=== PATIENT | male | born 1990 | race Caucasian/White ===

== ENCOUNTER → 2020-03-31 11:36 | Outpatient (BNVA) | payer MEDICARE, SELFPAY | PROVIDERS: PCP Nurse Practitioner Family; Referring Provider Nurse Practitioner Family; Visit Provider Nurse Practitioner Gerontology | DX: E11.65 Type 2 diabetes mellitus with hyperglycemia (principal); E11.42 Type 2 diabetes mellitus with diabetic polyneuropathy; Z79.4 Long term (current) use of insulin; I10 Essential (primary) hypertension; E66.09 Other obesity due to excess calories; Z68.41 Body mass index [BMI] 40.0-44.9, adult; R11.0 Nausea | CPT/HCPCS: 82947; 99212 ==

== ENCOUNTER → 2020-05-16 09:39 | Outpatient (BNVA) | payer MEDICARE, SELFPAY | PROVIDERS: PCP Nurse Practitioner Family; Visit Provider Nurse Practitioner Gerontology | DX: Z13.89 Encounter for screening for other disorder (principal) | CPT/HCPCS: Q3014 ==

== ENCOUNTER → 2020-06-21 11:06 | Outpatient (BNVA) | payer MEDICARE, SELFPAY | PROVIDERS: PCP Nurse Practitioner Family; Visit Provider Dietitian, Registered ==

== ENCOUNTER 2020-07-10 20:57 | Emergency (ER) | payer MEDICARE, SELFPAY ==
--- NOTE | ~2020-07-10 | XR_ITS ---
EXAMINATION: XR HAND, RIGHT CLINICAL INFORMATION: Hand pain. Punched wall. COMPARISON: None TECHNIQUE: PA, lateral, and oblique views of the right hand. FINDINGS: There is no fracture or dislocation. Alignment is anatomic. Joint spaces are maintained. The soft tissues are unremarkable. XR/XR hand RT min 3V IMPRESSION: No fracture or malalignment.
[2020-07-10 21:25] VITALS: BP 151/93; PULSE 112; RESP 20; TEMP 36.6; O2SAT 97; BMI 38.1
--- NOTE | 2020-07-11 01:03 | ED.EXTPRO ---
HPI - Extremity Problem General Chief complaint: Extremity Injury, Upper Stated complaint: hand injury Time Seen by Provider: 07/10/20 23:46 Source: patient and other (Caregiver) Mode of arrival: ambulatory Limitations: other (Academic impairment) History of Present Illness HPI Narrative: 30-year-old male with past medical history of academic impairment, type 2 diabetes insulin-dependent, hypertension, hyperlipidemia, morbid obesity presents with pain to the right hand after punching a closet door and a metal safe. Patient states that he was angry and did not know what to do with his frustration. He says it is hard to move his hand but does not report any wrist pain, elbow pain, or shoulder pain. MD Complaint: extremity pain and extremity swelling Onset (ago): hour(s) (Within the hour of arrival) Pain Consistency: constant Location: right Severity scale (1-10): 6 Quality: aching Exacerbating factors: range of motion Associated symptoms: denies other symptoms Related Data Home Medications Medication Instructions Recorded Confirmed fluoxetine 20 mg capsule 20 mg PO DAILY 03/02/20 05/16/20 insulin aspart U-100 100 unit/mL 8 - 12 unit SUBCUT TID ml 03/31/20 05/16/20 (3 mL) subcutaneous pen polyethylene glycol 3350 17 g PO 03/31/20 05/16/20 gram/dose oral powder acetaminophen 325 mg tablet 325 mg PO tab 05/16/20 05/16/20 benztropine 0.5 mg tablet 0.5 mg PO DAILY 05/16/20 05/16/20 chlorpromazine 100 mg tablet 100 mg PO TID 05/16/20 05/16/20 clonazepam 1 mg tablet 1 mg PO DAILY 05/16/20 05/16/20 Previous Rx's Medication Instructions Recorded blood sugar diagnostic #10 ea 03/02/20 pen needle, diabetic 32 gauge x 1 ea MISCELLANEOUS TID 30 Days 03/07/20 #100 cap insulin glargine 100 unit/mL (3 28 unit SUBCUT DAILY 30 Days #15 ml 03/22/20 mL) subcutaneous pen atorvastatin 80 mg tablet 80 mg PO BEDTIME #30 tab 04/11/20 levothyroxine 125 mcg tablet 62.5 mcg PO QAM #14 tab 05/01/20 Riomet 500 mg/5 mL oral solution 1,000 mg PO BID 90 Days ml NS 05/18/20 multivitamin 1 tab PO BEDTIME #28 tab 05/19/20 epinephrine 0.3 mg/0.3 mL 0.3 mg IM ONCE PRN #2 ea 05/29/20 injection, auto-injector bismuth subsalicylate 262 mg/15 mL 524 mg PO Q1H PRN 30 Days #1200 ml 06/07/20 oral suspension calcium carbonate-vitamin D3 600 2 tab PO BEDTIME #56 tab 06/24/20 mg (1,500 mg)-800 unit tablet divalproex 500 mg tablet,delayed 1,500 mg PO BID 30 Days #90 tab 06/24/20 release lisinopril 5 mg tablet 5 mg PO QAM #28 tab 06/24/20 loratadine 10 mg tablet 10 mg PO BEDTIME #28 tab 06/24/20 blood sugar diagnostic 1 strip MISCELLANEOUS TID #50 strip 07/05/20 diclofenac sodium 75 mg 75 mg PO BID #60 tab 07/05/20 tablet,delayed release Allergies Allergy/AdvReac Type Severity Reaction Status Date / Time bee pollen [BEE STINGS] Allergy Unknown UNKNOWN Verified 05/16/20 10:55 carbamazepine [From TEGRETOL] Allergy Unknown UNKNOWN Verified 05/16/20 10:55 clindamycin [CLINDAMYCIN] Allergy Unknown UNKNOWN Verified 05/16/20 10:55 nortriptyline [Pamelor] Allergy Unknown Unknown Verified 05/16/20 10:55 risperidone [From RISPERDAL] Allergy Unknown UNKNOWN Verified 05/16/20 10:55 Sulfa (Sulfonamide Allergy Unknown UNKNOWN Verified 05/16/20 10:55 Antibiotics) [SULFA (SULFONAMIDE ANTIBIOTICS)] Sulfacet-R Allergy Unknown Unknown Verified 05/16/20 10:55 sulfamethoxazole Allergy Unknown UNKNOWN Verified 05/16/20 10:55 [From BACTRIM] trimethoprim [From BACTRIM] Allergy Unknown UNKNOWN Verified 05/16/20 10:55 lactose AdvReac Intermediate Diarrhea Verified 06/23/20 08:48 Review of Systems Review of Systems: Constitutional: No Fever, No Chills ENT/Mouth: No Ear Pain, No Hoarseness, No sore throat Eyes: No Eye Pain, No Swelling, No Redness, No Foreign Body Cardiovascular: No Chest Pain, No SOB Respiratory: No Cough, No Dyspnea Gastrointestinal: No Nausea, No Vomiting, No Diarrhea, No abdominal Pain Genitourinary: No Dysuria, No Hematuria Musculoskeletal: positive right hand pain, No Myalgias, No Joint Swelling Skin: No Skin lacerations, No rash Neuro: No Weakness, No Numbness, No Paresthesias, No Loss of Consciousness, No Dizziness, No Headache Psych: No Anxiety/Panic, No Depression Heme/Lymph: no easy bruising, no Lymphadenopathy Endocrine: No Polyuria, No Polydipsia Yes all other systems are reviewed and are negative [facility] [place] Past Medical History Attestation statement: The following information was validated with the patient. Medical History Diabetes Essential hypertension Gout Hyperlipidemia LDL goal <100 Kidney stones Obesity due to excess calories Seizure disorder Sinusitis nasal Type 2 diabetes mellitus with diabetic polyneuropathy Type 2 diabetes mellitus with hyperglycemia, with long-term current use of insulin Surgical History History of foot surgery History of spinal surgery History of surgery of head Family History Family History Father Medical history unknown Mother No problems noted. Family/Other FH: mental illness Social History Social History Advance Directives: No Advance Directives Information Provided: No Physical Exam Vital Signs: Vital Signs: Last Vital Signs Temp 97.8 F 07/10/20 21:25 Pulse 112 H 07/10/20 21:25 Resp 16 07/11/20 01:06 BP 151/93 H 07/10/20 21:25 Pulse Ox 98 07/11/20 01:06 Body Mass Index 38.1 Appearance: Alert. Oriented X3. No acute distress. Eyes: Pupils equal, round and reactive to light. ENT: Pharynx normal. Neck: Normal inspection. Neck supple. CVS: Normal heart rate and rhythm. Pulses normal. Respiratory: No respiratory distress. Breath sounds normal. Abdomen: Soft and nontender. Skin: Skin warm and dry. Normal skin color. Normal skin turgor. Extremities: No lower extremity edema. Full range of motion to all extremities, full range of motion to all digits brisk capillary refill to all fingers, no indication of tendon injury. Able to pronate, supinate, abduct and adduct without difficulty. Tenderness to palpation to the knuckles. No tenderness to the snuffbox. Neuro: No motor deficit. No sensory deficit. Course Course Course Narrative: 30-year-old male presents with injury to the right hand after punching a closet door and a small metal safe. Patient does have full range of motion, no indication of tendon injury, no bruising noted but there is a small amount of swelling to the MCP joints. Plan of care is for x-ray X-rays negative for acute findings. Plan of care is to discharge home with Tylenol, Motrin and ice as needed. Instructions given to caregiver, both caregiver and patient verbalized understanding of and agrees to plan of care discharge home. MDM - Extremity (Nontraumatic) MDM Narrative Medical decision making narrative: Contusion, dislocation, hand fracture Medical Records Attestation: I reviewed the patient's medical records. Imaging Data Right hand x-ray: Attestation: I personally reviewed and interpreted this imaging study as follows: Radiologist's impression: EXAMINATION: XR HAND, RIGHT CLINICAL INFORMATION: Hand pain. Punched wall. COMPARISON: None TECHNIQUE: PA, lateral, and oblique views of the right hand. FINDINGS: There is no fracture or dislocation. Alignment is anatomic. Joint spaces are maintained. The soft tissues are unremarkable. XR/XR hand RT min 3V IMPRESSION: No fracture or malalignment. Discharge Plan Discharge Clinical Impression: Contusion of hand Qualifiers: Encounter type: initial encounter Laterality: right Qualified Code(s): S60.221A - Contusion of right hand, initial encounter Patient Disposition: Home, Self-Care Instructions: Hematoma (ED) Additional Instructions: You were evaluated for injury sustained to your right hand after punching a wall. Please do not punch reyez. Maybe consider doing pushups or sit-ups to help with your frustrations. Your x-rays are negative for fracture. You may consider taking Tylenol and Motrin as needed for pain management. Thank you for choosing this emergency department for evaluation. Please follow-up with primary care physician as needed. Return to the emergency department for any new, concerning, or worsening symptoms. Prescriptions: No Action pen needle, diabetic [Easy Comfort Pen [place]] 32 gauge x 5/32 needle 1 ea miscellaneous TID 30 Days Qty: 100 RF: 8 Lantus Solostar U-100 Insulin 100 unit/mL (3 mL) insulin pen 28 unit subcut DAILY 30 Days Qty: 15 RF: 1 atorvastatin 80 mg tablet 80 mg PO BEDTIME Qty: 30 RF: 3 levothyroxine 125 mcg tablet 62.5 mcg PO QAM Qty: 14 RF: 3 metformin [Riomet] 500 mg/5 mL solution 1,000 mg PO BID 90 Days RF: 1 multivitamin Tablet 1 tab PO BEDTIME Qty: 28 RF: 0 epinephrine 0.3 mg/0.3 mL auto-injector 0.3 mg IM ONCE PRN (Reason: for allergies) Qty: 2 RF: 0 bismuth subsalicylate [Pepto-Bismol] 262 mg/15 mL suspension 524 mg PO Q1H PRN (Reason: diarrhea) 30 Days Qty: 1200 RF: 0 loratadine 10 mg tablet 10 mg PO BEDTIME Qty: 28 RF: 0 calcium carbonate-vitamin D3 600 mg(1,500mg) -800 unit tablet 2 tab PO BEDTIME Qty: 56 RF: 0 lisinopril 5 mg tablet 5 mg PO QAM Qty: 28 RF: 3 divalproex 500 mg tablet,delayed release (DR/EC) 1,500 mg PO BID 30 Days Qty: 90 RF: 3 diclofenac sodium 75 mg tablet,delayed release (DR/EC) 75 mg PO BID Qty: 60 RF: 0 FreeStyle Lite Strips Strip 1 strip miscellaneous TID Qty: 50 RF: 0 fluoxetine 20 mg capsule 20 mg PO DAILY RF: 0 (DME) Accutrend Glucose test strips Strip See Rx Instructions .ROUTE .MEDSUPPLY Qty: 10 RF: 0 polyethylene glycol 3350 17 gram/dose powder PO RF: 0 insulin aspart U-100 [Novolog Flexpen U-100 Insulin] 100 unit/mL (3 mL) insulin pen 8 - 12 unit subcut TID RF: 0 acetaminophen 325 mg tablet 325 mg PO RF: 0 chlorpromazine 100 mg tablet 100 mg PO TID RF: 0 benztropine 0.5 mg tablet 0.5 mg PO DAILY RF: 0 clonazepam 1 mg tablet 1 mg PO DAILY RF: 0 Interventions: ED Discharge Assessment Last Done: 07/11/20 01:17 Discharge Date/Time: 07/11/20 01:19
[2020-07-11 01:06] VITALS: RESP 16; O2SAT 98
== END 2020-07-11 01:19 | disposition home or self-care (01) ==
PROVIDERS: Emergency Provider Emergency Medicine; PCP Internal Medicine
DX: S60.221A Contusion of right hand, initial encounter (principal); W22.09XA Striking against other stationary object, initial encounter; E11.9 Type 2 diabetes mellitus without complications; I10 Essential (primary) hypertension; E78.5 Hyperlipidemia, unspecified; E66.01 Morbid (severe) obesity due to excess calories; Y93.89 Activity, other specified; Y92.009 Unspecified place in unspecified non-institutional (private) residence as the place of occurrence of the external cause; Y99.9 Unspecified external cause status; Z79.899 Other long term (current) drug therapy; Z79.4 Long term (current) use of insulin
CPT/HCPCS: 73130; 82947; 99212; 99284

== ENCOUNTER → 2020-08-22 13:02 | Outpatient (BNVA) | payer MEDICARE, SELFPAY | PROVIDERS: PCP Internal Medicine; Visit Provider Nurse Practitioner Gerontology | DX: E11.65 Type 2 diabetes mellitus with hyperglycemia (principal); E11.42 Type 2 diabetes mellitus with diabetic polyneuropathy; Z79.4 Long term (current) use of insulin; I10 Essential (primary) hypertension; E66.01 Morbid (severe) obesity due to excess calories; Z68.41 Body mass index [BMI] 40.0-44.9, adult | CPT/HCPCS: 82947; 99212 ==

== ENCOUNTER 2020-09-07 10:00 | Outpatient (REF) | payer MEDICARE, SELFPAY ==
[2020-09-07 10:48] LABS: MANUAL DIFF FLAG NO
[2020-09-07 10:53] LABS: Basophils Percent Auto 0.4 % (0-2); Eosinophils Absolute Auto 0.2 X10*3/uL (0.0-0.4); Eosinophils Percent Auto 2.9 % (0-4); Hematocrit 45.6 % (42-52); Hemoglobin 15.3 g/dl (14.0-18.0); Imm Gran Abs Auto 0.03 X10*3/uL (0.00-0.03); Imm Gran Pct Auto 0.4 % (0.0-0.4); Lymphocytes Absolute Auto 3.5 X10*3/uL (1.2-4.9); Lymphocytes Percent Auto 42.9 % (20-40); Mean Corpuscular HGB Conc 33.6 g/dl (31.0-36.0); Mean Corpuscular Volume 86.5 fL (80-98); Mean Platelet Volume 10.7 fL (9.4-12.4); Monocytes Absolute Auto 0.5 X10*3/uL (0.1-1.2); Monocytes Percent Auto 6.3 % (2-11); Neutrophils Absolute Auto 3.9 X10*3/uL (2.0-8.3); Neutrophils Percent Auto 47.1 % (45-73); Platelet Count 230 X10*3/uL (160-400); Red Blood Count 5.27 X10*6/uL (4.60-5.80); White Blood Count 8.2 X10*3/uL (4.8-10.8)
[2020-09-07 11:06] LABS: Estimated Average Glucose 154 mg/dL
[2020-09-07 11:16] LABS: Anion Gap 17 (12-20); Blood Urea Nitrogen 7 mg/dL (9-16); Calcium 9.5 mg/dL (8.4-10.2); Carbon Dioxide 23 mmol/L (22-29); Chloride 101 mmol/L (96-108); Cholesterol 226 mg/dL; Estimated Glomerular Filt Rate > 60; Glucose Fasting 175 mg/dL (60-99); HDL Cholesterol 26 mg/dL; LDL Cholesterol Calculated 136 mg/dl; Potassium 4.6 mmol/L (3.3-5.1); Sodium 136 mmol/L (135-145); Triglycerides 322 mg/dL
== END 2020-09-07 10:01 | disposition home or self-care (01) ==
LOC: HO.LAB 10:00
PROVIDERS: Visit Provider Nurse Practitioner Family
DX: E11.9 Type 2 diabetes mellitus without complications (principal)
CPT/HCPCS: 36415; 80048; 80061; 83036; 85025

== ENCOUNTER → 2020-11-01 13:34 | Outpatient (BNVA) | payer MEDICARE, SELFPAY | PROVIDERS: PCP Internal Medicine; Visit Provider Dietitian, Registered | DX: E11.65 Type 2 diabetes mellitus with hyperglycemia (principal); Z79.4 Long term (current) use of insulin | CPT/HCPCS: 97803 ==

== ENCOUNTER 2020-11-23 13:05 | Outpatient (REF) | payer MEDICARE, SELFPAY ==
[2020-11-24 15:31] LABS: Microalbum/Creatinine Ratio Ur 1183.2 ug/mg cr
== END 2020-11-23 13:06 | disposition home or self-care (01) ==
LOC: HO.LNP 13:05
PROVIDERS: PCP Internal Medicine; Visit Provider Nurse Practitioner Gerontology
DX: E11.65 Type 2 diabetes mellitus with hyperglycemia (principal); E11.42 Type 2 diabetes mellitus with diabetic polyneuropathy; I10 Essential (primary) hypertension; E66.01 Morbid (severe) obesity due to excess calories; Z68.41 Body mass index [BMI] 40.0-44.9, adult; R31.9 Hematuria, unspecified; E78.5 Hyperlipidemia, unspecified; Z79.4 Long term (current) use of insulin; Z71.3 Dietary counseling and surveillance
CPT/HCPCS: 82043; 82947; 99212

== ENCOUNTER → 2021-01-02 11:15 | Outpatient (BNVA) | payer MEDICARE, SELFPAY | PROVIDERS: PCP Internal Medicine | DX: N39.0 Urinary tract infection, site not specified (principal) | CPT/HCPCS: 99202 ==

== ENCOUNTER → 2021-01-26 12:53 | Outpatient (BNVA) | payer MEDICARE, SELFPAY | PROVIDERS: PCP Internal Medicine; Referring Provider Physician Assistant; Visit Provider Internal Medicine | DX: R00.0 Tachycardia, unspecified (principal); R06.02 Shortness of breath; E66.01 Morbid (severe) obesity due to excess calories; E11.8 Type 2 diabetes mellitus with unspecified complications; Z68.41 Body mass index [BMI] 40.0-44.9, adult | CPT/HCPCS: 93005; 99202 ==

== ENCOUNTER 2021-03-01 13:32 | Outpatient (REF) | payer OTHER, SELFPAY ==
--- NOTE | ~2021-03-01 | XR_ITS ---
EXAMINATION: XR ABDOMEN KUB CLINICAL INDICATION: Type 2 diabetes with unspecified complications. COMPARISON: None TECHNIQUE: AP views of the abdomen. FINDINGS: Nonobstructive bowel gas pattern. No radiopaque renal stone. No acute osseous abnormality. XR/XR KUB IMPRESSION: Unremarkable examination.
[2021-03-01 15:59] LABS: Creatinine Urine 155.76 mg/dL; Microalbum/Creatinine Ratio Ur 654.8 ug/mg cr
== END 2021-03-01 13:33 | disposition home or self-care (01) ==
LOC: HO.LAB 13:32
PROVIDERS: PCP Physician Assistant; Visit Provider Physician Assistant
DX: E11.8 Type 2 diabetes mellitus with unspecified complications (principal)
CPT/HCPCS: 74018; 82043

== ENCOUNTER → 2021-03-02 13:45 | Outpatient (BNVA) | payer OTHER, SELFPAY | PROVIDERS: PCP Internal Medicine; Visit Provider Dietitian, Registered | DX: E11.65 Type 2 diabetes mellitus with hyperglycemia (principal); E11.42 Type 2 diabetes mellitus with diabetic polyneuropathy; E78.5 Hyperlipidemia, unspecified; M10.9 Gout, unspecified; E66.01 Morbid (severe) obesity due to excess calories; Z68.39 Body mass index [BMI] 39.0-39.9, adult; Z88.2 Allergy status to sulfonamides; Z88.8 Allergy status to other drugs, medicaments and biological substances; Z91.030 Bee allergy status; Z91.011 Allergy to milk products; Z79.4 Long term (current) use of insulin; Z71.3 Dietary counseling and surveillance | CPT/HCPCS: 97803 ==

== ENCOUNTER 2021-03-18 14:34 | Emergency (ER) | payer OTHER, SELFPAY ==
--- NOTE | ~2021-03-18 | CT_ITS ---
EXAMINATION: CT ABDOMEN AND PELVIS WITHOUT CONTRAST CLINICAL INFORMATION: Hematuria, history of stone COMPARISON: Abdominal x-ray on 03/01/2021 TECHNIQUE: Multidetector volumetric imaging was performed from the superior aspect of the liver through the pubic symphysis. Sagittal and coronal reformatted images were obtained on the technologist's workstation. This CT examination was performed using dose optimization techniques as appropriate, variously including the following: *Automated exposure control *Adjustment of mA and/or kV according to patient size (this includes techniques or standardized protocols for targeted exams where dose is matched to indication/reason for exam; i.e. extremities or head) *Use of iterative reconstruction technique DLP: 1219 mGy-cm FINDINGS: LUNG BASES: The visualized lung bases are unremarkable. LIVER, GALLBLADDER, AND BILIARY TREE: The liver is normal in size, shape, and attenuation. No focal hepatic lesion or biliary ductal dilatation is present. The gallbladder is unremarkable with no evidence of radiopaque gallstones, gallbladder wall thickening, or obvious pericholecystic inflammatory changes. PANCREAS: Unremarkable. SPLEEN: Unremarkable. ADRENAL GLANDS: Unremarkable. KIDNEYS AND URETERS: The kidneys are normal in size, shape, and attenuation. No hydronephrosis, hydroureter, or calculi seen. No perinephric stranding. BLADDER: Unremarkable. GASTROINTESTINAL TRACT: The small and large bowel are unremarkable. The appendix is unremarkable. ABDOMINAL WALL: No significant hernia is appreciated. LYMPH NODES: Multiple small right lower quadrant mesenteric lymph nodes. VASCULAR: Unremarkable. PELVIC VISCERA: Unremarkable. OSSEOUS STRUCTURES: Unremarkable. CT/CT abdomen pelvis wo con IMPRESSION: 1. No renal calculi. 2. Multiple small right lower quadrant mesenteric lymph nodes may be secondary to mesenteric adenitis.
[2021-03-18 14:56] VITALS: BP 158/95; PULSE 112; RESP 20; TEMP 36.7; O2SAT 98; BMI 38.0
[2021-03-18 15:16] LABS: Appearance Urine CLOUDY; Color Urine YELLOW; Glucose Urine UA 500 MG/DL (NEG); Leukocyte Esterase Urine NEG (NEG); Nitrite Urine NEG (NEG); Specific Gravity - Urine >= 1.030 (1.005-1.025); Urine Blood 3+ (NEG); Urine Ketones 15 MG/DL (NEG); Urine Protein 3+ MG/DL (NEG-TRACE)
[2021-03-18 15:30] LABS: RBC Urine TNTC /HPF (0); Squamous Epithelial Cell Urine TRACE /LPF
[2021-03-18 15:31] LABS: Bacteria Urine TRACE /LPF; Mucus Urine 2+ /LPF
--- NOTE | 2021-03-18 18:07 | ED_ITS ---
HPI - Male Genitourinary General Chief complaint: Urogenital-Male Stated complaint: Kidney stones? Blood in urine Time Seen by Provider: 03/18/21 17:56 Related Data Home Medications Medication Instructions Recorded Confirmed fluoxetine 20 mg capsule 20 mg PO DAILY 03/02/20 03/01/21 benztropine 0.5 mg tablet 0.5 mg PO DAILY 05/16/20 03/01/21 clonazepam 1 mg tablet 1 mg PO DAILY 05/16/20 03/01/21 chlorpromazine 100 mg tablet 100 mg PO TID tab 11/16/20 03/01/21 Previous Rx's Medication Instructions Recorded blood sugar diagnostic (Accutrend #10 ea 03/02/20 Glucose test strips) naproxen 500 mg tablet 500 mg PO BID PRN #30 tab 07/13/20 albuterol sulfate 90 mcg/actuation 2 inh INHALATION Q4H PRN #8.5 g 08/12/20 aerosol inhaler (Ventolin HFA) polyethylene glycol 3350 17 1 g PO DAILY PRN #238 g 09/30/20 gram/dose oral powder lactase 9,000 unit tablet (Lactaid 9,000 unit PO QID PRN 30 Days #90 10/31/20 Fast Act) tab acetaminophen 325 mg tablet 325 mg PO Q4H PRN #100 tab 11/18/20 lancets 28 gauge (FreeStyle 28 gauge TOPICAL TID #100 cap 11/18/20 Lancets) bismuth subsalicylate 262 mg/15 mL 524 mg PO Q1H PRN 30 Days #1200 ml 11/21/20 oral suspension (Pepto-Bismol) insulin aspart U-100 100 unit/mL 10 - 16 unit SUBCUT TID 30 Days 11/23/20 (3 mL) subcutaneous pen (Novolog #15 ml Flexpen U-100 Insulin aspart) rosuvastatin 40 mg tablet (Crestor) 40 mg PO DAILY #30 tab 11/23/20 multivitamin 1 tab PO DAILY #90 tab 11/24/20 Riomet 500 mg/5 mL oral solution 1,000 mg PO BID 90 Days #1800 ml NS 12/07/20 (metformin) flash glucose scanning reader #1 ea 12/26/20 (FreeStyle Jaimie 2 [place]) calcium carbonate-vitamin D3 600 1 tab PO BEDTIME #90 tab 01/05/21 mg (1,500 mg)-800 unit tablet levothyroxine 125 mcg tablet 62.5 mcg PO QAM #90 tab 01/05/21 pantoprazole 40 mg tablet,delayed 40 mg PO DAILY #90 tab 01/05/21 release pen needle, diabetic 32 gauge x 1 ea MISCELLANEOUS TID 90 Days 01/08/21 5/32 (Easy Comfort Pen [place]) #400 ea flash glucose sensor (FreeStyle #2 ea 01/11/21 Jaimie 2 Sensor) blood sugar diagnostic (FreeStyle 1 strip MISCELLANEOUS DAILY #50 01/16/21 Lite Strips) strip epinephrine 0.3 mg/0.3 mL 0.3 mg IM ONCE PRN #2 ea 01/20/21 injection, auto-injector metoprolol succinate 25 mg 25 mg PO DAILY 30 Days #30 tab 02/01/21 tablet,extended release 24 hr lisinopril 5 mg tablet 5 mg PO QAM #90 tab 02/03/21 insulin glargine 100 unit/mL (3 30 unit SUBCUT DAILY 30 Days #9 ml 02/13/21 mL) subcutaneous pen (Lantus Solostar U-100 Insulin) loratadine 10 mg tablet 10 mg PO DAILY #30 tab 03/08/21 mupirocin calcium 2 % topical cream 1 appl TOPICAL BID 14 Days #30 g 03/08/21 loratadine 10 mg tablet 10 mg PO BEDTIME #28 tab 03/16/21 cefuroxime axetil 250 mg tablet 250 mg PO BID 7 Days #14 tab 03/18/21 phenazopyridine 200 mg tablet 200 mg PO TID PRN 2 Days #5 tab 03/18/21 (Pyridium) Allergies Allergy/AdvReac Type Severity Reaction Status Date / Time bee pollen [BEE STINGS] Allergy Unknown UNKNOWN Verified 03/08/21 16:10 carbamazepine [From TEGRETOL] Allergy Unknown UNKNOWN Verified 03/08/21 16:10 clindamycin [CLINDAMYCIN] Allergy Unknown UNKNOWN Verified 03/08/21 16:10 nortriptyline [Pamelor] Allergy Unknown Unknown Verified 03/08/21 16:10 risperidone [From RISPERDAL] Allergy Unknown UNKNOWN Verified 03/08/21 16:10 Sulfa (Sulfonamide Allergy Unknown UNKNOWN Verified 03/08/21 16:10 Antibiotics) [SULFA (SULFONAMIDE ANTIBIOTICS)] lactose AdvReac Intermediate Diarrhea Verified 03/08/21 16:10 [facility] Past Medical History Medical History Advance directive indicates patient wish for full code resuscitation status Diabetes Essential hypertension Gout Hyperlipidemia Hyperlipidemia LDL goal <100 Kidney stones Obesity due to excess calories Seizure disorder Sinusitis nasal Type 2 diabetes mellitus with diabetic polyneuropathy Type 2 diabetes mellitus with hyperglycemia, with long-term current use of insulin Surgical History History of foot surgery History of root canal procedure History of spinal surgery History of surgery of head Family History Family History Father Medical history unknown Lung cancer Mother Diabetes Substance abuse Family/Other FH: mental illness Social History Social History Household Members Other:: roomate Housing: Other Housing Other:: [facility] Do you presently have visiting nurse or other home services: Yes (assistance from dept of mental health services) Alcohol intake: never Patient Tobacco Use Status: Never used Tobacco e-Cigarette/Vaping Use: Never Used Second Hand Smoke Exposure: No Advance Directives: No Advance Directives Information Provided: No service: No Current occupational status: other Physical Exam Vital Signs: Vital Signs: Last Vital Signs Temp 98.1 F 03/18/21 14:56 Pulse 112 H 03/18/21 14:56 Resp 20 03/18/21 14:56 BP 158/95 H 03/18/21 14:56 Pulse Ox 98 03/18/21 14:56 Body Mass Index 38.0 Appearance: Alert. Oriented X3. No acute distress. Eyes: No pallor or icterus ENT: Pharynx normal. Oral Mucosa moist Neck: Normal inspection. Neck supple. CVS: Normal heart rate and rhythm. Pulses normal. Respiratory: No respiratory distress. Equal air entry bilateral, no wheezing/rales/rhonchi Abdomen: Soft and nontender. Bowel sounds are present, no mass palpable, no CVA tenderness Skin: Skin warm and dry. Normal skin color. Normal skin turgor. Extremities: No lower extremity edema. No calf tenderness Neuro: Oriented X 3. MDM - Male Genitourinary MDM Narrative Medical decision making narrative: Patient with hematuria at home when urine is cloudy when seen here similar history in the past possible patient has hemor rhagic cystitis will treat with Ceftin discharge him home CT scan is negative for kidney stone advised to follow with urologist as outpatient Lab Data Attestation: I reviewed the patient's lab results. Labs: Lab Results 03/18/21 03/18/21 Range/Units 15:06 18:43 POC Glucose 321 H (60-115) mg/dL Urine Color YELLOW Urine Appearance CLOUDY Urine pH 6.0 (5.0-8.0) Ur Specific [place] >= 1.030 H (1.005-1.025) Urine Protein 3+ H (NEG-TRACE) MG/DL Urine Glucose (UA) 500 H (NEG) MG/DL Urine Ketones 15 (NEG) MG/DL Urine Blood 3+ H (NEG) Urine Nitrite NEG (NEG) Ur Leukocyte Esterase NEG (NEG) Urine RBC TNTC H (0) /HPF Urine WBC 15-29 H (0-4) /HPF Ur Squamous Epith Cells TRACE /LPF Urine Bacteria TRACE /LPF Urine Mucus 2+ /LPF Discharge Plan Discharge Clinical Impression: Hematuria Qualifiers: Hematuria type: gross Qualified Code(s): R31.0 - Gross hematuria Patient Disposition: Home, Self-Care Instructions: Hematuria (ED) Additional Instructions: Your urine showed blood although there is no signs of infection will give antibiotic prophylactically until culture results come back Your CT scan did not show any kidney stone Follow the PCP/urologist if blood in urine continues Drink plenty of fluids and take insulin as prescribed Prescriptions: New cefuroxime axetil 250 mg tablet 250 mg PO BID 7 Days Qty: 14 RF: 0 phenazopyridine [Pyridium] 200 mg tablet 200 mg PO TID PRN (Reason: pain) 2 Days Qty: 5 RF: 0 No Action albuterol sulfate [Ventolin HFA] 90 mcg/actuation HFA aerosol inhaler 2 inh inhalation Q4H PRN (Reason: shortness of breath or wheezing) Qty: 8.5 RF: 1 polyethylene glycol 3350 17 gram/dose powder 1 g PO DAILY PRN (Reason: for constipation) Qty: 238 RF: 0 lancets [FreeStyle Lancets] 28 gauge misc 28 gauge topical TID Qty: 100 RF: 12 acetaminophen 325 mg tablet 325 mg PO Q4H PRN (Reason: for fever) Qty: 100 RF: 0 bismuth subsalicylate [Pepto-Bismol] 262 mg/15 mL suspension 524 mg PO Q1H PRN (Reason: diarrhea) 30 Days Qty: 1200 RF: 1 multivitamin Tablet 1 tab PO DAILY Qty: 90 RF: 3 metformin [Riomet] 500 mg/5 mL solution 1,000 mg PO BID 90 Days Qty: 1800 RF: 3 (DME) FreeStyle Jaimie 2 [place] Misc See Rx Instructions .ROUTE .MEDSUPPLY Qty: 1 RF: 0 levothyroxine 125 mcg tablet 62.5 mcg PO QAM Qty: 90 RF: 1 calcium carbonate-vitamin D3 600 mg(1,500mg) -800 unit tablet 1 tab PO BEDTIME Qty: 90 RF: 1 pantoprazole 40 mg tablet,delayed release (DR/EC) 40 mg PO DAILY Qty: 90 RF: 1 pen needle, diabetic [Easy Comfort Pen [place]] 32 gauge x 5/32 needle 1 ea miscellaneous TID 90 Days Qty: 400 RF: 4 (DME) FreeStyle Jaimie 2 Sensor Kit See Rx Instructions .ROUTE .MEDSUPPLY Qty: 2 RF: 11 FreeStyle Lite Strips Strip 1 strip miscellaneous DAILY Qty: 50 RF: 1 epinephrine 0.3 mg/0.3 mL auto-injector 0.3 mg IM ONCE PRN (Reason: for allergies) Qty: 2 RF: 0 metoprolol succinate 25 mg tablet extended release 24 hr 25 mg PO DAILY 30 Days Qty: 30 RF: 3 lisinopril 5 mg tablet 5 mg PO QAM Qty: 90 RF: 1 Lantus Solostar U-100 Insulin 100 unit/mL (3 mL) insulin pen 30 unit subcut DAILY 30 Days Qty: 9 RF: 2 loratadine 10 mg tablet 10 mg PO BEDTIME Qty: 28 RF: 3 Lactaid Fast Act 9,000 unit tablet 9,000 unit PO QID PRN (Reason: lactose intolerance) 30 Days Qty: 90 RF: 0 fluoxetine 20 mg capsule 20 mg PO DAILY RF: 0 (DME) Accutrend Glucose test strips Strip See Rx Instructions .ROUTE .MEDSUPPLY Qty: 10 RF: 0 naproxen 500 mg tablet 500 mg PO BID PRN (Reason: pain) Qty: 30 RF: 0 chlorpromazine 100 mg tablet 100 mg PO TID RF: 0 mupirocin calcium 2 % cream 1 appl topical BID 14 Days Qty: 30 RF: 0 loratadine 10 mg tablet 10 mg PO DAILY Qty: 30 RF: 0 benztropine 0.5 mg tablet 0.5 mg PO DAILY RF: 0 clonazepam 1 mg tablet 1 mg PO DAILY RF: 0 insulin aspart U-100 [Novolog Flexpen U-100 Insulin] 100 unit/mL (3 mL) insulin pen 10 - 16 unit subcut TID 30 Days Qty: 15 RF: 2 rosuvastatin [Crestor] 40 mg tablet 40 mg PO DAILY Qty: 30 RF: 6 Referrals: Chucky Abernathy MD [Physician] - 1 week
[2021-03-18 18:51] LABS: Glucose, Whole Blood 321 mg/dL (60-115)
[2021-03-18] MEDS: Phenazopyridine HCL 200 MG TABLET PO (19:25)
== END 2021-03-18 19:43 | disposition home or self-care (01) ==
PROVIDERS: Emergency Provider Internal Medicine
DX: R31.0 Gross hematuria (principal); R10.9 Unspecified abdominal pain; Z79.899 Other long term (current) drug therapy
CPT/HCPCS: 74176; 81001; 82947; 99284

== ENCOUNTER → 2021-03-21 12:06 | Outpatient (BNVA) | payer OTHER, SELFPAY | PROVIDERS: PCP Physician Assistant; Visit Provider Nurse Practitioner Gerontology | DX: E11.65 Type 2 diabetes mellitus with hyperglycemia (principal); E11.42 Type 2 diabetes mellitus with diabetic polyneuropathy; E66.01 Morbid (severe) obesity due to excess calories; E78.5 Hyperlipidemia, unspecified; I10 Essential (primary) hypertension; R80.9 Proteinuria, unspecified; Z79.4 Long term (current) use of insulin; Z68.36 Body mass index [BMI] 36.0-36.9, adult | CPT/HCPCS: 82947; 99212 ==

== ENCOUNTER → 2021-04-10 10:34 | Outpatient (REF) | payer OTHER, SELFPAY ==
--- NOTE | 2021-04-10 10:41 | HM_ITS ---
Conclusion: 1. Patient was monitored for total period of 4 days and 1 hour 2. Baseline was normal sinus rhythm with average heart rate of 96 beats per minute. 3. Frequent sinus tachycardia, with 35% of the time heart rate greater than 100 beats per minute 4. Rare ectopy 5. No patient reported events MTDD
--- NOTE | 2021-04-10 10:41 | CA_ITS ---
Transthoracic Echocardiogram Patient (Last, First, Middle): Tobias Francis, Gender: Male Date of : 1990 Age: 31 Procedure Date: 04/10/2021 Procedure Type: Transthoracic Echocardiogram Location: OP Height: 193.04 cm Weight: 133.81 kg BSA: 2.61 m2 Heart Rate: bpm BP: 145 / 100 mmHg Senior Energy Analyst: JEFF/HESHAM Referring MD: Senthil Ch MD Local Telephone Operator: Misael Larson MD Symptoms: R00.0 - Tachycardia, unspecified Study Quality: Technically Difficult ECG Rhythm: Sinus tachycardia Conclusions: - 1. Technically very limited study 2. Low normal LV systolic function with LVEF of 50-55% with normal diastolic filling pattern 3. Limited visualization of cardiac valves with cardiac valvular Doppler within normal limits Findings Procedure Information The patient declines contrast. Left Ventricle Normal left ventricular cavity size. There is normal left ventricular wall thickness. The left ventricular systolic function is low normal. The visually estimated ejection fraction is between 50-55%. Regional wall motion abnormalities can not be excluded due to suboptimal endocardial definition. Spectral Doppler is indicative of a normal filling pattern. Right Ventricle The right ventricle was not well visualized. Atria The left atrium was not well visualized. Interatrial shunt cannot be excluded. The right atrium was not well visualized. Aortic Valve The aortic valve was not well visualized. There is no aortic valve stenosis. There is no aortic valve regurgitation. Mitral Valve The mitral valve was not well visualized. There is trace mitral valve regurgitation. There is no mitral valve stenosis. Pulmonic Valve The pulmonic valve was not well visualized. Tricuspid Valve The tricuspid valve was not well visualized. Tricuspid regurgitation envelope is inadequate for calculation of right ventricular systolic pressure. Great Vessels The aorta was not well visualized. The pulmonary artery was not well visualized. Venous The inferior vena cava was not well visualized. Pericardium/Pleural The pericardium was not well visualized. Prior Study Comparison No prior study available for comparison. Measurements 2D Linear Measurements IVSd: 1.11 0.6-0.9/0.6-1.0 cm LVIDd: 5.16 3.9-5.3/4.2-5.9 cm LVIDd Index: 1.98 2.4-3.2/2.2-3.1 cm/m2 LVIDs: 3.83 2.0-3.6 cm LVPWd: 1.07 0.7-1.1 cm Ao Root: 3.30 2.1-3.5 cm LA Diam: 4.10 2.7-3.8/3.0-4.0 cm LAIDs Index: 1.57 1.5-2.3 cm/m2 LV Mass: 268.38 67-162/88-224 g LV Mass Index: 102.83 43-95/49-115 g/m2 LVOT Diam: 2.30 3.0+(-)1.3 cm Mitral Valve E'Lateral: 11.70 E'Medial: 7.51 Aortic Valve AoV Pk Octavio: 1.15 AoV Mn Octavio: 0.81 AoV VTI: 0.19 AoV Pk Grad: 5.00 Aov Mn Grad: 3.00 WES Cont.VTI: 3.26 LVOT LVOT Pk Octavio: 0.88 LVOT Mn Octavio: 0.65 LVOT VTI: 0.15 LVOT Pk Grad: 3.00 LVOT Mn Grad: 2.00 LVOT Diam: 2.30 LVOT Area: 4.15 Diastolic Function E'Medial: 7.51 E' Laterial: 11.70 Right Ventricle TAPSE (mm): 2.09 TVS' Octavio: 13.90 Tricuspid Valve RA Press: 3.00 Great Vessels Aorta Ao Root-2D: 3.30 2.0-3.7 cm Ao Asc: 3.20 2.1-3.4 cm Ao Arch: 2.60 Pulmonary Valve PV Pk Octavio: 1.38 Peak PV Grad: 8.00 Updated in Other Vendor System with Status of Final Misael Larson MD electronically signed on 04/10/2021 3:52:37 PM with status of Final
== END ==
LOC: HO.CARD 10:34
PROVIDERS: Visit Provider Internal Medicine
DX: R00.0 Tachycardia, unspecified (principal)
CPT/HCPCS: 93242; 93306

== ENCOUNTER → 2021-06-28 13:54 | Outpatient (BNVA) | payer OTHER, SELFPAY | PROVIDERS: PCP Physician Assistant; Visit Provider Dietitian, Registered | DX: E11.65 Type 2 diabetes mellitus with hyperglycemia (principal); Z79.4 Long term (current) use of insulin | CPT/HCPCS: 97803 ==

== ENCOUNTER 2021-07-03 16:06 | Outpatient (REF) | payer OTHER, SELFPAY ==
--- NOTE | ~2021-07-03 | XR_ITS ---
EXAMINATION: XR LUMBOSACRAL SPINE WITH OBLIQUES CLINICAL INFORMATION: Low back pain COMPARISON: None TECHNIQUE: AP, both oblique, and lateral views of the lumbar spine. Lateral view of the lumbosacral junction. FINDINGS: Bone alignment is normal. No fracture or dislocation is seen. There is spondylosis with osteophytes at L2-L3. There is degenerative disc disease at L4-L5. There is lower lumbar spine facet arthritis. No pars defect is seen. XR/XR lumbar spine 4V min IMPRESSION: Degenerative changes.
== END 2021-07-03 16:07 | disposition home or self-care (01) ==
LOC: HO.XRAY 16:06
PROVIDERS: PCP Physician Assistant; Visit Provider Physician Assistant
DX: M54.50 Low back pain, unspecified (principal)
CPT/HCPCS: 72110

== ENCOUNTER → 2021-07-17 13:59 | Outpatient (BNVA) | payer OTHER, SELFPAY | PROVIDERS: PCP Physician Assistant; Visit Provider Nurse Practitioner Gerontology | DX: E11.65 Type 2 diabetes mellitus with hyperglycemia (principal); E11.42 Type 2 diabetes mellitus with diabetic polyneuropathy; I10 Essential (primary) hypertension; E66.01 Morbid (severe) obesity due to excess calories; Z68.35 Body mass index [BMI] 35.0-35.9, adult; E78.2 Mixed hyperlipidemia; R80.9 Proteinuria, unspecified; Z79.4 Long term (current) use of insulin | CPT/HCPCS: 82947; 83036; 99212 ==

== ENCOUNTER 2021-08-24 11:00 | Outpatient (RCR) | payer OTHER, SELFPAY ==
[2021-08-02 13:09] VITALS: BP 128/65; PULSE 130
--- NOTE | 2021-08-02 14:19 | MHC.PT.EP ---
[facility] [place] Office [place] [facility] [place] Office [address] Ashkan Bryant [address] [phone] F: [phone] F: [phone] F: [phone] F: [phone] Physical Therapy Plan of Care Date of Evaluation: Date of Surgery: NA Diagnosis: Low back pain Assessment: Steve is a 31 year old male who is referred to PT for low back pain . Pt reports of having h/o chronic back pain- pain started following a surgery over 20 years ago. On PT examination he presents with 7/10 pain at thoraco-lumbar region, TTP from T9 to L2 junction and lumbar paraspinals, decreased lumbar ROM, decreased muscle strength, altered posture, balance and gait. Due to this he has difficulty performing IADLS like cleaning, cooking and grocery. He lives in [place]. He would benefit from skilled PT to address the aformentioned impairments and improve tolerance functional activities. Frequency and Duration: The patient will be seen 2/week for 5 weeks Short Term Goals: 1. Pt will have 50% decrease in pain which will help him tolerate sitting upright for 30 minutes in 2 weeks. 2. Pt will be able to move trunk through all planes of motion with a pain no more than 2/10 in 3 weeks Shelter Goals: 1. Pt will have an increase in muscle strength by 1 grade which will enable him to participate in cleaning, cooking and grocery in 4 weeks. 2. Pt will be independent with all HEPs for symptom management and maintenance following d/c in 5 weeks. Treatment Plan: Modalities to reduce pain, spasms and effusion. Manual therapy to restore motion and function. Therapeutic exercise to improve strength and flexibility. Neuromuscular re-education for posture and balance. Therapeutic activities to return to functional activities of daily living. Electronically signed by: Louann Monsivais PT DPT Please sign and return to therapist. Thank you for your referral.
--- NOTE | 2021-09-21 11:20 | MHC.PT.DC ---
[facility] [place] Office [place] Office [place] Office [address] Ashkan Bryant [address] [phone] F: [phone] F: [phone] F: [phone] F: [phone] Physical Therapy Discharge Report Diagnosis: Low back pain Date of Surgery: NA Date of Evaluation: 08/02/21 Date of Discharge: 09/21/21 Treatments to Date: 4 Cancellations to Date: 0 No Shows to Date: 4 Discharge Status: Visit Non-compliance Discharge Summary: Steve no showed for 4 appointments and attended only 4 visits. He is therefore being d/c from non compliance. Electronically signed by: Louann Monsivais PT DPT Please sign and return to therapist. Thank you for your referral.
== END 2021-09-21 11:20 | disposition home or self-care (01) ==
LOC: HO.PT 11:00
PROVIDERS: PCP Physician Assistant; Visit Provider Physician Assistant
DX: M54.50 Low back pain, unspecified (principal)
CPT/HCPCS: 97110; 97112; 97161

== ENCOUNTER 2021-09-12 11:19 | Outpatient (REF) | payer OTHER, SELFPAY ==
--- NOTE | ~2021-09-12 | XR_ITS ---
EXAMINATION: XR ABDOMEN COMPLETE CLINICAL INDICATION: Nonobstructive gastroenteritis. COMPARISON: Previous CT of the abdomen and pelvis and KUB February 2021. TECHNIQUE: 2 views of the abdomen. FINDINGS: The bowel gas pattern is normal with no evidence of ileus or obstruction. No unusual soft tissue calcifications are noted. The bones are unremarkable. XR/XR abdomen 3V IMPRESSION: Unremarkable examination.
[2021-09-12 12:02] LABS: Hematocrit 45.9 % (42.0-52.0); Hemoglobin 15.6 g/dl (14.0-18.0); Mean Corpuscular Hemoglobin 28.9 pg (27.0-33.0); Mean Platelet Volume 10.3 fL (9.4-12.4); Platelet Count 232 X10*3/uL (160-400); Red Cell Distribution Width 13.1 % (11.0-16.0); White Blood Count 7.1 X10*3/uL (4.8-10.8)
[2021-09-12 12:34] LABS: Alanine Aminotransferase 28 U/L (0-40); Albumin Level 4.5 g/dL (3.5-5.0); Alkaline Phosphatase 60 U/L (39-117); Anion Gap 18 (12-20); Aspartate Amino Transferase 26 U/L (5-37); Bilirubin Direct < 0.2 mg/dL (0.0-0.5); Bilirubin Total 0.3 mg/dL (0.0-1.0); Blood Urea Nitrogen 11 mg/dL (9-16); Calcium 9.7 mg/dL (8.4-10.2); Carbon Dioxide 23 mmol/L (22-29); Chloride 101 mmol/L (96-108); Estimated Glomerular Filt Rate > 60; Glucose Random 176 mg/dL (60-115); Potassium 4.6 mmol/L (3.3-5.1); Sodium 137 mmol/L (135-145); Total Protein 7.4 g/dL (6.5-8.0)
== END 2021-09-12 11:20 | disposition home or self-care (01) ==
LOC: HO.LAB 11:19
PROVIDERS: PCP Physician Assistant; Visit Provider Physician Assistant
DX: K52.9 Noninfective gastroenteritis and colitis, unspecified (principal)
CPT/HCPCS: 36415; 74021; 80048; 80076; 85027

== ENCOUNTER → 2021-10-10 13:58 | Outpatient (BNVA) | payer OTHER, SELFPAY | PROVIDERS: PCP Physician Assistant; Visit Provider Nurse Practitioner Gerontology | DX: E11.65 Type 2 diabetes mellitus with hyperglycemia (principal); E11.42 Type 2 diabetes mellitus with diabetic polyneuropathy; E66.01 Morbid (severe) obesity due to excess calories; E78.2 Mixed hyperlipidemia; I10 Essential (primary) hypertension; R80.9 Proteinuria, unspecified; Z68.35 Body mass index [BMI] 35.0-35.9, adult; Z79.84 Long term (current) use of oral hypoglycemic drugs; Z79.4 Long term (current) use of insulin | CPT/HCPCS: 82947; 83036; 99212 ==

== ENCOUNTER 2021-11-03 09:40 | Outpatient (REF) | payer OTHER, SELFPAY ==
[2021-11-03 10:57] LABS: Alanine Aminotransferase 35 U/L (0-40); Albumin Level 4.5 g/dL (3.5-5.0); Alkaline Phosphatase 54 U/L (39-117); Anion Gap 16 (12-20); Aspartate Amino Transferase 27 U/L (5-37); Bilirubin Total 0.4 mg/dL (0.0-1.0); Blood Urea Nitrogen 12 mg/dL (9-16); Calcium 9.6 mg/dL (8.4-10.2); Carbon Dioxide 26 mmol/L (22-29); Chloride 102 mmol/L (96-108); Cholesterol 173 mg/dL; Estimated Glomerular Filt Rate > 60; Glucose Random 170 mg/dL (60-115); HDL Cholesterol 23 mg/dL; Potassium 4.6 mmol/L (3.3-5.1); Sodium 139 mmol/L (135-145); Triglycerides 406 mg/dL
[2021-11-03 11:09] LABS: Creatinine Urine 78.84 mg/dL
[2021-11-05 17:35] LABS: LDL Cholesterol Direct 98 mg/dL (<100)
== END 2021-11-03 09:41 | disposition home or self-care (01) ==
LOC: HO.LAB 09:40
PROVIDERS: PCP Physician Assistant; Visit Provider Nurse Practitioner Gerontology
DX: E11.42 Type 2 diabetes mellitus with diabetic polyneuropathy (principal); Z79.4 Long term (current) use of insulin
CPT/HCPCS: 36415; 80053; 80061; 82043; 83721

== ENCOUNTER → 2021-12-26 13:49 | Outpatient (BNVA) | payer OTHER, SELFPAY | PROVIDERS: PCP Physician Assistant; Visit Provider Dietitian, Registered | DX: E11.65 Type 2 diabetes mellitus with hyperglycemia (principal); Z79.4 Long term (current) use of insulin; Z71.3 Dietary counseling and surveillance | CPT/HCPCS: 97803 ==

== ENCOUNTER 2022-01-28 14:07 | Emergency (ER) | payer OTHER, SELFPAY ==
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
[2022-01-28 14:33] VITALS: PULSE 85; RESP 18; TEMP 36.6; O2SAT 98; BMI 36.9
[2022-01-28 14:46] VITALS: BP 129/75; PULSE 96; RESP 18; TEMP 36.8; O2SAT 96
[2022-01-28 15:21] LABS: COVID-19 Test Negative (Negative)
[2022-01-28 15:22] LABS: Amphetamine Screen Urine Not Detected (Not Detect); Barbiturates, Urine Not Detected (Not Detect); Benzodiazepines Screen Urine Not Detected (Not Detect); Cannabinoid Screen Urine Not Detected (Not Detect); Cocaine Screen Urine Not Detected (Not Detect); Fentanyl, urine Not Detected (Not Detect); Opiate Screen Urine Not Detected (Not Detect); Phencyclidine Screen Urine Not Detected (Not Detect)
[2022-01-28 16:41] LABS: Glucose, Whole Blood 148 mg/dL (60-115)
[2022-01-28 17:27] LABS: MANUAL DIFF FLAG NO
[2022-01-28 17:28] LABS: Basophils Percent Auto 0.2 % (0-2); Eosinophils Absolute Auto 0.2 X10*3/uL (0.0-0.4); Eosinophils Percent Auto 2.2 % (0-4); Hematocrit 45.3 % (42.0-52.0); Hemoglobin 15.3 g/dl (14.0-18.0); Imm Gran Abs Auto 0.03 X10*3/uL (0.00-0.03); Imm Gran Pct Auto 0.3 % (0.0-0.4); Lymphocytes Absolute Auto 4.6 X10*3/uL (1.2-4.9); Lymphocytes Percent Auto 47.7 % (20-40); Mean Corpuscular HGB Conc 33.8 g/dl (31.0-36.0); Mean Corpuscular Hemoglobin 28.4 pg (27.0-33.0); Mean Platelet Volume 10.2 fL (9.4-12.4); Monocytes Absolute Auto 0.6 X10*3/uL (0.1-1.2); Monocytes Percent Auto 6.5 % (2-11); Neutrophils Absolute Auto 4.2 x10*3/uL (2.0-8.3); Neutrophils Percent Auto 43.1 % (45-73); Platelet Count 218 X10*3/uL (160-400); Red Blood Count 5.39 X10*6/uL (4.60-5.80); Red Cell Distribution Width 13.7 % (11.0-16.0); White Blood Count 9.7 X10*3/uL (4.8-10.8)
[2022-01-28 17:50] LABS: Acetaminophen LAB < 1 mcg/mL (<30); Alanine Aminotransferase 25 U/L (0-40); Albumin Level 4.6 g/dL (3.5-5.0); Alkaline Phosphatase 61 U/L (39-117); Anion Gap 20 (12-20); Aspartate Amino Transferase 18 U/L (5-37); Bilirubin Total 0.2 mg/dL (0.0-1.0); Blood Urea Nitrogen 11 mg/dL (9-16); Calcium 9.4 mg/dL (8.4-10.2); Carbon Dioxide 22 mmol/L (22-29); Chloride 102 mmol/L (96-108); Creatinine Clr Calc Pharmacy 197.1; Estimated Glomerular Filt Rate > 60; Ethanol < 10 mg/dL; Glucose Random 178 mg/dL (60-115); Potassium 4.4 mmol/L (3.3-5.1); Salicylate < 5.0 mg/dL (15-30); Sodium 140 mmol/L (135-145); Total Protein 7.3 g/dL (6.5-8.0)
[2022-01-28 17:54] LABS: Valproate 60.3 mcg/mL (50.0-100.0)
== END 2022-01-28 21:35 | disposition home or self-care (01) ==
PROVIDERS: Physician Assistant Medical; Emergency Provider Emergency Medicine; PCP Physician Assistant
DX: F41.1 Generalized anxiety disorder (principal); F43.0 Acute stress reaction; Z79.899 Other long term (current) drug therapy; Z20.822 Contact with and (suspected) exposure to COVID-19
CPT/HCPCS: 36415; 80053; 80143; 80164; 80179; 80307; 82077; 82947; 85025; 87635; 99283

== ENCOUNTER 2022-02-20 16:50 | Outpatient (REF) | payer OTHER, SELFPAY ==
--- NOTE | ~2022-02-20 | XR_ITS ---
EXAMINATION: XR ABDOMEN KUB CLINICAL INDICATION: Diarrhea COMPARISON: X-ray the abdomen August 2021 TECHNIQUE: AP view of the abdomen. FINDINGS: The bowel gas pattern is normal with no evidence of ileus or obstruction. No unusual soft tissue calcifications are noted. The bones are unremarkable. XR/XR KUB IMPRESSION: Unremarkable examination.
[2022-02-20 18:12] LABS: Anion Gap 17 (12-20); Blood Urea Nitrogen 11 mg/dL (9-16); Calcium 9.6 mg/dL (8.4-10.2); Carbon Dioxide 28 mmol/L (22-29); Chloride 98 mmol/L (96-108); Estimated Glomerular Filt Rate > 60; Glucose Random 125 mg/dL (60-115); Potassium 4.5 mmol/L (3.3-5.1); Sodium 138 mmol/L (135-145)
[2022-02-20 18:27] LABS: Hematocrit 45.4 % (42.0-52.0); Hemoglobin 15.2 g/dl (14.0-18.0); Mean Corpuscular HGB Conc 33.5 g/dl (31.0-36.0); Mean Corpuscular Hemoglobin 28.7 pg (27.0-33.0); Mean Corpuscular Volume 85.7 fL (80.0-98.0); Mean Platelet Volume 10.6 fL (9.4-12.4); Platelet Count 232 X10*3/uL (160-400); Red Cell Distribution Width 13.4 % (11.0-16.0); White Blood Count 7.4 X10*3/uL (4.8-10.8)
== END 2022-02-20 16:51 | disposition home or self-care (01) ==
LOC: HO.LAB 16:50
PROVIDERS: PCP Physician Assistant; Visit Provider Nurse Practitioner Family
DX: R19.7 Diarrhea, unspecified (principal)
CPT/HCPCS: 36415; 74018; 80048; 85027

== ENCOUNTER 2022-02-22 06:00 | Outpatient (REF) | payer OTHER, SELFPAY ==
[2022-02-26 15:00] LABS: CDiff Gene PCR NEGATIVE (Negative)
== END 2022-02-22 06:01 | disposition home or self-care (01) ==
LOC: HO.LNP 06:00
PROVIDERS: Visit Provider Nurse Practitioner Family
DX: R19.7 Diarrhea, unspecified (principal)
CPT/HCPCS: 87493

== ENCOUNTER 2022-03-27 14:00 | Emergency (ER) | payer OTHER, SELFPAY ==
[2022-03-27 15:45] VITALS: BP 111/81; PULSE 109; RESP 20; TEMP 36.4; O2SAT 97; BMI 27.0
--- NOTE | 2022-03-27 15:46 | ED_ITS ---
HPI - Abdominal Pain General Chief Complaint: General Medical Stated Complaint: GI bleed sent from Urgent care Time Seen by Provider: 03/27/22 15:45 Related Data Home Medications Medication Instructions Recorded Confirmed benztropine 0.5 mg tablet 0.5 mg PO BEDTIME 05/16/20 03/01/22 clonazepam 1 mg tablet 1 mg PO DAILY PRN Agitation 03/21/21 03/01/22 dapagliflozin 10 mg tablet 10 mg PO DAILY 06/05/21 03/01/22 ([facility]) lisinopril 20 mg tablet 20 mg PO DAILY 07/17/21 03/01/22 chlorpromazine 200 mg tablet 200 mg PO BID 07/21/21 03/01/22 fluoxetine 40 mg capsule 60 mg PO DAILY 07/21/21 03/01/22 melatonin 3 mg tablet 3 mg PO BEDTIME 07/21/21 03/01/22 divalproex 250 mg tablet,delayed 250 mg PO DAILY 01/28/22 03/01/22 release divalproex 500 mg tablet,delayed 1 tab PO DAILY 01/28/22 03/01/22 release divalproex 500 mg tablet,delayed 2 tab PO BEDTIME 01/28/22 03/01/22 release metformin 500 mg/5 mL oral solution 1,000 mg PO BIDWM 01/28/22 03/01/22 multivitamin 1 tab PO BEDTIME 01/28/22 03/01/22 insulin aspart U-100 100 unit/mL subcut 03/01/22 03/01/22 (3 mL) subcutaneous pen (Novolog Flexpen U-100 Insulin aspart) Previous Rx's Medication Instructions Recorded blood sugar diagnostic (Accutrend #10 ea 03/02/20 Glucose test strips) bismuth subsalicylate 262 mg/15 mL 524 mg (30 mL) PO Q1H PRN diarrhea 11/21/20 oral suspension (Pepto-Bismol) 30 days #1,200 mL epinephrine 0.3 mg/0.3 mL 0.3 mg (0.3 mL) IM ONCE PRN for 01/20/21 injection, auto-injector allergies #2 ea blood-glucose meter (FreeStyle #1 ea 05/09/21 Lite Meter kit) lancets 28 gauge (FreeStyle #100 ea 05/09/21 Lancets) levothyroxine 125 mcg tablet 62.5 mcg PO QAM #90 tabs 06/05/21 acetaminophen 325 mg tablet 325 mg PO Q4H PRN for fever, 06/21/21 muscle aches, pain 30 days #100 tabs glucose 4 gram chewable tablet 12 g PO Q15M PRN hypoglycemia #60 07/17/21 (Dex4 Glucose) tabs lactase 9,000 unit tablet (Lactaid 9,000 unit PO QID PRN lactose 09/12/21 Fast Act) intolerance 30 days #90 tabs baclofen 10 mg tablet 10 mg PO BID PRN back pain 90 days 10/25/21 #180 tabs calcium carbonate 600 mg-vitamin 1 tab PO BEDTIME #90 tabs 11/08/21 D3 20 mcg (800 unit) tablet pantoprazole 40 mg tablet,delayed 40 mg PO DAILY #90 tabs 11/08/21 release metoprolol succinate 25 mg 25 mg PO DAILY #28 tabs 12/06/21 tablet,extended release 24 hr rosuvastatin 40 mg tablet (Crestor) 40 mg PO DAILY 90 days #90 tabs 01/11/22 loratadine 10 mg tablet 10 mg PO BEDTIME #28 tabs 01/31/22 flash glucose scanning reader #1 ea 03/01/22 (FreeStyle Jaimie 2 [place]) flash glucose sensor (FreeStyle #2 ea 03/01/22 Jaimie 2 Sensor kit) Allergies Allergy/AdvReac Type Severity Reaction Status Date / Time bee pollen [BEE STINGS] Allergy Unknown UNKNOWN Verified 03/27/22 11:16 carbamazepine [From TEGRETOL] Allergy Unknown UNKNOWN Verified 03/27/22 11:16 clindamycin [CLINDAMYCIN] Allergy Unknown UNKNOWN Verified 03/27/22 11:16 nortriptyline [Pamelor] Allergy Unknown Unknown Verified 03/27/22 11:16 risperidone [From RISPERDAL] Allergy Unknown UNKNOWN Verified 03/27/22 11:16 Sulfa (Sulfonamide Allergy Unknown UNKNOWN Verified 03/27/22 11:16 Antibiotics) [SULFA (SULFONAMIDE ANTIBIOTICS)] lactose AdvReac Intermediate Diarrhea Verified 03/27/22 11:16 [facility] Past Medical History Medical History Advance directive indicates patient wish for full code resuscitation status Diabetes Essential hypertension Gout Hyperlipidemia Hyperlipidemia LDL goal <100 Kidney stones Obesity due to excess calories Proteinuria Seizure disorder Sinusitis nasal Type 2 diabetes mellitus with diabetic polyneuropathy Type 2 diabetes mellitus with hyperglycemia, with long-term current use of insulin Surgical History History of foot surgery History of root canal procedure History of spinal surgery History of surgery of head Family History Family History Father Medical history unknown Lung cancer Mother Diabetes Substance abuse Family/Other FH: mental illness Social History Social History Household Members Other:: roomate Housing: Other Housing Other:: [facility] Do you presently have visiting nurse or other home services: Yes (assistance from dept of mental health services) Alcohol intake: never Patient Tobacco Use Status: Never used Tobacco e-Cigarette/Vaping Use: Never Used Second Hand Smoke Exposure: No service: No Current occupational status: other Cognitive needs: No Hearing needs: No Vision needs: No Physical Exam ED Vital Signs: Vital Signs - 24 hr 03/27/22 15:45 Temperature 97.5 F Pulse Rate 109 H Respiratory Rate 20 Blood Pressure 111/81 Pulse Oximetry 97 Oxygen Delivery Method Room Air BMI result Body Mass Index 27.0 Course Reevaluation(s) Reevaluation #1: Patient briefly seen in the triage Patient mentally challenged complaining of diffuse abdominal pain for a month brown and green stool with nausea and vomiting off and on clinically patient not in distress Abdomen soft nontender Will do basic labs provider in main Ed will reevaluate the patient Time: 15:46 Discharge Plan Discharge Clinical Impression: Gastroenteritis Prescriptions: No Action bismuth subsalicylate [Pepto-Bismol] 262 mg/15 mL suspension 524 mg PO Q1H PRN (Reason: diarrhea) 30 Days Qty: 1200 1RF Rx Instructions: do not exceed 8 doses in a 24 hour period epinephrine 0.3 mg/0.3 mL auto-injector 0.3 mg IM ONCE PRN (Reason: for allergies) Qty: 2 0RF (DME) blood-glucose meter [FreeStyle Lite Meter] Kit See Rx Instructions .ROUTE .MEDSUPPLY Qty: 1 0RF Rx Instructions: As directed 3 times a day (DME) lancets [FreeStyle Lancets] 28 gauge misc See Rx Instructions .ROUTE .MEDSUPPLY Qty: 100 11RF Rx Instructions: Three times a day acetaminophen 325 mg tablet 325 mg PO Q4H PRN (Reason: for fever, muscle aches, pain ) 30 Days Qty: 100 1RF Rx Instructions: to take every 4 hours as needed for fever, muscle aches and pain, please call MD after 3 days if symptoms last. calcium carbonate-vitamin D3 600 mg-20 mcg (800 unit) tablet 1 tab PO BEDTIME Qty: 90 1RF pantoprazole 40 mg tablet,delayed release (DR/EC) 40 mg PO DAILY Qty: 90 1RF metoprolol succinate 25 mg tablet extended release 24 hr 25 mg PO DAILY Qty: 28 3RF rosuvastatin [Crestor] 40 mg tablet 40 mg PO DAILY 90 Days Qty: 90 3RF loratadine 10 mg tablet 10 mg PO BEDTIME Qty: 28 6RF divalproex 250 mg tablet,delayed release (DR/EC) 250 mg PO DAILY divalproex 500 mg tablet,delayed release (DR/EC) 1 tab PO DAILY divalproex 500 mg tablet,delayed release (DR/EC) 2 tab PO BEDTIME multivitamin Tablet 1 tab PO BEDTIME metformin 500 mg/5 mL solution 1,000 mg PO BIDWM (DME) Accutrend Glucose test strips Strip See Rx Instructions .ROUTE .MEDSUPPLY Qty: 10 0RF Rx Instructions: As directed Farxiga 10 mg tablet 10 mg PO DAILY levothyroxine 125 mcg tablet 62.5 mcg PO QAM Qty: 90 1RF insulin aspart U-100 [Novolog Flexpen U-100 Insulin] 100 unit/mL (3 mL) insulin pen subcut (DME) FreeStyle Jaimie 2 [place] Misc See Rx Instructions .ROUTE .MEDSUPPLY Qty: 1 0RF Rx Instructions: As directed (DME) FreeStyle Jaimie 2 Sensor Kit See Rx Instructions .ROUTE .MEDSUPPLY Qty: 2 6RF Rx Instructions: As directed every 2 weeks chlorpromazine 200 mg tablet 200 mg PO BID melatonin 3 mg tablet 3 mg PO BEDTIME fluoxetine 40 mg capsule 60 mg PO DAILY Lactaid Fast Act 9,000 unit tablet 9,000 unit PO QID PRN (Reason: lactose intolerance) 30 Days Qty: 90 0RF Rx Instructions: administer with meals and/or snacks baclofen 10 mg tablet 10 mg PO BID PRN (Reason: back pain) 90 Days Qty: 180 0RF benztropine 0.5 mg tablet 0.5 mg PO BEDTIME clonazepam 1 mg tablet 1 mg PO DAILY PRN (Reason: Agitation) lisinopril 20 mg tablet 20 mg PO DAILY glucose [Dex4 Glucose] 4 gram tablet,chewable 12 g PO Q15M PRN (Reason: hypoglycemia) Qty: 60 2RF Rx Instructions: until symptoms of low blood sugar are controlled
[2022-03-27 17:52] LABS: MANUAL DIFF FLAG NO
[2022-03-27 18:04] LABS: Basophils Percent Auto 0.2 % (0-2); Eosinophils Absolute Auto 0.2 X10*3/uL (0.0-0.4); Eosinophils Percent Auto 2.6 % (0-4); Hematocrit 48.3 % (42.0-52.0); Hemoglobin 15.9 g/dl (14.0-18.0); Imm Gran Abs Auto 0.03 X10*3/uL (0.00-0.03); Imm Gran Pct Auto 0.3 % (0.0-0.4); Lymphocytes Absolute Auto 4.9 X10*3/uL (1.2-4.9); Lymphocytes Percent Auto 54.7 % (20-40); Mean Corpuscular HGB Conc 32.9 g/dl (31.0-36.0); Mean Corpuscular Hemoglobin 28.3 pg (27.0-33.0); Mean Corpuscular Volume 85.9 fL (80.0-98.0); Mean Platelet Volume 10.2 fL (9.4-12.4); Monocytes Absolute Auto 0.7 X10*3/uL (0.1-1.2); Monocytes Percent Auto 8.1 % (2-11); Neutrophils Percent Auto 34.1 % (45-73); Platelet Count 235 X10*3/uL (160-400); Red Blood Count 5.62 X10*6/uL (4.60-5.80); Red Cell Distribution Width 13.6 % (11.0-16.0); White Blood Count 8.9 X10*3/uL (4.8-10.8)
[2022-03-27 18:13] LABS: Alanine Aminotransferase 27 U/L (0-40); Albumin Level 4.8 g/dL (3.5-5.0); Alkaline Phosphatase 62 U/L (39-117); Anion Gap 20 (12-20); Aspartate Amino Transferase 20 U/L (5-37); Bilirubin Total 0.2 mg/dL (0.0-1.0); Blood Urea Nitrogen 9 mg/dL (9-16); Calcium 9.7 mg/dL (8.4-10.2); Carbon Dioxide 22 mmol/L (22-29); Chloride 100 mmol/L (96-108); Creatinine Clr Calc Pharmacy 142.3; Estimated Glomerular Filt Rate > 60; Glucose Random 263 mg/dL (60-115); Lipase 39 U/L (8-78); Potassium 4.1 mmol/L (3.3-5.1); Sodium 138 mmol/L (135-145); Total Protein 7.4 g/dL (6.5-8.0)
--- NOTE | 2022-03-27 20:10 | ED_ITS ---
HPI - General Adult General Chief complaint: General Medical Stated complaint: GI bleed sent from Urgent care Time Seen by Provider: 03/27/22 15:45 History of Present Illness HPI narrative: Patient mentally challenged complaining of diffuse abdominal pain for a month brown and green stool with nausea and vomiting off and on patient looks comfortable no active abdominal pain no fever no chills+ Related Data Home Medications Medication Instructions Recorded Confirmed benztropine 0.5 mg tablet 0.5 mg PO BEDTIME 05/16/20 03/01/22 clonazepam 1 mg tablet 1 mg PO DAILY PRN Agitation 03/21/21 03/01/22 dapagliflozin 10 mg tablet 10 mg PO DAILY 06/05/21 03/01/22 ([facility]) lisinopril 20 mg tablet 20 mg PO DAILY 07/17/21 03/01/22 chlorpromazine 200 mg tablet 200 mg PO BID 07/21/21 03/01/22 fluoxetine 40 mg capsule 60 mg PO DAILY 07/21/21 03/01/22 melatonin 3 mg tablet 3 mg PO BEDTIME 07/21/21 03/01/22 divalproex 250 mg tablet,delayed 250 mg PO DAILY 01/28/22 03/01/22 release divalproex 500 mg tablet,delayed 1 tab PO DAILY 01/28/22 03/01/22 release divalproex 500 mg tablet,delayed 2 tab PO BEDTIME 01/28/22 03/01/22 release metformin 500 mg/5 mL oral solution 1,000 mg PO BIDWM 01/28/22 03/01/22 multivitamin 1 tab PO BEDTIME 01/28/22 03/01/22 insulin aspart U-100 100 unit/mL subcut 03/01/22 03/01/22 (3 mL) subcutaneous pen (Novolog Flexpen U-100 Insulin aspart) Previous Rx's Medication Instructions Recorded blood sugar diagnostic (Accutrend #10 ea 03/02/20 Glucose test strips) bismuth subsalicylate 262 mg/15 mL 524 mg (30 mL) PO Q1H PRN diarrhea 11/21/20 oral suspension (Pepto-Bismol) 30 days #1,200 mL epinephrine 0.3 mg/0.3 mL 0.3 mg (0.3 mL) IM ONCE PRN for 01/20/21 injection, auto-injector allergies #2 ea blood-glucose meter (FreeStyle #1 ea 05/09/21 Lite Meter kit) lancets 28 gauge (FreeStyle #100 ea 05/09/21 Lancets) levothyroxine 125 mcg tablet 62.5 mcg PO QAM #90 tabs 06/05/21 acetaminophen 325 mg tablet 325 mg PO Q4H PRN for fever, 06/21/21 muscle aches, pain 30 days #100 tabs glucose 4 gram chewable tablet 12 g PO Q15M PRN hypoglycemia #60 07/17/21 (Dex4 Glucose) tabs lactase 9,000 unit tablet (Lactaid 9,000 unit PO QID PRN lactose 09/12/21 Fast Act) intolerance 30 days #90 tabs baclofen 10 mg tablet 10 mg PO BID PRN back pain 90 days 10/25/21 #180 tabs calcium carbonate 600 mg-vitamin 1 tab PO BEDTIME #90 tabs 11/08/21 D3 20 mcg (800 unit) tablet pantoprazole 40 mg tablet,delayed 40 mg PO DAILY #90 tabs 11/08/21 release metoprolol succinate 25 mg 25 mg PO DAILY #28 tabs 12/06/21 tablet,extended release 24 hr rosuvastatin 40 mg tablet (Crestor) 40 mg PO DAILY 90 days #90 tabs 01/11/22 loratadine 10 mg tablet 10 mg PO BEDTIME #28 tabs 01/31/22 flash glucose scanning reader #1 ea 03/01/22 (FreeStyle Jaimie 2 [place]) flash glucose sensor (FreeStyle #2 ea 03/01/22 Jaimie 2 Sensor kit) Allergies Allergy/AdvReac Type Severity Reaction Status Date / Time bee pollen [BEE STINGS] Allergy Unknown UNKNOWN Verified 03/27/22 11:16 carbamazepine [From TEGRETOL] Allergy Unknown UNKNOWN Verified 03/27/22 11:16 clindamycin [CLINDAMYCIN] Allergy Unknown UNKNOWN Verified 03/27/22 11:16 nortriptyline [Pamelor] Allergy Unknown Unknown Verified 03/27/22 11:16 risperidone [From RISPERDAL] Allergy Unknown UNKNOWN Verified 03/27/22 11:16 Sulfa (Sulfonamide Allergy Unknown UNKNOWN Verified 03/27/22 11:16 Antibiotics) [SULFA (SULFONAMIDE ANTIBIOTICS)] lactose AdvReac Intermediate Diarrhea Verified 11/08/22 11:16 Review of Systems Review of Systems: Yes all other systems are reviewed and are negative [facility] Past Medical History Medical History Advance directive indicates patient wish for full code resuscitation status Diabetes Essential hypertension Gout Hyperlipidemia Hyperlipidemia LDL goal <100 Kidney stones Obesity due to excess calories Proteinuria Seizure disorder Sinusitis nasal Type 2 diabetes mellitus with diabetic polyneuropathy Type 2 diabetes mellitus with hyperglycemia, with long-term current use of insulin Surgical History History of foot surgery History of root canal procedure History of spinal surgery History of surgery of head Family History Family History Father Medical history unknown Lung cancer Mother Diabetes Substance abuse Family/Other FH: mental illness Social History Social History Household Members Other:: roomate Housing: Other Housing Other:: [facility] Do you presently have visiting nurse or other home services: Yes (assistance from dept of mental health services) Alcohol intake: never Patient Tobacco Use Status: Never used Tobacco e-Cigarette/Vaping Use: Never Used Second Hand Smoke Exposure: No service: No Current occupational status: other Cognitive needs: No Hearing needs: No Vision needs: No Physical Exam ED Vital Signs: Vital Signs - 24 hr 03/27/22 15:45 Temperature 97.5 F Pulse Rate 109 H Respiratory Rate 20 Blood Pressure 111/81 Pulse Oximetry 97 Oxygen Delivery Method Room Air BMI result Body Mass Index 27.0 Appearance: Alert. Mentally challenged. No acute distress. Eyes: PERRLA, ENT: Pharynx normal. Oral Mucosa moist Neck: Normal inspection. Neck supple. CVS: Normal heart rate and rhythm. Pulses normal. Respiratory: No respiratory distress. Equal air entry bilateral, no wh eezing/rales/rhonchi Abdomen: Soft and nontender. Bowel sounds are present, no mass palpable, no CVA tenderness Skin: Skin warm and dry. Normal skin color. Normal skin turgor. Extremities: No lower extremity edema. No calf tenderness Neuro: Oriented X 2 Medical Decision Making MDM Narrative Medical decision making narrative: Patient with stable labs stable H&H discharge patient home Lab Data Lab results reviewed: Yes I reviewed the patient's lab results. Result diagrams: 03/27/22 17:47 03/27/22 17:47 Labs: Lab Results 03/27/22 03/27/22 Range/Units 17:47 17:47 WBC 8.9 (4.8-10.8) X10*3/uL RBC 5.62 (4.60-5.80) X10*6/uL Hgb 15.9 (14.0-18.0) g/dl Hct 48.3 (42.0-52.0) % MCV 85.9 (80.0-98.0) fL MCH 28.3 (27.0-33.0) pg MCHC 32.9 (31.0-36.0) g/dl RDW 13.6 (11.0-16.0) % Plt Count 235 (160-400) X10*3/uL MPV 10.2 (9.4-12.4) fL Immature Gran % (Auto) 0.3 (0.0-0.4) % Neut % (Auto) 34.1 L (45-73) % Lymph % (Auto) 54.7 H (20-40) % [place] % (Auto) 8.1 (2-11) % Eos % (Auto) 2.6 (0-4) % Baso % (Auto) 0.2 (0-2) % Lymph # (Auto) 4.9 (1.2-4.9) X10*3/uL [place] # (Auto) 0.7 (0.1-1.2) X10*3/uL Eos # (Auto) 0.2 (0.0-0.4) X10*3/uL Baso # (Auto) 0.0 (0.0-0.2) X10*3/uL Abs Immat Gran (auto) 0.03 (0.00-0.03) X10*3/uL Absolute Neuts (auto) 3.0 (2.0-8.3) x10*3/uL Absolute Nucleated RBC 0.000 (0.0-0.012) X10*3/uL Nucleated RBC % (auto) 0.0 (0.0-0.2) /100WBC Sodium 138 (135-145) mmol/L Potassium 4.1 (3.3-5.1) mmol/L Chloride 100 (96-108) mmol/L Carbon Dioxide 22 (22-29) mmol/L Anion Gap 20 (12-20) BUN 9 (9-16) mg/dL Creatinine 0.85 (0.5-1.4) mg/dL Estim Creat Clear Calc 142.3 Estimated GFR > 60 Random Glucose 263 H D (60-115) mg/dL Calcium 9.7 (8.4-10.2) mg/dL Total Bilirubin 0.2 (0.0-1.0) mg/dL AST 20 (5-37) U/L ALT 27 (0-40) U/L Alkaline Phosphatase 62 (39-117) U/L Total Protein 7.4 (6.5-8.0) g/dL Albumin 4.8 (3.5-5.0) g/dL Lipase 39 (8-78) U/L Discharge Plan Discharge Clinical Impression: Gastroenteritis Prescriptions: No Action bismuth subsalicylate [Pepto-Bismol] 262 mg/15 mL suspension 524 mg PO Q1H PRN (Reason: diarrhea) 30 Days Qty: 1200 1RF Rx Instructions: do not exceed 8 doses in a 24 hour period epinephrine 0.3 mg/0.3 mL auto-injector 0.3 mg IM ONCE PRN (Reason: for allergies) Qty: 2 0RF (DME) blood-glucose meter [FreeStyle Lite Meter] Kit See Rx Instructions .ROUTE .MEDSUPPLY Qty: 1 0RF Rx Instructions: As directed 3 times a day (DME) lancets [FreeStyle Lancets] 28 gauge misc See Rx Instructions .ROUTE .MEDSUPPLY Qty: 100 11RF Rx Instructions: Three times a day acetaminophen 325 mg tablet 325 mg PO Q4H PRN (Reason: for fever, muscle aches, pain ) 30 Days Qty: 100 1RF Rx Instructions: to take every 4 hours as needed for fever, muscle aches and pain, please call MD after 3 days if symptoms last. calcium carbonate-vitamin D3 600 mg-20 mcg (800 unit) tablet 1 tab PO BEDTIME Qty: 90 1RF pantoprazole 40 mg tablet,delayed release (DR/EC) 40 mg PO DAILY Qty: 90 1RF metoprolol succinate 25 mg tablet extended release 24 hr 25 mg PO DAILY Qty: 28 3RF rosuvastatin [Crestor] 40 mg tablet 40 mg PO DAILY 90 Days Qty: 90 3RF loratadine 10 mg tablet 10 mg PO BEDTIME Qty: 28 6RF divalproex 250 mg tablet,delayed release (DR/EC) 250 mg PO DAILY divalproex 500 mg tablet,delayed release (DR/EC) 1 tab PO DAILY divalproex 500 mg tablet,delayed release (DR/EC) 2 tab PO BEDTIME multivitamin Tablet 1 tab PO BEDTIME metformin 500 mg/5 mL solution 1,000 mg PO BIDWM (DME) Accutrend Glucose test strips Strip See Rx Instructions .ROUTE .MEDSUPPLY Qty: 10 0RF Rx Instructions: As directed Farxiga 10 mg tablet 10 mg PO DAILY levothyroxine 125 mcg tablet 62.5 mcg PO QAM Qty: 90 1RF insulin aspart U-100 [Novolog Flexpen U-100 Insulin] 100 unit/mL (3 mL) insulin pen subcut (DME) FreeStyle Jaimie 2 [place] Misc See Rx Instructions .ROUTE .MEDSUPPLY Qty: 1 0RF Rx Instructions: As directed (DME) FreeStyle Jaimie 2 Sensor Kit See Rx Instructions .ROUTE .MEDSUPPLY Qty: 2 6RF Rx Instructions: As directed every 2 weeks chlorpromazine 200 mg tablet 200 mg PO BID melatonin 3 mg tablet 3 mg PO BEDTIME fluoxetine 40 mg capsule 60 mg PO DAILY Lactaid Fast Act 9,000 unit tablet 9,000 unit PO QID PRN (Reason: lactose intolerance) 30 Days Qty: 90 0RF Rx Instructions: administer with meals and/or snacks baclofen 10 mg tablet 10 mg PO BID PRN (Reason: back pain) 90 Days Qty: 180 0RF benztropine 0.5 mg tablet 0.5 mg PO BEDTIME clonazepam 1 mg tablet 1 mg PO DAILY PRN (Reason: Agitation) lisinopril 20 mg tablet 20 mg PO DAILY glucose [Dex4 Glucose] 4 gram tablet,chewable 12 g PO Q15M PRN (Reason: hypoglycemia) Qty: 60 2RF Rx Instructions: until symptoms of low blood sugar are controlled
== END 2022-03-27 21:05 | disposition home or self-care (01) ==
PROVIDERS: Emergency Provider Internal Medicine; PCP Physician Assistant
DX: K52.9 Noninfective gastroenteritis and colitis, unspecified (principal); E11.9 Type 2 diabetes mellitus without complications; I10 Essential (primary) hypertension; E78.5 Hyperlipidemia, unspecified; Z79.02 Long term (current) use of antithrombotics/antiplatelets; Z79.899 Other long term (current) drug therapy; Z79.4 Long term (current) use of insulin
CPT/HCPCS: 36415; 80053; 83690; 85025; 99282; 99283

== ENCOUNTER 2022-06-07 13:59 | Outpatient (REF) | payer OTHER, SELFPAY ==
--- NOTE | ~2022-06-07 | XR_ITS ---
EXAMINATION: XR SHOULDER, LEFT CLINICAL INFORMATION: M25.512 - Pain in left shoulder COMPARISON: Chest radiograph 11 10/13/2019 TECHNIQUE: Left shoulder is imaged in 4 views. FINDINGS: There is linear calcification in region of distal superior rotator cuff. No fracture, dislocation, destructive process, or arthropathy. The acromioclavicular alignment is normal. XR/XR shoulder LT min 2V IMPRESSION: 1. Calcific tendinosis in region of distal superior rotator cuff. 2. No bony abnormality.
== END 2022-06-07 14:00 | disposition home or self-care (01) ==
LOC: HO.XRAY 13:59
PROVIDERS: PCP Physician Assistant; Visit Provider Nurse Practitioner Family
DX: M25.512 Pain in left shoulder (principal)
CPT/HCPCS: 73030

== ENCOUNTER → 2022-06-28 13:38 | Outpatient (BNVA) | payer OTHER, SELFPAY | PROVIDERS: PCP Physician Assistant; Visit Provider Dietitian, Registered | DX: E11.65 Type 2 diabetes mellitus with hyperglycemia (principal); E11.40 Type 2 diabetes mellitus with diabetic neuropathy, unspecified; E11.42 Type 2 diabetes mellitus with diabetic polyneuropathy; E66.09 Other obesity due to excess calories; Z68.38 Body mass index [BMI] 38.0-38.9, adult; Z79.4 Long term (current) use of insulin | CPT/HCPCS: 97803 ==

== ENCOUNTER 2023-01-18 10:58 | Outpatient (AMB) | payer OTHER, SELFPAY ==
[2023-01-18 11:00] VITALS: BP 118/82; PULSE 112; O2SAT 97; BMI 38.5
--- NOTE | 2023-01-18 11:00 | MHC.PC.OV ---
Vital Signs 01/18/23 11:00 Height 6 ft 1 in Weight 292 lb BMI 38.5 BP 118/82 Blood Pressure Location Lt brachial Position Sitting Pulse 112 H Pulse Source Pulse Oximeter Temp Source Skin Pulse Oximetry (%) 97 Oxygen Delivery Method Room Air Intake Visit Reasons: Annual PE Intake Note: Patient is here today for a physical. Artificial Teeth Inspector Required: No Allergies bee pollen [BEE STINGS] Allergy (Unknown, Verified 01/18/23 11:13) UNKNOWN carbamazepine [From TEGRETOL] Allergy (Unknown, Verified 01/18/23 11:13) UNKNOWN clindamycin [CLINDAMYCIN] Allergy (Unknown, Verified 01/18/23 11:13) UNKNOWN nortriptyline [Pamelor] Allergy (Unknown, Verified 01/18/23 11:13) Unknown risperidone [From RISPERDAL] Allergy (Unknown, Verified 01/18/23 11:13) UNKNOWN Sulfa (Sulfonamide Antibiotics) [SULFA (SULFONAMIDE ANTIBIOTICS)] Allergy (Unknown, Verified 01/18/23 11:13) UNKNOWN lactose Adverse Reaction (Intermediate, Verified 01/18/23 11:13) Diarrhea Medication List - Last Reconciled 01/18/23 by REZA Moore acetaminophen 325 mg PO Q4H PRN 30 days albuterol sulfate 90 mcg/actuation 1 inh inhalation QID PRN 30 days baclofen 10 mg PO BID PRN 90 days benzonatate 200 mg PO TID 5 days benztropine 0.5 mg PO BEDTIME bismuth subsalicylate (Pepto-Bismol) 524 mg (30 mL) PO Q1H PRN 30 days blood sugar diagnostic (Accu-Chek Guide test strips) As directed blood sugar diagnostic (Accutrend Glucose test strips) check the blood sugar 3 times a day blood-glucose meter (FreeStyle Lite Meter kit) As directed 3 times a day calcium carbonate-vitamin D3 600 mg-20 mcg (800 unit) 1 tab PO BEDTIME chlorpromazine 200 mg PO BID clonazepam 1 mg PO DAILY PRN dapagliflozin propanediol (Farxiga) 10 mg PO DAILY dextromethorphan-guaifenesin 5-50 mg/5 mL (Robitussin Cough-Chest Congestion DM) 20 mL PO Q4-6H PRN divalproex 250 mg PO DAILY divalproex 1 tab PO DAILY divalproex 2 tabs PO BEDTIME epinephrine 0.3 mg (0.3 mL) IM ONCE PRN flash glucose scanning reader (FreeStyle Jaimie 2 [place]) As directed flash glucose sensor (FreeStyle Jaimie 2 Sensor kit) As directed every 2 weeks fluoxetine 60 mg PO DAILY glucose (Dex4 Glucose) 12 grams (3 x 4 gram) PO Q15M PRN insulin aspart U-100 (Novolog FlexPen U-100 Insulin aspart) 6 - 8 units (0.06 - 0.08 mL) subcut TIDWMEAL insulin glargine (Lantus Solostar U-100 Insulin) 20 units (0.2 mL) subcut QPM lactase (Lactaid Fast Act) 9,000 units PO QID PRN 30 days lancets (FreeStyle Lancets) Three times a day levothyroxine 62.5 mcg (1/2 x 125 mcg) PO QAM lisinopril 20 mg PO DAILY loratadine 10 mg PO BEDTIME melatonin 3 mg PO BEDTIME metformin 1,000 mg (10 mL) PO BIDWM metoprolol succinate ER 25 mg PO DAILY multivitamin 1 tab PO BEDTIME mupirocin 2% 1 appl topical BID 10 days pantoprazole 40 mg PO DAILY pen needle, diabetic (BD Ultra-Fine Cally Pen Needle) Use 4 x a day rosuvastatin (Crestor) 40 mg PO DAILY 90 days semaglutide (Ozempic) 0.25 mg (0.2 mL) subcut QWEEK Tobacco use date assessed: 01/18/23 Dental Screening Dental Screen Date: 01/18/23 Did you have a dental visit in the last 12 months?: Yes Did you have a dental problem in the last 6 months where you did not have access to dental care?: No Was dental information given to patient?: Patient has dentist HPI Annual PE HPI Details Patient is a 32-year-old male presents today for physical exam. Patient of JAIME Mcclure. patient lives in a residential home, and today his accompanied by a worker. Medical history significant for diabetes, obesity-will follow-up on forest products gatherer referral, back pain, tachycardia, hyperlipidemia, hypothyroidism, hypertension, asthma. Patient also reports that he is followed by psychiatrist and therapist for his mental conditions. Up-to-date with tetanus vaccine. Patient was encouraged to complete his blood work that was ordered by his PCP. Diabetes is followed by endocrinology. Diabetic eye exam 12/2022. Patient reports he has chronic low back pain he reports that he had a fall this morning in shower, reports hitting his left hip, although pain in left lower back that goes down to his left ankle area. Did not take anything for pain. Reports that workers will get shower rug for him. Denies shortness of breath or chest pain. No other concerns. [facility] Medical History Advance directive indicates patient wish for full code resuscitation status Diabetes Essential hypertension Gout Hyperlipidemia Hyperlipidemia LDL goal <100 Kidney stones Obesity due to excess calories Proteinuria Seizure disorder Sinusitis nasal Type 2 diabetes mellitus with diabetic polyneuropathy Type 2 diabetes mellitus with hyperglycemia, with long-term current use of insulin Surgical History History of foot surgery History of root canal procedure History of spinal surgery History of surgery of head Family History Father Medical history unknown Lung cancer Mother Diabetes Substance abuse Family/Other FH: mental illness Social History Household Members Other:: roomate Housing: Other Housing Other:: [facility] Do you presently have visiting nurse or other home services: Yes (assistance from dept of mental health services) Alcohol intake: never Patient Tobacco Use Status: Never used Tobacco e-Cigarette/Vaping Use: Never Used Second Hand Smoke Exposure: No service: No Current occupational status: other Cognitive needs: No Hearing needs: No Vision needs: No Questionnaire PHQ-9 Over the last 2 weeks, how often have you been bothered by any of the following problems? 1. Little interest or pleasure in doing things: nearly every day 2. Feeling down, depressed, or hopeless: nearly every day 3. Trouble falling or staying asleep, or sleeping too much: not at all 4. Feeling tired or having little energy: not at all 5. Poor appetite or overeating: not at all 6. Feeling bad about yourself - or that you are a failure or have let yourself or your family down: not at all 7. Trouble concentrating on things, such as reading the newspaper or watching television: not at all 8. Moving or speaking so slowly that other people could have noticed. Or the opposite - being so fidgety or restless that you have been moving around a lot more than usual: not at all 9. Thoughts that you would be better off or of hurting yourself in some way: not at all Total score: 6 Depression Screening Interpretation: Negative 22441 - PHQ-9 Billing: Yes Source: Developed by Drs. Raymond Reyes, Padma Garcia, Gregory Zazueta and colleagues, with an educational from [employer]. Thrive Questionnaire Date Thrive assessed: 06/07/22 AUDIT C Alcohol Use Questionnaire (AUDIT-C) 1. How often do you have a drink containing alcohol?: Never 2. How many drinks containing alcohol do you have on a typical day when you are drinking?: 1 or 2 (0) 3. How often do you have six or more drinks on one occasion?: Never Total Score: 0 Score Reviewed/Action Taken: No LIZBETH-7 AMB Questionnaire LIZBETH-7 Date LIZBETH - 7 assessed: 01/18/23 Feeling nervous, anxious, or on edge: 0 = Not at all Not being able to stop or control worryin = Not at all Worrying too much about different things: 0 = Not at all Trouble relaxin = Not at all Being so restless that it is hard to sit still: 0 = Not at all Becoming easily annoyed or irritable: 0 = Not at all Feeling afraid as if something awful might happen: 0 = Not at all Total LIZBETH-7 score (0-4 normal; 5-9 mild; 10-14 moderate; 15-21 severe): 0 Source: Developed by Drs. Raymond Reyes, Padma Garcia, Gregory Zazueta and colleagues, with an educational from [employer]. LIZBETH-7 Assessment Billing LIZBETH-7 Assessment Tool: LIZBETH-7 Assessment 36791 Review of Systems Const Denies body aches, Denies chills, Denies fever(s) and Denies headache(s) Eyes Denies change in vision ENT Denies dizziness, Denies otalgia, Denies headache(s), Denies nasal discharge, Denies sinus pain and Denies sore throat Card Denies chest pain, Denies edema, Denies lightheadedness and Denies dyspnea Resp Denies cough, Denies dyspnea and Denies wheezing GI Denies abdominal pain Denies dysuria Musc Reports back pain and Denies myalgias Skin/Breast Denies rash Neuro Denies dizziness and Denies headache(s) Aller/Immun Denies wheezing Physical exam (Primary Care) Vital Signs: Last Vital Signs Pulse 112 H 01/18/23 11:00 BP 118/82 01/18/23 11:00 Pulse Ox 97 01/18/23 11:00 Oxygen Delivery Method Room Air 01/18/23 11:00 BMI result Body Mass Index 38.5 Tobacco/Smoking Status: Tobacco use Status Tobacco use date assessed 01/18/23 01/18/23 11:11 Patient Tobacco Use Status Never used Tobacco 01/18/23 11:02 e-Cigarette/Vaping Use Never Used 01/18/23 11:02 PHQ-9: PHQ-9 Score PHQ-9: Total score 6 01/18/23 11:17 Depression Screening Interpretation: Negative Thrive Assessment: Date of Thrive Assessment Date Thrive assessed 06/07/22 01/18/23 11:02 Const General: cooperative and no acute distress Orientation/consciousness: patient oriented x3 HENMT Head: Yes normocephalic and Yes atraumatic Ears: TM's normal bilaterally Face and sinus: Yes sinuses nontender Mouth: oropharynx normal and moist mucous membranes Throat: Yes posterior oropharynx normal Eyes General: appearance normal, both eyes and all related structures Pupils: Equal, round and reactive pupils present EOM: EOMs intact bilaterally Neck Neck: Yes normal visual inspection, Yes full ROM and Yes no lymphadenopathy Thyroid: Thyroid normal Resp Effort & Inspection: normal respiratory effort and able to speak in complete sentences Auscultation: clear to auscultation bilaterally, no crackles, no rales, no rhonchi and no wheezes Cardio Rate: regular rate Rhythm: regular rhythm Heart sounds: S1 normal heart sound present, S2 normal heart sound present and no murmurs GI Palpation (GI): Soft to palpation, not firm, nontender, no guarding, not rigid and no hepatosplenomegaly Auscultation: normal bowel sounds General: No CVA tenderness Back/Spine/Pelvis Back: No CVA tenderness Thoracic/Lumbar Spine: thoracic and lumbar spine normal to inspection, paraspinal muscle tenderness (Left lumbar aspect), No thoracic spinal tenderness and No lumbar spinal tenderness Skin General skin exam: no rashes or lesions noted Neuro General: patient oriented x3 Cranial nerves: Yes Equal, round and reactive pupils present Gait exam (Neuro): Normal gait present Extrem Other: Left hip normal to inspection, no ecchymosis, no erythema, nontender, full range of motion General: Yes full ROM and No edema Results AMB Hemoglobin A1c AMB Hemoglobin A1c 8.2 % Last Edit by DNAIEL Whaley on 01/18/23 11:18 Results Reviewed Results Reviewed: Laboratory Last Values Hgb A1c (Clinic) 8.2 % (4.0-6.0) H 01/18/23 11:02 Assessment and Plan Assessment & Plan (1) Low back pain: Code(s): M54.50 - Low back pain, unspecified Plan: Suspect musculoskeletal in origin Patient will think about physical therapy, declined referral at this time Continue Tylenol p.r.n., continue baclofen p.r.n. Start diclofenac cream p.r.n., started lidocaine patch daily p.r.n. Heat/cold packs p.r.n. (2) Asthma: Code(s): J45.909 - Unspecified asthma, uncomplicated Plan: Stable Continue albuterol inhaler p.r.n. (3) Hypertension: Code(s): I10 - Essential (primary) hypertension Qualifiers: Hypertension type: primary hypertension Qualified Code(s): I10 - Essential (primary) hypertension Plan: Goal BP equal or less than 140/90 Continue current treatment Low-sodium diet and weight loss (4) Hypothyroidism: Code(s): E03.9 - Hypothyroidism, unspecified Qualifiers: Hypothyroidism type: acquired Qualified Code(s): E03.9 - Hypothyroidism, unspecified Plan: Continue levothyroxine Patient was encouraged to complete his blood work (5) Obese: Code(s): E66.9 - Obesity, unspecified Qualifiers: Obesity type: due to excess calories Obesity classification: adult class 2 (BMI 35 - 39.9) Serious obesity comorbidity presence: with serious comorbidity Body mass index: BMI 38.0-38.9 Qualified Code(s): E66.01 - Morbid (severe) obesity due to excess calories; Z68.38 - Body mass index [BMI] 38.0-38.9, adult Plan: Encouraged healthy food choices and exercise as tolerated Will follow-up on forest products gatherer referral (6) Hyperlipidemia: Code(s): E78.5 - Hyperlipidemia, unspecified Qualifiers: Hyperlipidemia type: mixed hyperlipidemia Qualified Code(s): E78.2 - Mixed hyperlipidemia Plan: Continue rosuvastatin Low-cholesterol diet (7) Annual physical exam: Code(s): Z00.00 - Encounter for general adult medical examination without abnormal findings (8) Type 2 diabetes mellitus with hyperglycemia, with long-term current use of insulin: Code(s): E11.65 - Type 2 diabetes mellitus with hyperglycemia; Z79.4 - psychology technician (current) use of insulin Plan: A1c 8.2 today, previous 7.7 Continue current treatment Continue to follow-up with endocrinology Low-carbohydrate diet Patient was encouraged to complete his blood work Orders: Orders AMB Hemoglobin A1c Today E11.65 - Type 2 diabetes mellitus with hyperglycemia, Z79.4 - custodial (current) use of insulin Medications: New lidocaine 4% (Aspercreme (lidocaine)) 1 patch topical DAILY PRN 30 ea 0RF pain M54.50 - Low back pain, unspecified diclofenac sodium 1% (Arthritis Pain (diclofenac)) 2 grams topical QID PRN 100 grams 0RF pain M54.50 - Low back pain, unspecified Coding Level of Care Code Est Pt Prev Care 18-39y([id number]) Diagnoses Low back pain M54.50 Asthma J45.909 Hypertension I10 Hypertension type: primary hypertension Hypothyroidism E03.9 Hypothyroidism type: acquired Obese E66.01; Z68.38 Obesity type: due to excess calories Obesity classification: adult class 2 (BMI 35 - 39.9) Serious obesity comorbidity presence: with serious comorbidity Body mass index: BMI 38.0-38.9 Hyperlipidemia E78.2 Hyperlipidemia type: mixed hyperlipidemia Annual physical exam Z00.00 Type 2 diabetes mellitus with hyperglycemia, with long-term current use of insulin E11.65; Z79.4 Additional Codes LIZBETH-7 Assessment Billing - LIZBETH-7 Assessment Tool: LIZBETH-7 Assessment [id number] ([id number])
== END 2023-01-18 11:57 | disposition home or self-care (01) ==
PROVIDERS: PCP Physician Assistant; Visit Provider Nurse Practitioner Family
DX: Z00.00 Encounter for general adult medical examination without abnormal findings (principal); E11.65 Type 2 diabetes mellitus with hyperglycemia; Z79.4 Long term (current) use of insulin; E03.9 Hypothyroidism, unspecified; J45.909 Unspecified asthma, uncomplicated; I10 Essential (primary) hypertension; E66.01 Morbid (severe) obesity due to excess calories; Z68.38 Body mass index [BMI] 38.0-38.9, adult; M54.50 Low back pain, unspecified; E78.2 Mixed hyperlipidemia
CPT/HCPCS: 83036; 99395

== ENCOUNTER 2023-01-25 08:55 | Outpatient (REF) | payer OTHER, SELFPAY ==
[2023-01-25 09:46] LABS: Hematocrit 46.8 % (42.0-52.0); Hemoglobin 15.3 g/dl (14.0-18.0); Mean Corpuscular HGB Conc 32.7 g/dl (31.0-36.0); Mean Corpuscular Hemoglobin 28.7 pg (27.0-33.0); Mean Corpuscular Volume 87.8 fL (80.0-98.0); Mean Platelet Volume 11.8 fL (9.4-12.4); PLT CLUMP 1; Red Blood Count 5.33 X10*6/uL (4.60-5.80); Red Cell Distribution Width 14.5 % (11.0-16.0); White Blood Count 7.4 X10*3/uL (4.8-10.8)
[2023-01-25 10:22] LABS: Platelet Count 117 X10*3/uL (160-400)
[2023-01-25 10:32] LABS: Alanine Aminotransferase 23 U/L (0-40); Albumin Level 4.2 g/dL (3.5-5.0); Alkaline Phosphatase 53 U/L (39-117); Anion Gap 14 (12-20); Aspartate Amino Transferase 33 U/L (5-37); Bilirubin Total 0.3 mg/dL (0.0-1.0); Blood Urea Nitrogen 9 mg/dL (9-16); Calcium 9.4 mg/dL (8.4-10.2); Carbon Dioxide 22 mmol/L (22-29); Chloride 106 mmol/L (96-108); Cholesterol 144 mg/dL (<200); Estimated Glomerular Filt Rate > 60; Glucose Fasting 139 mg/dL (60-99); HDL Cholesterol 24 mg/dL (>40); LDL Cholesterol Calculated 67 mg/dL (<100); Potassium 5.2 mmol/L (3.3-5.1); Sodium 137 mmol/L (135-145); Total Protein 6.9 g/dL (6.5-8.0); Triglycerides 266 mg/dL (<150)
[2023-01-25 10:33] LABS: Creatinine Urine 83.45 mg/dL; Microalbum/Creatinine Ratio Ur 80.2 ug/mg cr (<30)
[2023-01-25 10:46] LABS: TSH reflex Free T4 0.81 uIU/mL (0.32-4.0)
== END 2023-01-25 08:56 | disposition home or self-care (01) ==
LOC: HO.LAB 08:55
PROVIDERS: PCP Physician Assistant; Visit Provider Physician Assistant
DX: I10 Essential (primary) hypertension (principal); E66.9 Obesity, unspecified; E11.8 Type 2 diabetes mellitus with unspecified complications
CPT/HCPCS: 36415; 80053; 80061; 82043; 82570; 84443; 85027

== ENCOUNTER 2023-01-27 09:51 | Emergency (ER) | payer OTHER, SELFPAY ==
[2023-01-27 09:58] VITALS: BP 147/88; PULSE 100; RESP 19; TEMP 36.6; O2SAT 98; BMI 35.7
[2023-01-27 13:32] LABS: MANUAL DIFF FLAG NO
[2023-01-27 13:35] LABS: Basophils Percent Auto 0.2 % (0-2); Eosinophils Absolute Auto 1.6 X10*3/uL (0.0-0.4); Eosinophils Percent Auto 18.6 % (0-4); Hematocrit 45.5 % (42.0-52.0); Hemoglobin 15.1 g/dl (14.0-18.0); Imm Gran Abs Auto 0.03 X10*3/uL (0.00-0.03); Imm Gran Pct Auto 0.4 % (0.0-0.4); Lymphocytes Absolute Auto 3.6 X10*3/uL (1.2-4.9); Lymphocytes Percent Auto 41.5 % (20-40); Mean Corpuscular HGB Conc 33.2 g/dl (31.0-36.0); Mean Corpuscular Hemoglobin 28.6 pg (27.0-33.0); Mean Corpuscular Volume 86.2 fL (80.0-98.0); Mean Platelet Volume 9.9 fL (9.4-12.4); Monocytes Absolute Auto 0.6 X10*3/uL (0.1-1.2); Monocytes Percent Auto 6.9 % (2-11); Neutrophils Absolute Auto 2.8 x10*3/uL (2.0-8.3); Neutrophils Percent Auto 32.4 % (45-73); Platelet Count 204 X10*3/uL (160-400); Red Blood Count 5.28 X10*6/uL (4.60-5.80); Red Cell Distribution Width 14.6 % (11.0-16.0); White Blood Count 8.6 X10*3/uL (4.8-10.8)
[2023-01-27 13:48] LABS: Alanine Aminotransferase 22 U/L (0-40); Albumin Level 4.3 g/dL (3.5-5.0); Alkaline Phosphatase 60 U/L (39-117); Anion Gap 12 (12-20); Aspartate Amino Transferase 20 U/L (5-37); Bilirubin Direct 0.1 mg/dL (0.0-0.5); Bilirubin Total 0.3 mg/dL (0.0-1.0); Blood Urea Nitrogen 6 mg/dL (9-16); Calcium 9.4 mg/dL (8.4-10.2); Carbon Dioxide 26 mmol/L (22-29); Chloride 107 mmol/L (96-108); Creatinine Clr Calc Pharmacy 202.4; Estimated Glomerular Filt Rate > 60; Glucose Random 150 mg/dL (60-115); Lipase 21 U/L (8-78); Potassium 4.2 mmol/L (3.3-5.1); Sodium 141 mmol/L (135-145); Total Protein 6.7 g/dL (6.5-8.0)
[2023-01-27 14:00] LABS: COVID-19 Test Negative (Negative); IDNOW Serial# 08D9AD1C
[2023-01-27 14:01] LABS: IDNOW Serial# BCCEAD1C; Influenza A Negative (Negative); Influenza B2 Negative (Negative)
[2023-01-27 16:14] VITALS: BP 121/85; PULSE 99; RESP 20; O2SAT 97
--- NOTE | 2023-01-27 16:17 | ECG_ITS ---
Test Reason : DIZZINESS Blood Pressure : / mmHG Vent. Rate : 092 BPM Atrial Rate : 092 BPM P-R Int : 154 ms QRS Dur : 096 ms QT Int : 368 ms P-R-T Axes : 027 003 039 degrees QTc Int : 455 ms Normal sinus rhythm Normal ECG When compared with ECG of 13-OCT-2019 16:18, Heart rate has decreased Referred By: Na Walker Electronically Signed By:BRYANT HUTTON
[2023-01-27 16:18] VITALS: BP 131/73; PULSE 91
--- NOTE | 2023-01-27 16:18 | ED_ITS ---
HPI - Dizziness General Chief Complaint: Dizziness Stated Complaint: Diarrhea Time Seen by Provider: 01/27/23 16:04 History of Present Illness HPI Narrative: Patient is 33 years history being mentally challenged lives in a alf. Is on Pepto-Bismol. Took some Pepto-Bismol earlier. Nurse noted patient had some black stool. The most recent bowel movement patient had brown stool. He has no dizziness. No diarrhea at this. No chest pain or shortness of breath no nausea sent in for further evaluation Related Data Home Medications Medication Instructions Recorded Confirmed benztropine 0.5 mg tablet 0.5 mg PO BEDTIME 05/16/20 01/18/23 clonazepam 1 mg tablet 1 mg PO DAILY PRN Agitation 03/21/21 01/18/23 dapagliflozin propanediol 10 mg 10 mg PO DAILY 06/05/21 01/18/23 tablet (Farxiga) chlorpromazine 200 mg tablet 200 mg PO BID 07/21/21 01/18/23 fluoxetine 40 mg capsule 60 mg PO DAILY 07/21/21 01/18/23 melatonin 3 mg tablet 3 mg PO BEDTIME 07/21/21 01/18/23 divalproex 250 mg tablet,delayed 250 mg PO DAILY 01/28/22 01/18/23 release divalproex 500 mg tablet,delayed 1 tab PO DAILY 01/28/22 01/18/23 release divalproex 500 mg tablet,delayed 2 tab PO BEDTIME 01/28/22 01/18/23 release Previous Rx's Medication Instructions Recorded benzonatate 200 mg capsule 200 mg PO TID 5 days #15 caps 04/18/22 dextromethorphan 5 mg-guaifenesin 20 ml PO Q4-6H PRN cough #118 mL 05/10/22 50 mg/5 mL oral liquid (Robitussin Cough-Chest Congestion DM) acetaminophen 325 mg tablet 325 mg PO Q4H PRN for fever, 06/21/22 muscle aches, pain 30 days #100 tabs baclofen 10 mg tablet 10 mg PO BID PRN back pain 90 days 06/21/22 #180 tabs bismuth subsalicylate 262 mg/15 mL 524 mg (30 mL) PO Q1H PRN diarrhea 06/21/22 oral suspension (Pepto-Bismol) 30 days #1,200 mL blood-glucose meter (FreeStyle #1 ea 06/21/22 Lite Meter kit) flash glucose scanning reader #1 ea 06/21/22 (FreeStyle Jaimie 2 Tenstrike) glucose 4 gram chewable tablet 12 g (3 x 4 gram) PO Q15M PRN 06/21/22 (Dex4 Glucose) hypoglycemia #60 tabs lactase 9,000 unit tablet (Lactaid 9,000 unit PO QID PRN lactose 06/21/22 Fast Act) intolerance 30 days #90 tabs lancets 28 gauge (FreeStyle #100 ea 06/21/22 Lancets) levothyroxine 125 mcg tablet 62.5 mcg (1/2 x 125 mcg) PO QAM 06/21/22 #90 tabs lisinopril 20 mg tablet 20 mg PO DAILY #90 tabs 06/21/22 insulin glargine 100 unit/mL (3 20 unit (0.2 mL) subcut QPM #15 mL 06/22/22 mL) subcutaneous pen (Lantus Solostar U-100 Insulin) rosuvastatin 40 mg tablet (Crestor) 40 mg PO DAILY 90 days #90 tabs 06/22/22 semaglutide 0.25 mg or 0.5 mg (2 0.25 mg (0.2 mL) subcut QWEEK #1.5 06/28/22 mg/1.5 mL) subcutaneous pen mL injector (Ozempic) pen needle, diabetic 32 gauge x #4 ea 08/10/22 5/32 (BD Ultra-Fine Cally Pen Needle) flash glucose sensor (FreeStyle #2 ea 08/22/22 Jaimie 2 Sensor kit) mupirocin 2 % topical ointment 1 appl topical BID 10 days #22 09/10/22 grams blood sugar diagnostic (Accu-Chek #100 ea 10/29/22 Guide test strips) metoprolol succinate 25 mg 25 mg PO DAILY #28 tabs 10/31/22 tablet,extended release 24 hr epinephrine 0.3 mg/0.3 mL 0.3 mg (0.3 mL) IM ONCE PRN for 11/12/22 injection, auto-injector allergies #2 ea calcium carbonate 600 mg-vitamin 1 tab PO BEDTIME #90 tabs 11/28/22 D3 20 mcg (800 unit) tablet multivitamin 1 tab PO BEDTIME #90 tabs 11/28/22 pantoprazole 40 mg tablet,delayed 40 mg PO DAILY #90 tabs 11/28/22 release albuterol sulfate 90 mcg/actuation 1 inh inhalation QID PRN shortness 12/11/22 aerosol inhaler of breath or wheezing 30 days #8.5 grams metformin 500 mg/5 mL oral solution 1,000 mg (10 mL) PO BIDWM #473 mL 12/13/22 loratadine 10 mg tablet 10 mg PO BEDTIME #28 tabs 12/26/22 blood sugar diagnostic (Accutrend #100 ea 01/08/23 Glucose test strips) diclofenac sodium 1 % topical gel 2 g topical QID PRN pain #100 grams 01/18/23 (Arthritis Pain (diclofenac)) lidocaine 4 % topical patch 1 patch topical DAILY PRN pain #30 01/18/23 (Aspercreme (lidocaine)) ea insulin aspart U-100 100 unit/mL 6 - 8 unit (0.06 - 0.08 mL) subcut 01/24/23 (3 mL) subcutaneous pen (Novolog TIDWMEAL #15 mL FlexPen U-100 Insulin aspart) Allergies Allergy/AdvReac Type Severity Reaction Status Date / Time bee pollen [BEE STINGS] Allergy Unknown UNKNOWN Verified 01/27/23 09:58 carbamazepine [From TEGRETOL] Allergy Unknown UNKNOWN Verified 01/27/23 09:58 clindamycin [CLINDAMYCIN] Allergy Unknown UNKNOWN Verified 01/27/23 09:58 nortriptyline [Pamelor] Allergy Unknown Unknown Verified 01/27/23 09:58 risperidone [From RISPERDAL] Allergy Unknown UNKNOWN Verified 01/27/23 09:58 Sulfa (Sulfonamide Allergy Unknown UNKNOWN Verified 01/27/23 09:58 Antibiotics) [SULFA (SULFONAMIDE ANTIBIOTICS)] lactose AdvReac Intermediate Diarrhea Verified 01/27/23 09:58 Review of Systems 2 Review of Systems: No fever no chills Positive black stool earlier Yes all other systems are reviewed and are negative [facility] Past Medical History Medical History Proteinuria Hyperlipidemia Advance directive indicates patient wish for full code resuscitation status Seizure disorder Gout Kidney stones Type 2 diabetes mellitus with diabetic polyneuropathy Hyperlipidemia LDL goal <100 Essential hypertension Obesity due to excess calories Type 2 diabetes mellitus with hyperglycemia, with long-term current use of insulin Diabetes Sinusitis nasal Surgical History History of root canal procedure History of foot surgery History of surgery of head History of spinal surgery Family History Family History Father Medical history unknown Lung cancer Mother Diabetes Substance abuse Family/Other FH: mental illness Social History Social History Household Members Other:: roomate Housing: Other Housing Other:: [facility] Do you presently have visiting nurse or other home services: Yes (assistance from dept of mental health services) Alcohol intake: never Patient Tobacco Use Status: Never used Tobacco Smoked in Last 30 Days: No e-Cigarette/Vaping Use: Never Used Second Hand Smoke Exposure: No Use of substances other than those prescribed or required for medical reasons: No Advance Directives: No Advance Directives Information Provided: Yes service: No Current occupational status: other Cognitive needs: No Hearing needs: No Vision needs: No Physical Exam 2 Vital Signs: Vital Signs: Last Vital Signs Temp 98 F 01/27/23 09:58 Pulse 107 H 01/27/23 16:20 Resp 20 01/27/23 16:14 BP 118/74 01/27/23 16:20 Pulse Ox 97 01/27/23 16:14 O2 Del Method Room Air 01/27/23 16:14 BMI result Body Mass Index 35.7 Appearance: Alert. Oriented X3. No acute distress. Eyes: Pupils equal, round and reactive to light. ENT: Pharynx normal. Neck: Normal inspection. Neck supple. No lymph nodes noted. No crepitus CVS: Normal heart rate and rhythm. Pulses normal. Normal S1 and S2 Respiratory: No respiratory distress. Breath sounds normal. No Wheezing. No rales Abdomen: Soft and nontender. No rigidity. No distention. good BS x4 Skin: Skin warm and dry. Normal skin color. Normal skin turgor. Extremities: No lower extremity edema. Neurovascular intact to all extremities. No Lacerations. No Rash Neuro: Oriented X 3. No motor deficit. No sensory deficit. Moving all extermities. No slurred speech Medical Decision Making Medical Decision Making MDM Narrative: Patient is 33 years old presents today with having black stool. Patient's hemoglobin is 15. Took Pepto-Bismol. Likely the cause of patient's black stool. No evidence for anemia. My interpretation patient's EKG showed a sinus rhythm heart rate is 90 MO QRS QTC within normal there is no acute ST segment elevation patient well appearing no distress. Symptom has completely resolved. Will discharge patient home. Now has formed black stool. Is not dizzy. Electrolytes are normal. Differential Diagnosis Differential Diagnoses: The differential diagnosis associated with the presentation includes Dehydration, GI bleed Lab Data MDM Lab Attestation statement: I reviewed the patient's lab results. 01/27/23 13:22 01/27/23 13:22 Labs: Lab Results 01/27/23 Range/Units 13:22 WBC 8.6 (4.8-10.8) X10*3/uL RBC 5.28 (4.60-5.80) X10*6/uL Hgb 15.1 (14.0-18.0) g/dl Hct 45.5 (42.0-52.0) % MCV 86.2 (80.0-98.0) fL MCH 28.6 (27.0-33.0) pg MCHC 33.2 (31.0-36.0) g/dl RDW 14.6 (11.0-16.0) % Plt Count 204 D (160-400) X10*3/uL MPV 9.9 (9.4-12.4) fL Immature Gran % (Auto) 0.4 (0.0-0.4) % Neut % (Auto) 32.4 L (45-73) % Lymph % (Auto) 41.5 H (20-40) % [place] % (Auto) 6.9 (2-11) % Eos % (Auto) 18.6 H (0-4) % Baso % (Auto) 0.2 (0-2) % Lymph # (Auto) 3.6 (1.2-4.9) X10*3/uL [place] # (Auto) 0.6 (0.1-1.2) X10*3/uL Eos # (Auto) 1.6 H (0.0-0.4) X10*3/uL Baso # (Auto) 0.0 (0.0-0.2) X10*3/uL Abs Immat Gran (auto) 0.03 (0.00-0.03) X10*3/uL Absolute Neuts (auto) 2.8 (2.0-8.3) x10*3/uL Absolute Nucleated RBC 0.000 (0.0-0.012) X10*3/uL Nucleated RBC % (auto) 0.0 (0.0-0.2) /100WBC Sodium 141 (135-145) mmol/L Potassium 4.2 (3.3-5.1) mmol/L Chloride 107 (96-108) mmol/L Carbon Dioxide 26 (22-29) mmol/L Anion Gap 12 (12-20) BUN 6 L (9-16) mg/dL Creatinine 0.78 (0.5-1.4) mg/dL Estim Creat Clear Calc 202.4 Estimated GFR > 60 Random Glucose 150 H (60-115) mg/dL Calcium 9.4 (8.4-10.2) mg/dL Total Bilirubin 0.3 (0.0-1.0) mg/dL Direct Bilirubin 0.1 (0.0-0.5) mg/dL AST 20 (5-37) U/L ALT 22 (0-40) U/L Alkaline Phosphatase 60 (39-117) U/L Total Protein 6.7 (6.5-8.0) g/dL Albumin 4.3 (3.5-5.0) g/dL Lipase 21 (8-78) U/L COVID-19 (KARLEY) Negative (Negative) COVID-19 Clin Com See Note Influenza Type A (HERMAN) Negative (Negative) Influenza Type B (HERMAN) Negative (Negative) Influenza A & B Note See Note Independent Interpretation I performed an independent interpretation of an: EKG Interpretation: Sinus heart rate is 90 MO QRS QTC within normal limits is no acute ST segment elevation. Independent Historian Clinical information obtained from an independent historian. History obtained from or confirmed by: Other [facility] staff Discharge Plan Discharge Clinical Impression: Black stool Patient Disposition: Home, Self-Care Instructions: Gastroenteritis (DC) Prescriptions: No Action benzonatate 200 mg capsule 200 mg PO TID 5 Days Qty: 15 0RF Robitussin Cough-Chest Ken DM 5-50 mg/5 mL liquid 20 ml PO Q4-6H PRN (Reason: cough) Qty: 118 0RF acetaminophen 325 mg tablet 325 mg PO Q4H PRN (Reason: for fever, muscle aches, pain ) 30 Days Qty: 100 3RF Rx Instructions: to take every 4 hours as needed for fever, muscle aches and pain, please call MD after 3 days if symptoms last. bismuth subsalicylate [Pepto-Bismol] 262 mg/15 mL suspension 524 mg PO Q1H PRN (Reason: diarrhea) 30 Days Qty: 1200 1RF Rx Instructions: do not exceed 8 doses in a 24 hour period (DME) blood-glucose meter [FreeStyle Lite Meter] Kit See Rx Instructions .ROUTE .MEDSUPPLY Qty: 1 0RF Rx Instructions: As directed 3 times a day (DME) FreeStyle Jaimie 2 Tenstrike Misc See Rx Instructions .ROUTE .MEDSUPPLY Qty: 1 0RF Rx Instructions: As directed glucose [Dex4 Glucose] 4 gram tablet,chewable 12 g PO Q15M PRN (Reason: hypoglycemia) Qty: 60 2RF Rx Instructions: until symptoms of low blood sugar are controlled Lactaid Fast Act 9,000 unit tablet 9,000 unit PO QID PRN (Reason: lactose intolerance) 30 Days Qty: 90 0RF Rx Instructions: administer with meals and/or snacks (DME) lancets [FreeStyle Lancets] 28 gauge misc See Rx Instructions .ROUTE .MEDSUPPLY Qty: 100 0RF Rx Instructions: Three times a day lisinopril 20 mg tablet 20 mg PO DAILY Qty: 90 1RF levothyroxine 125 mcg tablet 62.5 mcg PO QAM Qty: 90 1RF baclofen 10 mg tablet 10 mg PO BID PRN (Reason: back pain) 90 Days Qty: 180 0RF rosuvastatin [Crestor] 40 mg tablet 40 mg PO DAILY 90 Days Qty: 90 3RF insulin glargine [Lantus Solostar U-100 Insulin] 100 unit/mL (3 mL) insulin pen 20 unit subcut QPM Qty: 15 3RF Ozempic 0.25 mg or 0.5 mg(2 mg/1.5 mL) pen injector 0.25 mg subcut QWEEK Qty: 1.5 3RF (DME) pen needle, diabetic [BD Ultra-Fine Cally Pen Needle] 32 gauge x 5/32 needle See Rx Instructions .ROUTE .MEDSUPPLY Qty: 4 3RF Rx Instructions: Use 4 x a day (DME) FreeStyle Jaimie 2 Sensor Kit See Rx Instructions .ROUTE .MEDSUPPLY Qty: 2 6RF Rx Instructions: As directed every 2 weeks (DME) Accu-Chek Guide test strips Strip See Rx Instructions .Route Qty: 100 6RF Rx Instructions: As directed metoprolol succinate 25 mg tablet extended release 24 hr 25 mg PO DAILY Qty: 28 3RF epinephrine 0.3 mg/0.3 mL auto-injector 0.3 mg IM ONCE PRN (Reason: for allergies) Qty: 2 0RF calcium carbonate-vitamin D3 600 mg-20 mcg (800 unit) tablet 1 tab PO BEDTIME Qty: 90 1RF pantoprazole 40 mg tablet,delayed release (DR/EC) 40 mg PO DAILY Qty: 90 1RF multivitamin Tablet 1 tab PO BEDTIME Qty: 90 1RF albuterol sulfate 90 mcg/actuation HFA aerosol inhaler 1 inh inhalation QID PRN (Reason: shortness of breath or wheezing) 30 Days Qty: 8.5 3RF metformin 500 mg/5 mL solution 1,000 mg PO BIDWM Qty: 473 3RF loratadine 10 mg tablet 10 mg PO BEDTIME Qty: 28 6RF (DME) Accutrend Glucose test strips Strip See Rx Instructions .ROUTE .MEDSUPPLY Qty: 100 3RF Rx Instructions: check the blood sugar 3 times a day insulin aspart U-100 [Novolog FlexPen U-100 Insulin] 100 unit/mL (3 mL) insulin pen 6 - 8 unit subcut TIDWMEAL Qty: 15 3RF divalproex 250 mg tablet,delayed release (DR/EC) 250 mg PO DAILY divalproex 500 mg tablet,delayed release (DR/EC) 1 tab PO DAILY divalproex 500 mg tablet,delayed release (DR/EC) 2 tab PO BEDTIME Farxiga 10 mg tablet 10 mg PO DAILY chlorpromazine 200 mg tablet 200 mg PO BID melatonin 3 mg tablet 3 mg PO BEDTIME fluoxetine 40 mg capsule 60 mg PO DAILY mupirocin 2 % ointment 1 appl topical BID 10 Days Qty: 22 0RF lidocaine [Aspercreme (lidocaine)] 4 % adhesive patch,medicated 1 patch topical DAILY PRN (Reason: pain) Qty: 30 0RF diclofenac sodium [Arthritis Pain (diclofenac)] 1 % gel 2 g topical QID PRN (Reason: pain) Qty: 100 0RF benztropine 0.5 mg tablet 0.5 mg PO BEDTIME clonazepam 1 mg tablet 1 mg PO DAILY PRN (Reason: Agitation) Referrals: Darrel Mcclure PA-C [Primary Care Provider] - 01/29/23
[2023-01-27 16:19] VITALS: BP 142/82; PULSE 96
[2023-01-27 16:20] VITALS: BP 118/74; PULSE 107
--- NOTE | 2023-01-27 16:23 | PC.NURSE ---
pt is alert and oriented, skin pwd, respirations even and unlabored, slightly flushed in the face, pt states having multiple diarrhea episodes last night, one of them was formed and dark colored but pt does take pepto bismol, and last bowel movement was braen and normal per pt. pt denies pain at this time denies dizziness, abd soft and non-tender staff at bedside
[2023-01-27 18:26] VITALS: BP 139/91; PULSE 91; O2SAT 98
== END 2023-01-27 18:53 | disposition home or self-care (01) ==
PROVIDERS: Emergency Provider Emergency Medicine Emergency Medical Services; PCP Physician Assistant
DX: R42 Dizziness and giddiness (principal); R19.7 Diarrhea, unspecified; E11.9 Type 2 diabetes mellitus without complications; Z20.822 Contact with and (suspected) exposure to COVID-19; Z20.828 Contact with and (suspected) exposure to other viral communicable diseases; Z79.899 Other long term (current) drug therapy; Z79.4 Long term (current) use of insulin
CPT/HCPCS: 80048; 80076; 83690; 85025; 87502; 87635; 93005; 99283; 99284

== ENCOUNTER 2023-03-12 13:53 | Outpatient (AMB) | payer OTHER, SELFPAY ==
[2023-03-12 14:01] VITALS: BMI 38.5
--- NOTE | 2023-03-12 14:01 | A.OFFVIS_ITS ---
Intake VS Expanded 03/12/23 14:01 Height 6 ft 1 in Weight 291 lb 14.272 oz BMI 38.5 Intake Visit Reasons: dm/CONFIRMED Allergies bee pollen [BEE STINGS] Allergy (Unknown, Verified 01/27/23 09:58) UNKNOWN carbamazepine [From TEGRETOL] Allergy (Unknown, Verified 01/27/23 09:58) UNKNOWN clindamycin [CLINDAMYCIN] Allergy (Unknown, Verified 01/27/23 09:58) UNKNOWN nortriptyline [Pamelor] Allergy (Unknown, Verified 01/27/23 09:58) Unknown risperidone [From RISPERDAL] Allergy (Unknown, Verified 01/27/23 09:58) UNKNOWN Sulfa (Sulfonamide Antibiotics) [SULFA (SULFONAMIDE ANTIBIOTICS)] Allergy (Unknown, Verified 01/27/23 09:58) UNKNOWN lactose Adverse Reaction (Intermediate, Verified 01/27/23 09:58) Diarrhea HPI Nutrition Presentation Details Pt presents for MNT f/u for T2DM. [facility] with [facility]. Pt reports doing better, has days in which blood sugar at bedtime is above 200, often related to having pastries. Pt also complains of diarrhea - when choosing lactose containing foods (eggnog, ice cream) without taking lactaid pills. Pt reports working on this. Pt has questions regarding meal choices when eating out Pt reports walking at the mall 1-2 x/wk Most Recent Diabetes Results: Microalb/Creat Ratio 80.2 ug/mg cr (<30) H 01/25/23 Cholesterol 144 mg/dL (<200) 01/25/23 HDL Cholesterol 24 mg/dL (>40) L 01/25/23 Triglycerides 266 mg/dL (<150) H 01/25/23 Creatinine 0.78 mg/dL (0.5-1.4) 01/27/23 Blood Urea Nitrogen 6 mg/dL (9-16) L 01/27/23 Sodium 141 mmol/L (135-145) 01/27/23 Potassium 4.2 mmol/L (3.3-5.1) 01/27/23 Chloride 107 mmol/L (96-108) 01/27/23 Carbon Dioxide 26 mmol/L (22-29) 01/27/23 Calcium 9.4 mg/dL (8.4-10.2) 01/27/23 AST 20 U/L (5-37) 01/27/23 ALT 22 U/L (0-40) 01/27/23 Total Protein 6.7 g/dL (6.5-8.0) 01/27/23 Albumin 4.3 g/dL (3.5-5.0) 01/27/23 [facility] Medical History Proteinuria Hyperlipidemia Advance directive indicates patient wish for full code resuscitation status Seizure disorder Gout Kidney stones Type 2 diabetes mellitus with diabetic polyneuropathy Hyperlipidemia LDL goal <100 Essential hypertension Obesity due to excess calories Type 2 diabetes mellitus with hyperglycemia, with long-term current use of insulin Diabetes Sinusitis nasal Surgical History History of root canal procedure History of foot surgery History of surgery of head History of spinal surgery Family History Father Medical history unknown Lung cancer Mother Diabetes Substance abuse Family/Other FH: mental illness Social History Household Members Other:: roomate Housing: Other Housing Other:: [address] at [facility] Do you presently have visiting nurse or other home services: Yes (assistance from dept of mental health services) Alcohol intake: never Patient Tobacco Use Status: Never used Tobacco e-Cigarette/Vaping Use: Never Used Second Hand Smoke Exposure: No service: No Current occupational status: other Cognitive needs: No Hearing needs: No Vision needs: No Assessment & Plan Assessment & Plan (1) Type 2 diabetes mellitus with hyperglycemia, with long-term current use of insulin: Code(s): E11.65 - Type 2 diabetes mellitus with hyperglycemia; Z79.4 - oil heaterman (current) use of insulin Plan: Pt consuming excessive calories > 200 from empty calorie foods snacks . Pt 's BMI maintaining at 38.5 (02/2023) , 38.5 (06/2022) from 36 (on 01/08 and on 06/2021), at 39.8 on 06/21/20, at 37.3 (299 lbs) on 11/01/20, 39.4 on 03/02/21 EST Kcal NEEDS as per [address] Eyal: 2391 USED ADJUSTED BODY WT : 103 kg est protein needs as per 0.8-1.0 g/kg bw: 82-103 g/d est fluid needs as per 25 ml/kg bw: 2575 ml/d Recommend fiber intake : 8-10 g per day and gradually increase to 25-28 g per day for women and 35-38 g for men or as tolerated Recommend sodium intake per day : less than 2000 mg Educated patient on: ( R = reviewed V = verbalizes understanding N/R = needs review N/A = not applicable * Food sources of carbohydrate, adequate serving sizes and its role in various health conditions: R V * Differences between complex carbohydrates a simple carbohydrates, role of fiber in diet: R V * Lactose free food choices : R, V * Differences between types of fats and role in diet (mono on saturated fat fatty acids, saturated fatty acids, trans fats): R basic * Food sources of sodium in salt and healthy modifications for heart health in kidney health: R V R/V * Healthy plate method concept: R * Physical activity: Benefits a precaution: R V * Dietary prevention of Hyperglycemia: R Patient Instructions: Continue to reduce on lactose containing foods (pastries, cookies) which are also high in carbohydrates Choose lactose free options with protein in them , fairlife milk and nuts or lactose free cottage cheese and fruit Keep physically active as able Coding Level of Care Code Nutr Indiv Subseq (02795) Diagnoses Type 2 diabetes mellitus with hyperglycemia, with long-term current use of insulin E11.65; Z79.4 Time Spent (min) 30
== END 2023-03-12 14:54 | disposition home or self-care (01) ==
PROVIDERS: PCP Physician Assistant; Visit Provider Dietitian, Registered
DX: E11.65 Type 2 diabetes mellitus with hyperglycemia (principal); Z79.4 Long term (current) use of insulin

== ENCOUNTER → 2023-03-12 13:53 | Outpatient (BNVA) | payer OTHER, SELFPAY | PROVIDERS: PCP Physician Assistant; Visit Provider Dietitian, Registered | DX: E11.65 Type 2 diabetes mellitus with hyperglycemia (principal); Z79.4 Long term (current) use of insulin | CPT/HCPCS: 97803 ==

== ENCOUNTER 2023-05-16 15:22 | Outpatient (AMB) | payer OTHER, SELFPAY ==
[2023-05-16 15:23] VITALS: BP 130/80; PULSE 102; O2SAT 94; BMI 36.8
--- NOTE | 2023-05-16 15:23 | A.OFFPC_ITS ---
Vital Signs 05/16/23 15:23 Height 6 ft 1 in Weight 279 lb BMI 36.8 BP 130/80 Blood Pressure Location Lt brachial Position Sitting Pulse 102 H Pulse Source Pulse Oximeter Pulse Oximetry (%) 94 Oxygen Delivery Method Room Air Intake Visit Reasons: urgent care f/u Insurance Follow Up Rep Required: No Rn Lactation Consultant: Present Allergies bee pollen [BEE STINGS] Allergy (Unknown, Verified 05/21/23 07:38) UNKNOWN carbamazepine [From TEGRETOL] Allergy (Unknown, Verified 05/21/23 07:38) UNKNOWN clindamycin [CLINDAMYCIN] Allergy (Unknown, Verified 05/21/23 07:38) UNKNOWN nortriptyline [Pamelor] Allergy (Unknown, Verified 05/21/23 07:38) Unknown risperidone [From RISPERDAL] Allergy (Unknown, Verified 05/21/23 07:38) UNKNOWN Sulfa (Sulfonamide Antibiotics) [SULFA (SULFONAMIDE ANTIBIOTICS)] Allergy (Unknown, Verified 05/21/23 07:38) UNKNOWN lactose Adverse Reaction (Intermediate, Verified 05/21/23 07:38) Diarrhea Medication List - Last Reconciled 05/21/23 by Darrel Mcclure PA-C acetaminophen 325 mg PO Q4H PRN 30 days albuterol sulfate 90 mcg/actuation 1 inh inhalation QID PRN 30 days bacitracin zinc (Antibiotic (bacitracin zinc)) 1 appl topical TID PRN 30 days baclofen 10 mg PO BID PRN 90 days benzonatate 200 mg PO TID 5 days benztropine 0.5 mg PO BEDTIME bismuth subsalicylate (Pepto-Bismol) 524 mg (30 mL) PO Q1H PRN 30 days blood sugar diagnostic (Accutrend Glucose test strips) check the blood sugar 3 times a day blood sugar diagnostic (Accu-Chek Guide test strips) As directed blood-glucose meter (FreeStyle Lite Meter kit) As directed 3 times a day calcium carbonate-vitamin D3 600 mg-20 mcg (800 unit) 1 tab PO BEDTIME chlorpromazine 200 mg PO BID clonazepam 1 mg PO DAILY PRN dapagliflozin propanediol (Farxiga) 10 mg PO DAILY dextromethorphan-guaifenesin 5-50 mg/5 mL (Robitussin Cough-Chest Congestion DM) 20 mL PO Q4-6H PRN diclofenac sodium 1% (Arthritis Pain (diclofenac)) 2 grams topical QID PRN divalproex 250 mg PO DAILY divalproex 1 tab PO DAILY divalproex 2 tabs PO BEDTIME epinephrine 0.3 mg (0.3 mL) IM ONCE PRN flash glucose scanning reader (MedlertStyle Jaimie 2 [place]) As directed flash glucose sensor (FreeStyle Jaimie 2 Sensor kit) As directed every 2 weeks fluoxetine 60 mg PO DAILY glucose (Dex4 Glucose) 12 grams (3 x 4 gram) PO Q15M PRN insulin aspart U-100 (Novolog FlexPen U-100 Insulin aspart) 6 - 8 units (0.06 - 0.08 mL) subcut TIDWMEAL insulin glargine (Lantus Solostar U-100 Insulin) 20 units (0.2 mL) subcut QPM lactase (Lactaid Fast Act) 9,000 units PO QID PRN 30 days lancets (FreeStyle Lancets) Three times a day levothyroxine 62.5 mcg (1/2 x 125 mcg) PO QAM lidocaine 4% (Aspercreme (lidocaine)) 1 patch topical DAILY PRN lisinopril 20 mg PO DAILY loratadine 10 mg PO BEDTIME melatonin 3 mg PO BEDTIME metformin 1,000 mg (10 mL) PO BIDWM metoprolol succinate ER 25 mg PO DAILY multivitamin 1 tab PO BEDTIME mupirocin 2% 1 appl topical BID 10 days pantoprazole 40 mg PO DAILY pen needle, diabetic (BD Ultra-Fine Cally Pen Needle) Use 4 x a day rosuvastatin (Crestor) 40 mg PO DAILY 90 days semaglutide (Ozempic) 0.25 mg (0.187 mL) subcut QWEEK Tobacco use date assessed: 01/18/23 Dental Screening Dental Screen Date: 05/16/23 Did you have a dental visit in the last 12 months?: Yes Did you have a dental problem in the last 6 months where you did not have access to dental care?: No Was dental information given to patient?: Patient has dentist HPI urgent care f/u HPI Details Patient is a 33-year-old male here today for an urgent care follow-up. No records of his urgent care visit at this time. Per patient he reports he had an upper respiratory infection that turned into pneumonia. He did have positive evidence of pneumonia on chest x-ray. He was started on antibiotics and now feeling much better. Needs repeat chest x-ray to confirm resolution of pneumonia. [facility] Medical History Proteinuria Hyperlipidemia Advance directive indicates patient wish for full code resuscitation status Seizure disorder Gout Kidney stones Type 2 diabetes mellitus with diabetic polyneuropathy Hyperlipidemia LDL goal <100 Essential hypertension Obesity due to excess calories Type 2 diabetes mellitus with hyperglycemia, with long-term current use of insulin Diabetes Sinusitis nasal Surgical History History of root canal procedure History of foot surgery History of surgery of head History of spinal surgery Family History Father Medical history unknown Lung cancer Mother Diabetes Substance abuse Family/Other FH: mental illness Social History Household Members Other:: roomate Housing: Other Housing Other:: [facility] Do you presently have visiting nurse or other home services: Yes (assistance from dept of mental health services) Alcohol intake: never Patient Tobacco Use Status: Never used Tobacco e-Cigarette/Vaping Use: Never Used Second Hand Smoke Exposure: No service: No Current occupational status: other Cognitive needs: No Hearing needs: No Vision needs: No Questionnaire Thrive Questionnaire Date Thrive assessed: 06/07/22 LIZBETH-7 AMB Questionnaire LIZBETH-7 Date LIZBETH - 7 assessed: 01/18/23 Source: Developed by Drs. Raymond Reyes, Padma Garcia, Gregory Zazueta and colleagues, with an educational from [employer]. Review of Systems Const Denies headache(s) Eyes Denies loss of vision ENT Denies vertigo, Denies dizziness, Denies headache(s) and Denies sore throat Card Denies chest pain, Denies leg edema and Denies lightheadedness Resp Denies cough, Denies hemoptysis and Denies wheezing GI Denies abdominal pain, Denies melena, Denies constipation, Denies diarrhea and Denies vomiting Denies dysuria, Denies urinary frequency and Denies urinary urgency Musc Denies arthralgias, Denies joint swelling, Denies numbness and Denies tingling Neuro Denies Abnormal speech present, Denies behavioral changes, Denies vertigo, Denies dizziness, Denies headache(s), Denies loss of vision, Denies memory loss, Denies numbness and Denies tingling Psych Denies anxiety, Denies behavioral changes, Denies depression, Denies memory loss and Denies panic attacks Tashi/Lymph Denies easy bleeding and Denies easy bruising Aller/Immun Denies wheezing Physical exam (Primary Care) Vital Signs: Last Vital Signs Pulse 102 H 05/16/23 15:23 BP 130/80 05/16/23 15:23 Pulse Ox 94 05/16/23 15:23 Oxygen Delivery Method Room Air 05/16/23 15:23 BMI result Body Mass Index 36.8 Tobacco/Smoking Status: Tobacco use Status Tobacco use date assessed 01/18/23 05/16/23 15:24 Patient Tobacco Use Status Never used Tobacco 05/16/23 15:24 e-Cigarette/Vaping Use Never Used 05/16/23 15:24 Thrive Assessment: Date of Thrive Assessment Date Thrive assessed 06/07/22 05/16/23 15:24 Const General: healthy appearing, no acute distress, alert and awake Nutritional Appearance: well nourished Orientation/consciousness: oriented to person, oriented to place and oriented to time HENMT Ears: TM's normal bilaterally General nose exam: Normal nasal mucous membranes and turbinates present Eyes Conjunctivae: conjunctivae normal Sclerae: sclerae normal Pupils: Equal, round and reactive pupils present Neck Neck: Yes no lymphadenopathy and Yes no JVD Thyroid: Thyroid normal Carotids: no bruits Resp Effort & Inspection: normal respiratory effort and not tachypneic Auscultation: no crackles, no rales, no rhonchi and no wheezes Cardio Rate: regular rate Rhythm: regular rhythm Heart sounds: no murmurs and normal S1 and S2 GI Palpation (GI): Soft to palpation, nontender, no hepatomegaly and no splenomegaly Auscultation: normal bowel sounds Skin General skin exam: no rashes or lesions noted and dry skin Neuro General: oriented to person, oriented to place and oriented to time Cranial nerves: Yes Equal, round and reactive pupils present Speech: No Abnormal speech present Gait exam (Neuro): Normal gait present Motor exam (neuro): no tremor noted Extrem Right upper extremity: full ROM Left upper extremity: full ROM Right lower extremity: full ROM; no edema Left lower extremity: full ROM; no edema Psych Mental Status: mental status grossly normal Speech and movement: Normal speech and movement present Affect: normal affect Attitude: cooperative Thought process: Normal thought process present Assessment and Plan Assessment & Plan (1) Pneumonia: Code(s): J18.9 - Pneumonia, unspecified organism Qualifiers: Laterality: right Lung location: lower lobe of lung Pneumonia type: due to unspecified organism Qualified Code(s): J18.9 - Pneumonia, unspecified organism Plan: As per HPI patient here for follow-up to an urgent care visit. Apparently had pneumonia was treated with antibiotics. Now feeling much better does not have any further cough or fevers. Will order repeat chest x-ray to confirm resolution of his pneumonia. Orders: Orders XR chest 2V 05/17/23 J18.9 - Pneumonia, unspecified organism Coding Level of Care Code Est Pt Level 3 (16842) Diagnoses Pneumonia of right lower lobe due to infectious organism J18.9 Laterality: right Lung location: lower lobe of lung Pneumonia type: due to unspecified organism
== END 2023-05-16 15:47 | disposition home or self-care (01) ==
PROVIDERS: PCP Physician Assistant; Visit Provider Physician Assistant
DX: J18.9 Pneumonia, unspecified organism (principal)
CPT/HCPCS: 99213

== ENCOUNTER 2023-05-17 13:00 | Outpatient (REF) | payer OTHER, SELFPAY ==
--- NOTE | ~2023-05-17 | XR_ITS ---
EXAMINATION: XR CHEST CLINICAL INFORMATION: Pneumonia COMPARISON: October 13, 2019 TECHNIQUE: 2 views of the chest were obtained. FINDINGS: No significant abnormality is noted involving the heart, lungs, mediastinum, bony thorax or soft tissues. There are small lung volumes. XR/XR chest 2V IMPRESSION: No acute disease.
== END 2023-05-17 13:01 | disposition home or self-care (01) ==
LOC: HO.HMGCX 13:00
PROVIDERS: PCP Physician Assistant; Visit Provider Physician Assistant
DX: J18.9 Pneumonia, unspecified organism (principal)
CPT/HCPCS: 71046

== ENCOUNTER 2023-05-21 14:10 | Outpatient (AMB) | payer OTHER, SELFPAY ==
--- NOTE | 2023-05-21 14:38 | A.OFFPC_ITS ---
Vital Signs 05/21/23 14:39 Weight 280 lb BP 98/68 Blood Pressure Location Lt brachial Position Sitting Respiration 17 Pulse 102 H Pulse Source Pulse Oximeter Pulse Oximetry (%) 96 Intake Visit Reasons: 3 month f/u Facility Assistant Required: No Accompanied by: [facility] Allergies bee pollen [BEE STINGS] Allergy (Unknown, Verified 05/21/23 15:02) UNKNOWN carbamazepine [From TEGRETOL] Allergy (Unknown, Verified 05/21/23 15:02) UNKNOWN clindamycin [CLINDAMYCIN] Allergy (Unknown, Verified 05/21/23 15:02) UNKNOWN nortriptyline [Pamelor] Allergy (Unknown, Verified 05/21/23 15:02) Unknown risperidone [From RISPERDAL] Allergy (Unknown, Verified 05/21/23 15:02) UNKNOWN Sulfa (Sulfonamide Antibiotics) [SULFA (SULFONAMIDE ANTIBIOTICS)] Allergy (Unknown, Verified 05/21/23 15:02) UNKNOWN lactose Adverse Reaction (Intermediate, Verified 05/21/23 15:02) Diarrhea Medication List - Last Reconciled 05/21/23 by Darrel Mcclure PA-C acetaminophen 325 mg PO Q4H PRN 30 days albuterol sulfate 90 mcg/actuation 1 inh inhalation QID PRN 30 days bacitracin zinc (Antibiotic (bacitracin zinc)) 1 appl topical TID PRN 30 days baclofen 10 mg PO BID PRN 90 days benzonatate 200 mg PO TID 5 days benztropine 0.5 mg PO BEDTIME bismuth subsalicylate (Pepto-Bismol) 524 mg (30 mL) PO Q1H PRN 30 days blood sugar diagnostic (Accutrend Glucose test strips) check the blood sugar 3 times a day blood sugar diagnostic (Accu-Chek Guide test strips) As directed blood-glucose meter (FreeStyle Lite Meter kit) As directed 3 times a day calcium carbonate-vitamin D3 600 mg-20 mcg (800 unit) 1 tab PO BEDTIME chlorpromazine 200 mg PO BID clonazepam 1 mg PO DAILY PRN dapagliflozin propanediol (Farxiga) 10 mg PO DAILY dextromethorphan-guaifenesin 5-50 mg/5 mL (Robitussin Cough-Chest Congestion DM) 20 mL PO Q4-6H PRN diclofenac sodium 1% (Arthritis Pain (diclofenac)) 2 grams topical QID PRN divalproex 250 mg PO DAILY divalproex 1 tab PO DAILY divalproex 2 tabs PO BEDTIME epinephrine 0.3 mg (0.3 mL) IM ONCE PRN flash glucose scanning reader ([employer] MediaStyle Jaimie 2 [place]) As directed flash glucose sensor (FreeStyle Jaimie 2 Sensor kit) As directed every 2 weeks fluoxetine 60 mg PO DAILY glucose (Dex4 Glucose) 12 grams (3 x 4 gram) PO Q15M PRN insulin aspart U-100 (Novolog FlexPen U-100 Insulin aspart) 6 - 8 units (0.06 - 0.08 mL) subcut TIDWMEAL insulin glargine (Lantus Solostar U-100 Insulin) 20 units (0.2 mL) subcut QPM lactase (Lactaid Fast Act) 9,000 units PO QID PRN 30 days lancets (FreeStyle Lancets) Three times a day levothyroxine 62.5 mcg (1/2 x 125 mcg) PO QAM lidocaine 4% (Aspercreme (lidocaine)) 1 patch topical DAILY PRN lisinopril 20 mg PO DAILY loratadine 10 mg PO BEDTIME melatonin 3 mg PO BEDTIME metformin 1,000 mg (10 mL) PO BIDWM metoprolol succinate ER 25 mg PO DAILY multivitamin 1 tab PO BEDTIME mupirocin 2% 1 appl topical BID 10 days pantoprazole 40 mg PO DAILY pen needle, diabetic (BD Ultra-Fine Cally Pen Needle) Use 4 x a day rosuvastatin (Crestor) 40 mg PO DAILY 90 days semaglutide (Ozempic) 0.25 mg (0.187 mL) subcut QWEEK Tobacco use date assessed: 05/21/23 Dental Screening Dental Screen Date: 05/21/23 Did you have a dental visit in the last 12 months?: No Did you have a dental problem in the last 6 months where you did not have access to dental care?: No HPI 3 month f/u HPI Details Patient is a 33-year-old male here today for follow-up visit. He presents today with a group activities aide. Patient has a past medical history type 2 diabetes tachycardia, hypothyroidism, hypertension... Concern--> recently seen at urgent care for a pneumonia. Repeat chest x-ray normal. His symptoms have resolved. .. Type 2 diabetes:? Continues to follow sanitarian inspector.? This type 2 diabetes has been somewhat suboptimally controlled. Unclear if he is actually following a diabetic diet..? Today's A1c at 7.7 .. Hypothyroidism: Continues on levothyroxine 62.5 mg with good effect. Will recheck TSH to assure normal. .. Hypertension:? Patient's blood pressure acceptable today in office.? Will continues current dose of lisinopril and metoprolol. .. ? Tachycardia:? continues to have elevated heart rates.? He denies any symptomatic palpitations or chest discomforts.? Has been seen by Cardiology and agrees with low-dose metoprolol 25 mg daily. . Obesity:? Patient does understand his BMI is over 30 and has been trying to work on better eating habits to reduce his weight.? [facility] Medical History (Updated 05/22/23 @ 07:35 by Darrel Mcclure PA-C) Proteinuria Hyperlipidemia Advance directive indicates patient wish for full code resuscitation status Seizure disorder Gout Kidney stones Type 2 diabetes mellitus with diabetic polyneuropathy Hyperlipidemia LDL goal <100 Essential hypertension Obesity due to excess calories Type 2 diabetes mellitus with hyperglycemia, with long-term current use of insulin Sinusitis nasal Surgical History History of root canal procedure History of foot surgery History of surgery of head History of spinal surgery Family History Father Medical history unknown Lung cancer Mother Diabetes Substance abuse Family/Other FH: mental illness Social History Household Members Other:: roomate Housing: Other Housing Other:: [facility] Do you presently have visiting nurse or other home services: Yes (assistance from dept of mental health services) Alcohol intake: never Patient Tobacco Use Status: Never used Tobacco e-Cigarette/Vaping Use: Never Used Second Hand Smoke Exposure: No service: No Current occupational status: other Cognitive needs: No Hearing needs: No Vision needs: No Questionnaire PHQ-9 Over the last 2 weeks, how often have you been bothered by any of the following problems? 1. Little interest or pleasure in doing things: nearly every day 2. Feeling down, depressed, or hopeless: several days 3. Trouble falling or staying asleep, or sleeping too much: nearly every day 4. Feeling tired or having little energy: nearly every day 5. Poor appetite or overeating: nearly every day 6. Feeling bad about yourself - or that you are a failure or have let yourself or your family down: nearly every day 7. Trouble concentrating on things, such as reading the newspaper or watching television: several days 8. Moving or speaking so slowly that other people could have noticed. Or the opposite - being so fidgety or restless that you have been moving around a lot more than usual: nearly every day 9. Thoughts that you would be better off or of hurting yourself in some way: nearly every day (not to harm himself/ the thoughts is for others ) Total score: 23 Depression Screening Interpretation: Positive Depression Screening Follow-up: Existing condition and In treatment Depression Screening Done: Yes 16908 - PHQ-9 Billing: Yes Source: Developed by Drs. Raymond Reyes, Padma Garcia, Gregory Zazueta and colleagues, with an educational from [employer]. Thrive Questionnaire Date Thrive assessed: 05/21/23 AUDIT C Alcohol Use Questionnaire (AUDIT-C) 1. How often do you have a drink containing alcohol?: Never 3. How often do you have six or more drinks on one occasion?: Never Total Score: 0 LIZBETH-7 AMB Questionnaire LIZBETH-7 Date LIZBETH - 7 assessed: 05/21/23 Feeling nervous, anxious, or on edge: 3 = Nearly every day Not being able to stop or control worryin = Nearly every day Worrying too much about different things: 0 = Not at all Trouble relaxin = More than half the days Being so restless that it is hard to sit still: 2 = More than half the days Becoming easily annoyed or irritable: 3 = Nearly every day Feeling afraid as if something awful might happen: 3 = Nearly every day Total LIZBETH-7 score (0-4 normal; 5-9 mild; 10-14 moderate; 15-21 severe): 16 Source: Developed by Drs. Raymond Reyes, Gregory Jovel and colleagues, with an educational from [employer]. LIZBETH-7 Assessment Billing LIZBETH-7 Assessment Tool: LIZBETH-7 Assessment 37787 Review of Systems Const Denies headache(s) Eyes Denies loss of vision ENT Denies vertigo, Denies dizziness, Denies headache(s) and Denies sore throat Card Denies chest pain, Denies leg edema and Denies lightheadedness Resp Denies cough, Denies hemoptysis and Denies wheezing GI Denies abdominal pain, Denies melena, Denies constipation, Denies diarrhea and Denies vomiting Denies dysuria, Denies urinary frequency and Denies urinary urgency Musc Denies arthralgias, Denies joint swelling, Denies numbness and Denies tingling Neuro Denies Abnormal speech present, Denies behavioral changes, Denies vertigo, Denies dizziness, Denies headache(s), Denies loss of vision, Denies memory loss, Denies numbness and Denies tingling Psych Denies anxiety, Denies behavioral changes, Denies depression, Denies memory loss and Denies panic attacks Tashi/Lymph Denies easy bleeding and Denies easy bruising Aller/Immun Denies wheezing Physical exam (Primary Care) Vital Signs: Last Vital Signs Pulse 102 H 05/21/23 14:39 Resp 17 05/21/23 14:39 BP 98/68 05/21/23 14:39 Pulse Ox 96 05/21/23 14:39 BMI Assessment/Plan discussion: High Tobacco/Smoking Status: Tobacco use Status Tobacco use date assessed 05/21/23 05/21/23 14:52 Patient Tobacco Use Status Never used Tobacco 05/21/23 14:40 e-Cigarette/Vaping Use Never Used 05/21/23 14:40 PHQ-9: PHQ-9 Score PHQ-9: Total score 23 05/21/23 15:07 Depression Screening Interpretation: Positive Depression Screening Follow-up: Existing condition and In treatment Thrive Assessment: Date of Thrive Assessment Date Thrive assessed 05/21/23 05/21/23 14:52 Const Other: Obese General: healthy appearing, no acute distress, alert and awake Nutritional Appearance: well nourished Orientation/consciousness: oriented to person, oriented to place and oriented to time HENMT Ears: TM's normal bilaterally General nose exam: Normal nasal mucous membranes and turbinates present Eyes Conjunctivae: conjunctivae normal Sclerae: sclerae normal Pupils: Equal, round and reactive pupils present Neck Neck: Yes no lymphadenopathy and Yes no JVD Thyroid: Thyroid normal Carotids: no bruits Resp Effort & Inspection: normal respiratory effort and not tachypneic Auscultation: no crackles, no rales, no rhonchi and no wheezes Cardio Rate: regular rate Rhythm: regular rhythm Heart sounds: no murmurs and normal S1 and S2 GI Palpation (GI): Soft to palpation, nontender, no hepatomegaly and no splenomegaly Auscultation: normal bowel sounds Skin General skin exam: no rashes or lesions noted and dry skin Neuro General: oriented to person, oriented to place and oriented to time Cranial nerves: Yes Equal, round and reactive pupils present Speech: No Abnormal speech present Gait exam (Neuro): Normal gait present Motor exam (neuro): no tremor noted Extrem Right upper extremity: full ROM Left upper extremity: full ROM Right lower extremity: full ROM; no edema Left lower extremity: full ROM; no edema Psych Mental Status: mental status grossly normal Speech and movement: Normal speech and movement present Affect: normal affect Attitude: cooperative Thought process: Normal thought process present Office Procedures Flu Questionnaire Does the patient have a severe egg allergy?: No Does the patient have severe life threatening allergies?: No Does the patient have a fever or illness today?: No Has the patient ever had Guillain-[place]ford Syndrome?: No Has the patient ever had any past reaction to a flu shot?: No Results AMB Hemoglobin A1c AMB Hemoglobin A1c 7.7 % Last Edit by EDITH Torres on 05/21/23 14:54 Immunizations flu vacc [id number] 6mos up(PF) 60 mcg(15 mcgx4)/0.5 mL IM syringe Performing Provider: Darrel Mcclure PA-C Performing Location: [facility] Administered by: EDITH Torres on 05/21/23 14:57 Dose Route Admin Location Dispensed Lot Number Expiration Date NDC Roving Inspector 0.5 mL IM Right Deltoid 0.5 mL [id number] 11/17/23 07058-923-57 [employer] VIS Given Date VIS Provided VIS Publication Date 05/21/23 Single Vaccine 20 Eligibility Eligibility Date Funding Source Not VFC Eligible 05/21/23 Private Results Reviewed Results Reviewed: Laboratory Last Values Hgb A1c (Clinic) 7.7 % (4.0-6.0) H 05/21/23 14:53 Assessment and Plan Assessment & Plan (1) Type 2 diabetes mellitus with unspecified complications: Code(s): E11.8 - Type 2 diabetes mellitus with unspecified complications Plan: Patient's type 2 diabetes suboptimally controlled, today's A1c is 7.7. Will continue current insulin therapy and metformin. Advised to be more compliant with a diabetic diet reducing his carbohydrates and sugar. Goal A1c to be below 7.0 (2) Obese: Code(s): E66.9 - Obesity, unspecified Qualifiers: Body mass index: BMI 38.0-38.9 Obesity classification: adult class 2 (BMI 35 - 39.9) Obesity type: due to excess calories Serious obesity comorbidity presence: with serious comorbidity Qualified Code(s): E66.01 - Morbid (severe) obesity due to excess calories; Z68.38 - Body mass index [BMI] 38.0-38.9, adult Plan: Unfortunately has gained some weight since last office visit, he does understand his BMI is over 30 will work on being more physically active and adapting to better eating habits to reduce his weight. (3) Tachycardia: Code(s): R00.0 - Tachycardia, unspecified Plan: Patient continues to have tachycardia though is asymptomatic. Continues on beta-jayla to help regulate heart rate. (4) Hypothyroidism: Code(s): E03.9 - Hypothyroidism, unspecified Qualifiers: Hypothyroidism type: acquired Qualified Code(s): E03.9 - Hypothyroidism, unspecified Plan: Unfortunately patient gained weight since last office visit. Continues on levothyroxine 62.5 mg. Continues to see an sanitarian inspector. Will recheck TSH to assure normal. (5) Hypertension: Code(s): I10 - Essential (primary) hypertension Qualifiers: Hypertension type: primary hypertension Qualified Code(s): I10 - Essential (primary) hypertension Plan: Patient's blood pressure acceptable today in office, will continue current antihypertensive medication with goal blood pressure to be below 140/90 (6) MDD (major depressive disorder): Code(s): F32.9 - Major depressive disorder, single episode, unspecified Qualifiers: Major depression recurrence: recurrent Active/Remission status: currently active Major depression episode severity: moderate Qualified Code(s): F33.1 - Major depressive disorder, recurrent, moderate Plan: Patient's PHQ-9 score positive for moderate depression. He is currently in treatment for this and being followed by psychiatrist. (7) LIZBETH (generalized anxiety disorder): Code(s): F41.1 - Generalized anxiety disorder Plan: Patient's LIZBETH-7 score positive for moderate anxiety which has been existing condition for him. He is currently seeing a mental health therapist and a psychiatrist whom is managing his mental health medications. Orders: Orders AMB Hemoglobin A1c 05/21/23 E11.65 - Type 2 diabetes mellitus with hyperglycemia, Z79.4 - care home (current) use of insulin Influenza [id number] Immunization 05/21/23 Z23 - Encounter for immunization TSH reflex Free T4 05/21/23 E03.9 - Hypothyroidism, unspecified Comprehensive [place]. Panel Fast 05/21/23 E11.8 - Type 2 diabetes mellitus with unspecified complications Complete Blood Count no Diff 05/21/23 E11.8 - Type 2 diabetes mellitus with unspecified complications Lipid Panel 05/21/23 E78.2 - Mixed hyperlipidemia Medications: Refilled insulin aspart U-100 (Novolog FlexPen U-100 Insulin aspart) 6 - 8 units (0.06 - 0.08 mL) subcut TIDWMEAL 15 mL 3RF E11.8 - Type 2 diabetes mellitus with unspecified complications insulin glargine (Lantus Solostar U-100 Insulin) 20 units (0.2 mL) subcut QPM 15 mL 3RF E11.8 - Type 2 diabetes mellitus with unspecified complications Coding Level of Care Code Est Pt Level 4 (72934) Diagnoses Type 2 diabetes mellitus with unspecified complications E11.8 Class 2 severe obesity due to excess calories with serious comorbidity and body mass index (BMI) of 38.0 to 38.9 in adult E66.01; Z68.38 Body mass index: BMI 38.0-38.9 Obesity classification: adult class 2 (BMI 35 - 39.9) Obesity type: due to excess calories Serious obesity comorbidity presence: with serious comorbidity Tachycardia R00.0 Acquired hypothyroidism E03.9 Hypothyroidism type: acquired Primary hypertension I10 Hypertension type: primary hypertension Moderate episode of recurrent major depressive disorder F33.1 Major depression recurrence: recurrent Active/Remission status: currently active Major depression episode severity: moderate LIZBETH (generalized anxiety disorder) F41.1 Additional Codes LIZBETH-7 Assessment Billing - LIZBETH-7 Assessment Tool: LIZBETH-7 Assessment 40011 ([id number])
[2023-05-21 14:39] VITALS: BP 98/68; PULSE 102; RESP 17; O2SAT 96
== END 2023-05-21 15:17 | disposition home or self-care (01) ==
PROVIDERS: PCP Physician Assistant; Visit Provider Physician Assistant
DX: E11.65 Type 2 diabetes mellitus with hyperglycemia (principal); Z79.4 Long term (current) use of insulin; Z23 Encounter for immunization
CPT/HCPCS: 83036; 90471; 90686; 96127; 99214

== ENCOUNTER 2023-05-22 10:01 | Outpatient (REF) | payer OTHER, SELFPAY | END 2023-05-22 10:02 | disposition home or self-care (01) | LOC: HO.LAB 10:01 | PROVIDERS: PCP Physician Assistant; Visit Provider Physician Assistant | DX: E03.9 Hypothyroidism, unspecified (principal); E11.8 Type 2 diabetes mellitus with unspecified complications; E78.2 Mixed hyperlipidemia | CPT/HCPCS: 36415; 80053; 80061; 84443; 85027 ==

== ENCOUNTER 2023-05-28 10:03 | Outpatient (AMB) | payer OTHER, SELFPAY ==
--- NOTE | 2023-05-28 11:44 | AM.OFFWIN_ITS ---
Intake Vital Signs 05/28/23 11:53 05/28/23 12:38 Height 6 ft 1 in Weight 281 lb BMI 37.1 BP 136/78 Blood Pressure Location Lt brachial Position Sitting Pulse 110 H 102 H Pulse Source Pulse Oximeter Auscultation Temp 98.1 F Temp Source Oral Pulse Oximetry (%) 96 Oxygen Delivery Method Room Air Intake Visit Reasons: EP, blood in urine(lobby) Intake Note: Patient is here with blood in urine this morning, has a history of kidney stones. Patient Tobacco Use Status: Never used Tobacco Allergies bee pollen [BEE STINGS] Allergy (Unknown, Verified 05/28/23 11:57) UNKNOWN carbamazepine [From TEGRETOL] Allergy (Unknown, Verified 05/28/23 11:57) UNKNOWN clindamycin [CLINDAMYCIN] Allergy (Unknown, Verified 05/28/23 11:57) UNKNOWN nortriptyline [Pamelor] Allergy (Unknown, Verified 05/28/23 11:57) Unknown risperidone [From RISPERDAL] Allergy (Unknown, Verified 05/28/23 11:57) UNKNOWN Sulfa (Sulfonamide Antibiotics) [SULFA (SULFONAMIDE ANTIBIOTICS)] Allergy (Unknown, Verified 05/28/23 11:57) UNKNOWN lactose Adverse Reaction (Intermediate, Verified 05/28/23 11:57) Diarrhea Do you need a note to return to daycare/school/sports/work: No HPI HPI Comments History of Present Illness Details Patient is a 33-year-old male in for sick visit. He states that last night and this morning he noticed his urine appeared to be slightly red color. He also has 5/10 flank pain bilaterally. He has a past medical history significant for kidney stones, and frequent UTI. Denies recent fever, chest pain, shortness a breath, nausea, vomiting, diarrhea. Urinalysis in office demonstrated some blood in the urine, no UTI. [facility] Medical History (Updated 05/28/23 @ 12:48 by REZA Serrano) Proteinuria Hyperlipidemia Advance directive indicates patient wish for full code resuscitation status Seizure disorder Gout Kidney stones Type 2 diabetes mellitus with diabetic polyneuropathy Hyperlipidemia LDL goal <100 Essential hypertension Obesity due to excess calories Type 2 diabetes mellitus with hyperglycemia, with long-term current use of insulin Sinusitis nasal Surgical History History of root canal procedure History of foot surgery History of surgery of head History of spinal surgery Family History Father Medical history unknown Lung cancer Mother Diabetes Substance abuse Family/Other FH: mental illness Social History Household Members Other:: roomate Housing: Other Housing Other:: [facility] [place] Do you presently have visiting nurse or other home services: Yes (assistance from dept of mental health services) Alcohol intake: never Patient Tobacco Use Status: Never used Tobacco e-Cigarette/Vaping Use: Never Used Second Hand Smoke Exposure: No service: No Current occupational status: other Cognitive needs: No Hearing needs: No Vision needs: No Review of Systems Const Details: Constitutional : No Weight loss, No Fever, No Chills, No Fatigue, No Malaise Cardiovascular : No Chest Pain, No SOB, No Dyspnea on Exertion, No Orthopnea, No Edema, No Palpitations Respiratory : No Cough, No Sputum, No Wheezing Gastrointestinal : No Nausea, No Vomiting, No Diarrhea, No Constipation, Admits some flank pain, 5/10. No Hematochezia, No Melena Genitourinary : No Dysuria, No Urinary Frequency, Admtis Hematuria, Neuro : No Weakness, No Numbness, No Dizziness, No Headache Lymph: No Bruising, No Bleeding,No Lymphadenopathy Endocrine : No Polyuria, No Polydipsia All other systems reviewed and are negative Physical Exam Vital Signs: Last Vital Signs Temp 98.1 F 05/28/23 11:53 Pulse 110 H 05/28/23 11:53 BP 136/78 05/28/23 11:53 Pulse Ox 96 05/28/23 11:53 Oxygen Delivery Method Room Air 05/28/23 11:53 BMI result Body Mass Index 37.1 Pulse retaken office 102 beats per minute. Const Other: Appearance: Alert.? Oriented X3.? No acute distress.? CVS: Normal heart rate and rhythm.? Pulses normal.? Respiratory: No respiratory distress.? Breath sounds normal.? Abdomen: Soft and nontender.? Skin: Skin warm and dry.? Normal skin color.? Normal skin turgor.? Back: No midline tenderness, no C-spine tenderness, full range of motion, no CVA tenderness bilaterally Neuro: Oriented X 3.? No motor deficit.? No sensory deficit. CN 2-12 intact Results AMB Urinalysis, Automated UA Leukoctes 0 Damián/uL Last Edit by Shannan Azar CMA on 05/28/23 12:07 UA Nitrite Negative Last Edit by Shannan Azar, YASMEEN on 05/28/23 12:07 UA Urobilinogen 0.2 mg/dL Last Edit by Shannan Azar, YASMEEN on 05/28/23 12:07 UA Protein 0 mg/dL Last Edit by Shannan Azar, YASMEEN on 05/28/23 12:07 UA pH 6.0 Last Edit by Shannan Azar, YASMEEN on 05/28/23 12:07 UA Blood 1 Jarrett/uL Last Edit by Shannan Azar, YASMEEN on 05/28/23 12:07 UA Specific [place] 1.020 Last Edit by Shannan Azar CMA on 05/28/23 12:0 7 UA Ketone Positive Last Edit by Shannan Azar CMA on 05/28/23 12:07 UA Bilirubin 0 mg/dL Last Edit by Shannan Azar CMA on 05/28/23 12:07 UA Glucose 2 mg/dL Last Edit by Shannan Azar CMA on 05/28/23 12:07 Results Reviewed Results Reviewed: Laboratory Last Values Urine pH (Auto) 6.0 05/28/23 12:05 Specific [place] (Auto) 1.020 05/28/23 12:05 Urine Protein (Auto) 0 mg/dL 05/28/23 12:05 Glucose (UA)(Auto) 2 mg/dL 05/28/23 12:05 Urine Ketones (Auto) Positive 05/28/23 12:05 Urine Blood (Auto) 1 Jarrett/uL 05/28/23 12:05 Urine Nitrite (Auto) Negative 05/28/23 12:05 Urine Bilirubin (Auto) 0 mg/dL 05/28/23 12:05 Urine Urobilinogen (Auto) 0.2 mg/dL 05/28/23 12:05 Leukocyte Esterase (Auto) 0 Damián/uL 05/28/23 12:05 Assessment & Plan Assessment & Plan (1) Kidney stones: Comment: Patient will have bilateral ultrasound retroperitoneal. Will draw labs CBC, CMP, UA. Patient will be given Pyridium and tamsulosin to be taken as directed. He has been educated on signs of worsening symptoms and when to return to the walk-in or when to present to the emergency room. Patient states he understands and is agreeable with this plan. Code(s): N20.0 - Calculus of kidney Plan: Take your medications as prescribed. If you were prescribed antibiotics today, it is important that you take your medication to their entirety, do not skip any doses, do not finish them early. Follow-up with your primary care provider this week. Return to the emergency department with new or worsening symptoms. Such as fevers, chills, chest pain, shortness of breath, nausea, vomiting, dizziness, headache, vision changes, lethargy In case of emergency call 911 Plan Follow-up with PCP Orders: Orders US retroperitoneal comp Today N20.0 - Calculus of kidney AMB Urinalysis Automated Today R31.9 - Hematuria, unspecified Complete Blood Count Auto Diff Today Z13.0 - Encounter for screening for diseases of the blood and blood-forming organs and certain disorders involving the immune mechanism Comprehensive Met. Panel Today Z91.89 - Other specified personal risk factors, not elsewhere classified Medications: New tamsulosin 0.4 mg PO DAILY 14 caps 0RF phenazopyridine (Pyridium) 200 mg PO TID PRN 14 tabs 0RF pain Coding Level of Care Code Est Pt Level 3 (74812) Diagnoses Kidney stones N20.0 Time Spent (min) 20
[2023-05-28 11:53] VITALS: BP 136/78; PULSE 110; TEMP 36.7; O2SAT 96; BMI 37.1
[2023-05-28 12:38] VITALS: PULSE 102
== END 2023-05-28 13:45 | disposition home or self-care (01) ==
PROVIDERS: PCP Physician Assistant; Visit Provider Nurse Practitioner Primary Care
DX: R31.9 Hematuria, unspecified (principal)
CPT/HCPCS: 81003; 99213

== ENCOUNTER 2023-05-28 13:39 | Outpatient (REF) | payer OTHER, SELFPAY ==
[2023-05-28 18:33] LABS: Appearance Urine Cloudy; Color Urine Yellow; Glucose Urine UA >=1000 mg/dL (Negative); Leukocyte Esterase Urine Small (1+) (Negative); Nitrite Urine Negative (Negative); PH 6.5 (5.0-9.0); Specific Gravity - Urine >= 1.030 (1.005-1.025); UMIC TRIGGER UACC YES; Urine Blood Small (1+) (Negative); Urine Ketones 15 mg/dL (Negative); Urine Protein Negative (Neg-Trace)
[2023-05-28 18:40] LABS: Bacteria Urine None Seen (None Seen); Hyaline Casts Urine 0-2 /LPF (0-2); Squamous Epithelial Cell Urine 0-2 /HPF (0-2); UACC Culture Trigger YES; WBC Urine >50 /HPF (0-5)
== END 2023-05-28 13:40 | disposition home or self-care (01) ==
LOC: HO.LAB 13:39
PROVIDERS: Visit Provider Nurse Practitioner Primary Care
DX: R31.9 Hematuria, unspecified (principal)
CPT/HCPCS: 81001; 87086; 87147

== ENCOUNTER 2023-05-29 09:29 | Outpatient (REF) | payer OTHER, SELFPAY ==
[2023-05-29 11:34] LABS: MANUAL DIFF FLAG NO
[2023-05-29 11:46] LABS: Basophils Percent Auto 0.5 % (0-2); Eosinophils Absolute Auto 0.5 X10*3/uL (0.0-0.4); Eosinophils Percent Auto 7.3 % (0-4); Hematocrit 45.8 % (42.0-52.0); Hemoglobin 14.6 g/dl (14.0-18.0); Imm Gran Abs Auto 0.03 X10*3/uL (0.00-0.03); Imm Gran Pct Auto 0.5 % (0.0-0.4); Lymphocytes Absolute Auto 2.6 X10*3/uL (1.2-4.9); Lymphocytes Percent Auto 40.2 % (20-40); Mean Corpuscular HGB Conc 31.9 g/dl (31.0-36.0); Mean Corpuscular Hemoglobin 27.5 pg (27.0-33.0); Mean Corpuscular Volume 86.4 fL (80.0-98.0); Mean Platelet Volume 10.9 fL (9.4-12.4); Monocytes Absolute Auto 0.5 X10*3/uL (0.1-1.2); Monocytes Percent Auto 7.6 % (2-11); Neutrophils Absolute Auto 2.8 x10*3/uL (2.0-8.3); Neutrophils Percent Auto 43.9 % (45-73); Platelet Count 222 X10*3/uL (160-400); Red Cell Distribution Width 14.9 % (11.0-16.0); White Blood Count 6.5 X10*3/uL (4.8-10.8)
[2023-05-29 12:18] LABS: Alanine Aminotransferase 19 U/L (0-40); Albumin Level 4.3 g/dL (3.5-5.0); Alkaline Phosphatase 70 U/L (39-117); Anion Gap 15 (12-20); Aspartate Amino Transferase 21 U/L (5-37); Bilirubin Total 0.2 mg/dL (0.0-1.0); Blood Urea Nitrogen 9 mg/dL (9-16); Calcium 9.8 mg/dL (8.4-10.2); Carbon Dioxide 25 mmol/L (22-29); Chloride 103 mmol/L (96-108); Estimated Glomerular Filt Rate > 60; Glucose Random 184 mg/dL (60-115); Potassium 4.5 mmol/L (3.3-5.1); Sodium 138 mmol/L (135-145); Total Protein 7.2 g/dL (6.5-8.0)
== END 2023-05-29 09:30 | disposition home or self-care (01) ==
LOC: HO.HMGCLDS 09:29
PROVIDERS: Visit Provider Nurse Practitioner Primary Care
DX: Z13.0 Encounter for screening for diseases of the blood and blood-forming organs and certain disorders involving the immune mechanism (principal); Z91.89 Other specified personal risk factors, not elsewhere classified
CPT/HCPCS: 36415; 80053; 85025

== ENCOUNTER 2023-06-07 09:57 | Outpatient (REF) | payer OTHER, SELFPAY ==
--- NOTE | ~2023-06-07 | US_ITS ---
EXAMINATION: US RETROPERITONEAL COMPLETE (RENAL) CLINICAL INFORMATION: Calculus kidney. COMPARISON: X-ray abdomen KUB 02/20/2022. CT abdomen and pelvis 03/18/2021. TECHNIQUE: Real-time imaging of the kidneys and bladder. Limited visualization due to bowel gas. FINDINGS: RIGHT KIDNEY: 15.0 x 6.7 x 6.8 cm (SAG x AP x TRV). No hydronephrosis. No renal calculi. Renal cortical thickness is normal. Limited visualization. LEFT KIDNEY: 14.2 x 7.0 x 6.5 cm (SAG x AP x TRV). No hydronephrosis. No renal calculi. Renal cortical thickness is normal. Limited visualization. BLADDER: Well-distended. Diffuse thickening and trabeculation of the bladder wall. Bladder wall thickness of 0.6 cm. Bilateral ureteral jets are demonstrated. Prevoid bladder volume is 208 mL. Postvoid bladder volume is 19 mL. Prostate volume 20 mL. US/US retroperitoneal comp IMPRESSION: 1. No hydronephrosis. No renal calculi. Limited visualization. 2. Diffuse thickening and trabeculation of the bladder wall. Bladder wall thickness of 0.6 cm.
== END 2023-06-07 09:58 | disposition home or self-care (01) ==
LOC: HO.HMGCX 09:57
PROVIDERS: PCP Physician Assistant; Visit Provider Nurse Practitioner Primary Care
DX: N20.0 Calculus of kidney (principal)
CPT/HCPCS: 76770

== ENCOUNTER 2023-08-27 13:57 | Outpatient (AMB) | payer OTHER, SELFPAY ==
--- NOTE | 2023-08-27 14:01 | A.OFFPC_ITS ---
Vital Signs 08/27/23 14:09 Height 6 ft 1 in Weight 296 lb 4 oz BMI 39.1 BP 124/78 Blood Pressure Location Lt brachial Position Sitting Pulse 99 Pulse Source Pulse Oximeter Pulse Oximetry (%) 97 Oxygen Delivery Method Room Air Intake Visit Reasons: 3 month f/u Gallery [facility] Guide Required: No Accompanied by: Program Allergies bee pollen [BEE STINGS] Allergy (Unknown, Verified 08/27/23 14:12) UNKNOWN carbamazepine [From TEGRETOL] Allergy (Unknown, Verified 08/27/23 14:12) UNKNOWN clindamycin [CLINDAMYCIN] Allergy (Unknown, Verified 08/27/23 14:12) UNKNOWN nortriptyline [Pamelor] Allergy (Unknown, Verified 08/27/23 14:12) Unknown risperidone [From RISPERDAL] Allergy (Unknown, Verified 08/27/23 14:12) UNKNOWN Sulfa (Sulfonamide Antibiotics) [SULFA (SULFONAMIDE ANTIBIOTICS)] Allergy (Unknown, Verified 08/27/23 14:12) UNKNOWN lactose Adverse Reaction (Intermediate, Verified 08/27/23 14:12) Diarrhea Medication List - Last Reconciled 08/27/23 by Darrel Mcclure PA-C acetaminophen 325 mg PO Q4H PRN 30 days albuterol sulfate 90 mcg/actuation 1 inh inhalation QID PRN 30 days amoxicillin-pot clavulanate 875-125 mg 1 tab PO Q12H bacitracin zinc (Antibiotic (bacitracin zinc)) 1 appl topical TID PRN 30 days baclofen 10 mg PO BID PRN 90 days benzonatate 200 mg PO TID 5 days benztropine 0.5 mg PO BEDTIME bismuth subsalicylate (Pepto-Bismol) 524 mg (30 mL) PO Q1H PRN 30 days blood sugar diagnostic (Accutrend Glucose test strips) check the blood sugar 3 times a day blood sugar diagnostic (Accu-Chek Guide test strips) As directed blood-glucose meter (FreeStyle Lite Meter kit) As directed 3 times a day calcium carbonate-vitamin D3 600 mg-20 mcg (800 unit) 1 tab PO BEDTIME chlorpromazine 200 mg PO BID clonazepam 1 mg PO DAILY PRN dapagliflozin propanediol (Farxiga) 10 mg PO DAILY dextromethorphan-guaifenesin 5-50 mg/5 mL (Robitussin Cough-Chest Congestion DM) 20 mL PO Q4-6H PRN diclofenac sodium 1% (Arthritis Pain (diclofenac)) 2 grams topical QID PRN divalproex 250 mg PO DAILY divalproex 1 tab PO DAILY divalproex 2 tabs PO BEDTIME epinephrine 0.3 mg (0.3 mL) IM ONCE PRN flash glucose scanning reader (InvestGlassyle Jaimie 2 [place]) As directed flash glucose sensor (FreeStyle Jaimie 2 Sensor kit) As directed every 2 weeks fluoxetine 60 mg PO DAILY glucose (Dex4 Glucose) 12 grams (3 x 4 gram) PO Q15M PRN insulin aspart U-100 (Novolog FlexPen U-100 Insulin aspart) 6 - 8 units (0.06 - 0.08 mL) subcut TIDWMEAL insulin glargine (Lantus Solostar U-100 Insulin) 20 units (0.2 mL) subcut QPM lactase (Lactaid Fast Act) 9,000 units PO QID PRN 30 days lancets (FreeStyle Lancets) Three times a day levothyroxine 62.5 mcg (1/2 x 125 mcg) PO QAM lidocaine 4% (Aspercreme (lidocaine)) 1 patch topical DAILY PRN lisinopril 20 mg PO DAILY loratadine 10 mg PO BEDTIME melatonin 3 mg PO BEDTIME metformin 1,000 mg (10 mL) PO BIDWM metoprolol succinate ER 25 mg PO DAILY multivitamin 1 tab PO BEDTIME mupirocin 2% 1 appl topical BID 10 days pantoprazole 40 mg PO DAILY pen needle, diabetic (BD Ultra-Fine Cally Pen Needle) Use 4 x a day phenazopyridine (Pyridium) 200 mg PO TID PRN rosuvastatin (Crestor) 40 mg PO DAILY 90 days semaglutide (Ozempic) 0.25 mg (0.187 mL) subcut QWEEK tamsulosin 0.4 mg PO DAILY Tobacco use date assessed: 05/21/23 Dental Screening Dental Screen Date: 05/21/23 HPI 3 month f/u HPI Details Patient is a 33-year-old male here today for follow-up visit. He presents today with a group leader. Patient has a past medical history type 2 diabetes tachycardia, hypothyroidism, hypertension... .. Type 2 diabetes:? Continues to follow stone sawyer.? This type 2 diabetes has been somewhat suboptimally controlled. Unclear if he is actually following a diabetic diet.. He reports he has been trying to follow a better diet. ? Today's A1c at 7.9 .. Hypothyroidism: Has gained a few lb since last office visit, ? Dietary indiscretion. Continues on levothyroxine 62.5 mg with good effect. Most recent TSH euthyroid.. .. Hypertension:? Patient's blood pressure acceptable today in office.? Will continues current dose of lisinopril and metoprolol. .. ? Tachycardia:? continues to have elevated heart rates.? He denies any symptomatic palpitations or chest discomforts.? Has been seen by Cardiology and agrees with low-dose metoprolol 25 mg daily. . Obesity:? Patient does understand his BMI is over 30 and has been trying to work on better eating habits to reduce his weight [facility] Medical History (Updated 08/28/23 @ 07:34 by Darrel Mcclure PA-C) Callus of toe Proteinuria Hyperlipidemia Advance directive indicates patient wish for full code resuscitation status Seizure disorder Gout Kidney stones Type 2 diabetes mellitus with diabetic polyneuropathy Hyperlipidemia LDL goal <100 Essential hypertension Obesity due to excess calories Type 2 diabetes mellitus with hyperglycemia, with long-term current use of insulin Sinusitis nasal Surgical History History of root canal procedure History of foot surgery History of surgery of head History of spinal surgery Family History Father Medical history unknown Lung cancer Mother Diabetes Substance abuse Family/Other FH: mental illness Social History Household Members Other:: roomate Housing: Other Housing Other:: [address] at [facility] Do you presently have visiting nurse or other home services: Yes (assistance from dept of mental health services) Alcohol intake: never Patient Tobacco Use Status: Never used Tobacco e-Cigarette/Vaping Use: Never Used Second Hand Smoke Exposure: No service: No Current occupational status: other Cognitive needs: No Hearing needs: No Vision needs: No Questionnaire Thrive Questionnaire Date Thrive assessed: 05/21/23 LIZBETH-7 AMB Questionnaire LIZBETH-7 Date LIZBETH - 7 assessed: 05/21/23 Source: Developed by Drs. Raymond Reyes, Padma Garcia, Gregory Zazueta and colleagues, with an educational from [employer]. Review of Systems Const Denies headache(s) Eyes Denies loss of vision ENT Denies vertigo, Denies dizziness, Denies headache(s) and Denies sore throat Card Denies chest pain, Denies leg edema and Denies lightheadedness Resp Denies cough, Denies hemoptysis and Denies wheezing GI Denies abdominal pain, Denies melena, Denies constipation, Denies diarrhea and Denies vomiting Denies dysuria, Denies urinary frequency and Denies urinary urgency Musc Denies arthralgias, Denies joint swelling, Denies numbness and Denies tingling Neuro Denies Abnormal speech present, Denies behavioral changes, Denies vertigo, Denies dizziness, Denies headache(s), Denies loss of vision, Denies memory loss, Denies numbness and Denies tingling Psych Denies anxiety, Denies behavioral changes, Denies depression, Denies memory loss and Denies panic attacks Tashi/Lymph Denies easy bleeding and Denies easy bruising Aller/Immun Denies wheezing Physical exam (Primary Care) Vital Signs: Last Vital Signs Pulse 99 08/27/23 14:09 BP 124/78 08/27/23 14:09 Pulse Ox 97 08/27/23 14:09 Oxygen Delivery Method Room Air 08/27/23 14:09 BMI result Body Mass Index 39.1 BMI Assessment/Plan discussion: High Tobacco/Smoking Status: Tobacco use Status Tobacco use date assessed 05/21/23 08/27/23 14:01 Patient Tobacco Use Status Never used Tobacco 08/27/23 14:01 e-Cigarette/Vaping Use Never Used 08/27/23 14:01 Thrive Assessment: Date of Thrive Assessment Date Thrive assessed 05/21/23 08/27/23 14:01 Const Other: Obese General: no acute distress, alert and awake Nutritional Appearance: well nourished Orientation/consciousness: oriented to person, oriented to place and oriented to time HENMT Ears: TM's normal bilaterally General nose exam: Normal nasal mucous membranes and turbinates present Eyes Conjunctivae: conjunctivae normal Sclerae: sclerae normal Pupils: Equal, round and reactive pupils present Neck Neck: Yes no lymphadenopathy and Yes no JVD Thyroid: Thyroid normal Carotids: no bruits Resp Effort & Inspection: normal respiratory effort and not tachypneic Auscultation: no crackles, no rales, no rhonchi and no wheezes Cardio Rate: regular rate Rhythm: regular rhythm Heart sounds: no murmurs and normal S1 and S2 GI Palpation (GI): Soft to palpation, nontender, no hepatomegaly and no splenomegaly Auscultation: normal bowel sounds Skin General skin exam: no rashes or lesions noted and dry skin Neuro General: oriented to person, oriented to place and oriented to time Cranial nerves: Yes Equal, round and reactive pupils present Speech: No Abnormal speech present Gait exam (Neuro): Normal gait present Motor exam (neuro): no tremor noted Extrem Right upper extremity: full ROM Left upper extremity: full ROM Right lower extremity: full ROM; no edema Left lower extremity: full ROM; no edema Psych Mental Status: mental status grossly normal Speech and movement: Normal speech and movement present Affect: normal affect Attitude: cooperative Thought process: Normal thought process present Results AMB Hemoglobin A1c AMB Hemoglobin A1c 7.9 % Last Edit by EDITH Torres on 08/27/23 14:15 Results Reviewed Results Reviewed: Laboratory Last Values Hgb A1c (Clinic) 7.9 % (4.0-6.0) H 08/27/23 14:01 Assessment and Plan Assessment & Plan (1) Type 2 diabetes mellitus with diabetic polyneuropathy: Code(s): E11.42 - Type 2 diabetes mellitus with diabetic polyneuropathy Qualifiers: Diabetes mellitus long chain quiller tender insulin use: with halfway use Qualified Code(s): E11.42 - Type 2 diabetes mellitus with diabetic polyneuropathy; Z79.4 - terminal gauger supervisor (current) use of insulin Plan: Patient's type 2 diabetes suboptimally controlled, today's A1c is 7.9 from 7.7. Will continue current insulin therapy and metformin. Will keep his diabetic medications same at this time Advised to be more physically active to help lose weight. Advised to be more compliant with a diabetic diet reducing his carbohydrates and sugar. Goal A1c to be below 7.0 (2) Obese: Code(s): E66.9 - Obesity, unspecified Qualifiers: Body mass index: BMI 38.0-38.9 Obesity classification: adult class 2 (BMI 35 - 39.9) Obesity type: due to excess calories Serious obesity comorbidity presence: with serious comorbidity Qualified Code(s): E66.01 - Morb id (severe) obesity due to excess calories; Z68.38 - Body mass index [BMI] 38.0- 38.9, adult Plan: Unfortunately has gained some weight since last office visit, he does understand his BMI is over 30 will work on being more physically active and adapting to better eating habits to reduce his weight. (3) Tachycardia: Code(s): R00.0 - Tachycardia, unspecified Plan: Patient continues to have tachycardia though is asymptomatic. Continues on beta-jayla to help regulate heart rate. (4) Hypothyroidism: Code(s): E03.9 - Hypothyroidism, unspecified Qualifiers: Hypothyroidism type: acquired Qualified Code(s): E03.9 - Hypothyroidism, unspecified Plan: Most recent TSH stable, seems clinically euthyroid Continues on levothyroxine 62.5 mg. Continues to see an stone sawyer. Will recheck TSH to assure normal. (5) Hypertension: Code(s): I10 - Essential (primary) hypertension Qualifiers: Hypertension type: primary hypertension Qualified Code(s): I10 - Essential (primary) hypertension Plan: Patient's blood pressure acceptable today in office, will continue current antihypertensive medication with goal blood pressure to be below 140/90 (6) MDD (major depressive disorder): Code(s): F32.9 - Major depressive disorder, single episode, unspecified Qualifiers: Active/Remission status: currently active Major depression episode severity: moderate Major depression recurrence: recurrent Qualified Code(s): F33.1 - Major depressive disorder, recurrent, moderate Plan: Patient reports his depression is fairly well stable. Continues on SSRI therapy with good effect. Also on mood stabilization in mood has been fairly stable.. He is currently in treatment for this and being followed by psychiatrist. (7) LIZBETH (generalized anxiety disorder): Code(s): F41.1 - Generalized anxiety disorder Plan: He is currently seeing a mental health therapist and a psychiatrist whom is managing his mental health medications. (8) Hypertriglyceridemia: Code(s): E78.1 - Pure hyperglyceridemia Plan: Patient's most recent lipid panel showing elevated triglycerides above 300. He has made some dietary changes. Will recheck his fasting lipid panel in 3 months, Goal LDL to be below 100, goal triglycerides to be below 150 Orders: Orders TSH reflex Free T4 08/27/23 E03.9 - Hypothyroidism, unspecified Complete Blood Count no Diff 08/27/23 E11.8 - Type 2 diabetes mellitus with unspecified complications Lipid Panel 08/27/23 E78.1 - Pure hyperglyceridemia Comprehensive [place]. Panel Fast 08/27/23 E11.8 - Type 2 diabetes mellitus with unspecified complications Medications: Changed From pen needle, diabetic (BD Ultra-Fine Cally Pen Needle) Use 4 x a day 4 ea 3RF E11.8 - Type 2 diabetes mellitus with unspecified complications To pen needle, diabetic (BD Ultra-Fine Cally Pen Needle) Use 2x per day 100 ea 3RF E11.8 - Type 2 diabetes mellitus with unspecified complications Refilled insulin glargine (Lantus Solostar U-100 Insulin) 20 units (0.2 mL) subcut QPM 15 mL 3RF E11.8 - Type 2 diabetes mellitus with unspecified complications Coding Level of Care Code Est Pt Level 4 (96945) Diagnoses Type 2 diabetes mellitus with diabetic polyneuropathy, with long-term current use of insulin E11.42; Z79.4 Diabetes mellitus halfway insulin use: with halfway use Class 2 severe obesity due to excess calories with serious comorbidity and body mass index (BMI) of 38.0 to 38.9 in adult E66.01; Z68.38 Body mass index: BMI 38.0-38.9 Obesity classification: adult class 2 (BMI 35 - 39.9) Obesity type: due to excess calories Serious obesity comorbidity presence: with serious comorbidity Tachycardia R00.0 Acquired hypothyroidism E03.9 Hypothyroidism type: acquired Primary hypertension I10 Hypertension type: primary hypertension Moderate episode of recurrent major depressive disorder F33.1 Active/Remission status: currently active Major depression episode severity: moderate Major depression recurrence: recurrent LIZBETH (generalized anxiety disorder) F41.1 Hypertriglyceridemia E78.1
[2023-08-27 14:09] VITALS: BP 124/78; PULSE 99; O2SAT 97; BMI 39.1
== END 2023-08-27 14:32 | disposition home or self-care (01) ==
PROVIDERS: PCP Physician Assistant; Visit Provider Physician Assistant
DX: E11.9 Type 2 diabetes mellitus without complications (principal)
CPT/HCPCS: 83036; 99214

== ENCOUNTER 2023-09-12 12:53 | Outpatient (AMB) | payer OTHER, SELFPAY ==
[2023-09-12 13:41] VITALS: BMI 39.1
--- NOTE | 2023-09-12 13:41 | MHC.AMNUTRGE ---
Intake VS Expanded 09/12/23 13:41 Height 6 ft 1 in Weight 296 lb 11.875 oz BMI 39.1 Intake Visit Reasons: DM Allergies bee pollen [BEE STINGS] Allergy (Unknown, Verified 08/27/23 14:12) UNKNOWN carbamazepine [From TEGRETOL] Allergy (Unknown, Verified 08/27/23 14:12) UNKNOWN clindamycin [CLINDAMYCIN] Allergy (Unknown, Verified 08/27/23 14:12) UNKNOWN nortriptyline [Pamelor] Allergy (Unknown, Verified 08/27/23 14:12) Unknown risperidone [From RISPERDAL] Allergy (Unknown, Verified 08/27/23 14:12) UNKNOWN Sulfa (Sulfonamide Antibiotics) [SULFA (SULFONAMIDE ANTIBIOTICS)] Allergy (Unknown, Verified 08/27/23 14:12) UNKNOWN lactose Adverse Reaction (Intermediate, Verified 08/27/23 14:12) Diarrhea HPI Nutrition Presentation Details Pt presents for MNT f/u for T2DM Pt reports choosing low sugar beverages , admits to increased intake of pastries at night time leading to elevated fasting blood sugar , sometimes in 200s fruits/day: not including, fried foods: 2 x/wk if eating out Pt reports working on walking - 1 hr /wk Most Recent Diabetes Results: Cholesterol 167 mg/dL (<200) 09/13/23 HDL Cholesterol 24 mg/dL (>40) L 09/13/23 Triglycerides 330 mg/dL (<150) H 09/13/23 Creatinine 0.66 mg/dL (0.5-1.4) 09/13/23 Blood Urea Nitrogen 10 mg/dL (9-16) 09/13/23 Sodium 142 mmol/L (135-145) 09/13/23 Potassium 4.6 mmol/L (3.3-5.1) 09/13/23 Chloride 105 mmol/L (96-108) 09/13/23 Carbon Dioxide 30 mmol/L (22-29) H 09/13/23 Calcium 9.3 mg/dL (8.4-10.2) 09/13/23 AST 30 U/L (5-37) 09/13/23 ALT 29 U/L (0-40) 09/13/23 Total Protein 7.1 g/dL (6.5-8.0) 09/13/23 Albumin 4.4 g/dL (3.5-5.0) 09/13/23 [facility] Medical History (Updated 09/05/23 @ 12:31 by Darrel Mcclure PA-C) Callus of toe Proteinuria Hyperlipidemia Advance directive indicates patient wish for full code resuscitation status Seizure disorder Gout Kidney stones Type 2 diabetes mellitus with diabetic polyneuropathy Hyperlipidemia LDL goal <100 Essential hypertension Obesity due to excess calories Type 2 diabetes mellitus with hyperglycemia, with long-term current use of insulin Sinusitis nasal Surgical History History of root canal procedure History of foot surgery History of surgery of head History of spinal surgery Family History Father Medical history unknown Lung cancer Mother Diabetes Substance abuse Family/Other FH: mental illness Social History Household Members Other:: roomate Housing: Other Housing Other:: [address] at [facility] Do you presently have visiting nurse or other home services: Yes (assistance from dept of mental health services) Alcohol intake: never Patient Tobacco Use Status: Never used Tobacco e-Cigarette/Vaping Use: Never Used Second Hand Smoke Exposure: No service: No Current occupational status: other Cognitive needs: No Hearing needs: No Vision needs: No Assessment & Plan Assessment & Plan (1) Type 2 diabetes mellitus with hyperglycemia, with long-term current use of insulin: Code(s): E11.65 - Type 2 diabetes mellitus with hyperglycemia; Z79.4 - prison (current) use of insulin Plan: Pt consuming excessive calories > 200 from empty calorie foods snacks . wt : 135 kg est kcal needs as per 25 kcal /kg bw: 3400 est protein needs as per 0.8-1.0 g/kg bw: 135 g/d est fluid needs as per 25 ml/kg bw: 4000 ml/d Recommend fiber intake : 8-10 g per day and gradually increase to 25-28 g per day for women and 35-38 g for men or as tolerated Recommend sodium intake per day : less than 2000 mg Educated patient on: ( R = reviewed V = verbalizes understanding N/R = needs review N/A = not applicable Food sources of carbohydrate, adequate serving sizes and its role in various health conditions: R V Differences between complex carbohydrates a simple carbohydrates, role of fiber in diet: R V Lactose free food choices : R, V Differences between types of fats and role in diet (mono on saturated fat fatty acids, saturated fatty acids, trans fats): R basic Food sources of sodium in salt and healthy modifications for heart health in kidney health: R V R/V Healthy plate method concept: R Physical activity: Benefits a precaution: R V Dietary prevention of Hyperglycemia: R Patient Instructions: Reduce on the sugar from ice cream , choose a yogurt bar instead (yasso bar often have less lactose than ice cream ) Continue working on reducing on sugars from pastries/cookies and have a fruit instead , make it a routine 1-2 fruits vs pastries Keep working on physical activity 45 minutes - 60 minutes or as tolerated 4-5 times a week Coding Level of Care Code Nutr Indiv Subseq ([id number]) Diagnoses Type 2 diabetes mellitus with hyperglycemia, with long-term current use of insulin E11.65; Z79.4 Time Spent (min) 30
== END 2023-09-12 14:00 | disposition home or self-care (01) ==
PROVIDERS: PCP Physician Assistant; Visit Provider Dietitian, Registered
DX: E11.65 Type 2 diabetes mellitus with hyperglycemia (principal); Z79.4 Long term (current) use of insulin

== ENCOUNTER → 2023-09-12 12:53 | Outpatient (BNVA) | payer OTHER, SELFPAY | PROVIDERS: PCP Physician Assistant; Visit Provider Dietitian, Registered | DX: E11.65 Type 2 diabetes mellitus with hyperglycemia (principal); Z79.4 Long term (current) use of insulin; Z71.3 Dietary counseling and surveillance | CPT/HCPCS: 97803 ==

== ENCOUNTER 2023-09-13 09:57 | Outpatient (REF) | payer OTHER, SELFPAY ==
[2023-09-13 10:37] LABS: Hematocrit 46.6 % (42.0-52.0); Mean Corpuscular HGB Conc 32.2 g/dl (31.0-36.0); Mean Corpuscular Hemoglobin 26.8 pg (27.0-33.0); Mean Corpuscular Volume 83.4 fL (80.0-98.0); Mean Platelet Volume 9.9 fL (9.4-12.4); Platelet Count 235 X10*3/uL (160-400); Red Blood Count 5.59 X10*6/uL (4.60-5.80); Red Cell Distribution Width 14.8 % (11.0-16.0); White Blood Count 6.7 X10*3/uL (4.8-10.8)
[2023-09-13 11:19] LABS: Appearance Urine Clear; Color Urine Yellow; Glucose Urine UA >=1000 mg/dL (Negative); Leukocyte Esterase Urine Negative (Negative); Nitrite Urine Negative (Negative); PH 6.5 (5.0-9.0); Specific Gravity - Urine >= 1.030 (1.005-1.025); UMIC TRIGGER UACC YES; Urine Blood Negative (Negative); Urine Ketones Trace mg/dL (Negative); Urine Protein 30 (1+) mg/dL (Neg-Trace)
[2023-09-13 11:22] LABS: Bacteria Urine None Seen (None Seen); Hyaline Casts Urine 0-2 /LPF (0-2); RBC Urine 0-2 /HPF (0-2); UACC Culture Trigger YES
[2023-09-13 11:26] LABS: Alanine Aminotransferase 29 U/L (0-40); Albumin Level 4.4 g/dL (3.5-5.0); Alkaline Phosphatase 60 U/L (39-117); Anion Gap 12 (12-20); Aspartate Amino Transferase 30 U/L (5-37); Bilirubin Total 0.2 mg/dL (0.0-1.0); Blood Urea Nitrogen 10 mg/dL (9-16); Calcium 9.3 mg/dL (8.4-10.2); Carbon Dioxide 30 mmol/L (22-29); Chloride 105 mmol/L (96-108); Cholesterol 167 mg/dL (<200); Estimated Glomerular Filt Rate > 60; Glucose Fasting 146 mg/dL (60-99); HDL Cholesterol 24 mg/dL (>40); LDL Cholesterol Calculated 77 mg/dL (<100); Potassium 4.6 mmol/L (3.3-5.1); Sodium 142 mmol/L (135-145); Total Protein 7.1 g/dL (6.5-8.0); Triglycerides 330 mg/dL (<150)
[2023-09-13 11:44] LABS: TSH reflex Free T4 1.41 uIU/mL (0.32-4.0)
== END 2023-09-13 09:58 | disposition home or self-care (01) ==
LOC: HO.LAB 09:57
PROVIDERS: PCP Physician Assistant; Visit Provider Physician Assistant
DX: E03.9 Hypothyroidism, unspecified (principal); E11.8 Type 2 diabetes mellitus with unspecified complications; E78.1 Pure hyperglyceridemia; R30.0 Dysuria
CPT/HCPCS: 36415; 80053; 80061; 81001; 84443; 85027; 87086; 87088; 87186

== ENCOUNTER 2023-09-19 08:46 | Outpatient (AMB) | payer OTHER, SELFPAY ==
[2023-09-19 08:54] VITALS: BP 150/90; PULSE 110; TEMP 36.2; O2SAT 97; BMI 38.7
--- NOTE | 2023-09-19 08:54 | AM.OFFWIN_ITS ---
Intake Vital Signs 09/19/23 08:54 Height 6 ft 1 in Weight 293 lb BMI 38.7 BP 150/90 H Blood Pressure Location Lt brachial Position Sitting Pulse 110 H Pulse Source Pulse Oximeter Temp 97.1 F Temp Source Temporal Artery Scan Pulse Oximetry (%) 97 Oxygen Delivery Method Room Air Intake Visit Reasons: EP hip and leg pain both sides Intake Note: pt is here today for hip an leg pain on both sides started 1 week ago Patient Tobacco Use Status: Never used Tobacco Allergies bee pollen [BEE STINGS] Allergy (Unknown, Verified 09/19/23 08:58) UNKNOWN carbamazepine [From TEGRETOL] Allergy (Unknown, Verified 09/19/23 08:58) UNKNOWN clindamycin [CLINDAMYCIN] Allergy (Unknown, Verified 09/19/23 08:58) UNKNOWN nortriptyline [Pamelor] Allergy (Unknown, Verified 09/19/23 08:58) Unknown risperidone [From RISPERDAL] Allergy (Unknown, Verified 09/19/23 08:58) UNKNOWN Sulfa (Sulfonamide Antibiotics) [SULFA (SULFONAMIDE ANTIBIOTICS)] Allergy (Unknown, Verified 09/19/23 08:58) UNKNOWN lactose Adverse Reaction (Intermediate, Verified 09/19/23 08:58) Diarrhea Do you need a note to return to daycare/school/sports/work: Yes HPI HPI Comments History of Present Illness Details 33 y/o male patient who presents to walk in clinic with c/o bilateral hip/legs pain x 1 week. Pt has been doing alot of walking at daycare program - he is preparing for a [employer]. Reports walking up to 2- 3 hours a daily. [facility] Medical History (Updated 09/05/23 @ 12:31 by Darrel Mcclure PA-C) Callus of toe Proteinuria Hyperlipidemia Advance directive indicates patient wish for full code resuscitation status Seizure disorder Gout Kidney stones Type 2 diabetes mellitus with diabetic polyneuropathy Hyperlipidemia LDL goal <100 Essential hypertension Obesity due to excess calories Type 2 diabetes mellitus with hyperglycemia, with long-term current use of insulin Sinusitis nasal Surgical History History of root canal procedure History of foot surgery History of surgery of head History of spinal surgery Family History Father Medical history unknown Lung cancer Mother Diabetes Substance abuse Family/Other FH: mental illness Social History Household Members Other:: roomate Housing: Other Housing Other:: [address] at [facility] Do you presently have visiting nurse or other home services: Yes (assistance from dept of mental health services) Alcohol intake: never Patient Tobacco Use Status: Never used Tobacco e-Cigarette/Vaping Use: Never Used Second Hand Smoke Exposure: No service: No Current occupational status: other Cognitive needs: No Hearing needs: No Vision needs: No Review of Systems Const All systems reviewed & are unremarkable except as noted in HPI and below Physical Exam Vital Signs: Last Vital Signs Temp 97.1 F 09/19/23 08:54 Pulse 110 H 09/19/23 08:54 BP 150/90 H 09/19/23 08:54 Pulse Ox 97 09/19/23 08:54 Oxygen Delivery Method Room Air 09/19/23 08:54 BMI result Body Mass Index 38.7 Const General: comfortable and no acute distress Nutritional Appearance: obese Orientation/consciousness: patient oriented x3 Limitations: behavioral limitations Back/Spine/Pelvis Cervical Spine: cervical ROM normal Thoracic/Lumbar Spine: thoraco-lumbar ROM normal Pelvis: no pain with anterior-posterior compression and no pain with lateral compression Neuro General: patient oriented x3 Extrem General: Yes normal to inspection, Yes full ROM and Yes normal exam except as noted Right upper extremity: normal to inspection Left upper extremity: normal to inspection Right lower extremity: normal to inspection, full ROM and lower leg Details: no edema; no erythema, no tenderness, no ecchymosis and no crepitus Left lower extremity: normal to inspection, full ROM and lower leg Details: normal to inspection and no edema; no tenderness Psych Speech and movement: Normal speech and movement present Assessment & Plan Assessment & Plan (1) Lumbar spine pain: Code(s): M54.50 - Low back pain, unspecified Plan: - Advised to take frequent breaks from walking and rest - Wear comfortable shoes - Ibuprofen for pain relief. Medications: New ibuprofen 600 mg PO Q6H PRN 30 tabs 0RF pain M54.50 - Low back pain, unspecified Coding Level of Care Code Est Pt Level 3 (47901) Diagnoses Lumbar spine pain M54.50 Time Spent (min) 15
== END 2023-09-19 09:31 | disposition home or self-care (01) ==
PROVIDERS: PCP Physician Assistant; Visit Provider Nurse Practitioner Family
DX: M54.50 Low back pain, unspecified (principal)
CPT/HCPCS: 99213

== ENCOUNTER 2023-10-15 13:20 | Outpatient (AMB) | payer OTHER, SELFPAY ==
--- NOTE | 2023-10-15 13:25 | MHC.OFFVIS ---
Intake Visit Reasons: Urinary tract infection, bladder wall thick Allergies bee pollen [BEE STINGS] Allergy (Unknown, Verified 09/19/23 08:58) UNKNOWN carbamazepine [From TEGRETOL] Allergy (Unknown, Verified 09/19/23 08:58) UNKNOWN clindamycin [CLINDAMYCIN] Allergy (Unknown, Verified 09/19/23 08:58) UNKNOWN nortriptyline [Pamelor] Allergy (Unknown, Verified 09/19/23 08:58) Unknown risperidone [From RISPERDAL] Allergy (Unknown, Verified 09/19/23 08:58) UNKNOWN Sulfa (Sulfonamide Antibiotics) [SULFA (SULFONAMIDE ANTIBIOTICS)] Allergy (Unknown, Verified 09/19/23 08:58) UNKNOWN lactose Adverse Reaction (Intermediate, Verified 09/19/23 08:58) Diarrhea HPI Comments Details: Tobias is a pleasant male. He is a patient of Dr. Mcclure. He has seen for the following urologic conditions - urinary tract infection - bladder thickening Ultrasound for kidney stone Diffuse thickening and trabeculation of the bladder wall. Bladder wall thickness of 0.6 cm Background seizure disorder, diabetes with diabetic polyneuropathy, long-term insulin use, SGLT2 Recommend use of alpha-jayla low-dose alfuzosin [facility] Medical History (Updated 09/05/23 @ 12:31 by Darrel Mcclure PA-C) Callus of toe Proteinuria Hyperlipidemia Advance directive indicates patient wish for full code resuscitation status Seizure disorder Gout Kidney stones Type 2 diabetes mellitus with diabetic polyneuropathy Hyperlipidemia LDL goal <100 Essential hypertension Obesity due to excess calories Type 2 diabetes mellitus with hyperglycemia, with long-term current use of insulin Sinusitis nasal Surgical History History of root canal procedure History of foot surgery History of surgery of head History of spinal surgery Family History Father Medical history unknown Lung cancer Mother Diabetes Substance abuse Family/Other FH: mental illness Social History Household Members Other:: roomate Housing: Other Housing Other:: [address] at [facility] Do you presently have visiting nurse or other home services: Yes (assistance from dept of mental health services) Alcohol intake: never Patient Tobacco Use Status: Never used Tobacco e-Cigarette/Vaping Use: Never Used Second Hand Smoke Exposure: No service: No Current occupational status: other Cognitive needs: No Hearing needs: No Vision needs: No Review of Systems Const Denies chills and Denies fever(s) Card Reports no additional complaints and Denies syncope Resp Denies cough GI Denies abdominal pain and Denies heartburn Reports as per HPI and Denies change in libido Neuro Denies syncope Psych Denies change in libido Endo Denies change in libido Physical Exam Const General: cooperative, healthy appearing, comfortable and no acute distress Orientation/consciousness: patient oriented x3 HEENT Face and sinus: Yes normal facial exam Mouth: moist mucous membranes Neck Neck: Yes normal visual inspection, Yes full ROM and Yes trachea midline Chest Chest palpation & inspection: normal inspection of the chest Resp Effort & Inspection: normal respiratory effort, able to speak in complete sentences and no respiratory distress GI Inspection: Yes normal to inspection Back/Spine/Pelvis Cervical Spine: normal cervical lordosis Thoracic/Lumbar Spine: thoracic and lumbar spine normal to inspection Skin General skin exam: no rashes or lesions noted Neuro General: patient oriented x3, gait normal, tone normal and moves all extremities Extrem General: Yes normal to inspection and Yes capillary refill normal Results AMB Urinalysis, Automated UA Leukoctes 0 Damián/uL Last Edit by Juli Phillips CMA on 10/15/23 13:38 UA Nitrite Negative Last Edit by Juli Phillips CMA on 10/15/23 13:38 UA Urobilinogen 0.2 mg/dL Last Edit by Juli Phillips CMA on 10/15/23 13:38 UA Protein 15 mg/dL Last Edit by Juli Phillips CMA on 10/15/23 13:38 UA pH 6.0 Last Edit by Juli Phillips CMA on 10/15/23 13:38 UA Blood 0 Jarrett/uL Last Edit by Juli Phillips CMA on 10/15/23 13:38 UA Specific [place] 1.010 Last Edit by Juli Phillips CMA on 10/15/23 13:38 UA Ketone Negative Last Edit by Juli Phillips CMA on 10/15/23 13:38 UA Bilirubin 0 mg/dL Last Edit by Juli Phillips CMA on 10/15/23 13:38 UA Glucose 1000 mg/dL Last Edit by Juli Phillips CMA on 10/15/23 13:38 Results Reviewed Results Reviewed: Laboratory Last Values Urine pH (Auto) 6.0 10/15/23 13:36 Specific [place] (Auto) 1.010 10/15/23 13:36 Urine Protein (Auto) 15 mg/dL 10/15/23 13:36 Glucose (UA)(Auto) 1000 mg/dL 10/15/23 13:36 Urine Ketones (Auto) Negative 10/15/23 13:36 Urine Blood (Auto) 0 Jarrett/uL 10/15/23 13:36 Urine Nitrite (Auto) Negative 10/15/23 13:36 Urine Bilirubin (Auto) 0 mg/dL 10/15/23 13:36 Urine Urobilinogen (Auto) 0.2 mg/dL 10/15/23 13:36 Leukocyte Esterase (Auto) 0 Damián/uL 10/15/23 13:36 Assessment & Plan Assessment & Plan (1) Bladder wall thickening: Code(s): N32.89 - Other specified disorders of bladder Category: Medical Plan Alfuzosin 10 Orders: Orders AMB Urinalysis Automated Today Z13.9 - Encounter for screening, unspecified Medications: New alfuzosin ER administer after the same meal each day 10 mg PO DAILY 90 days 90 tabs 1RF N13.8 - Other obstructive and reflux uropathy, N32.89 - Other specified disorders of bladder, N40.1 - Benign prostatic hyperplasia with lower urinary tract symptoms Patient Instructions: Imaging studies, laboratory and physical exam results were discussed and reviewed in detail. No major barriers to patient understanding were identified. An opportunity to ask questions regarding the treatment plan was provided. All questions were answered. The patient expressed understanding and agreement with the above treatment plan. The patient is aware they should contact our office by phone for worsening of their current condition or the appearance of new urologic symptoms. Compliance is encouraged with any medications and followup testing that is ordered. It is a privilege to participate in the urologic care of your patient. If you have any questions or concerns regarding treatment for the above conditions, or other urologic issues, please do not hesitate to contact me. The office telephone contact is [phone]. This note is constructed using voice recognition software. While every effort has been made to ensure accuracy composition professor errors may have been included. Yours sincerely, Dr Chucky Abernathy MD, [facility] - Urology Providers of Expert, Compassionate Care for the Genitourinary System Coding Level of Care Code New Pt Level 4 (48819) Diagnoses Bladder wall thickening N32.89
== END 2023-10-15 14:18 | disposition home or self-care (01) ==
LOC: HO.HUSH 13:20
PROVIDERS: PCP Physician Assistant; Visit Provider Urology
DX: N32.89 Other specified disorders of bladder (principal); Z13.9 Encounter for screening, unspecified
CPT/HCPCS: 99204

== ENCOUNTER → 2023-10-15 13:20 | Outpatient (BNVA) | payer OTHER, SELFPAY | PROVIDERS: PCP Physician Assistant; Visit Provider Urology | DX: N39.0 Urinary tract infection, site not specified (principal); N32.89 Other specified disorders of bladder | CPT/HCPCS: 81003; 99202 ==

== ENCOUNTER 2023-11-13 12:03 | Outpatient (AMB) | payer OTHER, SELFPAY ==
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
[2023-11-13 12:13] VITALS: BP 122/74; PULSE 108; TEMP 36.6; O2SAT 95; BMI 38.4
== END 2023-11-13 13:01 | disposition home or self-care (01) ==
PROVIDERS: PCP Physician Assistant; Visit Provider Nurse Practitioner Family
DX: S59.911A Unspecified injury of right forearm, initial encounter (principal)
CPT/HCPCS: 99214

== ENCOUNTER 2023-11-13 12:26 | Outpatient (REF) | payer OTHER, SELFPAY ==
--- NOTE | ~2023-11-13 | XR_ITS ---
EXAMINATION: XR FOREARM, RIGHT CLINICAL INFORMATION: Injury to right forearm. COMPARISON: None available. TECHNIQUE: AP and lateral views of the right forearm were obtained. FINDINGS: Alignment is anatomic. No displaced fracture. Imaged portions of the elbow and wrist are unremarkable. XR/XR forearm RT 2V IMPRESSION: No acute abnormality.
== END 2023-11-13 12:27 | disposition home or self-care (01) ==
LOC: HO.HMGCX 12:26
PROVIDERS: Visit Provider Nurse Practitioner Family
DX: S59.911A Unspecified injury of right forearm, initial encounter (principal); X58.XXXA Exposure to other specified factors, initial encounter; Y93.9 Activity, unspecified; Y92.9 Unspecified place or not applicable; Y99.9 Unspecified external cause status
CPT/HCPCS: 73090

== ENCOUNTER 2023-12-05 11:15 | Outpatient (AMB) | payer OTHER, SELFPAY ==
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
[2023-12-05 11:28] VITALS: BP 98/76; PULSE 106; O2SAT 95; BMI 37.9
== END 2023-12-05 11:53 | disposition home or self-care (01) ==
PROVIDERS: PCP Physician Assistant; Visit Provider Physician Assistant
DX: E11.42 Type 2 diabetes mellitus with diabetic polyneuropathy (principal); Z79.4 Long term (current) use of insulin; E03.9 Hypothyroidism, unspecified; I10 Essential (primary) hypertension; E78.1 Pure hyperglyceridemia; M54.50 Low back pain, unspecified
CPT/HCPCS: 99214

== ENCOUNTER 2023-12-12 12:39 | Outpatient (AMB) | payer OTHER, SELFPAY ==
[2023-12-12 12:55] VITALS: BMI 37.6
--- NOTE | 2023-12-12 12:55 | A.OFFVIS_ITS ---
VS Expanded 12/12/23 12:55 Height 6 ft 1 in Weight 285 lb 0.923 oz BMI 37.6 Intake Visit Reasons: T2DM/LVM Allergies bee pollen [BEE STINGS] Allergy (Unknown, Verified 12/18/23 10:05) UNKNOWN carbamazepine [From TEGRETOL] Allergy (Unknown, Verified 12/18/23 10:05) UNKNOWN clindamycin [CLINDAMYCIN] Allergy (Unknown, Verified 12/18/23 10:05) UNKNOWN nortriptyline [Pamelor] Allergy (Unknown, Verified 12/18/23 10:05) Unknown risperidone [From RISPERDAL] Allergy (Unknown, Verified 12/18/23 10:05) UNKNOWN Sulfa (Sulfonamide Antibiotics) [SULFA (SULFONAMIDE ANTIBIOTICS)] Allergy (Unknown, Verified 12/18/23 10:05) UNKNOWN lactose Adverse Reaction (Intermediate, Verified 12/18/23 10:05) Diarrhea Nutrition Presentation Details: Pt presents for MNT f/u for T2DM. Pt reports working on reducing sugars (pastries, beverages with sugars) Walks 1-2 times/month BS Monitoring Most Recent Diabetes Results: Cholesterol 167 mg/dL (<200) 09/13/23 HDL Cholesterol 24 mg/dL (>40) L 09/13/23 Triglycerides 330 mg/dL (<150) H 09/13/23 Creatinine 0.66 mg/dL (0.5-1.4) 09/13/23 Blood Urea Nitrogen 10 mg/dL (9-16) 09/13/23 Sodium 142 mmol/L (135-145) 09/13/23 Potassium 4.6 mmol/L (3.3-5.1) 09/13/23 Chloride 105 mmol/L (96-108) 09/13/23 Carbon Dioxide 30 mmol/L (22-29) H 09/13/23 Calcium 9.3 mg/dL (8.4-10.2) 09/13/23 AST 30 U/L (5-37) 09/13/23 ALT 29 U/L (0-40) 09/13/23 Total Protein 7.1 g/dL (6.5-8.0) 09/13/23 Albumin 4.4 g/dL (3.5-5.0) 09/13/23 [facility] Medical History Callus of toe Proteinuria Hyperlipidemia Advance directive indicates patient wish for full code resuscitation status Seizure disorder Gout Kidney stones Type 2 diabetes mellitus with diabetic polyneuropathy Hyperlipidemia LDL goal <100 Essential hypertension Obesity due to excess calories Type 2 diabetes mellitus with hyperglycemia, with long-term current use of insulin Sinusitis nasal Surgical History History of root canal procedure History of foot surgery History of surgery of head History of spinal surgery Family History Father Medical history unknown Lung cancer Mother Diabetes Substance abuse Family/Other FH: mental illness Social History Household Members Other:: roomate Housing: Other Housing Other:: [facility] Do you presently have visiting nurse or other home services: Yes (assistance from dept of mental health services) Alcohol intake: never Patient Tobacco Use Status: Never used Tobacco e-Cigarette/Vaping Use: Never Used Second Hand Smoke Exposure: No service: No Current occupational status: other Cognitive needs: No Hearing needs: No Vision needs: No Assessment & Plan Assessment & Plan (1) Type 2 diabetes mellitus with hyperglycemia, with long-term current use of insulin: Code(s): E11.65 - Type 2 diabetes mellitus with hyperglycemia; Z79.4 - halfway (current) use of insulin Category: Medical Plan: Pt consuming excessive calories > 200 from empty calorie foods snacks . wt : 129 ( 12/10) est kcal needs as per 25 kcal /kg bw: 3200 est protein needs as per 0.8-1.0 g/kg bw: 130 g/d est fluid needs as per 30 ml/kg bw: 3800 ml/d Recommend fiber intake : 8-10 g per day and gradually increase to 25-28 g per day for women and 35-38 g for men or as tolerated Recommend sodium intake per day : less than 2000 mg Educated patient on: ( R = reviewed V = verbalizes understanding N/R = needs review N/A = not applicable * Food sources of carbohydrate, adequate serving sizes and its role in various health conditions: R V * Differences between complex carbohydrates a simple carbohydrates, role of fiber in diet: R V * Lactose free food choices : R, V * Differences between types of fats and role in diet (mono on saturated fat fatty acids, saturated fatty acids, trans fats): R basic * Food sources of sodium in salt and healthy modifications for heart health in kidney health: R V R/V * Healthy plate method concept: R * Physical activity: Benefits a precaution: R V * Dietary prevention of Hyperglycemia: R * calcium sources of foods : R Patient Instructions: Follow healthy plate method when eating out (example salmon/ potato/carrots, engage in physical activity 45 min 3 times/wk Coding Level of Care Code Nutr Indiv Subseq (88682) Diagnoses Type 2 diabetes mellitus with hyperglycemia, with long-term current use of insulin E11.65; Z79.4 Time Spent (min) 25
== END 2023-12-12 13:37 | disposition home or self-care (01) ==
PROVIDERS: PCP Physician Assistant; Visit Provider Dietitian, Registered
DX: E11.65 Type 2 diabetes mellitus with hyperglycemia (principal); Z79.4 Long term (current) use of insulin

== ENCOUNTER → 2023-12-12 12:39 | Outpatient (BNVA) | payer OTHER, SELFPAY | PROVIDERS: PCP Physician Assistant; Visit Provider Dietitian, Registered | DX: E11.65 Type 2 diabetes mellitus with hyperglycemia (principal); E11.42 Type 2 diabetes mellitus with diabetic polyneuropathy; E66.01 Morbid (severe) obesity due to excess calories; Z68.37 Body mass index [BMI] 37.0-37.9, adult; Z79.4 Long term (current) use of insulin; Z71.3 Dietary counseling and surveillance | CPT/HCPCS: 97803 ==

== ENCOUNTER 2023-12-18 10:02 | Outpatient (AMB) | payer OTHER, SELFPAY ==
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
[2023-12-18 10:07] VITALS: BP 118/70; PULSE 94; TEMP 36.6; O2SAT 97; BMI 38.1
== END 2023-12-18 12:08 | disposition home or self-care (01) ==
PROVIDERS: PCP Physician Assistant; Visit Provider Physician Assistant
DX: G44.311 Acute post-traumatic headache, intractable (principal)
CPT/HCPCS: 99214

== ENCOUNTER 2023-12-22 09:42 | Emergency (ER) | payer OTHER, SELFPAY ==
--- NOTE | ~2023-12-22 | CT_ITS ---
EXAMINATION: CT brain and CT cervical spine without contrast. CLINICAL INDICATION: Head injury. COMPARISON: None. TECHNIQUE: 5 mm thin axial and reformatted 2 mm thin sagittal and coronal images of brain were obtained. Subsequently axial 3 mm thin and reformatted 2 mm thin sagittal and coronal images of cervical spine were obtained. DLP 1939. FINDINGS: Brain: There is no acute intra-axial, extra-axial bleed, masses or midline shift. There is no acute infarction evolution. There is no edema. The cardenas to white matter differentiation is maintained normal. The lateral ventricles are symmetrical in size and configuration with mild enlargement. Bone windows reveal no calvarial abnormality. There is no scalp soft tissue abnormality. The paranasal sinuses and mastoid air cells are well-aerated. Cervical spine: There is mild straightening of cervical lordosis. The vertebral heights, alignment appears normal. There is mild loss of C6 S7 disc height with mild ventral spondylosis at C4-C5, moderate spondylosis at C5-C6 and C6 S7 disc levels. The craniovertebral junction and the C1-C2 alignment is normal. There is no visible acute fracture, dislocation or subluxation seen. The prevertebral and paravertebral soft tissues are normal. CT/CT cervical spine wo IV con IMPRESSION: No acute intracranial process seen. There is no acute fracture, dislocation or subluxation seen in cervical spine.
--- NOTE | ~2023-12-22 | CT_ITS ---
EXAMINATION: CT brain and CT cervical spine without contrast. CLINICAL INDICATION: Head injury. COMPARISON: None. TECHNIQUE: 5 mm thin axial and reformatted 2 mm thin sagittal and coronal images of brain were obtained. Subsequently axial 3 mm thin and reformatted 2 mm thin sagittal and coronal images of cervical spine were obtained. DLP 1939. FINDINGS: Brain: There is no acute intra-axial, extra-axial bleed, masses or midline shift. There is no acute infarction evolution. There is no edema. The cardenas to white matter differentiation is maintained normal. The lateral ventricles are symmetrical in size and configuration with mild enlargement. Bone windows reveal no calvarial abnormality. There is no scalp soft tissue abnormality. The paranasal sinuses and mastoid air cells are well-aerated. Cervical spine: There is mild straightening of cervical lordosis. The vertebral heights, alignment appears normal. There is mild loss of C6 S7 disc height with mild ventral spondylosis at C4-C5, moderate spondylosis at C5-C6 and C6 S7 disc levels. The craniovertebral junction and the C1-C2 alignment is normal. There is no visible acute fracture, dislocation or subluxation seen. The prevertebral and paravertebral soft tissues are normal. CT/CT head/brain wo IV con IMPRESSION: No acute intracranial process seen. There is no acute fracture, dislocation or subluxation seen in cervical spine.
[2023-12-22 09:47] VITALS: BP 112/79; PULSE 89; RESP 16; TEMP 36.6; O2SAT 98; BMI 36.9
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
[2023-12-22 10:30] VITALS: BP 127/77; PULSE 90
--- NOTE | 2023-12-22 10:30 | ECG_ITS ---
Test Reason : DIZZINESS Blood Pressure : / mmHG Vent. Rate : 093 BPM Atrial Rate : 093 BPM P-R Int : 152 ms QRS Dur : 094 ms QT Int : 346 ms P-R-T Axes : 018 -03 031 degrees QTc Int : 430 ms Normal sinus rhythm Normal ECG When compared with ECG of 27-JAN-2023 17:01, No significant change was found Referred By: Shawanda Puente Electronically Signed By:ROSA NEWSOME MD
[2023-12-22 11:10] LABS: MANUAL DIFF FLAG NO
[2023-12-22 11:15] LABS: Basophils Percent Auto 0.3 % (0-2); Eosinophils Absolute Auto 0.1 X10*3/uL (0.0-0.4); Eosinophils Percent Auto 1.8 % (0-4); Imm Gran Abs Auto 0.03 X10*3/uL (0.00-0.03); Imm Gran Pct Auto 0.4 % (0.0-0.4); Lymphocytes Absolute Auto 3.5 X10*3/uL (1.2-4.9); Lymphocytes Percent Auto 44.5 % (20-40); Mean Corpuscular HGB Conc 33.3 g/dl (31.0-36.0); Mean Corpuscular Hemoglobin 27.7 pg (27.0-33.0); Mean Corpuscular Volume 83.2 fL (80.0-98.0); Mean Platelet Volume 10.1 fL (9.4-12.4); Monocytes Absolute Auto 0.5 X10*3/uL (0.1-1.2); Monocytes Percent Auto 5.8 % (2-11); Neutrophils Absolute Auto 3.7 x10*3/uL (2.0-8.3); Neutrophils Percent Auto 47.2 % (45-73); Platelet Count 199 X10*3/uL (160-400); Red Blood Count 5.41 X10*6/uL (4.60-5.80); Red Cell Distribution Width 14.6 % (11.0-16.0); White Blood Count 7.8 X10*3/uL (4.8-10.8)
[2023-12-22 11:21] VITALS: BP 114/75; BP 125/71; PULSE 103; PULSE 112
[2023-12-22 11:23] LABS: Valproate 88.8 mcg/mL (50.0-100.0)
[2023-12-22 11:27] LABS: Alanine Aminotransferase 26 U/L (0-40); Albumin Level 4.2 g/dL (3.5-5.0); Alkaline Phosphatase 52 U/L (39-117); Anion Gap 14 (12-20); Aspartate Amino Transferase 21 U/L (5-37); Bilirubin Direct 0.1 mg/dL (0.0-0.5); Bilirubin Total 0.3 mg/dL (0.0-1.0); Blood Urea Nitrogen 11 mg/dL (9-16); Calcium 9.3 mg/dL (8.4-10.2); Carbon Dioxide 24 mmol/L (22-29); Chloride 105 mmol/L (96-108); Creatinine Clr Calc Pharmacy 197.7; Estimated Glomerular Filt Rate > 60; Glucose Random 182 mg/dL (60-115); Magnesium 1.5 mg/dL (1.6-2.6); Potassium 4.4 mmol/L (3.3-5.1); Sodium 139 mmol/L (135-145); Total Protein 6.6 g/dL (6.5-8.0)
[2023-12-22 11:35] LABS: Troponin-I High Sensitivity < 2.7 ng/L (<3.5-35.0)
[2023-12-22] MEDS: Magnesium Oxide 400 MG TABLET PO (11:58)
[2023-12-22 12:06] VITALS: BP 121/87; PULSE 103; RESP 18; TEMP 36.6; O2SAT 96
== END 2023-12-22 12:07 | disposition home or self-care (01) ==
PROVIDERS: Nurse Practitioner Family; Emergency Provider Emergency Medicine; PCP Physician Assistant
DX: S06.0X0A Concussion without loss of consciousness, initial encounter (principal); R42 Dizziness and giddiness; R51.9 Headache, unspecified; R11.10 Vomiting, unspecified; E11.9 Type 2 diabetes mellitus without complications; Y04.2XXA Assault by strike against or bumped into by another person, initial encounter; Y93.89 Activity, other specified; Y92.89 Other specified places as the place of occurrence of the external cause; Y99.8 Other external cause status; Z79.899 Other long term (current) drug therapy; Z79.4 Long term (current) use of insulin
CPT/HCPCS: 36415; 70450; 72125; 80048; 80076; 80164; 83735; 84484; 85025; 93005; 99283

== ENCOUNTER → 2023-12-22 10:30 | Outpatient (BNV) | payer OTHER, SELFPAY | PROVIDERS: Emergency Provider Emergency Medicine; PCP Physician Assistant; Visit Provider Internal Medicine Cardiovascular Disease | DX: R42 Dizziness and giddiness (principal) | CPT/HCPCS: 93010 ==

== ENCOUNTER 2024-01-07 15:03 | Outpatient (AMB) | payer OTHER, SELFPAY ==
[2024-01-07 15:05] VITALS: BP 110/66; PULSE 113; O2SAT 96; BMI 36.6
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
== END 2024-01-07 15:39 | disposition home or self-care (01) ==
PROVIDERS: PCP Physician Assistant
DX: G44.311 Acute post-traumatic headache, intractable (principal); F41.1 Generalized anxiety disorder; F33.1 Major depressive disorder, recurrent, moderate
CPT/HCPCS: 99214

== ENCOUNTER 2024-01-08 09:43 | Outpatient (REF) | payer OTHER, SELFPAY ==
[2024-01-08 11:16] LABS: Hematocrit 46.3 % (42.0-52.0); Hemoglobin 15.1 g/dl (14.0-18.0); Mean Corpuscular HGB Conc 32.6 g/dl (31.0-36.0); Mean Corpuscular Hemoglobin 27.5 pg (27.0-33.0); Mean Corpuscular Volume 84.2 fL (80.0-98.0); Mean Platelet Volume 10.4 fL (9.4-12.4); Platelet Count 224 X10*3/uL (160-400); Red Cell Distribution Width 14.6 % (11.0-16.0); White Blood Count 7.2 X10*3/uL (4.8-10.8)
[2024-01-08 12:31] LABS: Alanine Aminotransferase 27 U/L (0-40); Albumin Level 4.4 g/dL (3.5-5.0); Alkaline Phosphatase 56 U/L (39-117); Anion Gap 16 (12-20); Aspartate Amino Transferase 27 U/L (5-37); Bilirubin Total 0.3 mg/dL (0.0-1.0); Blood Urea Nitrogen 11 mg/dL (9-16); Calcium 9.6 mg/dL (8.4-10.2); Carbon Dioxide 27 mmol/L (22-29); Chloride 103 mmol/L (96-108); Cholesterol 164 mg/dL (<200); Estimated Glomerular Filt Rate > 60; Glucose Fasting 106 mg/dL (60-99); HDL Cholesterol 26 mg/dL (>40); Potassium 4.6 mmol/L (3.3-5.1); Sodium 141 mmol/L (135-145); Total Protein 6.9 g/dL (6.5-8.0); Triglycerides 431 mg/dL (<150)
[2024-01-08 12:47] LABS: Microalbum/Creatinine Ratio Ur 58.1 ug/mg cr (<30)
[2024-01-08 12:54] LABS: TSH reflex Free T4 1.37 uIU/mL (0.32-4.0)
== END 2024-01-08 09:44 | disposition home or self-care (01) ==
LOC: HO.LAB 09:43
PROVIDERS: PCP Physician Assistant; Visit Provider Physician Assistant
DX: E03.9 Hypothyroidism, unspecified (principal); I10 Essential (primary) hypertension; E78.2 Mixed hyperlipidemia
CPT/HCPCS: 36415; 80053; 80061; 82043; 82570; 84443; 85027

== ENCOUNTER 2024-02-05 10:00 | Outpatient (RCR) | payer OTHER, SELFPAY ==
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
--- NOTE | 2024-02-05 10:48 | MHC.PT.DC ---
[facility] [place] Office [place] Office [place] Office [address] [phone] F: [phone] F: [phone] F: [phone] F: [phone] Physical Therapy Discharge Report Diagnosis: low back pain Date of Surgery: n/a Date of Evaluation: 01/06/24 Date of Discharge: 02/05/24 Treatments to Date: 7 Cancellations to Date: 3 No Shows to Date: 0 Discharge Status: Discharge Summary: 02/05/2024: Pt has made minimal progress since start of care. He has not been compliant with his HEP and has fair attention during sessions. At this point gains are not being made with skilled PT so it is no longer indicated to continue. Pt to be d/c and has an HEP he should work on although it is not clear if he will. He is in agreement with d/c today. Electronically signed by: Jeimy Quintero, PT, DPT, ATC Please sign and return to therapist. Thank you for your referral.
== END 2024-02-05 10:48 | disposition home or self-care (01) ==
LOC: HO.PTCHIC 10:00
PROVIDERS: PCP Physician Assistant; Visit Provider Physician Assistant
DX: M51.9 Unspecified thoracic, thoracolumbar and lumbosacral intervertebral disc disorder (principal); M54.9 Dorsalgia, unspecified
CPT/HCPCS: 97110; 97162

== ENCOUNTER 2024-04-21 13:24 | Outpatient (AMB) | payer OTHER, SELFPAY ==
--- NOTE | 2024-04-21 13:36 | A.OFFVIS_ITS ---
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: No Allergies bee pollen [BEE STINGS] Allergy (Unknown, Verified 04/21/24 13:37) UNKNOWN carbamazepine [From TEGRETOL] Allergy (Unknown, Verified 04/21/24 13:37) UNKNOWN clindamycin [CLINDAMYCIN] Allergy (Unknown, Verified 04/21/24 13:37) UNKNOWN nortriptyline [Pamelor] Allergy (Unknown, Verified 04/21/24 13:37) Unknown risperidone [From RISPERDAL] Allergy (Unknown, Verified 04/21/24 13:37) UNKNOWN Sulfa (Sulfonamide Antibiotics) [SULFA (SULFONAMIDE ANTIBIOTICS)] Allergy (Unknown, Verified 04/21/24 13:37) UNKNOWN lactose Adverse Reaction (Intermediate, Verified 04/21/24 13:37) Diarrhea HPI Comments Details: Tobias is a pleasant male. He is a patient of Dr. Mcclure. He has seen for the following urologic conditions - urinary tract infection - bladder thickening Has been doing well with bladder emptying since being placed on alpha-jayla We will continue alfuzosin 12 month follow-up PVR UA 3+ glucose consistent with SGLT2 use Ultrasound for kidney stone Diffuse thickening and trabeculation of the bladder wall. Bladder wall thickness of 0.6 cm Background seizure disorder, diabetes with diabetic polyneuropathy, long-term insulin use, SGLT2 PFSH Medical History Callus of toe Proteinuria Hyperlipidemia Advance directive indicates patient wish for full code resuscitation status Seizure disorder Gout Kidney stones Type 2 diabetes mellitus with diabetic polyneuropathy Hyperlipidemia LDL goal <100 Essential hypertension Obesity due to excess calories Type 2 diabetes mellitus with hyperglycemia, with long-term current use of insulin Sinusitis nasal Surgical History History of root canal procedure History of foot surgery History of surgery of head History of spinal surgery Family History Father Medical history unknown Lung cancer Mother Diabetes Substance abuse Family/Other FH: mental illness Social History Household Members Other:: roomate Housing: Other Housing Other:: [address] [facility] Do you presently have visiting nurse or other home services: Yes (assistance from dept of mental health services) Alcohol intake: never Patient Tobacco Use Status: Never used Tobacco e-Cigarette/Vaping Use: Never Used Second Hand Smoke Exposure: No service: No Current occupational status: other Cognitive needs: No Hearing needs: No Vision needs: No Review of Systems Const Denies chills and Denies fever(s) Card Reports no additional complaints and Denies syncope Resp Denies cough GI Denies abdominal pain and Denies heartburn Reports as per HPI and Denies change in libido Neuro Denies syncope Psych Denies change in libido Endo Denies change in libido Physical Exam Const General: cooperative, healthy appearing, comfortable and no acute distress Orientation/consciousness: patient oriented x3 HEENT Face and sinus: Yes normal facial exam Mouth: moist mucous membranes Neck Neck: Yes normal visual inspection, Yes full ROM and Yes trachea midline Chest Chest palpation & inspection: normal inspection of the chest Resp Effort & Inspection: normal respiratory effort, able to speak in complete sentences and no respiratory distress GI Inspection: Yes normal to inspection Back/Spine/Pelvis Cervical Spine: normal cervical lordosis Thoracic/Lumbar Spine: thoracic and lumbar spine normal to inspection Skin General skin exam: no rashes or lesions noted Neuro General: patient oriented x3, gait normal, tone normal and moves all extremities Extrem General: Yes normal to inspection and Yes capillary refill normal Office Procedures Post Void Residual Post Residual Void Post Void Residual (PVR): 0 [id number] Void Residual by ultrasound Results AMB Urinalysis, Automated UA Leukoctes 0 Damián/uL Last Edit by EDITH Saenz on 04/21/24 13:46 UA Nitrite Negative Last Edit by EDITH Saenz on 04/21/24 13:46 UA Urobilinogen 0.2 mg/dL Last Edit by EDITH Saenz on 04/21/24 13:4 6 UA Protein 15 mg/dL Last Edit by EDITH Saenz on 04/21/24 13:46 UA pH 6.0 Last Edit by EDITH Saenz on 04/21/24 13:46 UA Blood 0 Jarrett/uL Last Edit by EDITH Saenz on 04/21/24 13:46 UA Specific Grethel 1.015 Last Edit by EDITH Saenz on 04/21/24 13: 46 UA Ketone Negative Last Edit by EDITH Saenz on 04/21/24 13:46 UA Bilirubin 0 mg/dL Last Edit by EDITH Saenz on 04/21/24 13:46 UA Glucose 1000 mg/dL Last Edit by EDITH Saenz on 04/21/24 13:46 Results Reviewed Results Reviewed: Laboratory Last Values Urine pH (Auto) 6.0 04/21/24 13:46 Specific Grethel (Auto) 1.015 04/21/24 13:46 Urine Protein (Auto) 15 mg/dL 04/21/24 13:46 Glucose (UA)(Auto) 1000 mg/dL 04/21/24 13:46 Urine Ketones (Auto) Negative 04/21/24 13:46 Urine Blood (Auto) 0 Jarrett/uL 04/21/24 13:46 Urine Nitrite (Auto) Negative 04/21/24 13:46 Urine Bilirubin (Auto) 0 mg/dL 04/21/24 13:46 Urine Urobilinogen (Auto) 0.2 mg/dL 04/21/24 13:46 Leukocyte Esterase (Auto) 0 Damián/uL 04/21/24 13:46 Assessment & Plan Assessment & Plan (1) Kidney stones: Comment: Patient will have bilateral ultrasound retroperitoneal. Will draw labs CBC, CMP, UA. Patient will be given Pyridium and tamsulosin to be taken as directed. He has been educated on signs of worsening symptoms and when to return to the walk-in or when to present to the emergency room. Patient states he understands and is agreeable with this plan. Code(s): N20.0 - Calculus of kidney Category: Medical (2) Bladder wall thickening: Code(s): N32.89 - Other specified disorders of bladder Category: Medical Plan Twelve month follow-up Orders: Orders AMB Urinalysis Automated Today Z13.9 - Encounter for screening, unspecified Medications: Refilled alfuzosin ER administer after the same meal each day 10 mg PO DAILY 90 days 90 tabs 3RF N13.8 - Other obstructive and reflux uropathy, N32.89 - Other specified disorders of bladder, N40.1 - Benign prostatic hyperplasia with lower urinary tract symptoms Patient Instructions: Imaging studies, laboratory and physical exam results were discussed and reviewed in detail. No major barriers to patient understanding were identified. An opportunity to ask questions regarding the treatment plan was provided. All questions were answered. The patient expressed understanding and agreement with the above treatment plan. The patient is aware they should contact our office by phone for worsening of their current condition or the appearance of new urologic symptoms. Compliance is encouraged with any medications and followup testing that is ordered. It is a privilege to participate in the urologic care of your patient. If you have any questions or concerns regarding treatment for the above conditions, or other urologic issues, please do not hesitate to contact me. The office telephone contact is [phone]. This note is constructed using voice recognition software. While every effort has been made to ensure accuracy rubber goods inspector errors may have been included. Yours sincerely, Dr Chucky Abernathy MD, [facility] - Urology Providers of Expert, Compassionate Care for the Genitourinary System Coding Level of Care Code Est Pt Level 3 (54901) Diagnoses Kidney stones N20.0 Bladder wall thickening N32.89 CPT Codes Post Residual Void - PVR CPT Code: 94709-Pecw Void Residual by ultrasound ([id number])
== END 2024-04-21 14:00 | disposition home or self-care (01) ==
PROVIDERS: PCP Physician Assistant; Visit Provider Urology
DX: N20.0 Calculus of kidney (principal); N32.89 Other specified disorders of bladder; Z13.9 Encounter for screening, unspecified
CPT/HCPCS: 99213

== ENCOUNTER → 2024-04-21 13:24 | Outpatient (BNVA) | payer OTHER, SELFPAY | PROVIDERS: PCP Physician Assistant; Visit Provider Urology | DX: N40.1 Benign prostatic hyperplasia with lower urinary tract symptoms (principal); N13.8 Other obstructive and reflux uropathy; N32.89 Other specified disorders of bladder; Z87.440 Personal history of urinary (tract) infections | CPT/HCPCS: 51798; 81003; 99212 ==

== ENCOUNTER 2024-05-04 13:37 | Outpatient (AMB) | payer OTHER, SELFPAY ==
[2024-05-04 14:07] VITALS: BP 108/78; PULSE 122; O2SAT 97; BMI 37.4
--- NOTE | 2024-05-04 14:07 | A.OFFPC_ITS ---
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 Accompanied by: program Allergies bee pollen [BEE STINGS] Allergy (Unknown, Verified 05/04/24 14:23) UNKNOWN carbamazepine [From TEGRETOL] Allergy (Unknown, Verified 05/04/24 14:23) UNKNOWN clindamycin [CLINDAMYCIN] Allergy (Unknown, Verified 05/04/24 14:23) UNKNOWN nortriptyline [Pamelor] Allergy (Unknown, Verified 05/04/24 14:23) Unknown risperidone [From RISPERDAL] Allergy (Unknown, Verified 05/04/24 14:23) UNKNOWN Sulfa (Sulfonamide Antibiotics) [SULFA (SULFONAMIDE ANTIBIOTICS)] Allergy (Unknown, Verified 05/04/24 14:23) UNKNOWN lactose Adverse Reaction (Intermediate, Verified 05/04/24 14:23) Diarrhea Medication List - Last Reconciled 05/04/24 by Darrel Mcclure PA-C acetaminophen 325 mg PO Q4H PRN 30 days alfuzosin ER 10 mg PO DAILY 90 days aripiprazole 30 mg PO DAILY baclofen 10 mg PO BID PRN 30 days benztropine 0.5 mg PO DAILY bismuth subsalicylate (Pepto-Bismol) 524 mg (30 mL) PO Q1H PRN 30 days blood sugar diagnostic (FreeStyle Test strips) Testing 3 times a day blood-glucose meter (FreeStyle Lite Meter kit) As directed 3 times a day calcium carbonate-vitamin D3 600 mg-20 mcg (800 unit) 1 tab PO BEDTIME clonazepam 1 mg PO TID PRN dapagliflozin propanediol (Farxiga) 10 mg PO DAILY diclofenac sodium 1% (Arthritis Pain (diclofenac)) 2 grams topical QID PRN divalproex 250 mg PO DAILY divalproex 1 tab PO DAILY divalproex 2 tabs PO BEDTIME epinephrine 0.3 mg (0.3 mL) IM ONCE PRN fluoxetine 60 mg PO DAILY glucose (Dex4 Glucose) 12 grams (3 x 4 gram) PO Q15M PRN ibuprofen 600 mg PO Q6H PRN insulin aspart U-100 (Novolog FlexPen U-100 Insulin aspart) 6 - 8 units (0.06 - 0.08 mL) subcut TIDWMEAL insulin glargine (Lantus Solostar U-100 Insulin) 20 units (0.2 mL) subcut QPM lactase (Lactaid Fast Act) 9,000 units PO QID PRN 30 days lancets (FreeStyle Lancets) Three times a day levothyroxine 62.5 mcg (1/2 x 125 mcg) PO QAM lidocaine 4% (Aspercreme (lidocaine)) 1 patch topical DAILY PRN lisinopril 40 mg PO DAILY 30 days loratadine 10 mg PO BEDTIME melatonin 3 mg PO BEDTIME metformin 1,000 mg (10 mL) PO BIDWM metoprolol succinate ER 25 mg PO DAILY multivitamin with folic acid 400 mcg (Daily-Taz (with folic acid)) 1 tab PO DAILY mupirocin 2% 1 appl topical BID 10 days pantoprazole 40 mg PO DAILY pen needle, diabetic (BD Ultra-Fine Cally Pen Needle) Use 2x per day rosuvastatin (Crestor) 40 mg PO DAILY 90 days [shower chair As directed] Tobacco use date assessed: 05/21/23 Dental Screening Dental Screen Date: 05/21/23 HPI dm/ look at ears HPI Details Patient is a 34-year-old male here today for follow-up visit. 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 Patient has a past medical history type 2 diabetes tachycardia, hypothyroidism, hypertension... Concern--> reports having left ear congestion. He also reports right ear pain and muffled hearing. CHRONIC MEDICAL CONDITIONS--> .. Type 2 diabetes:? .? This type 2 diabetes has been somewhat suboptimally controlled. He reports his sugars are pretty stable at home. He continues to be compliant with his insulin med regime. He reports he has been trying to follow a better diet. ? .. Hypothyroidism: Continues on levothyroxine 62.5 mg with good effect. Most recent TSH euthyroid.. .. Hypertension:? Patient's blood pressure acceptable today in office.? Will continues current dose of lisinopril and metoprolol. .. ? Tachycardia:? continues to have elevated heart rates.? He denies any symptomatic palpitations or chest discomforts.? Has been seen by Cardiology and agrees with low-dose metoprolol 25 mg daily. . Obesity:? Patient does understand his BMI is over 30 and has been trying to work on better eating habits to reduce his weight PFSH Medical History Callus of toe Proteinuria Hyperlipidemia Advance directive indicates patient wish for full code resuscitation status Seizure disorder Gout Kidney stones Type 2 diabetes mellitus with diabetic polyneuropathy Hyperlipidemia LDL goal <100 Essential hypertension Obesity due to excess calories Type 2 diabetes mellitus with hyperglycemia, with long-term current use of insulin Sinusitis nasal Surgical History History of root canal procedure History of foot surgery History of surgery of head History of spinal surgery Family History Father Medical history unknown Lung cancer Mother Diabetes Substance abuse Family/Other FH: mental illness Social History Household Members Other:: roomate Housing: Other Housing Other:: [facility] [place] Do you presently have visiting nurse or other home services: Yes (assistance from dept of mental health services) Alcohol intake: never Patient Tobacco Use Status: Never used Tobacco e-Cigarette/Vaping Use: Never Used Second Hand Smoke Exposure: No service: No Current occupational status: other Cognitive needs: No Hearing needs: No Vision needs: No Questionnaire Thrive Questionnaire Date Thrive assessed: 05/21/23 LIZBETH-7 AMB Questionnaire LIZBETH-7 Date LIZBETH - 7 assessed: 05/21/23 Source: Developed by Drs. Raymond Reyes, Padma Garcia, Gregory Zazueta and colleagues, with an educational from [employer]. Review of Systems Const Denies headache(s) Eyes Denies loss of vision ENT Denies vertigo, Denies dizziness, Denies headache(s) and Denies sore throat Card Denies chest pain, Denies leg edema and Denies lightheadedness Resp Denies cough, Denies hemoptysis and Denies wheezing GI Denies abdominal pain, Denies melena, Denies constipation, Denies diarrhea and Denies vomiting Denies dysuria, Denies urinary frequency and Denies urinary urgency Musc Denies arthralgias, Denies joint swelling, Denies numbness and Denies tingling Neuro Denies Abnormal speech present, Denies behavioral changes, Denies vertigo, Denies dizziness, Denies headache(s), Denies loss of vision, Denies memory loss, Denies numbness and Denies tingling Psych Denies anxiety, Denies behavioral changes, Denies depression, Denies memory loss and Denies panic attacks Tashi/Lymph Denies easy bleeding and Denies easy bruising Aller/Immun Denies wheezing Physical exam (Primary Care) Vital Signs: Last Vital Signs Pulse 122 H 05/04/24 14:07 BP 108/78 05/04/24 14:07 Pulse Ox 97 05/04/24 14:07 Oxygen Delivery Method Room Air 05/04/24 14:07 BMI result Body Mass Index 37.4 Tobacco/Smoking Status: Tobacco use Status Tobacco use date assessed 05/21/23 05/04/24 14:10 Patient Tobacco Use Status Never used Tobacco 05/04/24 14:10 e-Cigarette/Vaping Use Never Used 05/04/24 14:10 Thrive Assessment: Date of Thrive Assessment Date Thrive assessed 05/21/23 05/04/24 14:10 Const General: healthy appearing, no acute distress, alert and awake Nutritional Appearance: well nourished Orientation/consciousness: oriented to person, oriented to place and oriented to time HENMT Other: RIGHT EXTERNAL EAR CANAL ERYTHEMATOUS Ears: TM's normal bilaterally General nose exam: Normal nasal mucous membranes and turbinates present Eyes Conjunctivae: conjunctivae normal Sclerae: sclerae normal Pupils: Equal, round and reactive pupils present Neck Neck: Yes no lymphadenopathy and Yes no JVD Thyroid: Thyroid normal Carotids: no bruits Resp Effort & Inspection: normal respiratory effort and not tachypneic Auscultation: no crackles, no rales, no rhonchi and no wheezes Cardio Rate: regular rate Rhythm: regular rhythm Heart sounds: no murmurs and normal S1 and S2 GI Palpation (GI): Soft to palpation, nontender, no hepatomegaly and no splenomegaly Auscultation: normal bowel sounds Skin General skin exam: no rashes or lesions noted and dry skin Neuro General: oriented to person, oriented to place and oriented to time Cranial nerves: Yes Equal, round and reactive pupils present Speech: No Abnormal speech present Gait exam (Neuro): Normal gait present Motor exam (neuro): no tremor noted Extrem Right upper extremity: full ROM Left upper extremity: full ROM Right lower extremity: full ROM; no edema Left lower extremity: full ROM; no edema Psych Mental Status: mental status grossly normal Speech and movement: Normal speech and movement present Affect: normal affect Attitude: cooperative Thought process: Normal thought process present Coding Level of Care Code Est Pt Level 4 (88984) Diagnoses Acute swimmer's ear of right side H60.331 Chronicity: acute Otitis externa type: swimmer's ear Primary hypertension I10 Hypertension type: primary hypertension Acquired hypothyroidism E03.9 Hypothyroidism type: acquired Type 2 diabetes mellitus with unspecified complications E11.8 Assessment & Plan Assessment & Plan (1) Right otitis externa: Code(s): H60.91 - Unspecified otitis externa, right ear Category: Medical Qualifiers: Chronicity: acute Otitis externa type: swimmer's ear Qualified Code(s): H60.331 - Swimmer's ear, right ear Plan: Right external canal erythematous and edematous. Will supply with antibiotic/steroid ear drops. If no improvement consider hearing exam. (2) Hypertension: Code(s): I10 - Essential (primary) hypertension Category: Medical Qualifiers: Hypertension type: primary hypertension Qualified Code(s): I10 - Essential (primary) hypertension Plan: Patient's blood pressure acceptable today in office. Will continue his current dose of antihypertensive medication with goal blood pressure to be below 140/90 (3) Hypothyroidism: Code(s): E03.9 - Hypothyroidism, unspecified Category: Medical Qualifiers: Hypothyroidism type: acquired Qualified Code(s): E03.9 - Hypothyroidism, unspecified Plan: Patient continues on levothyroxine, most recent TSH stable. Will continue levothyroxine at current dose 62.5 (4) Type 2 diabetes mellitus with unspecified complications: Code(s): E11.8 - Type 2 diabetes mellitus with unspecified complications Category: Medical Plan: Patient reports his blood sugars have been fairly stable. Needs new lancets and test strips.. Patient promises to get fasting labs before next office visit. Goal A1c is to be below 7.0 Orders: Orders Comprehensive [place]. Panel Fast 05/04/24 I10 - Essential (primary) hypertension TSH reflex Free T4 05/04/24 E03.9 - Hypothyroidism, unspecified Complete Blood Count no Diff 05/04/24 I10 - Essential (primary) hypertension Lipid Panel 05/04/24 E78.1 - Pure hyperglyceridemia Hemoglobin A1c Today E11.8 - Type 2 diabetes mellitus with unspecified complications Medications: New ciprofloxacin-dexamethasone 0.3-0.1 % 4 drps otic (ears) BID 7 days 7.5 mL 0RF H60.91 - Unspecified otitis externa, right ear Refilled blood sugar diagnostic (FreeStyle Test strips) Testing 3 times a day 100 ea 6RF E11.8 - Type 2 diabetes mellitus with unspecified complications lancets (FreeStyle Lancets) Three times a day 100 ea 3RF E11.65 - Type 2 diabetes mellitus with hyperglycemia, Z79.4 - retirement (current) use of insulin
== END 2024-05-04 14:40 | disposition home or self-care (01) ==
PROVIDERS: PCP Physician Assistant; Visit Provider Physician Assistant
DX: H60.331 Swimmer's ear, right ear (principal); I10 Essential (primary) hypertension; E03.9 Hypothyroidism, unspecified; E11.8 Type 2 diabetes mellitus with unspecified complications

== ENCOUNTER → 2024-05-04 13:37 | Outpatient (BNVA) | payer OTHER, SELFPAY | PROVIDERS: PCP Physician Assistant; Visit Provider Physician Assistant | DX: E11.65 Type 2 diabetes mellitus with hyperglycemia (principal); I10 Essential (primary) hypertension; E03.9 Hypothyroidism, unspecified; R00.0 Tachycardia, unspecified; E66.9 Obesity, unspecified; E11.8 Type 2 diabetes mellitus with unspecified complications; H60.331 Swimmer's ear, right ear; E78.1 Pure hyperglyceridemia; Z79.4 Long term (current) use of insulin | CPT/HCPCS: 99212 ==

== ENCOUNTER 2024-05-21 11:18 | Outpatient (REF) | payer OTHER, SELFPAY ==
[2024-05-21 18:08] LABS: Influenza A PCR NEGATIVE (Negative); Influenza B PCR NEGATIVE (Negative); Resp Syncy Virus RNA Qual PCR POSITIVE (Negative); SARS COV2 PCR INHOUSE NEGATIVE (Negative)
== END 2024-05-21 11:19 | disposition home or self-care (01) ==
LOC: HO.LAB 11:18
PROVIDERS: PCP Physician Assistant; Visit Provider Physician Assistant
DX: J06.9 Acute upper respiratory infection, unspecified (principal); H66.001 Acute suppurative otitis media without spontaneous rupture of ear drum, right ear
CPT/HCPCS: 0241U; 99212

== ENCOUNTER 2024-05-21 11:18 | Outpatient (AMB) | payer OTHER, SELFPAY ==
--- NOTE | 2024-05-21 12:13 | AM.OFFWIN_ITS ---
Intake Vital Signs 05/21/24 12:15 Height 6 ft 2 in BP 100/66 Blood Pressure Location Rt brachial Position Sitting Pulse 112 H Pulse Source Pulse Oximeter Temp 97.8 F Temp Source Temporal Artery Scan Pulse Oximetry (%) 97 Intake Visit Reasons: EP-stuffy nose, sore throat, cough Patient Tobacco Use Status: Never used Tobacco Allergies bee pollen [BEE STINGS] Allergy (Unknown, Verified 05/21/24 12:15) UNKNOWN carbamazepine [From TEGRETOL] Allergy (Unknown, Verified 05/21/24 12:15) UNKNOWN clindamycin [CLINDAMYCIN] Allergy (Unknown, Verified 05/21/24 12:15) UNKNOWN nortriptyline [Pamelor] Allergy (Unknown, Verified 05/21/24 12:15) Unknown risperidone [From RISPERDAL] Allergy (Unknown, Verified 05/21/24 12:15) UNKNOWN Sulfa (Sulfonamide Antibiotics) [SULFA (SULFONAMIDE ANTIBIOTICS)] Allergy (Unknown, Verified 05/21/24 12:15) UNKNOWN lactose Adverse Reaction (Intermediate, Verified 05/21/24 12:15) Diarrhea Do you need a note to return to daycare/school/sports/work: No HPI HPI Comments History of Present Illness Details History - The patient is a 34-year-old male pres enting with cough, sneezing, and coughing up blood. - Onset of symptoms was two days ago, co inciding with a spike in cough and sneezing. - Pt reports blood tinged sputum.. - Asthma is a chronic condition managed with a bronchodilator inhaler, currently with 86 remaining doses. - No evidence of concomitant respiratory illnesses among cohabitating individuals. 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 Physical Exam General: Cooperative, healthy appearing, comfortable and no acute distress Orientation/consciousness: Patient oriented x3 Limitations: No limitations Head: Normal to inspection Ears: Hearing grossly normal bilaterally, external ears normal, left ear with cerumen, right ear TM w/purulent effusion Nose: Normal external nose present, Normal nares present and No nasal discharge present Face and sinus: Normal facial exam and Yes sinuses nontender Mouth: Normal oral and palatal mucosa present and moist mucous membranes Throat: Yes tonsils normal, Yes uvula midline. Posterior oropharynx erythema Eyes: Appearance normal, both eyes and all related structures Neck: Normal visual inspection Respiratory: Clear to auscultation bilaterally. Normal respiratory effort, able to speak in complete sentences, Actively coughing, no respiratory distress, not tachypneic, no tripod positioning and no use of accessory muscles Cardiovascular: Regular rate and rhythm. Normal S1 and S2, Skin: No rashes or lesions noted Neuro: Patient oriented x3 Extremities: Normal to inspection and Yes no clubbing, cyanosis or edema PFSH Medical History Callus of toe Proteinuria Hyperlipidemia Advance directive indicates patient wish for full code resuscitation status Seizure disorder Gout Kidney stones Type 2 diabetes mellitus with diabetic polyneuropathy Hyperlipidemia LDL goal <100 Essential hypertension Obesity due to excess calories Type 2 diabetes mellitus with hyperglycemia, with long-term current use of insulin Sinusitis nasal Surgical History History of root canal procedure History of foot surgery History of surgery of head History of spinal surgery Family History Father Medical history unknown Lung cancer Mother Diabetes Substance abuse Family/Other FH: mental illness Social History Household Members Other:: roomate Housing: Other Housing Other:: [facility] Do you presently have visiting nurse or other home services: Yes (assistance from dept of mental health services) Alcohol intake: never Patient Tobacco Use Status: Never used Tobacco e-Cigarette/Vaping Use: Never Used Second Hand Smoke Exposure: No service: No Current occupational status: other Cognitive needs: No Hearing needs: No Vision needs: No Review of Systems Const All systems reviewed & are unremarkable except as noted in HPI and below Physical Exam Vital Signs: Last Vital Signs Temp 97.8 F 05/21/24 12:15 Pulse 112 H 05/21/24 12:15 BP 100/66 05/21/24 12:15 Pulse Ox 97 05/21/24 12:15 Assessment & Plan Assessment & Plan (1) URI, acute: Code(s): J06.9 - Acute upper respiratory infection, unspecified Plan: Plan The clinical assessment suggests an upper respiratory infection of likely viral etiology, given the limited duration of symptoms and predominant presentation. Mild hemoptysis is likely secondary to persistent cough irritation, without indication of serious underlying pathology, alleviating concerns of DVT or PE. The patient has longstanding history of tachycardia, with recent values exceeding 100 beats per minute. The patient displays consistent tachycardia, likely exacerbated by dehydration, warranting increased emphasis on fluid intake to support symptomatic relief and health maintenance. Symptomatic management includes Tessalon Perles for cough relief, particularly nocturnally, and home hydration guidance. Further diagnostic workup for Covid, influenza and RSV will ascertain viral involvement and inform treatment alterations if needed. Amoxicillin will address ear infection management. Asthma control remains adequate with current inhaler reserves. The patient will be notified of test outcomes, supporting any necessary modifications to their therapeutic course, reinforcing adherence to the prescribed plan while monitoring for any escalation of symptoms or secondary issues. Filled out intermediate paperwork. Patient was informed and verbally consented to the use of an ambient scribe for clinic note documentation during this visit (2) Otitis media of right ear: Code(s): H66.91 - Otitis media, unspecified, right ear Qualifiers: Otitis media type: suppurative Chronicity: acute Recurrence: non- recurrent Spontaneous tympanic membrane rupture: without spontaneous rupture Qualified Code(s): H66.001 - Acute suppurative otitis media without spontaneous rupture of ear drum, right ear Plan: as above Orders: Orders SARS-CoV2/FLU/RSV Today J06.9 - Acute upper respiratory infection, unspecified Medications: New benzonatate 200 mg PO TID PRN 14 caps 0RF cough amoxicillin 875 mg PO Q12H 14 tabs 0RF Coding Level of Care Code Est Pt Level 4 (98706) Diagnoses URI, acute J06.9 Non-recurrent acute suppurative otitis media of right ear without spontaneous rupture of tympanic membrane H66.001 Otitis media type: suppurative Chronicity: acute Recurrence: non-recurrent Spontaneous tympanic membrane rupture: without spontaneous rupture
[2024-05-21 12:15] VITALS: BP 100/66; PULSE 112; TEMP 36.6; O2SAT 97
== END 2024-05-21 12:57 | disposition home or self-care (01) ==
PROVIDERS: PCP Physician Assistant; Visit Provider Physician Assistant
DX: J06.9 Acute upper respiratory infection, unspecified (principal); H66.001 Acute suppurative otitis media without spontaneous rupture of ear drum, right ear

== ENCOUNTER 2024-06-15 15:44 | Emergency (ER) | payer OTHER, SELFPAY ==
--- NOTE | ~2024-06-15 | CT_ITS ---
CLINICAL HISTORY: fall, head strike, pain CT head without contrast Comparison: CT/SR - CT HEAD/BRAIN WO IV CON - 12/22/23 10:34 EDT Findings: No intra-axial mass, midline shift, hydrocephalus, or acute hemorrhage. No significant atrophy-like change or white matter disease. Moderate bilateral maxillary sinus mucosal thickening. The orbits are within normal limits. There is no acute fracture. IMPRESSION: 1. No acute intracranial findings. 2. Maxillary sinus mucosal disease. This document has been electronically signed by: Domenic Otero MD on 06/15/2024 17:12:31
--- NOTE | ~2024-06-15 | CT_ITS ---
CLINICAL HISTORY: fall, head strike, pain CT cervical spine without contrast Comparison: CT/SR - CT CERVICAL SPINE WO IV CON - 12/22/23 10:34 EDT Findings: Normal vertebral body alignment. Multilevel disc space narrowing and endplate osteophyte formation, as well as facet hypertrophy. No acute fractures or dislocations. Visualized intracranial contents are unremarkable. No cervical fluid collections or masses. Lung apices are clear. IMPRESSION: No acute findings. This document has been electronically signed by: Domenic Otero MD on 06/15/2024 17:11:24
[2024-06-15 15:59] VITALS: BP 103/60; PULSE 110; RESP 16; TEMP 36.1; O2SAT 94; BMI 25.8
--- NOTE | 2024-06-15 15:59 | ED_ITS ---
HPI - General Adult General Chief complaint: Head Injury Stated complaint: fell 06/15 headache,dizziness Time Seen by Provider: 06/15/24 17:32 Source: patient and other (patient's retirement staff) Mode of arrival: ambulatory Limitations: no limitations History of Present Illness ED Provider: Rachel Bearden PA-C HPI narrative: Patient is a 34 year old assigned male at with a history of DM, HTN, HLD, HTN, hypothyroidism, LIZBETH, MDD, and asthma presenting to the emergency department today with a headache after a slip and fall. Patient states that earlier today he slipped and fell in the bathroom, hitting his head. Patient denies any loss of consciousness with the incident. Patient denies any dizziness, lightheadedness, abdominal pain, nausea, vomiting, fever, chills, blurry vision, double vision, loss of vision, chest pain, difficulty breathing, shortness of breath, back pain, night sweats, pain with urination, increased urinary frequency, increased urinary urgency, blood in his urine or stool, syncope or a near syncopal episode, bowel incontinence, bladder incontinence, or any other complaints at this time. Onset (ago): hour(s) Location: head Relieving factors: none Exacerbating factors: none Associated symptoms: denies other symptoms Treatments prior to arrival: none Related Data Home Medications ?Medication ?Instructions ?Recorded ?Confirmed dapagliflozin propanediol 10 mg 10 mg PO DAILY 06/05/21 05/04/24 tablet (Farxiga) fluoxetine 40 mg capsule 60 mg PO DAILY 07/21/21 05/04/24 melatonin 3 mg tablet 3 mg PO BEDTIME 07/21/21 05/04/24 divalproex 250 mg tablet,delayed 250 mg PO DAILY 01/28/22 05/04/24 release divalproex 500 mg tablet,delayed 1 tab PO DAILY 01/28/22 05/04/24 release divalproex 500 mg tablet,delayed 2 tab PO BEDTIME 01/28/22 05/04/24 release aripiprazole 30 mg tablet 30 mg PO DAILY 09/19/23 05/04/24 benztropine 0.5 mg tablet 0.5 mg PO DAILY 12/18/23 05/04/24 clonazepam 1 mg tablet 1 mg PO TID PRN 12/18/23 05/04/24 Previous Rx's ?Medication ?Instructions ?Recorded blood-glucose meter (FreeStyle #1 ea 06/21/22 Lite Meter kit) mupirocin 2 % topical ointment 1 appl topical BID 10 days #22 09/10/22 grams diclofenac sodium 1 % topical gel 2 g topical QID PRN pain #100 grams 01/18/23 (Arthritis Pain (diclofenac)) lidocaine 4 % topical patch 1 patch topical DAILY PRN pain #30 02/11/23 (Aspercreme (lidocaine)) ea acetaminophen 325 mg tablet 325 mg PO Q4H PRN for fever, 07/27/23 muscle aches, pain 30 days #100 tabs glucose 4 gram chewable tablet 12 g (3 x 4 gram) PO Q15M PRN 07/27/23 (Dex4 Glucose) hypoglycemia #60 tabs bismuth subsalicylate 262 mg/15 mL 524 mg (30 mL) PO Q1H PRN diarrhea 09/03/23 oral suspension (Pepto-Bismol) 30 days #1,200 mL ibuprofen 600 mg tablet 600 mg PO Q6H PRN pain #30 tabs 09/19/23 lactase 9,000 unit tablet (Lactaid 9,000 unit PO QID PRN lactose 09/30/23 Fast Act) intolerance 30 days #90 tabs epinephrine 0.3 mg/0.3 mL 0.3 mg (0.3 mL) IM ONCE PRN for 10/09/23 injection, auto-injector allergies #2 ea baclofen 10 mg tablet 10 mg PO BID PRN muscle spasm 30 11/04/23 days #60 tabs shower chair #1 ea 01/07/24 pen needle, diabetic 32 gauge x #100 ea 02/06/24 5/32 (BD Ultra-Fine Cally Pen Needle) levothyroxine 125 mcg tablet 62.5 mcg (1/2 x 125 mcg) PO QAM 04/15/24 #90 tabs pantoprazole 40 mg tablet,delayed 40 mg PO DAILY #90 tabs 04/15/24 release rosuvastatin 40 mg tablet (Crestor) 40 mg PO DAILY 90 days #90 tabs 04/15/24 calcium 600 mg (as 1 tab PO BEDTIME #90 tabs 04/18/24 carbonate)-vitamin D3 20 mcg (800 unit) tablet metoprolol succinate 25 mg 25 mg PO DAILY #30 tabs 04/18/24 tablet,extended release 24 hr alfuzosin 10 mg tablet,extended 10 mg PO DAILY 90 days #90 tabs 04/21/24 release 24 hr blood sugar diagnostic (FreeStyle #100 ea 05/04/24 Test strips) ciprofloxacin 0.3 %-dexamethasone 4 drp otic (ears) BID 7 days #7.5 05/04/24 0.1 % ear drops,suspension mL lancets 28 gauge (FreeStyle #100 ea 05/04/24 Lancets) insulin glargine 100 unit/mL (3 20 unit (0.2 mL) subcut QPM #15 mL 05/19/24 mL) subcutaneous pen (Lantus Solostar U-100 Insulin) loratadine 10 mg tablet 10 mg PO BEDTIME #28 tabs 05/19/24 multivitamin with folic acid 400 1 tab PO DAILY #30 tabs 05/19/24 mcg tablet (Daily-Taz (with folic acid)) amoxicillin 875 mg tablet 875 mg PO Q12H #14 tabs 05/21/24 benzonatate 200 mg capsule 200 mg PO TID PRN cough #14 caps 05/21/24 insulin aspart U-100 100 unit/mL 6 - 8 unit (0.06 - 0.08 mL) subcut 05/28/24 (3 mL) subcutaneous pen (Novolog BIDWMEAL #15 mL FlexPen U-100 Insulin aspart) metformin 500 mg/5 mL oral solution 1,000 mg (10 mL) PO BIDWM #473 mL 05/28/24 lisinopril 40 mg tablet 40 mg PO DAILY 30 days #30 tabs 06/15/24 Allergies Allergy/AdvReac Type Severity Reaction Status Date / Time bee pollen [BEE STINGS] Allergy Unknown UNKNOWN Verified 06/15/24 16:02 carbamazepine [From TEGRETOL] Allergy Unknown UNKNOWN Verified 06/15/24 16:02 clindamycin [CLINDAMYCIN] Allergy Unknown UNKNOWN Verified 06/15/24 16:02 nortriptyline [Pamelor] Allergy Unknown Unknown Verified 06/15/24 16:02 risperidone [From RISPERDAL] Allergy Unknown UNKNOWN Verified 06/15/24 16:02 Sulfa (Sulfonamide Allergy Unknown UNKNOWN Verified 06/15/24 16:02 Antibiotics) [SULFA (SULFONAMIDE ANTIBIOTICS)] lactose AdvReac Intermediate Diarrhea Verified 06/15/24 16:02 Review of Systems Constitutional: Constitutional: Reports no additional constitutional complaints, Denies chills, Denies fever(s), Reports headache(s) and Denies night sweats Eyes: Eyes: Reports no additional eye complaints, Denies blurry vision, Denies change in vision, Denies diplopia, Denies eye discharge, Denies loss of vision and Denies eye pain ENT: Denies dizziness and Reports headache(s) Cardiovascular: Cardiovascular: Reports no additional cardiovascular complaints, Denies chest pain, Denies lightheadedness, Denies Loss of Consciousness and Denies dyspnea Respiratory: Respiratory: Reports no additional respiratory complaints and Denies dyspnea Gastrointestinal: Gastrointestinal: Reports no additional gastrointestinal complaints, Denies abdominal pain, Denies melena, Denies hematochezia, Denies change in bowel habits and Denies change in stool character Genitourinary: Genitourinary: Reports no additional male genitourinary complaints, Denies hematuria, Denies oliguria, Denies difficulty urinating, Denies dysuria, Denies urinary frequency, Denies urinary hesitancy, Denies urinary incontinence and Denies urinary urgency Musculoskeletal: Musculoskeletal: Reports no additional musculoskeletal complaints, Denies numbness and Denies tingling Neurologic: Denies dizziness, Reports headache(s), Denies loss of vision, Denies numbness and Denies tingling Psychiatric: Psychiatric: Reports no additional psychiatric complaints Endocrine: Endocrine: Reports no additional endocrine complaints Hematologic/Lymphatic: Hematologic/Lymphatic: Reports no additional hematologic/lymphatic complaints Allergic/Immunologic: Allergic/Immunologic: Reports no additional allergic/immunologic complaints PMFSH Past Medical History Attestation statement: The following information was validated with the patient. (all information validated with the patient's retirement staff) Source: old records reviewed, nursing notes reviewed and other (patient's retirement staff provided additional history and confirmed the history provided by the patient) Medical History Callus of toe Proteinuria Hyperlipidemia Advance directive indicates patient wish for full code resuscitation status Seizure disorder Gout Kidney stones Type 2 diabetes mellitus with diabetic polyneuropathy Hyperlipidemia LDL goal <100 Essential hypertension Obesity due to excess calories Type 2 diabetes mellitus with hyperglycemia, with long-term current use of insulin Sinusitis nasal Surgical History History of root canal procedure History of foot surgery History of surgery of head History of spinal surgery Family History Family History Father Medical history unknown Lung cancer Mother Diabetes Substance abuse Family/Other FH: mental illness Social History Social History Household Members Other:: roomate Housing: Other Housing Other:: [address] at [facility] Do you presently have visiting nurse or other home services: Yes (assistance from dept of mental health services) Alcohol intake: never Patient Tobacco Use Status: Never used Tobacco e-Cigarette/Vaping Use: Never Used Second Hand Smoke Exposure: No service: No Current occupational status: other Cognitive needs: No Hearing needs: No Vision needs: No Physical Exam ED Vital Signs: Vital Signs - 24 hr 06/15/24 15:59 Temperature 97.0 F Pulse Rate 110 H Respiratory Rate 16 Blood Pressure 103/60 Pulse Oximetry 94 Oxygen Delivery Method Room Air BMI result Body Mass Index 25.8 Const General: cooperative, no acute distress, alert and awake Nutritional Appearance: well nourished Orientation/consciousness: patient oriented x3 Limitations: no limitations HENMT Head: Yes normal to inspection and Yes atraumatic Ears: hearing grossly normal bilaterally and external ears normal General nose exam: Normal external nose present, no nasal discharge noted and no epistaxis Face and sinus: Yes normal facial exam, No abrasion and No laceration Mouth: Normal oral and palatal mucosa present, no drooling and no muffled voice Eyes General: appearance normal, both eyes and all related structures Periorbital: periorbital findings normal Eyelids: Yes eyelids normal Conjunctivae: conjunctivae normal Pupils: Equal, round and reactive pupils present EOM: EOMs intact bilaterally Neck Neck: Yes normal visual inspection, Yes full ROM and Yes no lymphadenopathy Chest Chest palpation & inspection: normal inspection of the chest Resp Effort & Inspection: normal respiratory effort and able to speak in complete sentences GI Inspection: Yes normal to inspection Neuro General: patient oriented x3 and moves all extremities Cranial nerves: Yes Equal, round and reactive pupils present Cognition (Neuro): normal cognition Extrem General: Yes normal to inspection, Yes full ROM and Yes capillary refill normal Psych Appearance: grossly normal Mental Status: mental status grossly normal Affect: normal affect Attitude: cooperative Thought process: Normal thought process present Thought content: Normal thought content present Insight: Good insight present (Psych) Course Course Course Narrative: RME performed by Rachel Bearden PA-C. Patient is a 34 year old assigned male at presenting to the emergency department with a headache after a slip and fall. Patient states that he slipped and fell in the bathroom earlier today, hitting his head. Ptient denies any loss of consciousness. Detailed physical exam and review of systems are deferred to the senior search marketing analyst. Imaging ordered. Patient placed back in the waiting room pending room availability and results. Medical Decision Making Medical Decision Making MDM Narrative: Patient is a 34 year old assigned male at with a history of DM, HTN, HLD, HTN, hypothyroidism, LIZBETH, MDD, and asthma presenting to the emergency department today with a headache after a slip and fall. Patient's physical exam was unremarkable. Patient's CT head and c-spine showed no acute process. I explained my physical exam findings as well as all test results to the patient and the patient's retirement staff. I answered all questions asked by the patient and the patient's retirement staff. I stressed the importance of the patient taking his medication as directed (either prescribed or as the over the counter packaging recommends). I stressed the importance of the patient following up with his primary care provider. I stressed the importance of the patient returning to the emergency department immediately if his symptoms were to worsen or if he were to develop any dizziness, shortness of breath, difficulty breathing, chest pain, blurry vision, loss of vision, nausea, vomiting, abdominal pain, fever, chills, back pain, or any other complaints. Patient and the patient's retirement staff verbalized agreement and understanding with this treatment plan and discharge. Differential Diagnosis Differential Diagnoses: The differential diagnosis associated with the presentation includes Headache Concussion Slip and fall Admission/Observation Consideration of admission/observation: Escalation of care including admission/observation considered Patient would have been admitted to the hospital had his work up had any findings where hospital admission was appropriate and his clinical presentation warranted hospital admission. Independent Interpretation I performed an independent interpretation of an: CT Scan Interpretation: My interpretation is in agreement with the radiologist's impression of these imaging studies. Report Number: [id number]: Total DLP = 670.00 mGy-cm CLINICAL HISTORY: fall, head strike, pain CT cervical spine without contrast Comparison: CT/SR - CT CERVICAL SPINE WO IV 12/22/23 10:34 EDT Findings: Normal vertebral body alignment. Multilevel disc space narrowing and endplate osteophyte formation, as well as facet hypertrophy. No acute fractures or dislocations. Visualized intracranial contents are unremarkable. No cervical fluid collections or masses. Lung apices are clear. IMPRESSION: No acute findings. This document has been electronically signed by: Domenic Otero MD on 06/15/2024 17:11:24 Dictated By: Domenic Otero MD Signed By: Electronically signed by Domenic Otero MD 06/15/24 [id number] Report Number: [id number]: Total DLP = 829.39 mGy-cm CLINICAL HISTORY: fall, head strike, pain CT head without contrast Comparison: CT/SR - CT HEAD/BRAIN WO IV 12/22/23 10:34 EDT Findings: No intra-axial mass, midline shift, hydrocephalus, or acute hemorrhage. No significant atrophy-like change or white matter disease. Moderate bilateral maxillary sinus mucosal thickening. The orbits are within normal limits. There is no acute fracture. IMPRESSION: 1. No acute intracranial findings. 2. Maxillary sinus mucosal disease. This document has been electronically signed by: Domenic Otero MD on 06/15/2024 17:12:31 Dictated By: Domenic Otero MD Signed By: Electronically signed by Domenic Otero MD 06/15/24 0226 Radiology Impression Discussion of test interpretation with radiology: I have reviewed the radiologist's reading. Independent Historian Clinical information obtained from an independent historian. History obtained from or confirmed by: Other (patient's retirement staff provided additional history and confirmed the history provided by the patient.) Discharge Plan Discharge Clinical Impression: Head injury Patient Disposition: Home, Self-Care Instructions: Head Injury (ED) Additional Instructions: Follow up with your primary care provider. Return to the emergency department immediately if your symptoms worsen or if you develop any dizziness, shortness of breath, difficulty breathing, chest pain, blurry vision, loss of vision, nausea, vomiting, abdominal pain, fever, chills, back pain, or any other complaints. Prescriptions: No Action (DME) blood-glucose meter [FreeStyle Lite Meter] Kit See Rx Instructions .ROUTE .MEDSUPPLY Qty: 1 0RF Rx Instructions: As directed 3 times a day lidocaine [Aspercreme (lidocaine)] 4 % adhesive patch,medicated 1 patch topical DAILY PRN (Reason: pain) Qty: 30 0RF glucose [Dex4 Glucose] 4 gram tablet,chewable 12 g PO Q15M PRN (Reason: hypoglycemia) Qty: 60 2RF Rx Instructions: until symptoms of low blood sugar are controlled acetaminophen 325 mg tablet 325 mg PO Q4H PRN (Reason: for fever, muscle aches, pain ) 30 Days Qty: 100 3RF Rx Instructions: to take every 4 hours as needed for fever, muscle aches and pain, please call MD after 3 days if symptoms last. bismuth subsalicylate [Pepto-Bismol] 262 mg/15 mL suspension 524 mg PO Q1H PRN (Reason: diarrhea) 30 Days Qty: 1200 1RF Rx Instructions: do not exceed 8 doses in a 24 hour period Lactaid Fast Act 9,000 unit tablet 9,000 unit PO QID PRN (Reason: lactose intolerance) 30 Days Qty: 90 0RF Rx Instructions: administer with meals and/or snacks epinephrine 0.3 mg/0.3 mL auto-injector 0.3 mg IM ONCE PRN (Reason: for allergies) Qty: 2 0RF baclofen 10 mg tablet 10 mg PO BID PRN (Reason: muscle spasm) 30 Days Qty: 60 2RF (DME) pen needle, diabetic [BD Ultra-Fine Cally Pen Needle] 32 gauge x 5/32 needle See Rx Instructions .ROUTE .MEDSUPPLY Qty: 100 3RF Rx Instructions: Use 2x per day pantoprazole 40 mg tablet,delayed release (DR/EC) 40 mg PO DAILY Qty: 90 1RF levothyroxine 125 mcg tablet 62.5 mcg PO QAM Qty: 90 1RF rosuvastatin [Crestor] 40 mg tablet 40 mg PO DAILY 90 Days Qty: 90 3RF metoprolol succinate 25 mg tablet extended release 24 hr 25 mg PO DAILY Qty: 30 3RF calcium carbonate-vitamin D3 600 mg-20 mcg (800 unit) tablet 1 tab PO BEDTIME Qty: 90 1RF loratadine 10 mg tablet 10 mg PO BEDTIME Qty: 28 6RF multivitamin with folic acid [Daily-Taz (with folic acid)] 400 mcg tablet 1 tab PO DAILY Qty: 30 0RF insulin glargine [Lantus Solostar U-100 Insulin] 100 unit/mL (3 mL) insulin pen 20 unit subcut QPM Qty: 15 3RF metformin 500 mg/5 mL solution 1,000 mg PO BIDWM Qty: 473 3RF insulin aspart U-100 [Novolog FlexPen U-100 Insulin] 100 unit/mL (3 mL) insulin pen 6 - 8 unit subcut BIDWMEAL Qty: 15 3RF lisinopril 40 mg tablet 40 mg PO DAILY 30 Days Qty: 30 1RF divalproex 250 mg tablet,delayed release (DR/EC) 250 mg PO DAILY divalproex 500 mg tablet,delayed release (DR/EC) 1 tab PO DAILY divalproex 500 mg tablet,delayed release (DR/EC) 2 tab PO BEDTIME Farxiga 10 mg tablet 10 mg PO DAILY clonazepam 1 mg tablet 1 mg PO TID PRN benztropine 0.5 mg tablet 0.5 mg PO DAILY melatonin 3 mg tablet 3 mg PO BEDTIME fluoxetine 40 mg capsule 60 mg PO DAILY mupirocin 2 % ointment 1 appl topical BID 10 Days Qty: 22 0RF diclofenac sodium [Arthritis Pain (diclofenac)] 1 % gel 2 g topical QID PRN (Reason: pain) Qty: 100 0RF aripiprazole 30 mg tablet 30 mg PO DAILY ibuprofen 600 mg tablet 600 mg PO Q6H PRN (Reason: pain) Qty: 30 0RF (DME) shower chair See Rx Instructions .Route .MEDSUPPLY Qty: 1 0RF Rx Instructions: As directed alfuzosin 10 mg tablet extended release 24 hr 10 mg PO DAILY 90 Days Qty: 90 3RF Rx Instructions: administer after the same meal each day (DME) FreeStyle Test Strip See Rx Instructions .Route Qty: 100 6RF Rx Instructions: Testing 3 times a day (DME) lancets [FreeStyle Lancets] 28 gauge misc See Rx Instructions .ROUTE .MEDSUPPLY Qty: 100 3RF Rx Instructions: Three times a day ciprofloxacin-dexamethasone 0.3-0.1 % drops,suspension 4 drp otic (ears) BID 7 Days Qty: 7.5 0RF benzonatate 200 mg capsule 200 mg PO TID PRN (Reason: cough) Qty: 14 0RF amoxicillin 875 mg tablet 875 mg PO Q12H Qty: 14 0RF Referrals: Darrel Mcclure PA-C [Primary Care Provider] - Print Language: Spanish
--- OUTSIDE RECORDS SUMMARY | 2024-06-15 20:08 | XMS_ITS | Encounter Summary ---
Author Organization [facility] Address [address] [facility] [address] [place] [address] Phone Care Team Providers Care Patient Transport Orderly Name Role Phone Darrel Mcclure Primary Care Provider [phone] Reason for Visit * Reason Comments Med Refill Encounter Details Date Type Department Care Team (Late Contact Info) Description 04/25/2022 Refill [facility] [address] [facility] [address] [place] [id number] Pir Gudino MD Proteinuria, not otherwise specified; Type 2 diabetes mellitus with diabetic chronic kidney disease (HCC) Social History Tobacco Use Types Packs/Day Years Used Date Smoking Tobacco: Never Smokeless Tobacco: Never Alcohol Use Standard Drinks/Week Comments Never 0 (1 standard drink = 0.6 oz pur e alcohol) Sex and Gender Information Value Date Recorded Sex Assigned at Not on file Legal Sex Male 12:32 PM EDT Gender Identity Not on file Sexual Orientation Not on file documented as of this encounter Plan of Treatment Upcoming Encounters Date Type Department Care Team (Late Contact Info) Description 01/12/2025 1:30 PM EDT Office Visit [facility] [address] [id number] Yani Lezama ARNP [address] [phone] documented as of this encounter Visit Diagnoses Diagnosis Proteinuria, not otherwise specified Type 2 diabetes mellitus with diabetic chronic kidney disease (HCC) documented in this encounter Care Teams Patient Transport Orderly Relationship Specialty Start Date End Date Darrel Mcclure PA [address] [place] [address], [address] [place] [address] PCP - General Physician Cbx Operator 03/24/21 documented as of this encounter
--- OUTSIDE RECORDS SUMMARY | 2024-06-15 20:08 | XMS_ITS | Encounter Summary ---
Author Organization [facility] Address [address] [facility] [address] [place] [address] Phone Care Team Providers Care Saturator Tender Name Role Phone Darrel Mcclure Primary Care Provider [phone] Reason for Visit * Reason Comments Med Refill Encounter Details Date Type Department Care Team (Late Contact Info) Description 02/28/2022 Refill [facility] [address] [facility] [address] [place] [id number] Pir Gudino MD Type 2 diabetes mellitus with diabetic chronic kidney disease (HCC); Isolated proteinuria Social History Tobacco Use Types Packs/Day Years [...] Visit [facility] 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
--- OUTSIDE RECORDS SUMMARY | 2024-06-15 20:08 | XMS_ITS | Clinical Summary ---
Author Organization [facility] Address 100 [facility] [address] [place] [address] Phone Care Team Providers Care Hogshead Press Operator Name Role Phone Darrel Mcclure Primary Care Provider [phone] Allergies Active Allergy Reactions Criticality Noted Date Comments Bee Pollen 04/04/2021 Carbamazepine 04/04/2021 Clindamycin 04/04/2021 Lactose 04/04/2021 Nortriptyline 04/04/2021 Risperidone 04/04/2021 Sulfa Antibiotics 04/04/2021 Medications ammonium lactate (AMLACTIN) 12 % cream Apply topically APPLY TWICE DAILY 1 Active benztropine (COGENTIN) 0.5 MG tablet Take 0.5 mg by mouth 1 (one) time each day TAKE ONE TAB ONCE DAILY 1 Active chlorproMAZINE (THORAZINE) 100 MG tablet Take 200 mg by mouth in the morning and 200 mg in the evening. Active clonazePAM (KlonoPIN) 1 MG tablet Take 0.5 mg by mouth 1 (one) time each day TAKE ONCE DAILY NEEDED 1 Active divalproex (DEPAKOTE) 500 MG EC tablet Take 500 mg by mouth 1 (one) time each day in the morning TAKE 1000 MG ONCE NIGHTLY 1 Active EPINEPHrine (EPIPEN) 0.3 MG/0.3ML injection syringe 1 Active FLUoxetine (PROzac) 20 MG capsule Take 80 mg by mouth 1 (one) time each day 1 Active NovoLOG FLEXPEN 100 UNIT/ML injection 1 Active Lantus SoloStar 100 UNIT/ML injection 1 Active levothyroxine (SYNTHROID, LEVOTHROID) 125 MCG tablet Take 62.5 mcg by mouth 1 (one) time each day TAKE ONE TAB ONCE DAILY 1 Active loratadine (CLARITIN) 10 MG tablet Take 10 mg by mouth 1 (one) time each day TAKE ONE TAB ONCE DAILY 1 Active metoprolol succinate XL (TOPROL XL) 25 MG 24 hr tablet Take 25 mg by mouth 1 (one) time each day TAKE ONE TAB ONCE DAILY 1 Active multivitamin (THERAGRAN) tablet Take 1 tablet by mouth 1 (one) time each day 1 Active pantoprazole (PROTONIX) 40 MG EC tablet Take 40 mg by mouth 1 (one) time each day before breakfast 1 Active rosuvastatin (CRESTOR) 40 MG tablet Take 40 mg by mouth 1 (one) time each day TAKE 40 MG NIGHTLY 1 Active acetaminophen (TYLENOL) 325 MG tablet Take by mouth every 6 (six) hours if needed for mild pain TAKE ONE TAB EVERY FOUR HOURS NEEDED Active bismuth subsalicylate (Pepto-Bismol) 262 MG/15ML suspension Take 30 mL by mouth every 6 (six) hours if needed for indigestion Active divalproex (DEPAKOTE) 250 MG EC tablet Take 250 mg by mouth 1 (one) time each day in the morning 3 Active ARIPiprazole (ABILIFY) 30 MG tablet Take 30 mg by mouth 1 (one) time each day Active melatonin 3 MG tablet Take 3 mg by mouth every night Active Calcium Carbonate-Vit D-Min (Calcium 600+D3 Plus Minerals) 600-800 MG-UNIT tablet Take 1 tablet by mouth 1 (one) time each day Active baclofen (LIORESAL) 10 MG tablet Take 10 mg by mouth if needed for muscle spasms Active metFORMIN (GLUCOPHAGE) 1000 MG tablet Take 1,000 mg by mouth in the morning and 1,000 mg in the evening. Take with meals. Active lisinopril 10 MG tabletIndications :Type 2 diabetes mellitus with diabetic nephropathy (HCC),Proteinuria , not otherwise specified,Hyperte nsion,Type 2 diabetes mellitus with diabetic chronic kidney disease (HCC),Isolated proteinuria Take 1 tablet (10 mg total) by mouth 1 (one) time each day 90 tablet 4 025 Active Dapagliflozin Propanediol (Farxiga) 10 MG tablet TAKE 1 TABLET BY MOUTH DAILY 22 tablet 5 4 Active Active Problems Problem Noted Date Diagnosed Date Nephrolithiasis 01/14/2023 Hypotension 01/14/2023 Bacterial urinary infection 01/10/2022 Type 2 diabetes mellitus 04/09/2021 Bipolar disorder 04/09/2021 Albuminuria 04/09/2021 Hypothyroidism 04/09/2021 Gastroesophageal reflux disease 04/09/2021 Encounters Date Type Department Care Team Description 05/08/2024 Refill [facility] [address] [facility] [address] [place] [address] Steve Joyce MD from Last 3 Months Family History Medical History Relation Comments Cancer Father Diabetes Mother Relation Status Comments Father Other Lung cancer Mother Social History Tobacco Use Types Packs/Day Years Used Date Smoking Tobacco: Never Smokeless Tobacco: Never Tobacco Cessation:Counseling Given: Not Answered Alcohol Use Standard Drinks/Week Comments Never 0 (1 standard drink = 0.6 oz pur e alcohol) Sex and Gender Information Value Date Recorded Sex Assigned at Not on file Legal Sex Male 12:32 PM EDT Gender Identity Not on file Sexual Orientation Not on file Last Filed Vital Signs Vital Sign Reading Time Taken Comments Blood Pressure 132/76 01/13/2024 4:49 PM EDT Pulse 103 01/13/2024 4:49 PM EDT Temperature - - Respiratory Rate - - Oxygen Saturation 97% 01/10/2022 11:08 AM EDT Inhaled Oxygen Concentration - - Weight 130 kg (287 lb) 01/13/2024 4:49 PM EDT Height - - Body Mass Index - - Plan of Treatment Upcoming Encounters Date Type Department Care Team (Late st Contact Info) Description 01/12/2025 1:30 PM EDT Office Visit [facility] [address] [facility] [address] [place] [address] Yani Lezama ARNP [address] [facility] [address] [place] [address] Health Maintenance Due Date Last Done Comments Pneumococcal Vaccine: Pediat rics (0 to 5 Years) and At-Risk Patients (6 to 64 Years) (1 of 2 - PCV) 1997 Hepatitis B Vaccine (1 of 3 - 19+ 3-dose series) 01/21 Diabetes: Hemoglobin A1C 04/04/2021 09/07/2020 Diabetes: Ophthalmology Exam 04/04/2021 Diabetes: Pedal Pulse Checked 04/04/2021 Diabetes: Sensory Foot Exam 04/04/2021 Diabetes: Visual Foot Exam 04/04/2021 Influenza Vaccine (#1) 2024 Procedures Procedure Name Priority Date/Time Associated Diagnosis Comments EXT RESULT ENTRY Routine 09/07/2020 from Last 3 Months or Most Recently Relevant to Health Maintenance Results * (ABNORMAL) EXT RESULT ENTRY (09/07/2020) WBC 8.2 3.3 - 10.0 10*3/ML Red Blood Cell Count 5.27 Hemoglobin 15.3 13.5 - 17.5 Hematocrit 45.6 41.0 - 53.0 Platelets 230 150 - 399 10*3/UL MCV 86.5 82.0 - 108.0 Sodium 136(A) 137 - 147 Potassium 4.6 3.4 - 5.5 Chloride 101 99 - 108 Bicarbonate (CO2) 23 22 - 30 mmol/L Anion Gap 17 <=30 MMOL/L Glucose 154 60 - 200 BUN 7 4 - 21 mg/dL Creatinine 0.75 0.60 - 1.30 mg/dL Calcium 9.5 8.7 - 10.7 mg/dL eGFR Non-Afr [place] Islander >60 Hemoglobin A1C 7.0(A) 4.0 - 6.0 Triglycerides 322(A) 40 - 160 Cholesterol 226(A) 0 - 200 LDL Calculated 136 0 - 160 mg/dL 09/07/2020 us Historical Provider LAB BLOOD ORDERABLES Shahnaz l Result from Last 3 Months or Most Recently Relevant to Health Maintenance Insurance [place] [address] ([id number]) [place] [address] ([id number]) Care Teams Hogshead Press Operator Relationship Specialty Start Date End Date Darrel Mcclure PA [address] [place] [address], [address] [place] [address] PCP - General Physician Switchboard Operator Supervisor 03/24/21
--- OUTSIDE RECORDS SUMMARY | 2024-06-15 20:08 | XMS_ITS | Encounter Summary ---
Author Organization [facility] Address 100 [facility] 200 [place] [address] Phone Care Team Providers Care Bulk Plant Supervisor Name Role Phone Darrel Mccluer Primary Care Provider Encounter Details Date Type Department Care Team (Late Contact Info) Description 01/15/2024 Office Communication [facility] [address] [place] [address] Andressa Michel [address] [place] [address] Social History Tobacco Use Types Packs/Day Years [...] on file documented as of this encounter Miscellaneous Notes * Telephone Encounter - Andressa Michel - 01/15/2024 11:[address] [facility] says that they have not rec'd script for lisinopril. Looks like we sent 12/17, 12/18. PT needs refill. Sending to [place], and script line of 01/14 TY documented in this encounter Plan of Treatment Upcoming Encounters Date Type Department Care Team (Late Contact Info) Description 01/12/2025 1:30 PM EDT Office Visit [facility] [address] [facility] [address] [place] [phone] Yani Lezama ARNP [address] [facility] 204 [place] [phone] documented as of this encounter Visit Diagnoses Not on filedocumented in this encounter Care Teams Bulk Plant Supervisor Relationship Specialty Start Date End Date Darrel Mcclure PA [address] [place] [address], [address] [place] [address] PCP - General Physician Pulper Operator 03/24/21 documented as of this encounter
--- OUTSIDE RECORDS SUMMARY | 2024-06-15 20:08 | XMS_ITS | Clinical Summary ---
Author Organization [address] [facility] Address [address] [place] [address] Phone Care Team Providers Care Child Center Assistant Name Role Phone Darrel Mcclure Primary Care Provider Allergies No known active allergies Medications No known medications Encounters Date Type Department Care Team Description 05/06/2024 1:00 PM EST Office Visit [facility] [address] [phone] Yobany Leahy DPM Hallux rigidus of right foot (Primary Dx); Bilateral foot pain; Ingrowing nail; Corns and callosities; Hallux rigidus of left foot; Diabetic mononeuropathy simplex (CMS/HCC) from Last 3 Months Social History Tobacco Use Types Packs/Day Years Used Date Smoking Tobacco: Never Assessed Sex and Gender Information Value Date Recorded Sex Assigned at Not on file Gender Identity Not on file Sexual Orientation Not on file Job Start Date Occupation Industry Not on file Not on file Not on file Last Filed Vital Signs Vital Sign Reading Time Taken Comments Blood Pressure - - Pulse - - Temperature - - Respiratory Rate - - Oxygen Saturation - - Inhaled Oxygen Concentration - - Weight 132 kg (292 lb) 05/06/2024 12:56 PM EST Height 182.9 cm (6' 0.01 ) 05/06/2024 12:[address] Body Mass Index 39.59 05/06/2024 12:56 PM EST Plan of Treatment Upcoming Encounters Date Type Department Care Team (Late st Contact Info) Description 08/04/2024 1:15 PM EDT Office Visit [facility] [address] [phone] Yobany Leahy DPM [address] [address] Health Maintenance Due Date Last Done Comments Diabetes: Annual GFR (Glomer ular Filtration Rate) 1991 Pneumococcal Vaccine: Pediat rics (0 to 5 Years) and At-Risk Patients (6 to 64 Years) (1 of 2 - PCV) 1997 Diabetes: Annual Foot Exam 2001 Diabetes: Annual Retina Eye Exam 2001 DTaP,Tdap,and Td Vaccines (1 - Tdap) 2010 Hepatitis B Vaccines (1 of 3 - 19+ 3-dose series) 2010 COVID-19 Vaccine (2023-2 5 season) 2024 Influenza Vaccine (#1) 2024 Cholesterol Screening (Lipid Panel) 03/13/2024 Depression Screening 03/13/2024 Diabetes: Annual Urine Albumin-Creatinine Ratio (uACR) 03/13/2024 Diabetes: Blood Sugar Contro l Test (HGBA1C) 03/13/2024 HIV Screening 03/13/2024 Hepatitis C Screening 03/13/2024 Hypertension/CHF/CAD Annual BMP Blood Test 03/13/2024 Social Influencers of Health Screening 03/13/2024 HIB Vaccines Aged Out No longer eligi ble based on patient's age to complete this topic HPV Vaccines Aged Out No longer eligi ble based on patient's age to complete this topic Hepatitis A Vaccines Aged Out No long er eligible based on patient's age to complete this topic IPV Vaccines Aged Out No longer eligi ble based on patient's age to complete this topic MMR Vaccines Aged Out No longer eligi ble based on patient's age to complete this topic Meningococcal ACWY Vaccine Aged Out N o longer eligible based on patient's age to complete this topic RSV Immunization Patients Un reuben 20 months Aged Out No longer eligible b ased on patient's age to complete this topic Varicella Vaccines Aged Out No longer eligible based on patient's age to complete this topic Procedures Procedure Name Priority Date/Time Associated Diagnosis Comments XR FOOT 3+ VIEWS BILAT Routine 05/06/2024 1:17 PM EST Bilateral foot pain from Last 3 Months Results * XR Foot 3+ Views bilat (05/06/2024 1:17 PM EST) Anatomical Region Laterality Modality Lower Extremities, Foot Bilateral Computed Radiography Narrative 05/06/2024 6:02 PM EST Left foot weightbearing 3 views Relative normal alignment hindfoot midfoot forefoot forefoot noted previous bunionectomy with reactive changes metatarsal shaft and neck Lateral view there is some calcification of the sesamoids and the inferior aspect the metatarsal phalangeal joint Right ??foot weightbearing 3 views Relative normal alignment hindfoot midfoot forefoot forefoot noted previous bunionectomy with reactive changes metatarsal shaft and neck Lateral view there is some calcification of the sesamoids and the inferior aspect the metatarsal phalangeal joint Yoabny Leahy DPCarissa IMG XR PROCEDURES from Last 3 Months Care Teams Child Center Assistant Relationship Specialty Start Date End Date Darrel Mcclure PA [address] [place] [address] PCP - General 01/23/24
== END 2024-06-15 17:43 | disposition home or self-care (01) ==
LOC: HO.ED 17:40
PROVIDERS: Emergency Provider Emergency Medicine; PCP Physician Assistant
DX: S09.90XA Unspecified injury of head, initial encounter (principal); W01.0XXA Fall on same level from slipping, tripping and stumbling without subsequent striking against object, initial encounter; E11.9 Type 2 diabetes mellitus without complications; I10 Essential (primary) hypertension; E78.5 Hyperlipidemia, unspecified; J45.909 Unspecified asthma, uncomplicated; Y93.89 Activity, other specified; Y92.9 Unspecified place or not applicable; Y99.9 Unspecified external cause status
CPT/HCPCS: 70450; 72125; 99281; 99284

== ENCOUNTER → 2024-06-15 16:00 | Outpatient (BNV) | payer OTHER, SELFPAY | PROVIDERS: Emergency Provider Emergency Medicine; PCP Physician Assistant; Visit Provider Radiology Diagnostic Radiology | DX: R51.9 Headache, unspecified (principal); W19.XXXA Unspecified fall, initial encounter; J32.0 Chronic maxillary sinusitis | CPT/HCPCS: 70450; 72125 ==

== ENCOUNTER 2024-08-03 10:45 | Outpatient (AMB) | payer OTHER, SELFPAY ==
--- NOTE | 2024-08-03 10:59 | A.OFFPC_ITS ---
Vital Signs 08/03/24 11:07 Height 6 ft Weight 289 lb BMI 39.2 BP 122/88 Blood Pressure Location Lt brachial Position Sitting Pulse 105 H Pulse Source Pulse Oximeter Pulse Oximetry (%) 96 Oxygen Delivery Method Room Air Intake Visit Reasons: Follow-up type 2 diabetes Operational Review Sergeant Required: No Accompanied by: [facility]- [facility] program Allergies bee pollen [BEE STINGS] Allergy (Unknown, Verified 08/03/24 11:20) UNKNOWN carbamazepine [From TEGRETOL] Allergy (Unknown, Verified 08/03/24 11:20) UNKNOWN clindamycin [CLINDAMYCIN] Allergy (Unknown, Verified 08/03/24 11:20) UNKNOWN nortriptyline [Pamelor] Allergy (Unknown, Verified 08/03/24 11:20) Unknown risperidone [From RISPERDAL] Allergy (Unknown, Verified 08/03/24 11:20) UNKNOWN Sulfa (Sulfonamide Antibiotics) [SULFA (SULFONAMIDE ANTIBIOTICS)] Allergy (Unknown, Verified 08/03/24 11:20) UNKNOWN lactose Adverse Reaction (Intermediate, Verified 08/03/24 11:20) Diarrhea Medication List - Last Reconciled 08/03/24 by Darrel Mcclure PA-C acetaminophen 325 mg PO Q4H PRN 30 days alfuzosin ER 10 mg PO DAILY 90 days aripiprazole 30 mg PO DAILY baclofen 10 mg PO BID PRN 30 days benzonatate 200 mg PO BID-TID PRN benztropine 0.5 mg PO DAILY bismuth subsalicylate (Pepto-Bismol) 524 mg (30 mL) PO Q1H PRN 30 days blood sugar diagnostic (FreeStyle Test strips) Testing 3 times a day blood-glucose meter (FreeStyle Lite Meter kit) As directed 3 times a day calcium carbonate-vitamin D3 600 mg-20 mcg (800 unit) 1 tab PO BEDTIME ciprofloxacin-dexamethasone 0.3-0.1 % 4 drps otic (ears) BID 7 days clonazepam 1 mg PO TID PRN dapagliflozin propanediol (Farxiga) 10 mg PO DAILY diclofenac sodium 1% (Arthritis Pain (diclofenac)) 2 grams topical QID PRN divalproex 250 mg PO DAILY divalproex 1 tab PO DAILY divalproex 2 tabs PO BEDTIME epinephrine 0.3 mg (0.3 mL) IM ONCE PRN fluoxetine 60 mg PO DAILY glucose (Dex4 Glucose) 12 grams (3 x 4 gram) PO Q15M PRN ibuprofen 600 mg PO Q6H PRN insulin aspart U-100 (Novolog FlexPen U-100 Insulin aspart) 1 sliding scale dose subcut TID 30 days insulin glargine (Lantus Solostar U-100 Insulin) 20 units (0.2 mL) subcut QPM lactase (Lactaid Fast Act) 9,000 units PO QID PRN 30 days lancets (FreeStyle Lancets) Three times a day levothyroxine 62.5 mcg (1/2 x 125 mcg) PO QAM lidocaine 4% (Aspercreme (lidocaine)) 1 patch topical DAILY PRN lisinopril 40 mg PO DAILY 30 days loratadine 10 mg PO BEDTIME melatonin 3 mg PO BEDTIME metformin 1,000 mg (10 mL) PO BIDWM metoprolol succinate ER 25 mg PO DAILY multivitamin with folic acid 400 mcg (Daily-Taz (with folic acid)) 1 tab PO DAILY mupirocin 2% 1 appl topical BID 10 days pantoprazole 40 mg PO DAILY pen needle, diabetic (BD Ultra-Fine Cally Pen Needle) Use 2x per day rosuvastatin (Crestor) 40 mg PO DAILY 90 days [shower chair As directed] Tobacco use date assessed: 08/03/24 Dental Screening Dental Screen Date: 08/03/24 Did you have a dental visit in the last 12 months?: Yes Was dental information given to patient?: Patient has dentist HPI Follow-up type 2 diabetes HPI Details Patient is a 34-year-old male here today for follow-up visit. 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 Patient has a past medical history type 2 diabetes tachycardia, hypothyroidism, hypertension... Concern--> has been dealing with some depression as of late to which he has been speaking with his mental health therapist and psychiatrist whom manage his mental health medication. CHRONIC MEDICAL CONDITIONS--> .. Type 2 diabetes:? .? This type 2 diabetes has been somewhat suboptimally controlled. Today's A1c is 7.8. He does admit to dietary indiscretion. We have recently made some adjustments in his diabetic insulin regime. He continues to be compliant with his insulin med regime. He reports he has been trying to follow a better diet. ? .. Hypothyroidism: Continues on levothyroxine 62.5 mg with good effect. Most recent TSH euthyroid.. .. Hypertension:? Patient's blood pressure acceptable today in office.? Will continues current dose of lisinopril and metoprolol. .. ? Tachycardia:? continues to have elevated heart rates.? He denies any symptomatic palpitations or chest discomforts.? Has been seen by Cardiology and agrees with low-dose metoprolol 25 mg daily. . Obesity:? Patient does understand his BMI is over 30 and has been trying to work on better eating habits to reduce his weight [facility] Medical History Callus of toe Proteinuria Hyperlipidemia Advance directive indicates patient wish for full code resuscitation status Seizure disorder Gout Kidney stones Type 2 diabetes mellitus with diabetic polyneuropathy Hyperlipidemia LDL goal <100 Essential hypertension Obesity due to excess calories Type 2 diabetes mellitus with hyperglycemia, with long-term current use of insulin Sinusitis nasal Surgical History History of root canal procedure History of foot surgery History of surgery of head History of spinal surgery Family History Father Medical history unknown Lung cancer Mother Diabetes Substance abuse Family/Other FH: mental illness Social History Household Members Other:: roomate Housing: Other Housing Other:: [facility] Do you presently have visiting nurse or other home services: Yes (assistance from dept of mental health services) Alcohol intake: never Patient Tobacco Use Status: Never used Tobacco e-Cigarette/Vaping Use: Never Used Second Hand Smoke Exposure: No service: No Current occupational status: other Cognitive needs: No Hearing needs: No Vision needs: No Questionnaire PHQ-9 Over the last 2 weeks, how often have you been bothered by any of the following problems? 1. Little interest or pleasure in doing things: nearly every day 2. Feeling down, depressed, or hopeless: several days 3. Trouble falling or staying asleep, or sleeping too much: nearly every day 4. Feeling tired or having little energy: nearly every day 5. Poor appetite or overeating: nearly every day 6. Feeling bad about yourself - or that you are a failure or have let yourself or your family down: nearly every day 7. Trouble concentrating on things, such as reading the newspaper or watching television: several days 8. Moving or speaking so slowly that other people could have noticed. Or the opposite - being so fidgety or restless that you have been moving around a lot more than usual: nearly every day 9. Thoughts that you would be better off or of hurting yourself in some way: nearly every day (not to harm himself/ the thoughts is for others ) Total score: 23 Depression Screening Interpretation: Positive Depression Screening Follow-up: Existing condition and In treatment Depression Screening Done: Yes 51227 - PHQ-9 Billing: Yes Source: Developed by Drs. Raymond Reyes, Padma Garcia, Gregory Zazueta and colleagues, with an educational from [employer]. Thrive Questionnaire Date Thrive assessed: 08/03/24 I am a: Patient What is your living situation today?: I have a steady place to live Within the past 12 months, did the food you bought not last and you didn't have the money to get more?: Never true Within the past 12 months, did you worry whether your food would run out before you got money to buy more?: Never true Do you have trouble paying for medicines?: No Do you have trouble getting transportation to medical appointments?: No Do you have trouble paying your heating and electricity bill?: No Do you have trouble taking care of your child, family member or friend?: No Do you have trouble with day-to-day activities such as bathing, preparing meals, shopping, managing finances, etc.?: No Are you currently unemployed and looking for a job?: No Are you interested in more education?: No Please select the resources that you would like help with: None Currently or been in a relationship where the following occur: No concerns reported THRIVE Score: 0 AUDIT C Alcohol Use Questionnaire (AUDIT-C) 1. How often do you have a drink containing alcohol?: Never 3. How often do you have six or more drinks on one occasion?: Never Total Score: 0 LIZBETH-7 AMB Questionnaire LIZBETH-7 Date LIZBETH - 7 assessed: 08/03/24 (Pt on medication for anxiety.) Feeling nervous, anxious, or on edge: 0 = Not at all Not being able to stop or control worryin = Not at all Worrying too much about different things: 0 = Not at all Trouble relaxin = Not at all Being so restless that it is hard to sit still: 0 = Not at all Becoming easily annoyed or irritable: 0 = Not at all Feeling afraid as if something awful might happen: 0 = Not at all Total LIZBETH-7 score (0-4 normal; 5-9 mild; 10-14 moderate; 15-21 severe): 0 Source: Developed by Drs. Raymond Reyes, Padma Garcia, Gregory Zazueta and colleagues, with an educational from [employer]. LIZBETH-7 Assessment Billing LIZBETH-7 Assessment Tool: LIZBETH-7 Assessment 45701 Review of Systems Const Denies headache(s) Eyes Denies loss of vision ENT Denies vertigo, Denies dizziness, Denies headache(s) and Denies sore throat Card Denies chest pain, Denies leg edema and Denies lightheadedness Resp Denies cough, Denies hemoptysis and Denies wheezing GI Denies abdominal pain, Denies melena, Denies constipation, Denies diarrhea and Denies vomiting Denies dysuria, Denies urinary frequency and Denies urinary urgency Musc Denies arthralgias, Denies joint swelling, Denies numbness and Denies tingling Neuro Denies Abnormal speech present, Denies behavioral changes, Denies vertigo, Denies dizziness, Denies headache(s), Denies loss of vision, Denies memory loss, Denies numbness and Denies tingling Psych Denies anxiety, Denies behavioral changes, Denies depression, Denies memory loss and Denies panic attacks Tashi/Lymph Denies easy bleeding and Denies easy bruising Aller/Immun Denies wheezing Physical exam (Primary Care) Vital Signs: Last Vital Signs Pulse 105 H 08/03/24 11:07 BP 122/88 08/03/24 11:07 Pulse Ox 96 08/03/24 11:07 Oxygen Delivery Method Room Air 08/03/24 11:07 BMI result Body Mass Index 39.2 Tobacco/Smoking Status: Tobacco use Status Tobacco use date assessed 08/03/24 08/03/24 11:18 Patient Tobacco Use Status Never used Tobacco 08/03/24 10:59 e-Cigarette/Vaping Use Never Used 08/03/24 10:59 PHQ-9: PHQ-9 Score PHQ-9: Total score 23 08/03/24 11:18 Depression Screening Interpretation: Positive Depression Screening Follow-up: Existing condition and In treatment Thrive Assessment: Date of Thrive Assessment Date Thrive assessed 08/03/24 08/03/24 11:18 Currently or been in a relationship where the following occur: No concerns reported Const General: healthy appearing, no acute distress, alert and awake Nutritional Appearance: well nourished Orientation/consciousness: oriented to person, oriented to place and oriented to time HENMT Ears: TM's normal bilaterally General nose exam: Normal nasal mucous membranes and turbinates present Eyes Conjunctivae: conjunctivae normal Sclerae: sclerae normal Pupils: Equal, round and reactive pupils present Neck Neck: Yes no lymphadenopathy and Yes no JVD Thyroid: Thyroid normal Carotids: no bruits Resp Effort & Inspection: normal respiratory effort and not tachypneic Auscultation: no crackles, no rales, no rhonchi and no wheezes Cardio Rate: regular rate Rhythm: regular rhythm Heart sounds: no murmurs and normal S1 and S2 GI Palpation (GI): Soft to palpation, nontender, no hepatomegaly and no splenomegaly Auscultation: normal bowel sounds Skin General skin exam: no rashes or lesions noted and dry skin Neuro General: oriented to person, oriented to place and oriented to time Cranial nerves: Yes Equal, round and reactive pupils present Speech: No Abnormal speech present Gait exam (Neuro): Normal gait present Motor exam (neuro): no tremor noted Extrem Right upper extremity: full ROM Left upper extremity: full ROM Right lower extremity: full ROM; no edema Left lower extremity: full ROM; no edema Psych Mental Status: mental status grossly normal Speech and movement: Normal speech and movement present Affect: normal affect Attitude: cooperative Thought process: Normal thought process present Results AMB Hemoglobin A1c AMB Hemoglobin A1c 7.8 % Last Edit by EDITH Torres on 08/03/24 11:20 Coding Level of Care Code Est Pt Level 4 (11122) Diagnoses Primary hypertension I10 Hypertension type: primary hypertension Acquired hypothyroidism E03.9 Hypothyroidism type: acquired Type 2 diabetes mellitus with unspecified complications E11.8 MDD (major depressive disorder), recurrent episode, moderate F33.1 Class 2 obesity E66.812 Hypertriglyceridemia E78.1 Additional Codes PHQ-9 - 66367 - PHQ-9 Billing: Yes ([id number]) LIZBETH-7 Assessment Billing - LIZBETH-7 Assessment Tool: LIZBETH-7 Assessment 80941 ([id number]) Assessment & Plan Assessment & Plan (1) Hypertension: Code(s): I10 - Essential (primary) hypertension Category: Medical Qualifiers: Hypertension type: primary hypertension Qualified Code(s): I10 - Essential (primary) hypertension Plan: Patient's blood pressure acceptable today in office. Will continue his current dose of antihypertensive medication with goal blood pressure to be below 140/90 (2) Hypothyroidism: Code(s): E03.9 - Hypothyroidism, unspecified Category: Medical Qualifiers: Hypothyroidism type: acquired Qualified Code(s): E03.9 - Hypothyroidism , unspecified Plan: Patient continues on levothyroxine, most recent TSH stable. Will continue levothyroxine at current dose 62.5 (3) Type 2 diabetes mellitus with unspecified complications: Code(s): E11.8 - Type 2 diabetes mellitus with unspecified complications Category: Medical Plan: Patient's type 2 diabetes suboptimally controlled. Today's A1c is 7.8. We recently made some adjustments in his insulin doses for better glycemic control. He does admit to dietary indiscretion thus will work extensively on low carbohydrate diet to help reduce his sugars. Goal A1c is to be below 7.0 Goal A1c is to be below 7.0 (4) MDD (major depressive disorder), recurrent episode, moderate: Code(s): F33.1 - Major depressive disorder, recurrent, moderate Category: Medical Plan: As per HPI patient's PHQ-9 score positive for depression which has been existing condition for him. He does report having a bit more depression over the winter. He continues to speak with a mental health therapist and a psychiatrist who manages his mental health medications. (5) Class 2 obesity: Code(s): E66.812 - Obesity, class 2 Category: Medical Plan: Steve does understand he is obese. His BMI is over 35 and will work on being more physically active and adapting to better eating habits to reduce his weight (6) Hypertriglyceridemia: Code(s): E78.1 - Pure hyperglyceridemia Category: Medical Plan: Patient's most recent lipid panel showing elevated triglycerides. He continues on statin therapy which has been able to manage his total cholesterol and LDL. He will work on better eating habits to reduce his triglycerides as well. Orders: Orders AMB Hemoglobin A1c Today E11.8 - Type 2 diabetes mellitus with unspecified complications Medications: Changed From pen needle, diabetic (BD Ultra-Fine Cally Pen Needle) Use 2x per day 100 ea 3RF E11.8 - Type 2 diabetes mellitus with unspecified complications To pen needle, diabetic Use 2x per day 100 ea 3RF E11.8 - Type 2 diabetes mellitus with unspecified complications Patient Instructions: :Goal: A1c to be below 7.0, LDL to remain below 100 Barriers: Adherence to physical activity and healthy eating habits
[2024-08-03 11:07] VITALS: BP 122/88; PULSE 105; O2SAT 96; BMI 39.2
--- OUTSIDE RECORDS SUMMARY | 2024-08-03 12:18 | XMS_ITS | Encounter Summary ---
Author Organization [facility] Address 100 [facility] [address] [place] [address] Phone Care Team Providers Care Vertical Roll Operator Name Role Phone Darrel Mcclure Primary Care Provider [phone] Encounter Details Date Type Department Care Team (Late Contact Info) Description 01/15/2024 Office Communication [facility] [address] [facility] [address] [place] [address] Andressa Michel [address] [place] [address] Social History Tobacco Use Types [...] Andressa Michel - 01/15/2024 11:45 AM EDT [facility] says that they have not rec'd script for lisinopril. Looks like we sent 12/17, 12/18. PT needs refill. Sending to [place], and script line of 01/14 TY documented in this encounter Plan of Treatment Upcoming Encounters Date Type Department Care Team (Late Contact Info) Description 01/12/2025 1:30 PM EDT Office Visit [facility] [address] [facility] [address] [place] [phone] Yani Lezama ARNP [address] [facility] [address] [place] [phone] documented as of this encounter Visit Diagnoses Not on filedocumented in this encounter Care Teams Vertical Roll Operator Relationship Specialty Start Date End Date Darrel Mcclure PA [address] [place] [address], [address] [place] [address] PCP - General Physician Sales Representative Supervisor 03/24/21 documented as of this encounter
--- OUTSIDE RECORDS SUMMARY | 2024-08-03 12:18 | XMS_ITS | Encounter Summary ---
Author Organization [facility] Address 100 [facility] [address] [place] [address] Phone Care Team Providers Care Clinical Therapist Name Role Phone Darrel Mcclure Primary Care Provider [phone] Reason for Visit * Reason Comments Med Refill Encounter Details Date Type Department Care Team (Late Contact Info) Description 04/25/2022 Refill [facility] 100 [facility] [address] [place] [phone] Pir Gudino MD Proteinuria, not otherwise specified; [...] [facility] [address] [phone] Yani Lezama ARNP [address] [phone] documented as of this encounter Visit Diagnoses Diagnosis Proteinuria, not otherwise specified Type 2 diabetes mellitus with diabetic chronic kidney disease (HCC) documented in this encounter Care Teams Clinical Therapist Relationship Specialty Start Date End Date Darrel Mcclure PA [address] [place] [address], [address] [place] [address] PCP - General Physician Catering Sales Manager 03/24/21 documented as of this encounter
--- OUTSIDE RECORDS SUMMARY | 2024-08-03 12:18 | XMS_ITS | Encounter Summary ---
Author Organization [facility] Address 100 [facility] [address] [place] [address] Phone Care Team Providers Care Third Cook Name Role Phone Darrel Mcclure Primary Care Provider [phone] Reason for Visit * Reason Comments Med Refill Encounter Details Date Type Department Care Team (Late Contact Info) Description 02/28/2022 Refill [facility] [address] [place] [phone] Pir Gudino MD Type 2 diabetes mellitus [...] Visit [facility] 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
--- OUTSIDE RECORDS SUMMARY | 2024-08-03 12:18 | XMS_ITS | Clinical Summary ---
Author Organization [address] [facility] Address [address] [place] [address] Phone Care Team Providers Care Driver Examiner Name Role Phone Darrel Mcclure Primary Care Provider [phone] Allergies No known active allergies Medications No known medications Encounters Date Type Department Care Team Description 05/06/2024 1:00 PM EST Office Visit [facility] [address] [phone] Yobany Leahy DPM Hallux rigidus of right foot (Primary Dx); Bilateral foot pain; Ingrowing nail; Corns and callosities; Hallux rigidus of left foot; Diabetic mononeuropathy simplex (CMS/HCC) from Last 3 Months Social History Tobacco Use Types Packs/Day Years Used Date Smoking Tobacco: Never Assessed Sex and Gender Information Value Date Recorded Sex Assigned at Not on file Legal Sex Male 7:08 PM EST Gender Identity Not on file Sexual Orientation [...] Description 08/04/2024 1:15 PM EDT Office Visit [facility] [address] [phone] Yobany Leahy DPM [address] [address] Health Maintenance Due Date Last Done Comments Diabetes: Annual GFR (Glomer ular Filtration Rate) 1991 Diabetes: Annual Foot Exam 2001 Diabetes: Annual Retina Eye Exam 2001 DTaP,Tdap,and Td Vaccines (1 - Tdap) 2010 Hepatitis B Vaccines (1 of 3 - 19+ 3-dose series) 2010 Pneumococcal Vaccine: Pediat rics (0 to 5 Years) and At-Risk Patients (6 to 64 Years) (1 of 2 - PCV) 2010 COVID-19 Vaccine (2023-2 5 season) 2024 [...] patient's age to complete this topic Meningococcal B Vacine Aged Out No lo nger eligible based on patient's age to complete [...] the inferior aspect the metatarsal phalangeal joint us Yobany Leahy DPM IMG XR PROCEDURES Final R esult from Last 3 Months Care Teams Driver Examiner Relationship Specialty Start Date End Date Darrel Mcclure PA [address] [place] [phone] PCP - General 01/23/24
--- OUTSIDE RECORDS SUMMARY | 2024-08-03 12:18 | XMS_ITS | Clinical Summary ---
Author Organization [facility] Address 100 [facility] [address] [place] [address] Phone Care Team Providers Care Buckle Stringer Name Role Phone Darrel Mcclure Primary Care Provider [phone] Allergies Active Allergy Reactions Criticality Noted Date [...] [facility] 100 [facility] [address] [place] [address] Steve Joyce MD from Last [...] Visit [facility] [address] [facility] [address] [place] [address] Yani Lezama ARNP [address] [facility] [address] [place] [address] Health Maintenance Due Date Last [...] 9.5 8.7 - 10.7 mg/dL eGFR Non-Afr [place] >60 Hemoglobin A1C 7.0(A) 4.0 - 6.0 Triglycerides 322(A) 40 - 160 Cholesterol 226(A) 0 - 200 LDL Calculated 136 0 - 160 mg/dL 09/07/2020 us Historical Provider LAB BLOOD ORDERABLES Shahnaz l Result from Last 3 Months or Most Recently Relevant to Health Maintenance [place] [address] [place] [address] ([id number]) [place] [address] ([id number]) Care Teams Buckle Stringer Relationship Specialty Start Date End Date Darrel Mcclure PA [address] [place] [address], [address] [place] [address] PCP - General Physician Gore Seamer 03/24/21
== END 2024-08-03 11:36 | disposition home or self-care (01) ==
LOC: HO.HMCH 10:46
PROVIDERS: PCP Physician Assistant; Visit Provider Physician Assistant
DX: E11.8 Type 2 diabetes mellitus with unspecified complications (principal); F33.1 Major depressive disorder, recurrent, moderate; E66.812 Obesity, class 2; Z68.39 Body mass index [BMI] 39.0-39.9, adult; I10 Essential (primary) hypertension; E03.9 Hypothyroidism, unspecified; E78.1 Pure hyperglyceridemia

== ENCOUNTER → 2024-08-03 10:45 | Outpatient (BNVA) | payer OTHER, SELFPAY | PROVIDERS: PCP Physician Assistant; Visit Provider Physician Assistant | DX: I10 Essential (primary) hypertension (principal); E03.9 Hypothyroidism, unspecified; E11.8 Type 2 diabetes mellitus with unspecified complications; F33.1 Major depressive disorder, recurrent, moderate; E78.1 Pure hyperglyceridemia; E66.812 Obesity, class 2; Z68.39 Body mass index [BMI] 39.0-39.9, adult; Z71.3 Dietary counseling and surveillance | CPT/HCPCS: 83036; 96127; 99212 ==

== ENCOUNTER 2024-08-05 10:32 | Outpatient (REF) | payer OTHER, SELFPAY ==
[2024-08-05 11:06] LABS: Hematocrit 45.4 % (42.0-52.0); Hemoglobin 14.9 g/dl (14.0-18.0); Mean Corpuscular HGB Conc 32.8 g/dl (31.0-36.0); Mean Corpuscular Hemoglobin 27.6 pg (27.0-33.0); Mean Corpuscular Volume 84.1 fL (80.0-98.0); Mean Platelet Volume 10.1 fL (9.4-12.4); Platelet Count 199 X10*3/uL (160-400); Red Cell Distribution Width 14.6 % (11.0-16.0); White Blood Count 7.9 X10*3/uL (4.8-10.8)
[2024-08-05 11:11] LABS: Estimated Average Glucose 177 mg/dL; Hemoglobin A1c % 7.8 % (<6.0)
[2024-08-05 12:01] LABS: Alanine Aminotransferase 31 U/L (0-40); Albumin Level 4.4 g/dL (3.5-5.0); Alkaline Phosphatase 56 U/L (39-117); Anion Gap 14 (12-20); Aspartate Amino Transferase 32 U/L (5-37); Bilirubin Total 0.3 mg/dL (0.0-1.0); Blood Urea Nitrogen 10 mg/dL (9-16); Calcium 9.4 mg/dL (8.4-10.2); Carbon Dioxide 25 mmol/L (22-29); Chloride 105 mmol/L (96-108); Cholesterol 176 mg/dL (<200); Estimated Glomerular Filt Rate > 60; Glucose Fasting 129 mg/dL (60-99); HDL Cholesterol 28 mg/dL (>40); Potassium 4.8 mmol/L (3.3-5.1); Sodium 139 mmol/L (135-145); Total Protein 7.3 g/dL (6.5-8.0); Triglycerides 437 mg/dL (<150)
[2024-08-05 12:05] LABS: TSH reflex Free T4 1.14 uIU/mL (0.32-4.0)
== END 2024-08-05 10:33 | disposition home or self-care (01) ==
LOC: HO.LAB 10:32
PROVIDERS: PCP Physician Assistant; Visit Provider Physician Assistant
DX: E03.9 Hypothyroidism, unspecified (principal); I10 Essential (primary) hypertension; E78.1 Pure hyperglyceridemia; E11.8 Type 2 diabetes mellitus with unspecified complications
CPT/HCPCS: 36415; 80053; 80061; 83036; 84443; 85027

== ENCOUNTER 2024-08-13 11:48 | Outpatient (AMB) | payer OTHER, SELFPAY ==
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
[2024-08-13 12:04] VITALS: BP 126/80; PULSE 111; O2SAT 92
== END 2024-08-13 13:04 | disposition home or self-care (01) ==
PROVIDERS: PCP Physician Assistant; Visit Provider Nurse Practitioner Family
DX: S39.94XA Unspecified injury of external genitals, initial encounter (principal); S40.021A Contusion of right upper arm, initial encounter; S40.022A Contusion of left upper arm, initial encounter

== ENCOUNTER → 2024-08-13 11:48 | Outpatient (BNVA) | payer OTHER, SELFPAY | PROVIDERS: PCP Physician Assistant; Visit Provider Nurse Practitioner Family | DX: S39.94XA Unspecified injury of external genitals, initial encounter (principal); S40.021A Contusion of right upper arm, initial encounter; S40.022A Contusion of left upper arm, initial encounter | CPT/HCPCS: 99212 ==

== ENCOUNTER 2024-09-21 18:42 | Emergency (ER) | payer OTHER, SELFPAY ==
--- NOTE | ~2024-09-21 | XR_ITS ---
CLINICAL HISTORY: pinky defomirty, fracture, dislcoation? 3 view right hand Comparison: None Findings: Bones intact. No dislocations. No significant loss of joint space or osteophytes. No erosions. No radiopaque foreign body. IMPRESSION: 1. No acute findings This document has been electronically signed by: Melanie Landrum MD on 09/21/2024 20:43:33
[2024-09-21 19:32] VITALS: BP 114/83; PULSE 106; RESP 18; TEMP 36.6; O2SAT 95; BMI 36.3
--- NOTE | 2024-09-21 19:35 | ED.GENADULT ---
HPI - General Adult General Chief complaint: Extremity Injury, Upper Stated complaint: R pinky finger inj Time Seen by Provider: 09/22/24 00:13 Source: patient Mode of arrival: ambulatory Limitations: no limitations History of Present Illness ED Provider: Eliza Mansfield NP HPI narrative: Patient is a 34-year-old male who presents emergency department for evaluation. Out of anger today decided to punch a table with his right hand resulting in pain to the right pinky finger that he states is extending throughout the whole hand. Denies numbness tingling or cold sensation to the hand. Denies wrist pain. Related Data Home Medications ?Medication ?Instructions ?Recorded ?Confirmed dapagliflozin propanediol 10 mg 10 mg PO DAILY 06/05/21 08/03/24 tablet (Farxiga) fluoxetine 40 mg capsule 60 mg PO DAILY 07/21/21 08/03/24 melatonin 3 mg tablet 3 mg PO BEDTIME 07/21/21 08/03/24 divalproex 250 mg tablet,delayed 250 mg PO DAILY 01/28/22 08/03/24 release divalproex 500 mg tablet,delayed 1 tab PO DAILY 01/28/22 08/03/24 release divalproex 500 mg tablet,delayed 2 tab PO BEDTIME 01/28/22 08/03/24 release aripiprazole 30 mg tablet 30 mg PO DAILY 09/19/23 08/03/24 benztropine 0.5 mg tablet 0.5 mg PO DAILY 12/18/23 08/03/24 clonazepam 1 mg tablet 1 mg PO TID PRN 12/18/23 08/03/24 benzonatate 200 mg capsule 200 mg PO BID-TID PRN 08/03/24 08/03/24 Previous Rx's ?Medication ?Instructions ?Recorded blood-glucose meter (FreeStyle #1 ea 06/21/22 Lite Meter kit) mupirocin 2 % topical ointment 1 appl topical BID 10 days #22 09/10/22 grams diclofenac sodium 1 % topical gel 2 g topical QID PRN pain #100 grams 01/18/23 (Arthritis Pain (diclofenac)) lidocaine 4 % topical patch 1 patch topical DAILY PRN pain #30 02/11/23 (Aspercreme (lidocaine)) ea bismuth subsalicylate 262 mg/15 mL 524 mg (30 mL) PO Q1H PRN diarrhea 09/03/23 oral suspension (Pepto-Bismol) 30 days #1,200 mL ibuprofen 600 mg tablet 600 mg PO Q6H PRN pain #30 tabs 09/19/23 epinephrine 0.3 mg/0.3 mL 0.3 mg (0.3 mL) IM ONCE PRN for 10/09/23 injection, auto-injector allergies #2 ea baclofen 10 mg tablet 10 mg PO BID PRN muscle spasm 30 11/04/23 days #60 tabs shower chair #1 ea 01/07/24 levothyroxine 125 mcg tablet 62.5 mcg (1/2 x 125 mcg) PO QAM 04/15/24 #90 tabs rosuvastatin 40 mg tablet (Crestor) 40 mg PO DAILY 90 days #90 tabs 04/15/24 alfuzosin 10 mg tablet,extended 10 mg PO DAILY 90 days #90 tabs 04/21/24 release 24 hr blood sugar diagnostic (FreeStyle #100 ea 05/04/24 Test strips) ciprofloxacin 0.3 %-dexamethasone 4 drp otic (ears) BID 7 days #7.5 05/04/24 0.1 % ear drops,suspension mL insulin glargine 100 unit/mL (3 20 unit (0.2 mL) subcut QPM #15 mL 05/19/24 mL) subcutaneous pen (Lantus Solostar U-100 Insulin) loratadine 10 mg tablet 10 mg PO BEDTIME #28 tabs 05/19/24 calcium 600 mg (as 1 tab PO BEDTIME #90 tabs 07/07/24 carbonate)-vitamin D3 20 mcg (800 unit) tablet insulin aspart U-100 100 unit/mL 1 sliding scale dose subcut TID 30 07/07/24 (3 mL) subcutaneous pen ( #15 mL FlexPen U-100 Insulin aspart) lisinopril 40 mg tablet 40 mg PO DAILY 30 days #30 tabs 08/03/24 metoprolol succinate 25 mg 25 mg PO DAILY #30 tabs 08/03/24 tablet,extended release 24 hr acetaminophen 325 mg tablet 325 mg PO Q4H PRN for fever, 08/07/24 muscle aches, pain 30 days #100 tabs lactase 9,000 unit tablet (Lactaid 9,000 unit PO QID PRN lactose 08/14/24 Fast Act) intolerance 30 days #90 tabs metformin 500 mg/5 mL oral solution 1,000 mg (10 mL) PO BIDWM #473 mL 08/17/24 multivitamin with folic acid 400 1 tab PO DAILY #30 tabs 08/19/24 mcg tablet (Daily-Taz (with folic acid)) glucose 4 gram chewable tablet 12 g (3 x 4 gram) PO Q15M PRN 08/26/24 (Dex4 Glucose) hypoglycemia #60 tabs lancets 28 gauge (FreeStyle #100 ea 08/31/24 Lancets) pantoprazole 40 mg tablet,delayed 40 mg PO DAILY #90 tabs 08/31/24 release pen needle, diabetic 32 gauge x #200 ea 08/31/24 Allergies Allergy/AdvReac Type Severity Reaction Status Date / Time bee pollen [BEE STINGS] Allergy Unknown UNKNOWN Verified 09/21/24 19:34 carbamazepine [From TEGRETOL] Allergy Unknown UNKNOWN Verified 09/21/24 19:34 clindamycin [CLINDAMYCIN] Allergy Unknown UNKNOWN Verified 09/21/24 19:34 nortriptyline [Pamelor] Allergy Unknown Unknown Verified 09/21/24 19:34 risperidone [From RISPERDAL] Allergy Unknown UNKNOWN Verified 09/21/24 19:34 Sulfa (Sulfonamide Allergy Unknown UNKNOWN Verified 09/21/24 19:34 Antibiotics) [SULFA (SULFONAMIDE ANTIBIOTICS)] lactose AdvReac Intermediate Diarrhea Verified 09/21/24 19:34 Review of Systems Review of Systems: Yes all other systems are reviewed and are negative PMFSH Past Medical History Attestation statement: The following information was validated with the patient. Source: old records reviewed Medical History Bruise of both arms Injury of external genitalia Callus of toe Proteinuria Hyperlipidemia Advance directive indicates patient wish for full code resuscitation status Seizure disorder Gout Kidney stones Type 2 diabetes mellitus with diabetic polyneuropathy Hyperlipidemia LDL goal <100 Essential hypertension Obesity due to excess calories Type 2 diabetes mellitus with hyperglycemia, with long-term current use of insulin Sinusitis nasal Surgical History History of root canal procedure History of foot surgery History of surgery of head History of spinal surgery Family History Family History Father Medical history unknown Lung cancer Mother Diabetes Substance abuse Family/Other FH: mental illness Social History Social History Household Members Other:: roomate Housing: Other Housing Other:: [address] at [facility] Do you presently have visiting nurse or other home services: Yes (assistance from dept of mental health services) Alcohol intake: never Patient Tobacco Use Status: Never used Tobacco e-Cigarette/Vaping Use: Never Used Second Hand Smoke Exposure: No Advance Directives: No Advance Directives Information Provided: Yes service: No Current occupational status: other Cognitive needs: No Hearing needs: No Vision needs: No Physical Exam ED Vital Signs: Vital Signs - 24 hr 09/21/24 19:32 09/22/24 00:55 Temperature 97.8 F 97.8 F Pulse Rate 106 H 106 H Respiratory Rate 18 18 Blood Pressure 114/83 114/83 Pulse Oximetry 95 95 Oxygen Delivery Method Room Air Room Air BMI result Body Mass Index 36.3 Appearance: Alert.?Oriented to person, place and time. No acute distress.?Normal affect. CVS: Heart sounds normal. Normal heart rate and rhythm.? Pulses normal.?? Respiratory: No respiratory distress.? Lung sounds clear to auscultation bilaterally?? Skin: Skin warm and dry.? Normal skin color.? Extremities: No extremity edema. 2+ radial pulse. No obvious deformity. Full range of motion to the digits and wrist of the right hand. Neuro: Moves all extremities spontaneously. Sensation intact bilaterally. Ambulates with normal steady gait. Course Course Course Narrative: RME: [age]-year-old male presents to ED right pinky pain. Patient got upset slammed his hand table which caused right pinky deformity this occurred around 16:30. Right pinky deformed on physical exam. X-ray ordered Medical Decision Making Medical Decision Making MDM Narrative: Patient is a 34-year-old male who presents emergency department for evaluation, it of anger had punched a table resulting in pain to the 5th digit. Initial [employer] note indicates a deformity to the finger which I do not appreciate at the time of my examination. He has full range of motion to the digit is able to fully extend and fully flex the digit. Extremities neurovascularly intact distally. He expresses concern that he feels pain throughout his hand since punching, and feels strongly about having an elastic bandage placed for comfort at this time which I do not feel is unreasonable. XR has been obtained there was no evidence of fracture dislocation. Stable for discharge outpatient follow-up with primary care doctor as needed Differential Diagnosis Differential Diagnoses: The differential diagnosis associated with the presentation includes (Fracture, dislocation, sprain) Independent Interpretation I performed an independent interpretation of an: Plain X-Ray (See narrative above) Radiology Impression Discussion of test interpretation with radiology: I have reviewed the radiologist's reading. Radiologist Impression: 3 view right hand Comparison: None Findings: Bones intact. No dislocations. No significant loss of joint space or osteophytes. No erosions. No radiopaque foreign body. IMPRESSION: 1. No acute findings External Record Review External record reviewed: Outpatient record Prescription Management I considered prescription management with: Pain Medication Discharge Plan Discharge Clinical Impression: Finger sprain Patient Disposition: Home, Self-Care Instructions: Finger Sprain (ED) Additional Instructions: Rest over the next few days. Elastic bandage can be used to help alleviate pain and decreased motion over the next few days. Ice for 10-15 minutes 3-4 times daily can be helpful as well. He may use Tylenol and ibuprofen as needed for pain. Follow up with his primary care provider Prescriptions: No Action (DME) blood-glucose meter [FreeStyle Lite Meter] Kit See Rx Instructions .ROUTE .MEDSUPPLY Qty: 1 0RF Rx Instructions: As directed 3 times a day lidocaine [Aspercreme (lidocaine)] 4 % adhesive patch,medicated 1 patch topical DAILY PRN (Reason: pain) Qty: 30 0RF bismuth subsalicylate [Pepto-Bismol] 262 mg/15 mL suspension 524 mg PO Q1H PRN (Reason: diarrhea) 30 Days Qty: 1200 1RF Rx Instructions: do not exceed 8 doses in a 24 hour period epinephrine 0.3 mg/0.3 mL auto-injector 0.3 mg IM ONCE PRN (Reason: for allergies) Qty: 2 0RF baclofen 10 mg tablet 10 mg PO BID PRN (Reason: muscle spasm) 30 Days Qty: 60 2RF levothyroxine 125 mcg tablet 62.5 mcg PO QAM Qty: 90 1RF rosuvastatin [Crestor] 40 mg tablet 40 mg PO DAILY 90 Days Qty: 90 3RF loratadine 10 mg tablet 10 mg PO BEDTIME Qty: 28 6RF insulin glargine [Lantus Solostar U-100 Insulin] 100 unit/mL (3 mL) insulin pen 20 unit subcut QPM Qty: 15 3RF insulin aspart U-100 [Novolog FlexPen U-100 Insulin] 100 unit/mL (3 mL) insulin pen 1 sliding scale dose subcut TID 30 Days Qty: 15 3RF Rx Instructions: blood sugar- 70-130- take 0 units 131-180- take 8 units 181-240- take 12 units 241-300- take 16 units 301-350- take 20 units 351-400- take 24 units blood sugar is 400 - take 28 units and call calcium carbonate-vitamin D3 600 mg-20 mcg (800 unit) tablet 1 tab PO BEDTIME Qty: 90 1RF lisinopril 40 mg tablet 40 mg PO DAILY 30 Days Qty: 30 1RF metoprolol succinate 25 mg tablet extended release 24 hr 25 mg PO DAILY Qty: 30 3RF acetaminophen 325 mg tablet 325 mg PO Q4H PRN (Reason: for fever, muscle aches, pain ) 30 Days Qty: 100 3RF Rx Instructions: to take every 4 hours as needed for fever, muscle aches and pain, please call MD after 3 days if symptoms last. Lactaid Fast Act 9,000 unit tablet 9,000 unit PO QID PRN (Reason: lactose intolerance) 30 Days Qty: 90 0RF Rx Instructions: administer with meals and/or snacks metformin 500 mg/5 mL solution 1,000 mg PO BIDWM Qty: 473 3RF multivitamin with folic acid [Daily-Taz (with folic acid)] 400 mcg tablet 1 tab PO DAILY Qty: 30 0RF glucose [Dex4 Glucose] 4 gram tablet,chewable 12 g PO Q15M PRN (Reason: hypoglycemia) Qty: 60 2RF Rx Instructions: until symptoms of low blood sugar are controlled (DME) pen needle, diabetic 32 gauge x 5/32 needle See Rx Instructions .ROUTE .MEDSUPPLY Qty: 200 3RF Rx Instructions: Use 3x per day pantoprazole 40 mg tablet,delayed release (DR/EC) 40 mg PO DAILY Qty: 90 1RF (DME) lancets [FreeStyle Lancets] 28 gauge misc See Rx Instructions .ROUTE .MEDSUPPLY Qty: 100 3RF Rx Instructions: Three times a day divalproex 250 mg tablet,delayed release (DR/EC) 250 mg PO DAILY divalproex 500 mg tablet,delayed release (DR/EC) 1 tab PO DAILY divalproex 500 mg tablet,delayed release (DR/EC) 2 tab PO BEDTIME Farxiga 10 mg tablet 10 mg PO DAILY clonazepam 1 mg tablet 1 mg PO TID PRN benztropine 0.5 mg tablet 0.5 mg PO DAILY melatonin 3 mg tablet 3 mg PO BEDTIME fluoxetine 40 mg capsule 60 mg PO DAILY mupirocin 2 % ointment 1 appl topical BID 10 Days Qty: 22 0RF diclofenac sodium [Arthritis Pain (diclofenac)] 1 % gel 2 g topical QID PRN (Reason: pain) Qty: 100 0RF aripiprazole 30 mg tablet 30 mg PO DAILY ibuprofen 600 mg tablet 600 mg PO Q6H PRN (Reason: pain) Qty: 30 0RF (DME) shower chair See Rx Instructions .Route .MEDSUPPLY Qty: 1 0RF Rx Instructions: As directed alfuzosin 10 mg tablet extended release 24 hr 10 mg PO DAILY 90 Days Qty: 90 3RF Rx Instructions: administer after the same meal each day (DME) FreeStyle Test Strip See Rx Instructions .Route Qty: 100 6RF Rx Instructions: Testing 3 times a day ciprofloxacin-dexamethasone 0.3-0.1 % drops,suspension 4 drp otic (ears) BID 7 Days Qty: 7.5 0RF benzonatate 200 mg capsule 200 mg PO BID-TID PRN Referrals: Darrel Mcclure PA-C [Primary Care Provider] - Interventions: ED Discharge Assessment Last Done: 09/22/24 00:55 Print Language: German
--- OUTSIDE RECORDS SUMMARY | 2024-09-22 00:05 | XMS_ITS | Encounter Summary ---
Author Organization [facility] Address [address] [facility] [address] [place] [address] Phone Care Team Providers Care Relief Mate Name Role Phone Darrel Mcclure Primary Care Provider [phone] Reason for Visit * Reason Comments Med Refill Encounter Details Date Type Department Care Team (Late Contact Info) Description 02/28/2022 Refill [facility] [address] [facility] [address] [place] [address] Pir Gudino MD Type 2 diabetes mellitus [...] Department Care Team (Late Contact Info) Description 10/19/2024 Orders Only [facility] [address] [facility] [address] [place] [address] Steve Joyce MD [address] [facility] [address] [place] [address] Other proteinuria; Type 2 diabetes mellitus with diabetic chronic kidney disease (HCC) 01/12/2025 1:30 PM EDT Office Visit [facility] [address] [address] Yani Lezama ARNP [address] [address] documented as of this encounter Visit Diagnoses Diagnosis 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
--- OUTSIDE RECORDS SUMMARY | 2024-09-22 00:05 | XMS_ITS | Encounter Summary ---
Author Organization [facility] Address [address] [facility] [address] [place] [address] Phone Care Team Providers Care Bleach Boiler Packer Name Role Phone Darrel Mcclure Primary Care Provider [phone] Reason for Visit * Reason Comments Med Refill Encounter Details Date Type Department Care Team (Late Contact Info) Description 04/25/2022 Refill [facility] [address] [facility] [address] [place] [address] Pir Gudino MD Proteinuria, not otherwise specified; [...] [facility] [address] [facility] [address] [place] [address] Steve Joyce MD [address] [facility] [address] [place] [address] Other proteinuria; Type 2 diabetes mellitus with diabetic chronic kidney disease (HCC) 01/12/2025 1:30 PM EDT Office Visit [facility] [address] [facility] [address] [place] [address] Yani Lezama ARNP [address] [facility] [address] [place] [address] documented as of this encounter Visit Diagnoses Diagnosis Proteinuria, not otherwise specified Type 2 diabetes mellitus with diabetic chronic kidney disease (HCC) Other proteinuria Type 2 diabetes mellitus with diabetic chronic kidney disease (HCC) documented in this encounter Care Teams Bleach Boiler Packer Relationship Specialty Start Date End Date Darrel Mcclure PA [address] [place] [address], [address] [place] [address] PCP - General Physician Bias Binding Folder 03/24/21 documented as of this encounter
--- OUTSIDE RECORDS SUMMARY | 2024-09-22 00:05 | XMS_ITS | Clinical Summary ---
Author Organization [facility] Address 100 [facility] [address] 0 [place] [address] Phone Care Team Providers Care Auctioneer Automobile Name Role Phone Darrel Mcclure Primary Care Provider [phone] Allergies Active Allergy Reactions Criticality Noted Date Comments Bee Pollen 04/04/2021 Carbamazepine 04/04/2021 Clindamycin 04/04/2021 Lactose 04/04/2021 Nortriptyline 04/04/2021 Risperidone 04/04/2021 Sulfa Antibiotics 04/04/2021 Medications ammonium lactate (AMLACTIN) 12 % cream Apply topically APPLY TWICE DAILY 03/02/20 21 Active benztropine (COGENTIN) 0.5 MG tablet Take 0.5 mg by mouth 1 (one) time each day TAKE ONE TAB ONCE DAILY 03/15/20 21 Active chlorproMAZINE (THORAZINE) 100 MG tablet Take 200 mg by mouth in the morning and 200 mg in the evening. 03/15/20 21 Active clonazePAM (KlonoPIN) 1 MG tablet Take 0.5 mg by mouth 1 (one) time each day TAKE ONCE DAILY NEEDED 01/15/20 21 Active divalproex (DEPAKOTE) 500 MG EC tablet Take 500 mg by mouth 1 (one) time each day in the morning TAKE 1000 MG ONCE NIGHTLY 03/15/20 21 Active EPINEPHrine (EPIPEN) 0.3 MG/0.3ML injection syringe 01/26/20 21 Active FLUoxetine (PROzac) 20 MG capsule Take 80 mg by mouth 1 (one) time each day 03/15/20 21 Active NovoLOG FLEXPEN 100 UNIT/ML injection 03/24/20 21 Active Lantus SoloStar 100 UNIT/ML injection 03/24/20 21 Active levothyroxine (SYNTHROID, LEVOTHROID) 125 MCG tablet Take 62.5 mcg by mouth 1 (one) time each day TAKE ONE TAB ONCE DAILY 03/15/20 Active loratadine (CLARITIN) 10 MG tablet Take 10 mg by mouth 1 (one) time each day TAKE ONE TAB ONCE DAILY 03/15/20 Active metoprolol succinate XL (TOPROL XL) 25 MG 24 hr tablet Take 25 mg by mouth 1 (one) time each day TAKE ONE TAB ONCE DAILY 03/15/20 Active multivitamin (THERAGRAN) tablet Take 1 tablet by mouth 1 (one) time each day 03/15/20 Active pantoprazole (PROTONIX) 40 MG EC tablet Take 40 mg by mouth 1 (one) time each day before breakfast 03/15/20 Active rosuvastatin (CRESTOR) 40 MG tablet Take 40 mg by mouth 1 (one) time each day TAKE 40 MG NIGHTLY 03/15/20 Active acetaminophen (TYLENOL) 325 MG tablet Take [...] (one) time each day in the morning 07/04/19 23 Active ARIPiprazole (ABILIFY) 30 MG tablet Take [...] 1 (one) time each day 90 tablet 12/18/19 24 025 Active Dapagliflozin Propanediol (Farxiga) 10 MG tablet Take 10 mg by mouth 1 (one) time each day 30 tablet 5 09/11/19 25 025 Active Dapagliflozin Propanediol (Farxiga) 10 MG tablet TAKE 1 TABLET BY MOUTH DAILY 22 tablet 5 05/08/20 24 025 Discontin ued(Reord er (does not appear on AVS)) Active Problems Problem Noted Date Diagnosed Date Nephrolithiasis 01/14/2023 Hypotension 01/14/2023 Bacterial urinary infection 01/10/2022 Type 2 diabetes mellitus 04/09/2021 Bipolar disorder 04/09/2021 Albuminuria 04/09/2021 Hypothyroidism 04/09/2021 Gastroesophageal reflux disease 04/09/2021 Encounters Date Type Department Care Team Description 09/10/2024 Refill [facility] [address] [facility] 204 [place] [address] Jay Landeros from Last 3 Months Family History Medical [...] Care Team (Late st Contact Info) Description 10/19/2024 Orders Only [facility] [address] [place] [phone] Steve Joyce MD [address] [address] Other proteinuria; Type 2 diabetes mellitus with diabetic chronic kidney disease (HCC) 01/12/2025 1:30 PM EDT Office Visit [facility] [address] [address] Yani Lezama ARNP [address] [address] Health Maintenance Due Date Last Done Comments Hepatitis B Vaccine (1 of 3 - 19+ 3-dose series) 01/21 Pneumococcal Vaccine: Peds ( 0 to 5 Years) and At-Risk Patients (6 to 49 Years) (1 of 2 - PCV) 2010 Diabetes: Hemoglobin A1C 04/04/2021 09/07/2020 Diabetes: Ophthalmology Exam 04/04/2021 Diabetes: Pedal Pulse Checked 04/04/2021 Diabetes: Sensory Foot Exam 04/04/2021 Diabetes: Visual Foot Exam 04/04/2021 Influenza Vaccine (Season Ended) 2025 Procedures Procedure Name Priority Date/Time Associated Diagnosis [...] 9.5 8.7 - 10.7 mg/dL eGFR Non-Afr [place] Islander >60 Hemoglobin A1C 7.0(A) 4.0 - 6.0 Triglycerides 322(A) 40 - 160 Cholesterol 226(A) 0 - 200 LDL Calculated 136 0 - 160 mg/dL 09/07/2020 Historical Provider LAB BLOOD ORDERABLES Shahnaz l Result from Last 3 Months or Most Recently Relevant to Health Maintenance Insurance * Guarantor: Tobias Francis Account Type Relation to Patient Date of Phone Billing Address Personal/Family Self 1990 [address] ([id number]) * Guarantor: Tobias Francis Account Type Relation to Patient Date of Phone Billing Address Personal/Family Self 1990 [address] ([id number]) Care Teams Auctioneer Automobile Relationship Specialty Start Date End Date Darrel Mcclure PA [address] [place] [address], [address] [place] [address] PCP - General Physician French Translator 03/24/21
[2024-09-22 00:55] VITALS: BP 114/83; PULSE 106; RESP 18; TEMP 36.6; O2SAT 95
== END 2024-09-22 00:56 | disposition home or self-care (01) ==
PROVIDERS: Emergency Provider Emergency Medicine Emergency Medical Services; PCP Physician Assistant
DX: S63.616A Unspecified sprain of right little finger, initial encounter (principal); M79.641 Pain in right hand; X58.XXXA Exposure to other specified factors, initial encounter; Y93.9 Activity, unspecified; Y92.9 Unspecified place or not applicable; Y99.8 Other external cause status; Z79.899 Other long term (current) drug therapy
CPT/HCPCS: 73120; 99282; 99283

== ENCOUNTER → 2024-09-21 19:34 | Outpatient (BNV) | payer OTHER, SELFPAY | PROVIDERS: PCP Physician Assistant; Visit Provider Student in an Organized Health Care Education/Training Program | DX: M79.641 Pain in right hand (principal) | CPT/HCPCS: 73120 ==

== ENCOUNTER 2024-10-02 14:04 | Outpatient (AMB) | payer OTHER, SELFPAY ==
[2024-10-02 14:06] VITALS: BP 110/76; PULSE 121; O2SAT 95; BMI 36.1
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
--- OUTSIDE RECORDS SUMMARY | 2024-10-02 14:07 | XMS_ITS | Clinical Summary ---
Author Organization 175 [facility] Address 175 [place] [address] Phone Care Team Providers Care Foundry Laborer Coreroom Name Role Phone Darrel Mcclure Primary Care Provider Allergies No known active allergies Medications No known medications Encounters Date Type Department Care Team Description 08/04/2024 1:15 PM EDT Office Visit Orthopedic Surgery [facility] [address] [address] Yobany Leahy DPM Ingrowing nail (Primary Dx); Hallux rigidus of right foot; Hallux rigidus of left foot; Corns and callosities; Diabetic mononeuropathy simplex (CMS/HCC V24, CMS/HCC V28) from Last 3 Months Social History Tobacco [...] - - Weight 132 kg (292 lb) 08/04/2024 1:32 PM EDT Height 182.9 cm (6' 0.01 ) 08/04/2024 1:32 PM ED T Body Mass Index 39.59 08/04/2024 1:32 PM EDT Plan of Treatment Upcoming Encounters Date Type Department Care Team (Late st Contact Info) Description 11/04/2024 1:15 PM EDT Office Visit Orthopedic [facility] [address] [address] Yobany Leahy DPM [address] [place] [address] Health Maintenance Due Date Last Done Comments [...] 2010 COVID-19 Vaccine (2023-2 5 season) 2024 Cholesterol Screening (Lipid Panel) 03/13/2024 Depression Screening 03/13/2024 Diabetes: Annual Urine Albumin-Creatinine Ratio (uACR) 03/13/2024 Diabetes: Blood Sugar Contro l Test (HGBA1C) 03/13/2024 HIV Screening 03/13/2024 Hepatitis C Screening 03/13/2024 Hypertension/CHF/CAD Annual BMP Blood Test 03/13/2024 Medicare Annual Wellness Visit 03/13/2024 Social Influencers of Health Screening 03/13/2024 Influenza Vaccine (Season Ended) 2025 HIB Vaccines Aged Out No longer eligi [...] age to complete this topic Meningococcal B Vaccine Aged Out No l onger eligible based on patient's age to complete this topic RSV Immunization Patients Un reuben 20 months Aged Out No longer eligible b ased on patient's age to complete this topic Varicella Vaccines Aged Out No longer eligible based on patient's age to complete this topic Insurance [employer] MEDICARE Member Subscriber Plan / Payer (Ef fective 2024-Present) Name:Tobias Lopez Relation to Subscriber:Self Name:Tobias Lopez Payer ID:[id number] Group ID:[id number] Type:Not on file Address: [place] [address] [address] [id number] Care Teams Foundry Laborer Coreroom Relationship Specialty Start Date End Date Darrel Mcclure PA [address] [place] [id number] PCP - General 01/23/24
--- OUTSIDE RECORDS SUMMARY | 2024-10-02 14:08 | XMS_ITS | Encounter Summary ---
Author Organization [facility] Address 100 [facility] 200 [place] [address] Phone Care Team Providers Care Candle Extrusion Machine Operator Name Role Phone Darrel Mcclure Primary Care Provider [phone] Reason for Visit * Reason Comments Med Refill Encounter Details Date Type Department Care Team (Late Contact Info) Description 02/28/2022 Refill [facility] [address] [facility] 200 [place] [address] Pir Gudino MD Type 2 [...] [facility] 100 [facility] 200 [place] [address] Steve Joyce MD [address] [facility] 204 [place] [address] Other proteinuria; Type 2 diabetes mellitus with diabetic chronic kidney disease (HCC) 01/12/2025 1:30 PM EDT Office [facility] [address] [address] Yani Lezama ARNP [address] [address] documented as of this encounter Visit Diagnoses Diagnosis Type 2 diabetes mellitus with diabetic chronic kidney disease (HCC) Isolated proteinuria Other proteinuria Type 2 diabetes mellitus with diabetic chronic kidney disease (HCC) documented in this encounter Care Teams Candle Extrusion Machine Operator Relationship Specialty Start Date End Date Darrel Mcclure PA [address] [place] [address], [address] [place], [place] [id number] PCP - General Physician Anvilsmith 03/24/21 documented as of this encounter
--- OUTSIDE RECORDS SUMMARY | 2024-10-02 14:08 | XMS_ITS | Encounter Summary ---
Author Organization [facility] Address [address] [facility] 200 [place] [address] Phone Care Team Providers Care Photovoltaic Installation Technician Name Role Phone Darrel Mcclure Primary Care Provider [phone] Reason for Visit * Reason Comments Med Refill Encounter Details Date Type Department Care Team (Late Contact Info) Description 04/25/2022 Refill [facility] [address] [facility] 200 [place] [address] Pir Gudino MD Proteinuria, not [...] [facility] 200 [place] [address] Steve Joyce MD [address] [facility] 204 [place] [address] Other proteinuria; Type 2 diabetes mellitus with diabetic chronic kidney disease (HCC) 01/12/2025 1:30 PM EDT Office Visit [facility] [address] [facility] 204 [place] [address] Yani Lezama ARNP [address] [facility] 204 [place] [address] documented as of this encounter Visit Diagnoses Diagnosis Proteinuria, not otherwise specified Type 2 diabetes mellitus with diabetic chronic kidney disease (HCC) Other proteinuria Type 2 diabetes mellitus with diabetic chronic kidney disease (HCC) documented in this encounter Care Teams Photovoltaic Installation Technician Relationship Specialty Start Date End Date Darrel Mcclure PA [address] [place] [address], [address] [place] [address] PCP - General Physician Corporate Travel Manager 03/24/21 documented as of this encounter
--- OUTSIDE RECORDS SUMMARY | 2024-10-02 14:08 | XMS_ITS | Clinical Summary ---
Author Organization [facility] Address 100 [facility] [address] 0 [place] [address] Phone Care Team Providers Care Head Mva Reactor Operator Name Role Phone Darrel Mcclure Primary Care Provider [phone] Allergies Active Allergy Reactions Criticality Noted Date [...] Refill [facility] [address] [facility] 204 [place] [address] Jay Landeros from Last 3 [...] [place] [address] [place] [phone] Steve Joyce MD [address] [address] Other proteinuria; Type 2 diabetes mellitus with diabetic chronic kidney disease (HCC) 01/12/2025 1:30 PM EDT Office Visit [facility] [address] [address] Yani Lezama ARNP [address] [address] Health Maintenance Due Date Last [...] 9.5 8.7 - 10.7 mg/dL eGFR Non-Afr Serbian >60 Hemoglobin A1C 7.0(A) 4.0 - 6.0 Triglycerides 322(A) 40 - 160 Cholesterol 226(A) 0 - 200 LDL Calculated 136 0 - 160 mg/dL 09/07/2020 Historical Provider LAB BLOOD ORDERABLES Shahnaz l Result from Last 3 Months or Most Recently Relevant to Health Maintenance Insurance * Guarantor: Tobias Francis Account Type Relation to Patient Date of Phone Billing Address Personal/Family Self [address] ([id number]) * Guarantor: Tobias Francis Account Type Relation to Patient Date of Phone Billing Address Personal/Family Self [address] ([id number]) Care Teams Head Mva Reactor Operator Relationship Specialty Start Date End Date Darrel Mcclure PA [address] [place] [address], [address] [place] [address] PCP - General Physician Quality Analyst/Technical Writer 03/24/21
== END 2024-10-02 14:24 | disposition home or self-care (01) ==
LOC: HO.HMCH 14:05
PROVIDERS: PCP Physician Assistant; Visit Provider Nurse Practitioner Family
DX: S66.519A Strain of intrinsic muscle, fascia and tendon of unspecified finger at wrist and hand level, initial encounter (principal)

== ENCOUNTER → 2024-10-02 14:04 | Outpatient (BNVA) | payer OTHER, SELFPAY | PROVIDERS: PCP Physician Assistant; Visit Provider Nurse Practitioner Family | DX: S66.51 Strain of intrinsic muscle, fascia and tendon of other and unspecified finger at wrist and hand level (principal); R06.02 Shortness of breath; W22.8XXD Striking against or struck by other objects, subsequent encounter | CPT/HCPCS: 96127; 99212 ==

== ENCOUNTER 2024-10-11 11:10 | Emergency (ER) | payer OTHER, SELFPAY ==
--- NOTE | ~2024-10-11 | CT_ITS ---
CLINICAL HISTORY: right flank pain CT ABDOMEN AND PELVIS WITHOUT CONTRAST Comparison: None Findings: No consolidation or effusion. No acute abnormalities in the unenhanced solid organs. No renal or ureteral calculus. The gallbladder is contracted. No AAA. No bowel obstruction, pneumoperitoneum, or pneumatosis. No ascites. No significant mesenteric or paracolic edema. The appendix is identified. No acute appendicitis. There is diffuse urinary bladder wall thickening. Multiple pelvic phleboliths. Prostate unremarkable. The bones are intact. IMPRESSION: 1. No acute obstructive uropathy or urolithiasis. 2. Diffuse wall thickening in the urinary bladder for which the possibility of cystitis is raised. 3. Normal appendix. 4. No bowel obstruction or ascites. This document has been electronically signed by: Kinza Parra DO on 10/11/2024 15:20:43
[2024-10-11 11:56] VITALS: BP 106/61; PULSE 100; RESP 16; TEMP 36.7; O2SAT 100; BMI 39.0
--- NOTE | 2024-10-11 11:59 | ED.MALEGU ---
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 Patient reports mostly right flank pain and lower abdominal discomfort since last night around 11:00 p.m.. He had a significant amount of blood in his urine this morning. He went to urgent care and was referred to the ED for further evaluation and management. The patient does endorse having frequent UTI and was recently treated with cefuroxime The patient reports that his pain is improved at the time my evaluation and he complains of 2 with a 10 mild discomfort at this time. Related Data Home Medications ?Medication ?Instructions ?Recorded ?Confirmed dapagliflozin propanediol 10 mg 10 mg PO DAILY 06/05/21 08/03/24 tablet (Farxiga) fluoxetine 40 mg capsule 60 mg PO DAILY 07/21/21 08/03/24 melatonin 3 mg tablet 3 mg PO BEDTIME 07/21/21 08/03/24 divalproex 250 mg tablet,delayed 250 mg PO DAILY 01/28/22 08/03/24 release divalproex 500 mg tablet,delayed 1 tab PO DAILY 01/28/22 08/03/24 release divalproex 500 mg tablet,delayed 2 tab PO BEDTIME 01/28/22 08/03/24 release aripiprazole 30 mg tablet 30 mg PO DAILY 09/19/23 08/03/24 benztropine 0.5 mg tablet 0.5 mg PO DAILY 12/18/23 08/03/24 clonazepam 1 mg tablet 1 mg PO TID PRN 12/18/23 08/03/24 benzonatate 200 mg capsule 200 mg PO BID-TID PRN 08/03/24 08/03/24 Previous Rx's ?Medication ?Instructions ?Recorded blood-glucose meter (FreeStyle #1 ea 06/21/22 Lite Meter kit) mupirocin 2 % topical ointment 1 appl topical BID 10 days #22 09/10/22 grams diclofenac sodium 1 % topical gel 2 g topical QID PRN pain #100 grams 01/18/23 (Arthritis Pain (diclofenac)) lidocaine 4 % topical patch 1 patch topical DAILY PRN pain #30 02/11/23 (Aspercreme (lidocaine)) ea bismuth subsalicylate 262 mg/15 mL 524 mg (30 mL) PO Q1H PRN diarrhea 09/03/23 oral suspension (Pepto-Bismol) 30 days #1,200 mL ibuprofen 600 mg tablet 600 mg PO Q6H PRN pain #30 tabs 09/19/23 epinephrine 0.3 mg/0.3 mL 0.3 mg (0.3 mL) IM ONCE PRN for 10/09/23 injection, auto-injector allergies #2 ea shower chair #1 ea 01/07/24 levothyroxine 125 mcg tablet 62.5 mcg (1/2 x 125 mcg) PO QAM 04/15/24 #90 tabs rosuvastatin 40 mg tablet (Crestor) 40 mg PO DAILY 90 days #90 tabs 04/15/24 alfuzosin 10 mg tablet,extended 10 mg PO DAILY 90 days #90 tabs 04/21/24 release 24 hr blood sugar diagnostic (FreeStyle #100 ea 05/04/24 Test strips) ciprofloxacin 0.3 %-dexamethasone 4 drp otic (ears) BID 7 days #7.5 05/04/24 0.1 % ear drops,suspension mL insulin glargine 100 unit/mL (3 20 unit (0.2 mL) subcut QPM #15 mL 05/19/24 mL) subcutaneous pen (Lantus Solostar U-100 Insulin) loratadine 10 mg tablet 10 mg PO BEDTIME #28 tabs 05/19/24 calcium 600 mg (as 1 tab PO BEDTIME #90 tabs 07/07/24 carbonate)-vitamin D3 20 mcg (800 unit) tablet metoprolol succinate 25 mg 25 mg PO DAILY #30 tabs 08/03/24 tablet,extended release 24 hr acetaminophen 325 mg tablet 325 mg PO Q4H PRN for fever, 08/07/24 muscle aches, pain 30 days #100 tabs lactase 9,000 unit tablet (Lactaid 9,000 unit PO QID PRN lactose 08/14/24 Fast Act) intolerance 30 days #90 tabs metformin 500 mg/5 mL oral solution 1,000 mg (10 mL) PO BIDWM #473 mL 08/17/24 glucose 4 gram chewable tablet 12 g (3 x 4 gram) PO Q15M PRN 08/26/24 (Dex4 Glucose) hypoglycemia #60 tabs lancets 28 gauge (FreeStyle #100 ea 08/31/24 Lancets) pantoprazole 40 mg tablet,delayed 40 mg PO DAILY #90 tabs 08/31/24 release pen needle, diabetic 32 gauge x #200 ea 08/31/24 baclofen 10 mg tablet 10 mg PO BID PRN muscle spasm 30 09/29/24 days #60 tabs insulin aspart U-100 100 unit/mL 1 sliding scale dose subcut TID 30 09/29/24 (3 mL) subcutaneous pen ( #15 mL FlexPen U-100 Insulin aspart) lisinopril 40 mg tablet 40 mg PO DAILY 30 days #30 tabs 09/29/24 multivitamin with folic acid 400 1 tab PO DAILY #30 tabs 09/29/24 mcg tablet (Daily-Taz (with folic acid)) [employer] Solostar machine #1 ea 10/07/24 cefuroxime axetil 250 mg tablet 250 mg PO Q12H #14 tabs 10/11/24 Allergies Allergy/AdvReac Type Severity Reaction Status Date / Time bee pollen [BEE STINGS] Allergy Unknown UNKNOWN Verified 10/02/24 14:07 carbamazepine [From TEGRETOL] Allergy Unknown UNKNOWN Verified 10/02/24 14:07 clindamycin [CLINDAMYCIN] Allergy Unknown UNKNOWN Verified 10/02/24 14:07 nortriptyline [Pamelor] Allergy Unknown Unknown Verified 10/02/24 14:07 risperidone [From RISPERDAL] Allergy Unknown UNKNOWN Verified 10/02/24 14:07 Sulfa (Sulfonamide Allergy Unknown UNKNOWN Verified 10/02/24 14:07 Antibiotics) [SULFA (SULFONAMIDE ANTIBIOTICS)] oxcarbazepine Allergy Unknown Verified 10/11/24 12:02 [From Trileptal] lactose AdvReac Intermediate Diarrhea Verified 10/02/24 14:07 pamlor Allergy Unknown Uncoded 10/11/24 12:02 Review of Systems Constitutional: Constitutional: Denies body ache(s), Denies chills and Denies headache(s) Eyes: Eyes: Denies blurry vision ENT: Denies vertigo and Denies headache(s) Cardiovascular: Cardiovascular: Denies chest pain and Denies dyspnea Respiratory: Respiratory: Denies dyspnea Gastrointestinal: Gastrointestinal: Reports abdominal pain, Denies nausea and Denies vomiting Genitourinary: Genitourinary: Reports hematuria, Reports dysuria and Reports flank pain Musculoskeletal: Musculoskeletal: Reports back pain Integumentary/Breasts: Skin/Breast: Denies rash Neurologic: Denies vertigo and Denies headache(s) [facility] Past Medical History Medical History (Updated 10/12/24 @ 00:00 by Background Daemon) Strain of intrinsic muscle of finger Bruise of both arms Injury of external genitalia Callus of toe Proteinuria Hyperlipidemia Advance directive indicates patient wish for full code resuscitation status Seizure disorder Gout Kidney stones Type 2 diabetes mellitus with diabetic polyneuropathy Hyperlipidemia LDL goal <100 Essential hypertension Obesity due to excess calories Type 2 diabetes mellitus with hyperglycemia, with long-term current use of insulin Sinusitis nasal Surgical History History of root canal procedure History of foot surgery History of surgery of head History of spinal surgery Family History Family History Father Medical history unknown Lung cancer Mother Diabetes Substance abuse Family/Other FH: mental illness Social History Social History Household Members Other:: roomate Housing: Other Housing Other:: [facility] at [facility] Do you presently have visiting nurse or other home services: Yes (assistance from dept of mental health services) Alcohol intake: never Patient Tobacco Use Status: Never used Tobacco e-Cigarette/Vaping Use: Never Used Second Hand Smoke Exposure: No service: No Current occupational status: other Cognitive needs: No Hearing needs: No Vision needs: No Physical Exam Vital Signs: Vital Signs: Last Vital Signs Temp 98.2 F 10/11/24 16:30 Pulse 102 H 10/11/24 16:30 Resp 18 10/11/24 16:30 BP 123/80 10/11/24 16:30 Pulse Ox 97 10/11/24 16:30 O2 Del Method Room Air 10/11/24 16:30 BMI result Body Mass Index 39.0 Const: General: healthy appearing, comfortable, no acute distress, alert and awake Nutritional Appearance: well nourished Orientation/consciousness: patient oriented x3 HEENT: Head: Yes normocephalic and Yes atraumatic Throat: Yes posterior oropharynx normal Eyes: Eyelids: Yes eyelids normal Conjunctivae: conjunctivae normal Sclerae: sclerae normal Corneas: corneas normal Pupils: Equal, round and reactive pupils present EOM: EOMs intact bilaterally Neck: Neck: Yes full ROM Resp: Effort & Inspection: normal respiratory effort, able to speak in complete sentences and not labored GI: Inspection: No distended Palpation (GI): Soft to palpation, not firm, Tenderness to palpation present (GI) (Minimal right lower abdominal/suprapubic tenderness), no guarding and not rigid : General: Yes no CVA tenderness Back/Spine/Pelvis: Back: no CVA tenderness Skin: General skin exam: elasticity normal Neuro: General: patient oriented x3 Cranial nerves: Yes Equal, round and reactive pupils present and Yes Bilaterally intact EOM present Cognition (Neuro): normal cognition Course Course Course Narrative: This is an RME performed by Mavis Mansfield CNP: Additional HPI, ROS, PE not included below will be deferred to primary provider. Patient is a 34-year-old male who presents emergency department for evaluation with half-way staff. He is from a [facility] half-way. He has been experiencing hematuria since last night. He was evaluated at [facility] on [facility] and [place], sent to the ED for further evaluation. In July of 2024 he had group B strep in the urine that was treated with cefpodoxime. Endorses lower back and penile pain. Plan: Serum labs, urinalysis Reevaluation(s) Reevaluation #1: Patient reports that he just urinated without any obvious blood or difficulty. His CT scan does not show any concerning findings with the exception of diffuse bladder wall thickening. I will treat the patient with a 1 week course of cefuroxime. I will have the patient follow up with Urology, return precautions were discussed with the patient and his worker who is bedside. Time: 15:36 Medical Decision Making Medical Decision Making MDM Narrative: 34-year-old male past medical history as above presents for evaluation of flank pain, hematuria. He has a history of hemorrhagic cystitis and has been treated for that in the past. His urinalysis today shows positive blood as well as greater than 20 red cells per high-powered field and greater than 50 white cells per high-power field. There was no bacteria seen, no nitrites. Given the flank of hematuria, a CT scan of the abdomen pelvis was ordered without contrast to evaluate for obstructive uropathy Differential Diagnosis Differential Diagnoses: The differential diagnosis associated with the presentation includes UTI Hemorrhagic cystitis Obstructive uropathy Bladder mass Lab Data MDM Lab Attestation statement: I reviewed the patient's lab results. Mild leukocytosis to 11.6 which could be reactive or due to infectious cystitis, no significant anemia. Normal platelet count. No electrolyte abnormalities. Random glucose of 193 but no evidence of DKA. The patient is a known diabetic 10/11/24 12:23 10/11/24 12:23 Labs: Lab Results 10/11/24 10/11/24 Range/Units 12:16 12:23 WBC 11.6 H (4.8-10.8) X10*3/uL RBC 5.11 (4.60-5.80) X10*6/uL Hgb 14.3 (14.0-18.0) g/dl Hct 42.5 (42.0-52.0) % MCV 83.2 (80.0-98.0) fL MCH 28.0 (27.0-33.0) pg MCHC 33.6 (31.0-36.0) g/dl RDW 14.3 (11.0-16.0) % Plt Count 214 (160-400) X10*3/uL MPV 9.9 (9.4-12.4) fL Immature Gran % (Auto) 0.3 (0.0-0.4) % Neut % (Auto) 57.7 (45-73) % Lymph % (Auto) 33.3 (20-40) % Dickey % (Auto) 6.5 (2-11) % Eos % (Auto) 2.1 (0-4) % Baso % (Auto) 0.1 (0-2) % Lymph # (Auto) 3.9 (1.2-4.9) X10*3/uL Dickey # (Auto) 0.8 (0.1-1.2) X10*3/uL Eos # (Auto) 0.3 (0.0-0.4) X10*3/uL Baso # (Auto) 0.0 (0.0-0.2) X10*3/uL Abs Immat Gran (auto) 0.04 H (0.00-0.03) X10*3/uL Absolute Neuts (auto) 6.7 (2.0-8.3) x10*3/uL Absolute Nucleated RBC 0.000 (0.0-0.012) X10*3/uL Nucleated RBC % (auto) 0.0 (0.0-0.2) /100WBC Sodium 139 (135-145) mmol/L Potassium 4.6 (3.3-5.1) mmol/L Chloride 103 (96-108) mmol/L Carbon Dioxide 24 (22-29) mmol/L Anion Gap 17 (12-20) BUN 9 (9-16) mg/dL Creatinine 0.92 (0.5-1.4) mg/dL Estim Creat Clear Calc 159.5 Estimated GFR > 60 POC Glucose 203 H (60-115) mg/dL Random Glucose 193 H (60-115) mg/dL Calcium 9.3 (8.4-10.2) mg/dL Total Bilirubin 0.3 (0.0-1.0) mg/dL AST 31 (5-37) U/L ALT 34 (0-40) U/L Alkaline Phosphatase 53 (39-117) U/L Total Protein 7.0 (6.5-8.0) g/dL Albumin 4.5 (3.5-5.0) g/dL Urine Color Yellow Urine Appearance Clear Urine pH 6.0 (5.0-9.0) Ur Specific Eastman >= 1.030 H (1.005-1.025) Urine Protein 30 (1+) H (Neg-Trace) mg/dL Urine Glucose (UA) >=1000 H (Negative) mg/dL Urine Ketones Trace (Negative) mg/dL Urine Blood Large (3+) H (Negative) Urine Nitrite Negative (Negative) Ur Leukocyte Esterase Small (1+) H (Negative) Urine RBC >20 H (0-2) /HPF Urine WBC >50 H (0-5) /HPF Ur Squamous Epith Cells 0-2 (0-2) /HPF Urine Bacteria None Seen (None Seen) Hyaline Casts 0-2 (0-2) /LPF Independent Interpretation I performed an independent interpretation of an: CT Scan Interpretation: Agree with Radiology interpretation Radiology Impression Discussion of test interpretation with radiology: I have reviewed the radiologist's reading. Radiologist Impression: Findings: No consolidation or effusion. No acute abnormalities in the unenhanced solid organs. No renal or ureteral calculus. The gallbladder is contracted. No AAA. No bowel obstruction, pneumoperitoneum, or pneumatosis. No ascites. No significant mesenteric or paracolic edema. The appendix is identified. No acute appendicitis. There is diffuse urinary bladder wall thickening. Multiple pelvic phleboliths. Prostate unremarkable. The bones are intact. IMPRESSION: 1. No acute obstructive uropathy or urolithiasis. 2. Diffuse wall thickening in the urinary bladder for which the possibility of cystitis is raised. 3. Normal appendix. 4. No bowel obstruction or ascites. This document has been electronically signed by: Kinza Parra DO on 10/11/2024 15:20:43 Discharge Plan Discharge Clinical Impression: Hematuria Patient Disposition: Home, Self-Care Instructions: Hematuria (ED) Additional Instructions: Your CT scan did not show any obvious kidney stones. It is possible that you passed a kidney stone prior to exam. Your urinalysis had both blood and white cells. Take cefuroxime twice daily for 1 week. It is important that you follow up with Urology to determine the source of bleeding given that this is not the 1st time Return for new or worsening symptoms, especially fevers, severe pain or if you are unable to urinate Prescriptions: New cefuroxime axetil 250 mg tablet 250 mg PO Q12H Qty: 14 0RF No Action (DME) blood-glucose meter [FreeStyle Lite Meter] Kit See Rx Instructions .ROUTE .MEDSUPPLY Qty: 1 0RF Rx Instructions: As directed 3 times a day lidocaine [Aspercreme (lidocaine)] 4 % adhesive patch,medicated 1 patch topical DAILY PRN (Reason: pain) Qty: 30 0RF bismuth subsalicylate [Pepto-Bismol] 262 mg/15 mL suspension 524 mg PO Q1H PRN (Reason: diarrhea) 30 Days Qty: 1200 1RF Rx Instructions: do not exceed 8 doses in a 24 hour period epinephrine 0.3 mg/0.3 mL auto-injector 0.3 mg IM ONCE PRN (Reason: for allergies) Qty: 2 0RF levothyroxine 125 mcg tablet 62.5 mcg PO QAM Qty: 90 1RF rosuvastatin [Crestor] 40 mg tablet 40 mg PO DAILY 90 Days Qty: 90 3RF loratadine 10 mg tablet 10 mg PO BEDTIME Qty: 28 6RF insulin glargine [Lantus Solostar U-100 Insulin] 100 unit/mL (3 mL) insulin pen 20 unit subcut QPM Qty: 15 3RF calcium carbonate-vitamin D3 600 mg-20 mcg (800 unit) tablet 1 tab PO BEDTIME Qty: 90 1RF metoprolol succinate 25 mg tablet extended release 24 hr 25 mg PO DAILY Qty: 30 3RF acetaminophen 325 mg tablet 325 mg PO Q4H PRN (Reason: for fever, muscle aches, pain ) 30 Days Qty: 100 3RF Rx Instructions: to take every 4 hours as needed for fever, muscle aches and pain, please call MD after 3 days if symptoms last. Lactaid Fast Act 9,000 unit tablet 9,000 unit PO QID PRN (Reason: lactose intolerance) 30 Days Qty: 90 0RF Rx Instructions: administer with meals and/or snacks metformin 500 mg/5 mL solution 1,000 mg PO BIDWM Qty: 473 3RF glucose [Dex4 Glucose] 4 gram tablet,chewable 12 g PO Q15M PRN (Reason: hypoglycemia) Qty: 60 2RF Rx Instructions: until symptoms of low blood sugar are controlled (DME) pen needle, diabetic 32 gauge x 5/32 needle See Rx Instructions .ROUTE .MEDSUPPLY Qty: 200 3RF Rx Instructions: Use 3x per day pantoprazole 40 mg tablet,delayed release (DR/EC) 40 mg PO DAILY Qty: 90 1RF (DME) lancets [FreeStyle Lancets] 28 gauge misc See Rx Instructions .ROUTE .MEDSUPPLY Qty: 100 3RF Rx Instructions: Three times a day lisinopril 40 mg tablet 40 mg PO DAILY 30 Days Qty: 30 1RF insulin aspart U-100 [Novolog FlexPen U-100 Insulin] 100 unit/mL (3 mL) insulin pen 1 sliding scale dose subcut TID 30 Days Qty: 15 3RF Rx Instructions: blood sugar- 70-130- take 0 units 131-180- take 8 units 181-240- take 12 units 241-300- take 16 units 301-350- take 20 units 351-400- take 24 units blood sugar is 400 - take 28 units and call multivitamin with folic acid [Daily-Taz (with folic acid)] 400 mcg tablet 1 tab PO DAILY Qty: 30 0RF baclofen 10 mg tablet 10 mg PO BID PRN (Reason: muscle spasm) 30 Days Qty: 60 3RF (DME) [email or web address][email or web address] machine See Rx Instructions .Route .MEDSUPPLY Qty: 1 0RF Rx Instructions: As directed divalproex 250 mg tablet,delayed release (DR/EC) 250 mg PO DAILY divalproex 500 mg tablet,delayed release (DR/EC) 1 tab PO DAILY divalproex 500 mg tablet,delayed release (DR/EC) 2 tab PO BEDTIME Farxiga 10 mg tablet 10 mg PO DAILY clonazepam 1 mg tablet 1 mg PO TID PRN benztropine 0.5 mg tablet 0.5 mg PO DAILY melatonin 3 mg tablet 3 mg PO BEDTIME fluoxetine 40 mg capsule 60 mg PO DAILY mupirocin 2 % ointment 1 appl topical BID 10 Days Qty: 22 0RF diclofenac sodium [Arthritis Pain (diclofenac)] 1 % gel 2 g topical QID PRN (Reason: pain) Qty: 100 0RF aripiprazole 30 mg tablet 30 mg PO DAILY ibuprofen 600 mg tablet 600 mg PO Q6H PRN (Reason: pain) Qty: 30 0RF (DME) shower chair See Rx Instructions .Route .MEDSUPPLY Qty: 1 0RF Rx Instructions: As directed alfuzosin 10 mg tablet extended release 24 hr 10 mg PO DAILY 90 Days Qty: 90 3RF Rx Instructions: administer after the same meal each day (DME) FreeStyle Test Strip See Rx Instructions .Route Qty: 100 6RF Rx Instructions: Testing 3 times a day ciprofloxacin-dexamethasone 0.3-0.1 % drops,suspension 4 drp otic (ears) BID 7 Days Qty: 7.5 0RF benzonatate 200 mg capsule 200 mg PO BID-TID PRN Referrals: Chucky Abernathy MD [Physician] - (hematuria) Interventions: ED Discharge Assessment Last Done: 10/11/24 16:30 Discharge Date/Time: 10/11/24 16:33 Print Language: Bengali
[2024-10-11 12:20] LABS: Glucose, Whole Blood 203 mg/dL (60-115)
[2024-10-11 12:36] LABS: MANUAL DIFF FLAG NO
[2024-10-11 12:38] LABS: Appearance Urine Clear; Basophils Percent Auto 0.1 % (0-2); Color Urine Yellow; Eosinophils Absolute Auto 0.3 X10*3/uL (0.0-0.4); Eosinophils Percent Auto 2.1 % (0-4); Glucose Urine UA >=1000 mg/dL (Negative); Hematocrit 42.5 % (42.0-52.0); Hemoglobin 14.3 g/dl (14.0-18.0); Imm Gran Abs Auto 0.04 X10*3/uL (0.00-0.03); Imm Gran Pct Auto 0.3 % (0.0-0.4); Leukocyte Esterase Urine Small (1+) (Negative); Lymphocytes Absolute Auto 3.9 X10*3/uL (1.2-4.9); Lymphocytes Percent Auto 33.3 % (20-40); Mean Corpuscular HGB Conc 33.6 g/dl (31.0-36.0); Mean Corpuscular Volume 83.2 fL (80.0-98.0); Mean Platelet Volume 9.9 fL (9.4-12.4); Monocytes Absolute Auto 0.8 X10*3/uL (0.1-1.2); Monocytes Percent Auto 6.5 % (2-11); Neutrophils Absolute Auto 6.7 x10*3/uL (2.0-8.3); Neutrophils Percent Auto 57.7 % (45-73); Nitrite Urine Negative (Negative); Platelet Count 214 X10*3/uL (160-400); Red Blood Count 5.11 X10*6/uL (4.60-5.80); Red Cell Distribution Width 14.3 % (11.0-16.0); Specific Gravity - Urine >= 1.030 (1.005-1.025); UMIC TRIGGER UACC YES; Urine Blood Large (3+) (Negative); Urine Ketones Trace mg/dL (Negative); Urine Protein 30 (1+) mg/dL (Neg-Trace); White Blood Count 11.6 X10*3/uL (4.8-10.8)
[2024-10-11 12:40] LABS: Bacteria Urine None Seen (None Seen); Hyaline Casts Urine 0-2 /LPF (0-2); RBC Urine >20 /HPF (0-2); Squamous Epithelial Cell Urine 0-2 /HPF (0-2); UACC Culture Trigger YES; WBC Urine >50 /HPF (0-5)
[2024-10-11 12:50] LABS: Alanine Aminotransferase 34 U/L (0-40); Albumin Level 4.5 g/dL (3.5-5.0); Alkaline Phosphatase 53 U/L (39-117); Anion Gap 17 (12-20); Aspartate Amino Transferase 31 U/L (5-37); Bilirubin Total 0.3 mg/dL (0.0-1.0); Blood Urea Nitrogen 9 mg/dL (9-16); Calcium 9.3 mg/dL (8.4-10.2); Carbon Dioxide 24 mmol/L (22-29); Chloride 103 mmol/L (96-108); Creatinine Clr Calc Pharmacy 159.5; Estimated Glomerular Filt Rate > 60; Glucose Random 193 mg/dL (60-115); Potassium 4.6 mmol/L (3.3-5.1); Sodium 139 mmol/L (135-145)
[2024-10-11 13:51] VITALS: BP 104/72; PULSE 104; RESP 18; TEMP 36.5; O2SAT 96
--- NOTE | 2024-10-11 13:56 | PC.NURSE ---
Patient presents to ED c/o hematuria w/ flank pain and dysuria rated 9/10. Patient states the pain and the hematuria started last night 11pm. Patient states I get frequent UTIs . Denies SOB, Denies Injury, VSS and up to date. Provider in to see patient, plan of care on going.
[2024-10-11 16:30] VITALS: BP 123/80; PULSE 102; RESP 18; TEMP 36.8; O2SAT 97
== END 2024-10-11 16:33 | disposition home or self-care (01) ==
PROVIDERS: Nurse Practitioner Family; Emergency Provider Emergency Medicine; PCP Physician Assistant
DX: R31.9 Hematuria, unspecified (principal); R10.2 Pelvic and perineal pain; Z79.899 Other long term (current) drug therapy
CPT/HCPCS: 36415; 74176; 80053; 81001; 82947; 85025; 87086; 99284

== ENCOUNTER → 2024-10-11 13:55 | Outpatient (BNV) | payer OTHER, SELFPAY | PROVIDERS: Emergency Provider Emergency Medicine; PCP Physician Assistant; Visit Provider Radiology Diagnostic Radiology | DX: R10.31 Right lower quadrant pain (principal) | CPT/HCPCS: 74176 ==

== ENCOUNTER 2024-11-02 10:57 | Outpatient (AMB) | payer OTHER, SELFPAY ==
[2024-11-02 11:10] VITALS: BP 120/80; PULSE 107; O2SAT 97; BMI 39.2
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
--- OUTSIDE RECORDS SUMMARY | 2024-11-02 12:28 | XMS_ITS | Clinical Summary ---
Author Organization [address] [facility] Address [address] [place] [address] Phone Care Team Providers Care Anatomic Pathology Assistant Name Role Phone Darrel Mcclure Primary Care Provider [phone] Allergies No known active allergies Medications No known medications Encounters Date Type Department Care Team Description 08/04/2024 1:15 PM EDT Office Visit Orthopedic Surgery [facility] [address] [id number] Yobany Leahy DPM Ingrowing nail [...] 11/04/2024 1:15 PM EDT Office Visit Orthopedic [facility] [address] [id number] Yobany Leahy DPM [address] [place] [address] Health Maintenance Due Date Last Done Comments [...] Subscriber Plan / Payer (Ef fective 2024-Present) Name:ELISE LUGO Relation to Subscriber:Self Name:Elise Lopez Payer ID:[id number] Group ID:[id number] Type:Not on file Address: [place] [address] [address] [id number] Care Teams Anatomic Pathology Assistant Relationship Specialty Start Date End Date Darrel Mcclure PA [facility] [place] [id number] PCP - General 01/23/24
== END 2024-11-02 11:55 | disposition home or self-care (01) ==
LOC: HO.HMCH 10:57
PROVIDERS: PCP Physician Assistant; Visit Provider Physician Assistant
DX: E11.8 Type 2 diabetes mellitus with unspecified complications (principal)

== ENCOUNTER → 2024-11-02 10:57 | Outpatient (BNVA) | payer OTHER, SELFPAY | PROVIDERS: PCP Physician Assistant; Visit Provider Physician Assistant | DX: E11.9 Type 2 diabetes mellitus without complications (principal); R00.0 Tachycardia, unspecified; E03.9 Hypothyroidism, unspecified; I10 Essential (primary) hypertension; E66.812 Obesity, class 2; E78.1 Pure hyperglyceridemia; J45.20 Mild intermittent asthma, uncomplicated; Z68.39 Body mass index [BMI] 39.0-39.9, adult | CPT/HCPCS: 83036; 96160; 99212 ==

== ENCOUNTER 2024-11-25 14:28 | Outpatient (AMB) | payer OTHER, SELFPAY ==
--- NOTE | 2024-11-25 14:35 | MHC.OFFVIS ---
Intake Visit Reasons: hematuria Intake Note: Patient is present for HEMATURIA Urology Medication:ALFUZOSIN Antibiotic Allergy:CLINDAMYCIN,SULFA Blood Thinner:NONE Circuit Manager Required: No Allergies bee pollen (BEE STINGS) Allergy (Unknown, Verified 11/25/24 14:37) UNKNOWN carbamazepine (From TEGRETOL) Allergy (Unknown, Verified 11/25/24 14:37) UNKNOWN clindamycin (CLINDAMYCIN) Allergy (Unknown, Verified 11/25/24 14:37) UNKNOWN nortriptyline (Pamelor) Allergy (Unknown, Verified 11/25/24 14:37) Unknown risperidone (From RISPERDAL) Allergy (Unknown, Verified 11/25/24 14:37) UNKNOWN Sulfa (Sulfonamide Antibiotics) (SULFA (SULFONAMIDE ANTIBIOTICS)) Allergy (Unknown, Verified 11/25/24 14:37) UNKNOWN oxcarbazepine (From Trileptal) Allergy (Verified 11/25/24 14:37) Unknown lactose Adverse Reaction (Intermediate, Verified 11/25/24 14:37) Diarrhea pamlor Allergy (Uncoded 11/25/24 14:37) Unknown HPI Comments Details: Tobias is a pleasant male. He is a patient of Dr. Mcclure. He has seen for the following urologic conditions - urinary tract infection - insulin-dependent diabetic - bladder thickening Last seen in April Following up since episode of blood in the urine UA today trace CT scan September 2024 cystitis Secondary to Farxiga with glucosuria Recommend changing medication. Based on his body habitus would be a candidate for GLP 1 injections. Continue with alfuzosin Has been doing well with bladder emptying since being placed on alpha-jayla UA 3+ glucose consistent with SGLT2 use on Farxiga Ultrasound for kidney stone Diffuse thickening and trabeculation of the bladder wall. Bladder wall thickness of 0.6 cm Background seizure disorder, diabetes with diabetic polyneuropathy, long-term insulin use, [facility]2 [facility] History Strain of intrinsic muscle of finger Bruise of both arms Injury of external genitalia Callus of toe Proteinuria Hyperlipidemia Advance directive indicates patient wish for full code resuscitation status Seizure disorder Gout Kidney stones Type 2 diabetes mellitus with diabetic polyneuropathy Hyperlipidemia LDL goal <100 Essential hypertension Obesity due to excess calories Type 2 diabetes mellitus with hyperglycemia, with long-term current use of insulin Sinusitis nasal Surgical History History of root canal procedure History of foot surgery History of surgery of head History of spinal surgery Family History Father Medical history unknown Lung cancer Mother Diabetes Substance abuse Family/Other FH: mental illness Social History Household Members Other:: roomate Housing: Other Housing Other:: [facility] [place] Do you presently have visiting nurse or other home services: Yes (assistance from dept of mental health services) Alcohol intake: never Patient Tobacco Use Status: Never used Tobacco e-Cigarette/Vaping Use: Never Used Second Hand Smoke Exposure: No service: No Current occupational status: other Cognitive needs: No Hearing needs: No Vision needs: No Review of Systems Const Denies chills and Denies fever(s) Card Reports no additional complaints and Denies syncope Resp Denies cough GI Denies abdominal pain and Denies heartburn Reports as per HPI and Denies change in libido Neuro Denies syncope Psych Denies change in libido Endo Denies change in libido Physical Exam Const General: cooperative, healthy appearing, comfortable and no acute distress Orientation/consciousness: patient oriented x3 HEENT Face and sinus: Yes normal facial exam Mouth: moist mucous membranes Neck Neck: Yes normal visual inspection, Yes full ROM and Yes trachea midline Chest Chest palpation & inspection: normal inspection of the chest Resp Effort & Inspection: normal respiratory effort, able to speak in complete sentences and no respiratory distress GI Inspection: Yes normal to inspection Back/Spine/Pelvis Cervical Spine: normal cervical lordosis Thoracic/Lumbar Spine: thoracic and lumbar spine normal to inspection Skin General skin exam: no rashes or lesions noted Neuro General: patient oriented x3, gait normal, tone normal and moves all extremities Extrem General: Yes normal to inspection and Yes capillary refill normal Results AMB Urinalysis, Automated UA Leukoctes 0 Damián/uL Last Edit by EDITH Saenz on 11/25/24 15:59 UA Nitrite Negative Last Edit by EDITH Saenz on 11/25/24 15:59 UA Urobilinogen 0.2 mg/dL Last Edit by EDITH Saenz on 11/25/24 15:59 UA Protein 0 mg/dL Last Edit by Alex Duck[facility] on 11/25/24 15:59 UA pH 6.0 Last Edit by Alex Duckworth [facility] on 11/25/24 15:59 UA Blood 10 Jarrett/uL Last Edit by Alex Duckworth [facility] on 11/25/24 15:59 UA Specific [place] 1.010 Last Edit by Alex Duckworth [facility] on 11/25/24 15:59 UA Ketone Negative Last Edit by Alex Duckworth [facility] on 11/25/24 15:59 UA Bilirubin 0 mg/dL Last Edit by Alex Duckworth [facility] on 11/25/24 15:59 UA Glucose 1000 mg/dL Last Edit by Alex Duckworth [facility] on 11/25/24 15:59 Results Reviewed Results Reviewed: Laboratory Last Values Urine pH (Auto) 6.0 11/25/24 15:58 Specific [place] (Auto) 1.010 11/25/24 15:58 Urine Protein (Auto) 0 mg/dL 11/25/24 15:58 Glucose (UA)(Auto) 1000 mg/dL 11/25/24 15:58 Urine Ketones (Auto) Negative 11/25/24 15:58 Urine Blood (Auto) 10 Jarrett/uL 11/25/24 15:58 Urine Nitrite (Auto) Negative 11/25/24 15:58 Urine Bilirubin (Auto) 0 mg/dL 11/25/24 15:58 Urine Urobilinogen (Auto) 0.2 mg/dL 11/25/24 15:58 Leukocyte Esterase (Auto) 0 Damián/uL 11/25/24 15:58 Assessment & Plan Assessment & Plan (1) Cystitis: Code(s): N30.90 - Cystitis, unspecified without hematuria Category: Medical (2) Bladder wall thickening: Code(s): N32.89 - Other specified disorders of bladder Category: Medical Plan Cease Farxiga Start GLP 1 Keep follow-up in April Orders: Orders AMB Urinalysis Automated Today Z13.9 - Encounter for screening, unspecified Patient Instructions: This note is constructed using voice recognition software. While every effort has been made to ensure accuracy identity management consultant errors may have been included. Imaging studies, laboratory and physical exam results were discussed and reviewed in detail. No major barriers to patient understanding were identified. An opportunity to ask questions regarding the treatment plan was provided. All questions were answered. The patient expressed understanding and agreement with the above treatment plan. The patient is aware they should contact our office by phone for worsening of their current condition or the appearance of new urologic symptoms. Compliance is encouraged with any medications and followup testing that is ordered. It is a privilege to participate in the urologic care of your patient. If you have any questions or concerns regarding treatment for the above conditions, or other urologic issues, please do not hesitate to contact me. The office telephone contact is [phone]. Sincerely, Dr Chucky Abernathy MD, [facility] - Urology Compassionate Specialist Care for the Genitourinary System Coding Level of Care Code Est Pt Level 3 (54256) Complex EM visit Add On G2211 Diagnoses Cystitis N30.90 Bladder wall thickening N32.89
--- OUTSIDE RECORDS SUMMARY | 2024-11-25 15:02 | XMS_ITS | Clinical Summary ---
Author Organization [facility] Address 100 [facility] [address] 0 [place] [address] Phone Care Team Providers Care Internal Affairs Investigator Name Role Phone Darrel Mcclure Primary Care Provider [phone] Allergies Active Allergy Reactions Criticality Noted Date [...] (one) time each day 30 tablet 5 5 Active Active Problems Problem Noted Date Diagnosed Date Nephrolithiasis 01/14/2023 Hypotension 01/14/2023 Bacterial urinary infection 01/10/2022 Type 2 diabetes mellitus 04/09/2021 Bipolar disorder 04/09/2021 Albuminuria 04/09/2021 Hypothyroidism 04/09/2021 Gastroesophageal reflux disease 04/09/2021 Encounters Date Type Department Care Team Description 10/19/2024 Orders Only [facility] [address] [place] [phone] Steve Joyce MD Other proteinuria; Type 2 diabetes mellitus with diabetic chronic kidney disease (HCC) 09/10/2024 Refill [facility] [address] [facility] [address] [place] [address] Jay Landeros from Last 3 [...] Office Visit [facility] [address] [facility] [address] [place] [address] Yani LezamaANAY [address] [facility] [address] [place] [address] Health Maintenance Due Date Last [...] Visual Foot Exam 04/04/2021 Influenza Vaccine (#1) 2025 Procedures Procedure Name Priority Date/Time Associated [...] 9.5 8.7 - 10.7 mg/dL eGFR Non-Afr Lithuanian >60 Hemoglobin A1C 7.0(A) 4.0 - 6.0 Triglycerides 322(A) 40 - 160 Cholesterol 226(A) 0 - 200 LDL Calculated 136 0 - 160 mg/dL 09/07/2020 us Historical Provider LAB BLOOD ORDERABLES Shahnaz l Result from Last 3 Months or Most Recently Relevant to Health Maintenance [place] [address] ([id number]) [facility] ([id number]) Care Teams Internal Affairs Investigator Relationship Specialty Start Date End Date Darrel Mcclure PA [address] [place] [address], [address] [place], [place] [id number] PCP - General Physician Test Desk Supervisor 03/24/21
--- OUTSIDE RECORDS SUMMARY | 2024-11-25 15:02 | XMS_ITS | Clinical Summary ---
Author Organization 175 [facility] Address 175 [place] [address] Phone Care Team Providers Care Floral Artist Name Role Phone Darrel Mcclure Primary Care Provider Allergies No known active allergies Medications No known medications Encounters Date Type Department Care Team Description 11/04/2024 1:15 PM EDT Office Visit [facility] [address] [address] Yobany Leahy DPM Hallux rigidus of right foot (Primary Dx); Hallux rigidus of left foot; Corns and callosities; Diabetic mononeuropathy simplex (CMS/HCC V24, CMS/HCC V28); Ingrowing nail from Last 3 Months Social History Tobacco [...] Care Team (Late st Contact Info) Description 02/04/2025 1:30 PM EDT Office Visit [facility] [address] [address] Yobany Leahy DPM [address] [place] [address] Health Maintenance Due Date Last Done Comments [...] Influencers of Health Screening 03/13/2024 Influenza Vaccine (#1) 2025 HIB Vaccines Aged Out No longer [...] ID:[id number] Group ID:[id number] Type:Not on file Address: [place] [address] [address] [address] [id number] Care Teams Floral Artist Relationship Specialty Start Date End Date Darrel Mcclure PA [facility] [place] [phone] PCP - General 01/23/24
== END 2024-11-25 15:39 | disposition home or self-care (01) ==
LOC: HO.HUSH 14:29
PROVIDERS: PCP Physician Assistant; Visit Provider Urology
DX: N30.90 Cystitis, unspecified without hematuria (principal); N32.89 Other specified disorders of bladder; Z13.9 Encounter for screening, unspecified
CPT/HCPCS: 99213; G2211

== ENCOUNTER → 2024-11-25 14:28 | Outpatient (BNVA) | payer OTHER, SELFPAY | PROVIDERS: PCP Physician Assistant; Visit Provider Urology | DX: E11.9 Type 2 diabetes mellitus without complications (principal); N32.89 Other specified disorders of bladder; N30.90 Cystitis, unspecified without hematuria; Z79.4 Long term (current) use of insulin | CPT/HCPCS: 81003; 99212 ==

== ENCOUNTER 2025-02-03 09:52 | Outpatient (AMB) | payer OTHER, SELFPAY ==
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
[2025-02-03 09:58] VITALS: BP 120/70; PULSE 98; TEMP 36.2; O2SAT 92; BMI 39.2
--- OUTSIDE RECORDS SUMMARY | 2025-02-03 11:46 | XMS_ITS | Clinical Summary ---
Author Organization 175 [facility] Address 175 [place] [address] Phone Care Team Providers Care Etl Bi Developer Name Role Phone Darrel Mcclure Primary Care Provider Allergies No known active allergies Medications No known medications Encounters Date Type Department Care Team Description 11/04/2024 1:15 PM EDT Office Visit [facility] [address] [address] Yobany Leahy DPM Hallux rigidus [...] 1:30 PM EDT Office Visit [facility] [address] [address] Yobany Leahy DPM [address] [address] Health Maintenance Due Date Last Done Comments [...] Years) (1 of 2 - PCV) 2010 Cholesterol Screening (Lipid Panel) 03/13/2024 Diabetes: Annual Urine Albumin-Creatinine Ratio (uACR) 03/13/2024 Diabetes: Blood Sugar Contro l Test (HGBA1C) 03/13/2024 HIV Screening 03/13/2024 Hepatitis C Screening 03/13/2024 Hypertension/CHF/CAD Annual BMP Blood Test 03/13/2024 Medicare Annual Wellness Visit 03/13/2024 Social Influencers of Health Screening 03/13/2024 Depression Screening 05/20/2024 COVID-19 Vaccine ( - 2023-2 5 season) 2025 Influenza Vaccine (#1) 2025 HIB Vaccines Aged [...] complete this topic RSV Immunization Patients Un eruben 20 months Aged Out No longer eligible b ased on patient's age to complete this topic Varicella Vaccines Aged Out No longer eligible based on patient's age to complete this topic Insurance [facility] MEDICARE Member Subscriber Plan / Payer (Ef fective 2024-Present) Name:ELISE LUGO Relation to Subscriber:Self Name:Elise Lopez Payer ID:[id number] Group ID:[id number] Type:Not on file Address: [place] [address] [address] [address] [id number] Care Teams Etl Bi Developer Relationship Specialty Start Date End Date Darrel Mcclure PA [address] [place] [id number] PCP - General 01/23/24
--- OUTSIDE RECORDS SUMMARY | 2025-02-03 11:46 | XMS_ITS | Encounter Summary ---
Author Organization [facility] Address [address] [facility] 200 [place] [address] Phone Care Team Providers Care Academic Advisor Name Role Phone Darrel Mcclure Primary Care Provider [phone] Reason for Visit * Reason Comments Med Refill Encounter Details Date Type Department Care Team (Late Contact Info) Description 02/28/2022 Refill [facility] [address] [facility] 200 [place] [id number] Pir Gudino MD Type 2 diabetes mellitus [...] Upcoming Encounters Date Type Department Care Team ([facility] Contact Info) Description 11/30/2025 1:00 PM EDT Office Visit [facility] [address] [address] Yani Lezama ARNP [address] [address] documented as of this encounter Visit Diagnoses Diagnosis Type 2 diabetes mellitus with diabetic chronic kidney disease (HCC) Isolated proteinuria documented in this encounter Care Teams Academic Advisor Relationship Specialty Start Date End Date Darrel Mcclure PA [address] [place] [address], [address] [place] [address] PCP - General Physician Pants Busheler 03/24/21 documented as of this encounter
--- OUTSIDE RECORDS SUMMARY | 2025-02-03 11:46 | XMS_ITS | Encounter Summary ---
Author Organization [facility] Address 100 [facility] 200 [place] [address] Phone Care Team Providers Care Live Ammunition Inspector Name Role Phone Darrel Mcclure Primary Care Provider [phone] Reason for Visit * Reason Comments Med Refill Encounter Details Date Type Department Care Team (Late Contact Info) Description 04/25/2022 [facility] 200 [place] [phone] Pir Gudino MD Proteinuria, not otherwise specified; [...] Department Care Team (Late Contact Info) Description 11/30/2025 1:00 PM EDT Office Visit [facility] [address] [address] Yani Lezama ARNP [address] [address] documented as of this encounter Visit Diagnoses Diagnosis Proteinuria, not otherwise specified Type 2 diabetes mellitus with diabetic chronic kidney disease (HCC) documented in this encounter Care Teams Live Ammunition Inspector Relationship Specialty Start Date End Date Darrel Mcclure PA [address] [place] [address], [address] [place] [address] PCP - General Physician Soil Chemist 03/24/21 documented as of this encounter
--- OUTSIDE RECORDS SUMMARY | 2025-02-03 11:46 | XMS_ITS | Clinical Summary ---
Author Organization [facility] Address [address] [place] [address] Phone Care Team Providers Care C Engineer Name Role Phone Darrel Mcclure Primary Care Provider [phone] Allergies Active Allergy Reactions Criticality Noted Date Comments Bee Pollen 04/04/2021 Carbamazepine 04/04/2021 Clindamycin 04/04/2021 Lactose 04/04/2021 Nortriptyline 04/04/2021 Risperidone 04/04/2021 Sulfa Antibiotics 04/04/2021 Medications benztropine (COGENTIN) 0.5 MG tablet Take 0.5 mg by mouth 1 (one) time each day TAKE ONE TAB ONCE DAILY Active chlorproMAZINE (THORAZINE) 100 MG tablet Take 200 mg by mouth in the morning and 200 mg in the evening. 1 Active clonazePAM (KlonoPIN) 1 MG tablet Take 0.5 mg by mouth 1 (one) time each day TAKE ONCE DAILY NEEDED Active divalproex (DEPAKOTE) 500 MG EC tablet Take 500 mg by mouth 1 (one) time each day in the morning TAKE 1000 MG ONCE NIGHTLY 1 Active EPINEPHrine (EPIPEN) 0.3 MG/0.3ML injection syringe 1 Active FLUoxetine (PROzac) 20 MG capsule Take 80 mg by mouth 1 (one) time each day 1 Active levothyroxine (SYNTHROID, LEVOTHROID) 125 MCG tablet Take 62.5 mcg by mouth 1 (one) time each day TAKE ONE TAB ONCE DAILY Active loratadine (CLARITIN) 10 MG tablet Take 10 mg by mouth 1 (one) time each day TAKE ONE TAB ONCE DAILY 1 Active multivitamin (THERAGRAN) tablet Take 1 tablet by mouth 1 (one) time each day 1 Active pantoprazole (PROTONIX) 40 MG EC tablet Take 40 mg by mouth 1 (one) time each day before breakfast 1 Active acetaminophen (TYLENOL) 325 MG tablet [...] (one) time each day 90 tablet 4 Active bacitracin ointment Apply topically in the morning and in the evening. Active divalproex (DEPAKOTE) 500 MG EC tablet Take 1,000 mg by mouth at bed time Do not crush, chew, or split. Active rosuvastatin (CRESTOR) 40 MG tablet Take 40 mg by mouth 1 (one) time each day Active metoprolol succinate XL (TOPROL XL) 25 MG 24 hr tablet Take 25 mg by mouth 1 (one) time each day Do not crush or chew. Active Active Problems Problem Noted Date Diagnosed Date Hypertension 11/30/2024 Nephrolithiasis 01/14/2023 Hypotension 01/14/2023 Bacterial urinary infection 01/10/2022 Type 2 diabetes mellitus 04/09/2021 Bipolar disorder 04/09/2021 Albuminuria 04/09/2021 Hypothyroidism 04/09/2021 Gastroesophageal reflux disease 04/09/2021 Encounters Date Type Department Care Team Description 11/30/2024 8:30 AM EDT Office Visit [facility] [address] [phone] Yani Lezama ARNP Other proteinuria (Primary Dx); Hypertension; Nephrolithiasis from Last 3 Months Family History Medical [...] Sign Reading Time Taken Comments Blood Pressure 130/84 11/30/2024 8:54 AM EDT Pulse 104 11/30/2024 8:38 AM EDT Temperature - - Respiratory Rate - - Oxygen Saturation 97% 11/30/2024 8:38 AM EDT Inhaled Oxygen Concentration - - Weight 131 kg (288 lb 6.4 oz) 11/30/2024 8:38 AM EDT Height - - Body Mass Index - - Plan of Treatment Upcoming Encounters Date Type Department Care Team (Late st Contact Info) Description 11/30/2025 1:00 PM EDT Office Visit [facility] [address] [phone] Yani Lezama ARNP [address] [phone] Health Maintenance Due Date Last [...] Procedure Name Priority Date/Time Associated Diagnosis Comments PROTEIN / CREATININE RATIO, URINE Routine 12/08/2024 3:27 PM EDT Other proteinuria Type 2 diabetes mellitus with diabetic chronic kidney disease (HCC) RENAL FUNCTION PANEL Routine 12/08/2024 3:27 PM EDT Other proteinuria Type 2 diabetes mellitus with diabetic chronic kidney disease (HCC) EXT RESULT ENTRY Routine 09/07/2020 from Last 3 Months or Most Recently Relevant to Health Maintenance Results * Urine Protein / creatinine ratio (12/08/2024 3:27 PM EDT) Creatinine, Ur 121.7 Not Estab. mg/dL [facility] Protein, Ur 16.6 Not Estab. mg/dL [facility] Urine Protein/Creatin ine Ratio 136 0 - 200 mg/g creat [facility] Urine specimen (specimen) Urine specimen obtained by clean catch procedure / Unknown 12/08/2024 3:27 PM EDT 12/08/2024 us Steve Joyce MD LAB URINE ORDERABLES Final Resu lt [facility] [address] [place] [address] * (ABNORMAL) Renal function panel (12/08/2024 3:27 PM EDT) Glucose 161(H) 70 - 99 mg/dL [facility] BUN 12 6 - 20 mg/dL [facility] Sodium 138 134 - 144 mmol/L [facility] Potassium 5.0 3.5 - 5.2 mmol/L [facility] Chloride 100 96 - 106 mmol/L [facility] Bicarbonate (CO2) 21 20 - 29 mmol/L [facility] Calcium 9.0 8.7 - 10.2 mg/dL [facility] Phosphorus 3.2 2.8 - 4.1 mg/dL [facility] Albumin 4.1 4.1 - 5.1 g/dL [facility] Creatinine 0.90 0.76 - 1.27 mg/dL [facility] 2020 116 >59 mL/min/1.7 3 [facility] BUN/Creatinine Ratio 13 9 - 20 [facility] Blood specimen (specimen) Venous blood / Unknown 12/08/2024 3:27 PM EDT 12/08/2024 us Steve Joyce MD LAB BLOOD ORDERABLES Final Resu lt [facility] [address] [place] [address] * (ABNORMAL) EXT RESULT ENTRY (09/07/2020) WBC [...] 9.5 8.7 - 10.7 mg/dL eGFR Non-Afr Turkmen >60 Hemoglobin A1C 7.0(A) 4.0 - 6.0 [...] Phone Billing Address Personal/Family Self 1990 [address] ([id number]) * Guarantor: Tobias Francis Account Type Relation to Patient Date of Phone Billing Address Personal/Family Self [address] ([id number]) Care Teams C Engineer Relationship Specialty Start Date End Date Darrel Mcclure PA [address] [facility], [address] [place] [address] PCP - General Physician Glass Block Bender 03/24/21
== END 2025-02-03 10:40 | disposition home or self-care (01) ==
LOC: HO.HMCH 09:53
PROVIDERS: PCP Physician Assistant; Visit Provider Physician Assistant
DX: E11.8 Type 2 diabetes mellitus with unspecified complications (principal); E11.65 Type 2 diabetes mellitus with hyperglycemia; Z79.4 Long term (current) use of insulin; E66.812 Obesity, class 2; Z68.39 Body mass index [BMI] 39.0-39.9, adult; I10 Essential (primary) hypertension; E03.9 Hypothyroidism, unspecified; E78.1 Pure hyperglyceridemia

== ENCOUNTER → 2025-02-03 09:52 | Outpatient (BNVA) | payer OTHER, SELFPAY | PROVIDERS: PCP Physician Assistant; Visit Provider Physician Assistant | DX: E11.65 Type 2 diabetes mellitus with hyperglycemia (principal); I10 Essential (primary) hypertension; E03.9 Hypothyroidism, unspecified; R00.0 Tachycardia, unspecified; E66.812 Obesity, class 2; E78.1 Pure hyperglyceridemia; Z68.39 Body mass index [BMI] 39.0-39.9, adult | CPT/HCPCS: 83036; 99212 ==

== ENCOUNTER 2025-02-15 17:33 | Emergency (ER) | payer OTHER, SELFPAY ==
--- NOTE | ~2025-02-15 | XR_ITS ---
CLINICAL HISTORY: chest pain 2 view chest x-ray Comparison: CR/SR - XR CHEST 2 VIEWS - 05/17/23 13:23 EST Findings: The lungs are clear. Heart size is normal. No acute fracture. IMPRESSION: 1. No acute findings. This document has been electronically signed by: Shad Colon MD on 02/15/2025 18:22:11
--- NOTE | 2025-02-15 17:36 | ECG_ITS ---
Test Reason : CP Blood Pressure : */* mmHG Vent. Rate : 112 BPM Atrial Rate : 112 BPM P-R Int : 144 ms QRS Dur : 90 ms QT Int : 338 ms P-R-T Axes : 32 -7 41 degrees QTcB Int : 461 ms Sinus tachycardia Minimal voltage criteria for LVH, may be normal variant ( R in aVL ) Borderline ECG No significant changes when compared with the previous EKG of 12/22/2023 Referred By: Rachel Bearden Electronically Signed By: HARRIET TATE
[2025-02-15 17:47] VITALS: BP 126/80; PULSE 114; PULSE 118; RESP 18; TEMP 36.9; O2SAT 94; O2SAT 96; BMI 37.0
--- NOTE | 2025-02-15 18:55 | PC.NURSE ---
Patient was refusing to get blood drawn finally allowed me to draw labs and place an iv.
[2025-02-15 19:01] LABS: MANUAL DIFF FLAG NO
[2025-02-15 19:03] LABS: Hematocrit 37.5 % (42.0-52.0); Hemoglobin 12.4 g/dl (14.0-18.0); Imm Gran Abs Auto 0.03 X10*3/uL (0.00-0.03); Imm Gran Pct Auto 0.4 % (0.0-0.4); Lymphocytes Absolute Auto 3.3 X10*3/uL (1.2-4.9); Mean Corpuscular HGB Conc 33.1 g/dl (31.0-36.0); Mean Corpuscular Hemoglobin 27.5 pg (27.0-33.0); Mean Corpuscular Volume 83.1 fL (80.0-98.0); NRBC Abs Auto 0.000 X10*3/uL (0.0-0.012); NRBC Pct Auto 0.0 /100WBC (0.0-0.2); Platelet Count 180 X10*3/uL (160-400); Red Blood Count 4.51 X10*6/uL (4.60-5.80); White Blood Count 7.4 X10*3/uL (4.8-10.8)
[2025-02-15 19:21] LABS: Alanine Aminotransferase 30 U/L (0-40); Albumin Level 4.3 g/dL (3.5-5.0); Alkaline Phosphatase 65 U/L (39-117); Anion Gap 17 (12-20); Aspartate Amino Transferase 21 U/L (5-37); Blood Urea Nitrogen 10 mg/dL (9-16); Calcium 9.3 mg/dL (8.4-10.2); Carbon Dioxide 26 mmol/L (22-29); Chloride 103 mmol/L (96-108); Creatinine Clr Calc Pharmacy 194.9; Estimated Glomerular Filt Rate > 60; Magnesium 1.5 mg/dL (1.6-2.6); Potassium 4.5 mmol/L (3.3-5.1); Sodium 141 mmol/L (135-145); Total Protein 6.4 g/dL (6.5-8.0)
[2025-02-15 19:27] LABS: NT Pro B Type Natriuretic Pept 90.3 pg/mL (<300); Troponin-I High Sensitivity 2.8 ng/L (<3.5-35.0)
[2025-02-15 20:18] VITALS: BP 122/89; PULSE 108; RESP 16; TEMP 36.3; O2SAT 96
[2025-02-15 20:20] LABS: D Dimer High Sensitivity < 150 NG/ML
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
--- OUTSIDE RECORDS SUMMARY | 2025-02-15 21:01 | XMS_ITS | Clinical Summary ---
Author Organization [facility] Address 100 [facility] 20 0 [place] [address] Phone Care Team Providers Care Manufacturing Finance Manager Name Role Phone Darrel Mcclure Primary Care Provider [phone] Allergies Active Allergy Reactions Criticality Noted Date [...] Office Visit [facility] [address] [phone] Yani Lezama ARNP Other proteinuria (Primary Dx); [...] Visit [facility] [address] [phone] Yani Lezama ARNP [address] [address] Health Maintenance Due Date Last [...] Creatinine, Ur 121.7 Not Estab. mg/dL [facility] Protein, Ur 16.6 Not Estab. mg/dL [facility] Urine Protein/Creatin ine Ratio 136 0 - 200 mg/g creat [facility] Urine specimen (specimen) Urine specimen obtained by clean catch procedure / Unknown 12/08/2024 3:27 PM EDT 12/08/2024 us Steve Joyce MD LAB URINE ORDERABLES Final Resu lt [facility] [address] [place] [address] * (ABNORMAL) Renal function panel (12/08/2024 3:27 PM EDT) Glucose 161(H) 70 - 99 mg/dL [facility] BUN 12 6 - 20 mg/dL [facility] Sodium 138 134 - 144 mmol/L [facility] Potassium 5.0 3.5 - 5.2 mmol/L [facility] Chloride 100 96 - 106 mmol/L [facility] Bicarbonate (CO2) 21 20 - 29 mmol/L [facility] Calcium 9.0 8.7 - 10.2 mg/dL [facility] Phosphorus 3.2 2.8 - 4.1 mg/dL [facility] Albumin 4.1 4.1 - 5.1 g/dL [facility] Creatinine 0.90 0.76 - 1.27 mg/dL [facility] e[facility]-EPI CR 2020 116 >59 mL/min/1.7 3 [facility] BUN/Creatinine Ratio 13 9 - 20 [facility] Blood specimen (specimen) Venous blood / Unknown 12/08/2024 3:27 PM EDT 12/08/2024 us Steve Joyce MD LAB BLOOD ORDERABLES Final Resu lt [facility] [address] [place] [address] * (ABNORMAL) EXT RESULT ENTRY (09/07/2020) WBC [...] 9.5 8.7 - 10.7 mg/dL eGFR Non-Afr Guyanese >60 Hemoglobin A1C 7.0(A) 4.0 - 6.0 [...] Phone Billing Address Personal/Family Self [address] ([id number]) * Guarantor: Tobias Francis Account Type Relation to Patient Date of Phone Billing Address Personal/Family Self [address] ([id number]) Care Teams Manufacturing Finance Manager Relationship Specialty Start Date End Date Darrel Mcclure PA [address] [facility], [address] [place] [address] PCP - General Physician Petroleum Transport Driver 03/24/21
--- OUTSIDE RECORDS SUMMARY | 2025-02-15 21:01 | XMS_ITS | Encounter Summary ---
Author Organization [facility] Address 100 [facility] 200 [place] [address] Phone Care Team Providers Care Vp Cardiovascular Name Role Phone Darrel Mcclure Primary Care Provider [phone] Reason for Visit * Reason Comments Med Refill Encounter Details Date Type Department Care Team (Late Contact Info) Description 04/25/2022 Refill [facility] 200 [place] [phone] Pir Gudino MD Proteinuria, not otherwise specified; [...] Visit [facility] [address] [phone] Yani Lezama ARNP [address] [address] documented as of this encounter Visit Diagnoses Diagnosis Proteinuria, not otherwise specified Type 2 diabetes mellitus with diabetic chronic kidney disease (HCC) documented in this encounter Care Teams Vp Cardiovascular Relationship Specialty Start Date End Date Darrel Mcclure PA [address] [place] [address], [address] [place] [address] PCP - General Physician Straight Edger 03/24/21 documented as of this encounter
--- OUTSIDE RECORDS SUMMARY | 2025-02-15 21:01 | XMS_ITS | Encounter Summary ---
Author Organization [facility] Address 100 [facility] 200 [place] [address] Phone Care Team Providers Care Business Development Specialist Name Role Phone Darrel Mcclure Primary Care Provider [phone] Reason for Visit * Reason Comments Med Refill Encounter Details Date Type Department Care Team (Late Contact Info) Description 02/28/2022 Refill [facility] 100 [facility] 200 [place] [phone] Pir Gudino MD Type 2 diabetes mellitus [...] Encounters Date Type Department Care Team ([facility] Contact Info) Description 11/30/2025 1:00 PM EDT Office Visit [facility] 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
--- OUTSIDE RECORDS SUMMARY | 2025-02-15 21:01 | XMS_ITS | Encounter Summary ---
Author Organization [facility] Address [address] [place] [address] Care Team Providers Care Operations Research Engineer Name Role Phone Darrel Mcclure Primary Care Provider Reason for Visit * Reason Onset Date Comments D/C of Med 02/11/2025 Encounter Details Date Type Department Care Team (Late st Contact Info) Description 02/11/2025 Telephone Orthopedic [facility] [address] [address] Yobany Leahy DPM [address] [address] Social History Tobacco Use Types Packs/Day Years Used Date Smoking Tobacco: Never Assessed Sex and Gender Information Value Date Recorded Sex Assigned at Not on file Legal Sex Male 7:08 PM EST Gender Identity Not on file Sexual Orientation Not on file documented as of this encounter Progress Notes * Anabel Diaz - 02/11/2025 12:49 PM EDT Pt's bathhouse attendant from his halfway called. Will be faxing over a discontinuation of medication for Dr. Leahy to sign. documented in this encounter Plan of Treatment Upcoming Encounters Date Type Department Care Team (Late st Contact Info) Description 05/06/2025 1:15 PM EST Office Visit [facility] [address] [address] Yobany Leahy DPM [address] [address] documented as of this encounter Visit Diagnoses Not on filedocumented in this encounter Care Teams Operations Research Engineer Relationship Specialty Start Date End Date Darrel Mcclure PA [address] [place] [address] PCP - General 01/23/24 documented as of this encounter
--- OUTSIDE RECORDS SUMMARY | 2025-02-15 21:01 | XMS_ITS | Clinical Summary ---
Author Organization 175 [facility] Address 175 [place] [address] Phone Care Team Providers Care Air Route Traffic Controller Name Role Phone Darrel Mcclure Primary Care Provider Allergies No known active allergies Medications No known medications Encounters Date Type Department Care Team Description 02/11/2025 Telephone [facility] [address] [address] Yobany Leahy DPM 02/04/2025 1:30 PM EDT Office Visit [facility] [address] [address] Yobany Leahy, DPM Hallux rigidus of right foot (Primary [...] Upcoming Encounters Date Type Department Care Team ([facility] st Contact Info) Description 05/06/2025 1:15 PM EST Office Visit Orthopedic Surgery - [place] 250 175 [facility] 250 [place] [address] Yobany Leahy, DPM [address] [address] Health Maintenance Due Date Last [...] 5 season) 2025 Influenza Vaccine (#1) 2025 RSV Immunization Adult Patie nts (1 - 1-dose 75+ series) 2066 HIB Vaccines Aged Out No longer eligi [...] ID:[id number] Group ID:[id number] Type:Not on file Address: [place] [address] [address] [id number] Care Teams Air Route Traffic Controller Relationship Specialty Start Date End Date Darrel Mcclure PA [address] [place] [address] PCP - General 01/23/24
[2025-02-15] MEDS: Magnesium Sulfate/H2O 2 GM/50 ML PIGGYBACK IV (21:18)
[2025-02-15 22:05] VITALS: BP 154/89; PULSE 107; RESP 16; TEMP 36.7; O2SAT 95
[2025-02-15 22:43] VITALS: BP 154/89; PULSE 107; RESP 16; TEMP 36.7; O2SAT 95
== END 2025-02-15 22:44 | disposition home or self-care (01) ==
PROVIDERS: Physician Assistant Medical; Emergency Provider Emergency Medicine; PCP Physician Assistant
DX: R07.89 Other chest pain (principal); I10 Essential (primary) hypertension; R00.0 Tachycardia, unspecified; Z87.442 Personal history of urinary calculi; Z79.899 Other long term (current) drug therapy
CPT/HCPCS: 36415; 71046; 80053; 83735; 83880; 84443; 84484; 85025; 85379; 93005; 96365; 99284; J3475

== ENCOUNTER → 2025-02-15 17:36 | Outpatient (BNV) | payer OTHER, SELFPAY | PROVIDERS: Visit Provider Radiology Vascular & Interventional Radiology | DX: R07.9 Chest pain, unspecified (principal) | CPT/HCPCS: 71046 ==

== ENCOUNTER → 2025-02-15 17:36 | Outpatient (BNV) | payer OTHER, SELFPAY | PROVIDERS: Emergency Provider Emergency Medicine; PCP Physician Assistant; Visit Provider Internal Medicine | DX: R00.0 Tachycardia, unspecified (principal) | CPT/HCPCS: 93010 ==

== ENCOUNTER 2025-03-03 10:18 | Outpatient (AMB) | payer OTHER, SELFPAY ==
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
[2025-03-03 10:29] VITALS: BP 140/94; PULSE 85; TEMP 36.4; O2SAT 96; BMI 36.2
--- OUTSIDE RECORDS SUMMARY | 2025-03-03 12:11 | XMS_ITS | Clinical Summary ---
Author Organization [facility] Address 100 [facility] [address] [place] [address] Phone Care Team Providers Care Digital Measurement Advisor Name Role Phone Darrel Mcclure Primary Care Provider [phone] Allergies Active Allergy Reactions Criticality Noted Date [...] 04/09/2021 Hypothyroidism 04/09/2021 Gastroesophageal reflux disease 04/09/2021 Family History Medical History Relation Comments Cancer [...] Visit [facility] [address] [phone] Yani Lezama ARNP [address] [address] Health Maintenance Due Date Last [...] Creatinine, Ur 121.7 Not Estab. mg/dL [facility] Protein, Ur 16.6 Not Estab. mg/dL [facility] Urine Protein/Creatin ine Ratio 136 0 - 200 mg/g creat [facility] Urine specimen (specimen) Urine specimen obtained by clean catch procedure / Unknown 12/08/2024 3:27 PM EDT 12/08/2024 us Steve Joyce MD LAB URINE ORDERABLES Final Resu lt [facility] [address] [place] [address] * (ABNORMAL) Renal function panel (12/08/2024 3:27 PM EDT) Glucose 161(H) 70 - 99 mg/dL [facility] BUN 12 6 - 20 mg/dL [facility] Sodium 138 134 - 144 mmol/L [facility] Potassium 5.0 3.5 - 5.2 mmol/L [facility] Chloride 100 96 - 106 mmol/L [facility] Bicarbonate (CO2) 21 20 - 29 mmol/L [facility] Calcium 9.0 8.7 - 10.2 mg/[facility] Phosphorus 3.2 2.8 - 4.1 mg/dL [facility] Albumin 4.1 4.1 - 5.1 g/dL [facility] Creatinine 0.90 0.76 - 1.27 mg/dL [facility] eGFR CKD-EPI CR 2020 116 >59 mL/min/1.7 3 [facility] BUN/Creatinine Ratio 13 9 - 20 [facility] Blood specimen (specimen) Venous blood / Unknown 12/08/2024 3:27 PM EDT 12/08/2024 us Steve Joyce MD LAB BLOOD ORDERABLES Final Resu lt [facility] [address] [place] [address] * (ABNORMAL) EXT RESULT ENTRY (09/07/2020) WBC [...] 9.5 8.7 - 10.7 mg/dL eGFR Non-Afr Ivorian >60 Hemoglobin A1C 7.0(A) 4.0 - 6.0 [...] Phone Billing Address Personal/Family Self 1990 [address] ([id number]) * Guarantor: Tobias Francis Account Type Relation to Patient Date of Phone Billing Address Personal/Family Self [address] ([id number]) Care Teams Digital Measurement Advisor Relationship Specialty Start Date End Date Darrel Mcclure PA [address] [place] [address], [address] [place] [address] PCP - General Physician Instructor Traffic Safety 03/24/21
--- OUTSIDE RECORDS SUMMARY | 2025-03-03 12:11 | XMS_ITS | Clinical Summary ---
Author Organization [facility] Address 175 [place] [address] Phone Care Team Providers Care Electric Motors Salesperson Name Role Phone Darrel Mcclure Primary Care Provider Allergies No known active allergies Medications No known medications Encounters Date Type Department Care Team Description 02/11/2025 Telephone Orthopedic [facility] [address] [address] Yobany Leahy DPM 02/04/2025 1:30 PM EDT Office Visit Orthopedic [facility] [address] [address] Yobany Leahy, DPM Hallux rigidus [...] Upcoming Encounters Date Type Department Care Team ([facility] st Contact Info) Description 05/06/2025 1:15 PM EST Office Visit Orthopedic Surgery - [place] 250 175 [facility] 250 [place] [address] Yobany Leahy, DPM [address] [address] Health Maintenance Due Date Last [...] Years) (1 of 2 - PCV) 2010 HPV Vaccines (1 - 3-dose SCD M series) 2018 Cholesterol Screening (Lipid Panel) 03/13/2024 Diabetes: Annual Urine Albumin-Creatinine Ratio (uACR) 03/13/2024 Diabetes: Blood Sugar Contro l Test (HGBA1C) 03/13/2024 HIV Screening 03/13/2024 Hepatitis C Screening 03/13/2024 Hypertension/CHF/CAD Annual BMP Blood Test 03/13/2024 Medicare Annual Wellness Visit 03/13/2024 Social Influencers of Health Screening 03/13/2024 Depression Screening 05/20/2024 COVID-19 Vaccine (1 - 2023-2 5 season) 2025 Influenza Vaccine [...] ID:[id number] Group ID:[id number] Type:Not on file Address: [place] [address] [address] [id number] Care Teams Electric Motors Salesperson Relationship Specialty Start Date End Date Darrel Mcclure PA [address] [place] [address] PCP - General 01/23/24
--- OUTSIDE RECORDS SUMMARY | 2025-03-03 12:11 | XMS_ITS | Encounter Summary ---
Author Organization [facility] Address [address] [facility] 200 [place] [address] Phone Care Team Providers Care Chief Cloth Finishing Range Operator Name Role Phone Darrel Mcclure Primary Care Provider [phone] Reason for Visit * Reason Comments Med Refill Encounter Details Date Type Department Care Team (Late Contact Info) Description 04/25/2022 Refill [facility] 200 [place] [phone] Pir Gudino MD Proteinuria, not otherwise specified; [...] Visit [facility] [address] [address] Yani Lezama ARNP [address] [address] documented as of this encounter Visit Diagnoses Diagnosis Proteinuria, not otherwise specified Type 2 diabetes mellitus with diabetic chronic kidney disease (HCC) documented in this encounter Care Teams Chief Cloth Finishing Range Operator Relationship Specialty Start Date End Date Darrel Mcclure PA [address] [place] [address], [address] [place] [address] PCP - General Physician Medical Equipment Repairer 03/24/21 documented as of this encounter
--- OUTSIDE RECORDS SUMMARY | 2025-03-03 12:11 | XMS_ITS | Encounter Summary ---
Author Organization [facility] Address [address] [place] [address] Care Team Providers Care Food Counter Worker Name Role Phone Darrel Mcclure Primary Care Provider Reason for Visit * Reason Onset Date Comments D/C of Med 02/11/2025 Encounter Details Date Type Department Care Team (Late st Contact Info) Description 02/11/2025 Telephone Orthopedic Surgery [facility] [address] [address] Yobany Leahy DPM [address] [address] Social History Tobacco Use Types Packs/Day Years Used Date Smoking Tobacco: Never Assessed Sex and Gender Information Value Date Recorded Sex Assigned at Not on file Legal Sex Male 7:08 PM EST Gender Identity Not on file Sexual Orientation Not on file documented as of this encounter Progress Notes * Anabel Diaz - 02/11/2025 12:49 PM EDT Pt's lodging house keeper from his [facility] called. Will be faxing over a discontinuation of medication for Dr. Leahy to sign. documented in this encounter Plan of Treatment Upcoming Encounters Date Type Department Care Team (Late st Contact Info) Description 05/06/2025 1:15 PM EST Office Visit Orthopedic Surgery [facility] [address] [address] Yobany Leahy DPM [address] [address] documented as of this encounter Visit Diagnoses Not on filedocumented in this encounter Care Teams Food Counter Worker Relationship Specialty Start Date End Date Darrel Mcclure PA [address] [place] [address] PCP - General 01/23/24 documented as of this encounter
--- OUTSIDE RECORDS SUMMARY | 2025-03-03 12:11 | XMS_ITS | Encounter Summary ---
Author Organization [facility] Address 100 [facility] 200 [place] [address] Phone Care Team Providers Care Roll Out Manager Name Role Phone Darrel Mcclure Primary Care Provider [phone] Reason for Visit * Reason Comments Med Refill Encounter Details Date Type Department Care Team (Late Contact Info) Description 02/28/2022 Refill [facility] 100 [facility] 200 [place] [phone] Pir Gudino MD Type 2 diabetes mellitus [...] Upcoming Encounters Date Type Department Care Team ([facility] Contact Info) Description 11/30/2025 1:00 PM EDT Office Visit [facility] 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
== END 2025-03-03 11:08 | disposition home or self-care (01) ==
LOC: HO.HMCH 10:19
PROVIDERS: PCP Physician Assistant; Visit Provider Physician Assistant
DX: R00.0 Tachycardia, unspecified (principal); L08.9 Local infection of the skin and subcutaneous tissue, unspecified; H61.22 Impacted cerumen, left ear

== ENCOUNTER → 2025-03-03 10:18 | Outpatient (BNVA) | payer OTHER, SELFPAY | PROVIDERS: PCP Physician Assistant; Visit Provider Physician Assistant | DX: H61.22 Impacted cerumen, left ear (principal); R00.0 Tachycardia, unspecified; E11.9 Type 2 diabetes mellitus without complications; L08.9 Local infection of the skin and subcutaneous tissue, unspecified | CPT/HCPCS: 69209; 99212 ==

== ENCOUNTER 2025-04-21 14:37 | Outpatient (AMB) | payer OTHER, SELFPAY ==
--- NOTE | 2025-04-21 14:42 | A.OFFVIS_ITS ---
Intake Visit Reasons: UA/PVR(set) Intake Note: Reason for Visit: Urinalysis/PVR Urology Meds: Alfuzosin Blood Thinners: None Labs: Last Urine Culture- 10/11/24 Imaging: None Last PVR: 0ml PVR: 29ml Maintenance Mechanic Required: No Heating Operators Engineer: Heating Operators Engineer Present Accompanied by: Silk Winding Machine Operator Allergies bee pollen (BEE STINGS) Allergy (Unknown, Verified 04/21/25 14:46) UNKNOWN carbamazepine (From TEGRETOL) Allergy (Unknown, Verified 04/21/25 14:46) UNKNOWN clindamycin (CLINDAMYCIN) Allergy (Unknown, Verified 04/21/25 14:46) UNKNOWN nortriptyline (Pamelor) Allergy (Unknown, Verified 04/21/25 14:46) Unknown risperidone (From RISPERDAL) Allergy (Unknown, Verified 04/21/25 14:46) UNKNOWN Sulfa (Sulfonamide Antibiotics) (SULFA (SULFONAMIDE ANTIBIOTICS)) Allergy (Unknown, Verified 04/21/25 14:46) UNKNOWN oxcarbazepine (From Trileptal) Allergy (Verified 04/21/25 14:46) Unknown lactose Adverse Reaction (Intermediate, Verified 04/21/25 14:46) Diarrhea pamlor Allergy (Uncoded 04/21/25 14:46) Unknown HPI Comments Details: Tobias is a pleasant male. He is a patient of Dr. Mcclure. He has seen for the following urologic conditions - urinary tract infection - insulin-dependent diabetic - bladder thickening UA today 2+ leuks, trace blood, positive protein Recent fall on ice Otherwise thinks urination has been doing much better Continue alfuzosin Yearly follow-up Urinary tract infection in setting of diabetes - bladder wall thickening CT scan September 2024 cystitis Secondary to Farxiga with glucosuria Recommend changing medication. Based on his body habitus would be a candidate for GLP 1 injections. Continue with alfuzosin Has been doing well with bladder emptying since being placed on alpha-jayla Original UA 3+ glucose consistent with SGLT2 use on Farxiga Diffuse thickening and trabeculation of the bladder wall. Bladder wall thickness of 0.6 cm Background seizure disorder, diabetes with diabetic polyneuropathy, long-term insulin use, SGLT2 PFSH Medical History Strain of intrinsic muscle of finger Bruise of both arms Injury of external genitalia Callus of toe Proteinuria Hyperlipidemia Advance directive indicates patient wish for full code resuscitation status Seizure disorder Gout Kidney stones Type 2 diabetes mellitus with diabetic polyneuropathy Hyperlipidemia LDL goal <100 Essential hypertension Obesity due to excess calories Type 2 diabetes mellitus with hyperglycemia, with long-term current use of insulin Sinusitis nasal Surgical History History of root canal procedure History of foot surgery History of surgery of head History of spinal surgery Family History Father Medical history unknown Lung cancer Mother Diabetes Substance abuse Family/Other FH: mental illness Social History Household Members Other:: roomate Housing: Other Housing Other:: [facility] Do you presently have visiting nurse or other home services: Yes (assistance from dept of mental health services) Alcohol intake: never Patient Tobacco Use Status: Never used Tobacco e-Cigarette/Vaping Use: Never Used Second Hand Smoke Exposure: No service: No Current occupational status: other Cognitive needs: No Hearing needs: No Vision needs: No Review of Systems Const Denies chills and Denies fever(s) Card Reports no additional complaints and Denies syncope Resp Denies cough GI Denies abdominal pain and Denies heartburn Reports as per HPI and Denies change in libido Neuro Denies syncope Psych Denies change in libido Endo Denies change in libido Physical Exam Const General: cooperative, healthy appearing, comfortable and no acute distress Orientation/consciousness: patient oriented x3 HEENT Face and sinus: Yes normal facial exam Mouth: moist mucous membranes Neck Neck: Yes normal visual inspection, Yes full ROM and Yes trachea midline Chest Chest palpation & inspection: normal inspection of the chest Resp Effort & Inspection: normal respiratory effort, able to speak in complete sentences and no respiratory distress GI Inspection: Yes normal to inspection Back/Spine/Pelvis Cervical Spine: normal cervical lordosis Thoracic/Lumbar Spine: thoracic and lumbar spine normal to inspection Skin General skin exam: no rashes or lesions noted Neuro General: patient oriented x3, gait normal, tone normal and moves all extremities Extrem General: Yes normal to inspection and Yes capillary refill normal Office Procedures Post Void Residual Post Residual Void Post Void Residual (PVR): 29 [id number] Void Residual by ultrasound Results AMB Urinalysis, Automated UA Leukoctes 125 Damián/uL Last Edit by Yani Landeros [facility] on 04/21/25 14:59 UA Nitrite Negative Last Edit by Yani Landeros, A on 04/21/25 14:59 UA Urobilinogen 0.2 mg/dL Last Edit by Yani Landeros, A on 04/21/25 14:5 9 UA Protein 100 mg/dL Last Edit by Yani Landeros, A on 04/21/25 14:59 UA pH 5.5 Last Edit by Yani Landeros, A on 04/21/25 14:59 UA Blood 10 Jarrett/uL Last Edit by Yani Landeros, [facility] on 04/21/25 14:59 UA Specific Orland 1.025 Last Edit by Yani Landeros, A on 04/21/25 14: 59 UA Ketone Positive Last Edit by Yani Landeros, [facility] on 04/21/25 14:59 UA Bilirubin 1 mg/dL Last Edit by Yani Landeros, A on 04/21/25 14:59 UA Glucose 0 mg/dL Last Edit by Yani Landeros, [facility] on 04/21/25 14:59 Assessment & Plan Assessment & Plan (1) Recurrent UTI: Code(s): N39.0 - Urinary tract infection, site not specified Category: Medical (2) Bladder wall thickening: Code(s): N32.89 - Other specified disorders of bladder Category: Medical Plan Twelve month follow-up PVR Orders: Orders AMB Urinalysis Automated Today Z13.9 - Encounter for screening, unspecified AMB Post Void Residual by ultrasound Today N32.89 - Other specified disorders of bladder Patient Instructions: This note is constructed using voice recognition software. While every effort has been made to ensure accuracy pattern chain builder errors may have been included. Imaging studies, laboratory and physical exam results were discussed and reviewed in detail. No major barriers to patient understanding were identified. An opportunity to ask questions regarding the treatment plan was provided. All questions were answered. The patient expressed understanding and agreement with the above treatment plan. The patient is aware they should contact our office by phone for worsening of their current condition or the appearance of new urologic symptoms. Compliance is encouraged with any medications and followup testing that is ordered. It is a privilege to participate in the urologic care of your patient. If you have any questions or concerns regarding treatment for the above conditions, or other urologic issues, please do not hesitate to contact me. The office telephone contact is [phone]. Sincerely, Dr Chucky Abernathy MD, [facility] - Urology Compassionate Specialist Care for the Genitourinary System Coding Level of Care Code Est Pt Level 3 (67318) Complex visit Add On G2211 Diagnoses Recurrent UTI N39.0 Bladder wall thickening N32.89 CPT Codes Post Residual Void - PVR CPT Code: 37362-Nyyp Void Residual by ultrasound ([id number])
--- OUTSIDE RECORDS SUMMARY | 2025-04-21 17:33 | XMS_ITS | Clinical Summary ---
Author Organization 175 [facility] Address [address] [place] [address] Phone Care Team Providers Care Exchange Specialist Name Role Phone Darrel Mcclure Primary Care Provider Allergies No known active allergies Medications No known medications Encounters Date Type Department Care Team Description 02/11/2025 Telephone Orthopedic [facility] [address] [address] Yobany Leahy DPM 02/04/2025 1:30 PM EDT Office Visit Orthopedic [facility] [address] [address] Yobany Leahy, DPM Hallux rigidus [...] Upcoming Encounters Date Type Department Care Team ([facility] st Contact Info) Description 05/06/2025 1:15 PM EST Office Visit Orthopedic Surgery - [place] 250 175 [facility] 250 [place] [address] Yobany Leahy, DPM [address] [address] Health Maintenance Due Date Last [...] Depression Screening 05/20/2024 COVID-19 Vaccine (1 - 2024-2 6 season) 2025 Influenza Vaccine (#1) 2025 RSV [...] ID:[id number] Group ID:[id number] Type:Not on file Address: [place] [address] [address] [address] [phone] Care Teams Exchange Specialist Relationship Specialty Start Date End Date Darrel Mcclure PA [address] [place] [address] PCP - General 01/23/24
== END 2025-04-21 15:11 | disposition home or self-care (01) ==
LOC: HO.HUSH 14:38
PROVIDERS: PCP Physician Assistant; Visit Provider Urology
DX: N39.0 Urinary tract infection, site not specified (principal); N32.89 Other specified disorders of bladder; Z13.9 Encounter for screening, unspecified
CPT/HCPCS: 99213; G2211

== ENCOUNTER → 2025-04-21 14:37 | Outpatient (BNVA) | payer OTHER, SELFPAY | PROVIDERS: PCP Physician Assistant; Visit Provider Urology | DX: N39.0 Urinary tract infection, site not specified (principal); E11.42 Type 2 diabetes mellitus with diabetic polyneuropathy; N32.89 Other specified disorders of bladder; Z79.4 Long term (current) use of insulin | CPT/HCPCS: 51798; 81003; 99212 ==